=== PATIENT | male | born 1975 | race Caucasian/White ===

== ENCOUNTER 2022-06-25 07:26 | Emergency (ER) | payer MEDICAID, SELFPAY ==
[2022-06-25 07:58] VITALS: BP 149/76; PULSE 90; RESP 16; TEMP 36.9; O2SAT 98; BMI 25.1
--- NOTE | 2022-06-25 08:03 | ED.GENADULT ---
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 he had n/v/d states he feels fine now has been resting, drinking without issue, ate dinner last night. has no dizziness/weakness. feels good to go to work today but employer wants a work note to return. complaint: requesting work note Onset (ago): day(s) (1) Severity: mild Relieving factors: none Exacerbating factors: none Associated symptoms: denies other symptoms Treatments prior to arrival: none Related Data Allergies Allergy/AdvReac Type Severity Reaction Status Date / Time No Known Allergies Allergy Unverified 05/16/20 18:21 Review of Systems Review of Systems: Constitutional : No Fever, No Chills Cardiovascular : No Chest Pain, No SOB Respiratory : No Cough, No Sputum, No Wheezing Gastrointestinal : No Nausea, No Vomiting, No Diarrhea Musculoskeletal : No joint pain, No Myalgias, No Joint Swelling Skin : No Skin Lesions, No rash Neuro : No Weakness, No Numbness, No Dizziness, No Headache Psych : No Anxiety/Panic, No Depression PMFSH Past Medical History Attestation statement: The following information was validated with the patient. Medical History No pertinent past medical history Social History Social History (Updated 06/25/22 @ 08:13 by Kaela Duke DO) Patient Tobacco Use Status: Current everyday Tobacco user Advance Directives: No Physical Exam ED Vital Signs: Vital Signs - 24 hr 06/25/22 07:58 Temperature 98.4 F Pulse Rate 90 Respiratory Rate 16 Blood Pressure 149/76 H Pulse Oximetry 98 Oxygen Delivery Method Room Air BMI result Body Mass Index 25.1 Appearance: Alert. Oriented X3. No acute distress. Eyes: Pupils equal, round and reactive to light. ENT: Pharynx normal. Neck: Normal inspection. Neck supple. CVS: Normal heart rate and rhythm. Pulses normal. Respiratory: No respiratory distress. Breath sounds normal. Abdomen: Soft and non-tender. Skin: Skin warm and dry. Normal skin color. Extremities: No lower extremity edema. Neuro: Oriented X 3. No motor deficit. No sensory deficit. Medical Decision Making MDM Narrative Medical decision making narrative: 47 yo male no sig PMH here with c/o needing work note - VS stable, no symptoms now, eager to return to work. stable for DC at this time Discharge Plan Discharge Clinical Impression: Normal exam Patient Disposition: Home, Self-Care Instructions: Normal Exam (ED) Additional Instructions: return to ED for any worsening symptoms or concerns Stand Alone Forms: Work/School Release
== END 2022-06-25 09:01 | disposition home or self-care (01) ==
PROVIDERS: Emergency Provider Emergency Medicine
DX: Z02.1 Encounter for pre-employment examination (principal)
CPT/HCPCS: 99282

== ENCOUNTER 2022-12-03 08:35 | Emergency (ER) | payer OTHER, SELFPAY ==
[2022-12-03 08:41] VITALS: BP 158/97; PULSE 118; RESP 14; TEMP 36.5; O2SAT 95; BMI 25.1
--- NOTE | 2022-12-03 08:50 | MHC.EDTECH ---
BELONGINGS IN LARGE ZIP LOCK BAGS IN DECON ROOM WITH SECURITY
--- NOTE | 2022-12-03 09:06 | ED_ITS ---
HPI - Overdose General Chief Complaint: ETOH/Substance Use Stated Complaint: FOUND UNRESP,?ETOH/DRIGS @ WORK,NARCAN GIVEN Time Seen by Provider: 12/03/22 09:17 Source: EMS Mode of arrival: EMS Limitations: no limitations History of Present Illness HPI Narrative: 47 years old was found unresponsive at work, EMS administered Narcan he is now awake and alert, denies SI and HI, he admits to use heroin complaint: accidental overdose Onset (ago): hour(s) (1) Intent: other (accidental) Context: Accidental Overdose: wanted to get high Treatments Prior to Arrival: narcan Related Data Allergies Allergy/AdvReac Type Severity Reaction Status Date / Time No Known Allergies Allergy Unverified 05/16/20 18:21 Review of Systems Constitutional: Constitutional: Reports no additional constitutional complaints ENT: Reports system reviewed and no additional complaints, except as documented Cardiovascular: Cardiovascular: Reports no additional cardiovascular complaints Psychiatric: Psychiatric: Reports no additional psychiatric complaints PMFSH [facility] N[facility]: History of opioid abuse Medical History No pertinent past medical history Social History Social History (Updated 06/25/22 @ 08:13 by Kaela Duke DO) Alcohol intake: current Patient Tobacco Use Status: Current everyday Tobacco user Smoked in Last 30 Days: Yes Use of substances other than those prescribed or required for medical reasons: Yes Substance Use Type: Heroin Advance Directives: No Advance Directives Information Provided: No Physical Exam Vital Signs: Vital Signs: Last Vital Signs Temp 98.0 F 12/03/22 14:18 Pulse 95 12/03/22 14:18 Resp 18 12/03/22 14:18 BP 133/92 H 12/03/22 14:18 Pulse Ox 93 12/03/22 14:18 O2 Del Method Room Air 12/03/22 14:18 BMI result Body Mass Index 25.1 Const: General: cooperative Nutritional Appearance: well nourished Orientation/consciousness: patient oriented x3 HEENT: Head: Yes normal to inspection Face and sinus: Yes normal facial exam Neck: Neck: Yes normal visual inspection and Yes full ROM Chest: Chest palpation & inspection: normal inspection of the chest Resp: Effort & Inspection: normal respiratory effort Auscultation: clear to auscultation bilaterally Cardio: Jugular venous distension: no JVD Rate: regular rate Rhythm: regular rhythm GI: Inspection: Yes normal to inspection Palpation (GI): Soft to palpation, not firm, nontender and no guarding Skin: General skin exam: no rashes or lesions noted Neuro: General: patient oriented x3 Cranial nerves: Yes CN's II-XII intact bilaterally Extrem: General: Yes normal to inspection Course Reevaluation(s) Reevaluation #1: Patient was seen in consultation by Care Team he declined detox Time: 14:58 Medications Administered Discontinued Medications Generic Name Dose Route Start Last Admin Trade Name Freq PRN Reason Stop Dose Admin Naloxone HCl 4 mg 12/03/22 12:24 12/03/22 14:21 Naloxone Hcl Nasal Take Home 4 Mg [place] NOSTRILALT 12/03/22 12:25 4 mg ONCE ONE Administration Medical Decision Making Medical Decision Making [facility] Narrative: Present presented with heroin overdose, will consult care team will observe 2:59 PM better 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
[2022-12-03 11:15] VITALS: PULSE 99; RESP 12
--- NOTE | 2022-12-03 11:22 | PC.NURSE ---
requesting dc. flores from recovery contacted
--- NOTE | 2022-12-03 12:16 | MHC.RECOVSUP ---
Met with pt in ED19. Pt reports having been sober for years and this was a one time slip up. Pt informs he had a bad sprained ankle and took 1 bag of heroin nasally to self medicate for the pain. 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 Pt has no further questions or concerns at this time.
[2022-12-03 14:18] VITALS: BP 133/92; PULSE 95; RESP 18; TEMP 36.7; O2SAT 93
[2022-12-03] MEDS: Naloxone HCl Nasal TAKE HOME 4 MG SPRAY NOSTRILALT (14:21)
== END 2022-12-03 15:05 | disposition home or self-care (01) ==
PROVIDERS: Emergency Provider Emergency Medicine
DX: T40.1X1A Poisoning by heroin, accidental (unintentional), initial encounter (principal); Y92.9 Unspecified place or not applicable; Z71.51 Drug abuse counseling and surveillance of drug abuser
CPT/HCPCS: 99284

== ENCOUNTER 2024-10-14 07:28 | Inpatient (IN) | payer MEDICAID, SELFPAY ==
[2024-10-14] VITALS (7 sets, daily range): BP systolic 108–143; BP diastolic 71–87; PULSE 103–133; RESP 18–20; TEMP 2.7–37.3; O2SAT 92–95; BMI 22.7
--- NOTE | ~2024-10-14 | US_ITS ---
CLINICAL HISTORY: abnormal liver enzymes elevated jaundice Exam: Ultrasound of the right upper quadrant of the abdomen. Comparison: None. Findings: Liver measures 22 cm in long axis. Dense increased echotexture throughout the liver without focal lesion or intrahepatic biliary ductal dilatation. Common bile duct is within normal limits. Moderate distention of the gallbladder without gallbladder wall thickening or cholelithiasis. Small volume ascites. Impression: 1. Hepatomegaly with dense increased hepatic echotexture. This can be seen with fatty infiltration or medical liver disease. 2. Ascites. This is likely a sequelae of the patient's hepatic disease and portal hypertension. This document has been electronically signed by: Memo Henriquez MD on 10/14/2024 08:34:40
--- NOTE | ~2024-10-14 | US_ITS ---
Ultrasound paracentesis History: Ascites. Risks and benefits and possible complications were discussed with the patient and consent form was signed. A safe pocket of ascitic fluid was identified using ultrasound guidance, and the overlying skin was marked. The abdomen prepped and draped in sterile fashion. 1% lidocaine was used as a local anesthetic. Using ultrasound guidance, a 5 fr catheter was placed into the ascitic pocket. 3.0 liters of yellow fluid was removed passively. The catheter was then removed. A few guest service representative images from before and after the examination were obtained. The procedure was performed by Bj Copeland PA-C and supervised by Dr. Beavers. US/US paracentesis abd w/image Impression: Ultrasound-guided paracentesis as described above. No immediate complications Electronically signed by: Tavares Beavers MD 11/07/2024 03:09 PM EDT RP
--- NOTE | ~2024-10-14 | XR_ITS ---
CLINICAL HISTORY: weakness 1 view chest x-ray Comparison: None Findings: The lungs are clear. There is elevation of the right hemidiaphragm. Normal size heart. No acute fracture. IMPRESSION: There is elevation of the right hemidiaphragm. This document has been electronically signed by: Cedric Gil MD on 10/14/2024 10:02:46
--- NOTE | 2024-10-14 07:41 | ECG_ITS ---
Test Reason : SEPSIS Blood Pressure : */* mmHG Vent. Rate : 104 BPM Atrial Rate : 104 BPM P-R Int : 116 ms QRS Dur : 102 ms QT Int : 382 ms P-R-T Axes : 44 21 36 degrees QTcB Int : 502 ms Sinus tachycardia Low voltage QRS Borderline ECG No previous ECGs available Referred By: Kaela Duke Electronically Signed By: TANIA LIRA MD
--- NOTE | 2024-10-14 07:53 | ED.ABDPAIN ---
HPI - Abdominal Pain General Chief Complaint: Abdominal Pain Stated Complaint: Loss of appetite; jaundice Time Seen by Provider: 10/14/24 07:33 Source: patient and old records reviewed Mode of arrival: ambulatory Limitations: no limitations History of Present Illness ED Provider: DARLENE ALVAREZ narrative: 49 yo male with PMH of ETOH abuse with withdrawal seizure in 2022 managed at [facility], denies IVDA, no known issues with liver. He does not take any medications at home. He has noticed increased fatigue, yellow eyes, leg swelling, abdominal girth, feels dehydrated though for 1 month. No recent infections/OTC meds. He drinks a tall boy and 4+ nips a day but admits that he never stops drinking and keeps a steady state. He denies black or bloody stools, fevers. He does have frequent n/v. MD elicited complaint: other Pertinent past history: other (ETOH abuse) Onset (ago): week(s) (1) Pain Consistency: intermittent Location: diffuse Severity: mild Quality: aching Radiation: none Migration to: no migration Exacerbating factors: eating and movement Relieving factors: nothing Associated symptoms: nausea and vomiting Related Data Allergies Allergy/AdvReac Type Severity Reaction Status Date / Time No Known Allergies Allergy Verified 10/14/24 07:36 Review of Systems Review of Systems Constitutional : No Fever, No Chills, No Fatigue ENT/Mouth : No sore throat, No Rhinorrhea Eyes: No Eye Pain, No Swelling, No Redness Cardiovascular : No Chest Pain, No SOB, No Dyspnea on Exertion, pos leg edema Respiratory : No Cough, No Sputum Gastrointestinal : pos Nausea, pos Vomiting, No Diarrhea, No abdominal Pain Genitourinary : No Dysuria, No Urinary Frequency, No Hematuria, Musculoskeletal : No joint pain, No Myalgias, No Joint Swelling Skin : No Skin Lesions, No rash Neuro : pos Weakness, No Numbness, No Dizziness, no Headache Psych : No Anxiety/Panic, No Depression All other systems reviewed and are negative [facility] Past Medical History Attestation statement: The following information was validated with the patient. Source: old records reviewed Medical History No pertinent past medical history Social History Social History Alcohol intake: current Patient Tobacco Use Status: Current everyday Tobacco user Substance Use Type: Heroin Advance Directives: No Advance Directives Information Provided: No Do you have a plan to hurt others: No Plan Physical Exam ED Vital Signs: Vital Signs - 24 hr 10/14/24 07:32 10/14/24 09:34 Temperature 98.1 F 98.2 F Pulse Rate 133 H 103 H Respiratory Rate 18 19 Blood Pressure 112/74 117/79 Pulse Oximetry 94 93 Oxygen Delivery Method Room Air Room Air BMI result Body Mass Index 22.7 Appearance: Alert. Oriented X3. No acute distress. Eyes: Pupils equal, round and reactive to light. Scleral icterus ENT: Pharynx very dry MM Neck: Normal inspection. Neck supple. CVS: Normal heart rate and rhythm. Pulses normal. Respiratory: No respiratory distress. Breath sounds normal. Abdomen: Soft and distended abdomen mild ascites Skin: Skin warm and dry. jaundice skin color. Normal skin turgor. Extremities: 1+ pitting ankle edema lower extremity edema. Neuro: Oriented X 3. No motor deficit. No sensory deficit. CN2-12 intact Course Course Course Narrative: possible infection suspected given WBC count and CRP I cannot tap his fluid given position of bowels will start ceftriaxone 926am. Medical Decision Making Medical Decision Making [facility] Narrative: 49 yo male with hx of ETOH abuse and withdrawal seizure 2022 now here still drinking with new onset ascites/leg edema and jaundice for 1 month at this time will obtain basic labs, hep panel, tylenol level, US to evaluate liver/GB. He will need to be started on magnesium, thiamine, phenobarb protocol - will start gentle fluids and IV albumin as well. Anticipate admission for ETOH hepatitis. he has no pain to suggest SBP I did look with bedside US for a pocket of fluid to test but he has no large pocket and his intestines are approximating the wall - both L and R sides of abdomen Differential Diagnosis Differential Diagnoses: The differential diagnosis associated with the presentation includes hepatitis, alcoholic hepatitis, dehydration, flory no pain or fevers to suggest SBP Admission/Observation Consideration of admission/observation: Escalation of care including admission/observation considered admit for further management and workup Consult Healthcare Provider Management of the patient was discussed with: Hospitalist (Dr. Alexander will admit) Lab Data [facility] Lab Attestation statement: I reviewed the patient's lab results. 10/14/24 08:43 10/14/24 08:40 Labs: Lab Results 10/14/24 10/14/24 10/14/24 Range/Units 08:40 08:43 08:44 WBC 15.8 H (4.8-10.8) X10*3/uL RBC 2.82 L (4.60-5.80) X10*6/uL Hgb 10.3 L (14.0-18.0) g/dl Hct 30.4 L (42.0-52.0) % MCV 107.8 H (80.0-98.0) fL MCH 36.5 H (27.0-33.0) pg MCHC 33.9 (31.0-36.0) g/dl RDW 16.1 H (11.0-16.0) % Plt Count 206 (160-400) X10*3/uL MPV 10.3 (9.4-12.4) fL Immature Gran % (Auto) 1.3 H (0.0-0.4) % Neut % (Auto) 79.9 H (45-73) % Lymph % (Auto) 10.0 L (20-40) % [place] % (Auto) 6.6 (2-11) % Eos % (Auto) 1.7 (0-4) % Baso % (Auto) 0.5 (0-2) % Lymph # (Auto) 1.6 (1.2-4.9) X10*3/uL [place] # (Auto) 1.0 (0.1-1.2) X10*3/uL Eos # (Auto) 0.3 (0.0-0.4) X10*3/uL Baso # (Auto) 0.1 (0.0-0.2) X10*3/uL Abs Immat Gran (auto) 0.20 H (0.00-0.03) X10*3/uL Absolute Neuts (auto) 12.6 H (2.0-8.3) x10*3/uL Absolute Nucleated RBC 0.090 H (0.0-0.012) X10*3/uL Nucleated RBC % (auto) 0.6 H (0.0-0.2) /100WBC PT 13.8 H (10.9-12.4) SEC INR 1.2 H (0.9-1.1) VBG pH 7.50 H (7.32-7.43) VBG pCO2 38 mmHg VBG pO2 32 mmHg VBG HCO3 30 H (22-26) mmol/L VBG O2 Saturation 40.0 % VBG Base Excess 7.0 mmol/L Sodium 137 (135-145) mmol/L Potassium 3.6 (3.3-5.1) mmol/L Chloride 97 (96-108) mmol/L Carbon Dioxide 23 (22-29) mmol/L Anion Gap 21 H (12-20) BUN 3 L (9-16) mg/dL Creatinine 0.64 (0.5-1.4) mg/dL Estim Creat Clear Calc 138.9 Estimated GFR > 60 Random Glucose 95 (60-115) mg/dL Lactic Acid (0.5-2.0) mmol/L Calcium 8.2 L (8.4-10.2) mg/dL Magnesium 1.5 L (1.6-2.6) mg/dL Total Bilirubin 5.7 H (0.0-1.0) mg/dL Direct Bilirubin 4.3 H (0.0-0.5) mg/dL AST 146 H (5-37) U/L ALT 35 (0-40) U/L Alkaline Phosphatase 518 H (39-117) U/L Ammonia (13-55) umol/L Lactate Dehydrogenase 390 H (118-273) U/L C-Reactive Protein 6.61 H (< or = 0.50) mg/dL Total Protein 6.1 L (6.5-8.0) g/dL Albumin 2.8 L (3.5-5.0) g/dL Lipase 42 (8-78) U/L Urine Color Urine Appearance Urine pH (5.0-9.0) Ur Specific Bryan (1.005-1.025) Urine Protein (Neg-Trace) mg/dL Urine Glucose (UA) (Negative) mg/dL Urine Ketones (Negative) mg/dL Urine Blood (Negative) Urine Nitrite (Negative) Ur Leukocyte Esterase (Negative) Urine Opiates Screen (Not Detect) Ur Buprenorphine Scrn (Not Detect) ng/mL Ur Oxycodone Screen (Not Detect) ng/mL Urine Methadone Screen (Not Detect) ng/mL Urine Fentanyl Screen (Not Detect) Acetaminophen < 3 (<30) mcg/mL Ur Barbiturates Screen (Not Detect) Ur Phencyclidine Scrn (Not Detect) Ur Amphetamines Screen (Not Detect) U Benzodiazepines Scrn (Not Detect) Urine Cocaine Screen (Not Detect) U Marijuana (THC) Screen (Not Detect) Ethyl Alcohol 171 mg/dL Hepatitis A IgM Ab Nonreactive (Nonreactive) Hep Bs Antigen Negative (Negative) Hep Bs Antibody NONREACTIVE (Nonreactive) Hep B Core Total Ab Nonreactive (Nonreactive) Hepatitis C Ab (EIA) Nonreactive (Nonreactive) Influenza Type A (PCR) NEGATIVE (Negative) Influenza Type B (PCR) NEGATIVE (Negative) RSV RNA Qual (PCR) NEGATIVE (Negative) SARS-CoV-2 RNA (RT-PCR) NEGATIVE (Negative) 10/14/24 10/14/24 10/14/24 Range/Units 08:48 09:23 09:56 WBC (4.8-10.8) X10*3/uL RBC (4.60-5.80) X10*6/uL Hgb (14.0-18.0) g/dl Hct (42.0-52.0) % MCV (80.0-98.0) fL MCH (27.0-33.0) pg MCHC (31.0-36.0) g/dl RDW (11.0-16.0) % Plt Count (160-400) X10*3/uL MPV (9.4-12.4) fL Immature Gran % (Auto) (0.0-0.4) % Neut % (Auto) (45-73) % Lymph % (Auto) (20-40) % [place] % (Auto) (2-11) % Eos % (Auto) (0-4) % Baso % (Auto) (0-2) % Lymph # (Auto) (1.2-4.9) X10*3/uL [place] # (Auto) (0.1-1.2) X10*3/uL Eos # (Auto) (0.0-0.4) X10*3/uL Baso # (Auto) (0.0-0.2) X10*3/uL Abs Immat Gran (auto) (0.00-0.03) X10*3/uL Absolute Neuts (auto) (2.0-8.3) x10*3/uL Absolute Nucleated RBC (0.0-0.012) X10*3/uL Nucleated RBC % (auto) (0.0-0.2) /100WBC PT (10.9-12.4) SEC INR (0.9-1.1) VBG pH (7.32-7.43) VBG pCO2 mmHg VBG pO2 mmHg VBG HCO3 (22-26) mmol/L VBG O2 Saturation % VBG Base Excess mmol/L Sodium (135-145) mmol/L Potassium (3.3-5.1) mmol/L Chloride (96-108) mmol/L Carbon Dioxide (22-29) mmol/L Anion Gap (12-20) BUN (9-16) mg/dL Creatinine (0.5-1.4) mg/dL Estim Creat Clear Calc Estimated GFR Random Glucose (60-115) mg/dL Lactic Acid 3.5 H* (0.5-2.0) mmol/L Calcium (8.4-10.2) mg/dL Magnesium (1.6-2.6) mg/dL Total Bilirubin (0.0-1.0) mg/dL Direct Bilirubin (0.0-0.5) mg/dL AST (5-37) U/L ALT (0-40) U/L Alkaline Phosphatase (39-117) U/L Ammonia 49 (13-55) umol/L Lactate Dehydrogenase (118-273) U/L C-Reactive Protein (< or = 0.50) mg/dL Total Protein (6.5-8.0) g/dL Albumin (3.5-5.0) g/dL Lipase (8-78) U/L Urine Color Yellow Urine Appearance Clear Urine pH 7.5 (5.0-9.0) Ur Specific Bryan <= 1.005 (1.005-1.025) Urine Protein Negative (Neg-Trace) mg/dL Urine Glucose (UA) Negative (Negative) mg/dL Urine Ketones Negative (Negative) mg/dL Urine Blood Negative (Negative) Urine Nitrite Negative (Negative) Ur Leukocyte Esterase Negative (Negative) Urine Opiates Screen Not Detected (Not Detect) Ur Buprenorphine Scrn Not Detected (Not Detect) ng/mL Ur Oxycodone Screen Not Detected (Not Detect) ng/mL Urine Methadone Screen Not Detected (Not Detect) ng/mL Urine Fentanyl Screen Not Detected (Not Detect) Acetaminophen (<30) mcg/mL Ur Barbiturates Screen POSITIVE H (Not Detect) Ur Phencyclidine Scrn Not Detected (Not Detect) Ur Amphetamines Screen Not Detected (Not Detect) U Benzodiazepines Scrn Not Detected (Not Detect) Urine Cocaine Screen Not Detected (Not Detect) U Marijuana (THC) Screen Not Detected (Not Detect) Ethyl Alcohol mg/dL Hepatitis A IgM Ab (Nonreactive) Hep Bs Antigen (Negative) Hep Bs Antibody (Nonreactive) Hep B Core Total Ab (Nonreactive) Hepatitis C Ab (EIA) (Nonreactive) Influenza Type A (PCR) (Negative) Influenza Type B (PCR) (Negative) RSV RNA Qual (PCR) (Negative) SARS-CoV-2 RNA (RT-PCR) (Negative) Independent Interpretation I performed an independent interpretation of an: EKG and Ultrasound (no GB pathology ) Interpretation: Rate: 104 Rhythm: sinus tach [place]: normal Normal P waves. Normal RAE. Normal QRS complex. ST T wave : no VY, flat t waves inf leads qTC: 502 prior studies: prolonged QT The study has been interpreted contemporaneously by me. . Radiology Impression Discussion of test interpretation with radiology: I have reviewed the radiologist's reading. External Record Review External record reviewed: Outpatient record Medications Administered Generic Name Dose Route Start Last Admin Trade Name Freq PRN Reason Stop Dose Admin Sodium Chloride 1,000 mls @ 100 mls/hr 10/14/24 08:00 10/14/24 08:55 Ns IVCONT 100 mls/hr .Q10H KACI Administration Discontinued Medications Generic Name Dose Route Start Last Admin Trade Name Freq PRN Reason Stop Dose Admin Ceftriaxone Sodium 1 gm 10/14/24 09:26 10/14/24 10:02 Ceftriaxone Sodium 1 Gm Vial IVPUSH 10/14/24 09:27 1 gm ONCE ONE Administration Magnesium Sulfate 2 gm in 50 mls @ 25 mls/hr 10/14/24 07:48 10/14/24 08:55 Magnesium Sulfate/H2o IV 10/14/24 09:47 25 mls/hr ONCE ONE Administration Thiamine HCl 200 mg/ Sodium 102 mls @ 204 mls/hr 10/14/24 07:48 10/14/24 10:04 Chloride IV 10/14/24 08:17 Infused ONCE ONE Infusion Pantoprazole Sodium 40 mg 10/14/24 07:59 10/14/24 08:55 Pantoprazole Sodium 40 Mg/10 Ml Vial IVPUSH 10/14/24 08:00 40 mg ONCE ONE Administration Phenobarbital Sodium 226 mg 10/14/24 09:00 10/14/24 08:55 Phenobarbital Sodium 130 Mg/Ml Im Once IM 10/14/24 09:01 226 mg ONCE ONE Administration Protocol Critical Care Time Critical Care Time Critical Care Time: Yes Total Critical Care Time: 45 Attestation: IV magnesium, bedside US, admission, phenobarb protocol I attest to this time spent taking care of the patient Discharge Plan Discharge Clinical Impression: Hypomagnesemia, Elevated WBC count, Acute alcoholic hepatitis Patient Disposition: Admitted As Inpatient Print Language: Faroese
[2024-10-14 08:45] LABS: MANUAL DIFF FLAG NO
[2024-10-14 08:47] LABS: Basophils Absolute Auto 0.1 X10*3/uL (0.0-0.2); Basophils Percent Auto 0.5 % (0-2); Eosinophils Absolute Auto 0.3 X10*3/uL (0.0-0.4); Eosinophils Percent Auto 1.7 % (0-4); Hematocrit 30.4 % (42.0-52.0); Hemoglobin 10.3 g/dl (14.0-18.0); Imm Gran Pct Auto 1.3 % (0.0-0.4); Lymphocytes Absolute Auto 1.6 X10*3/uL (1.2-4.9); Mean Corpuscular HGB Conc 33.9 g/dl (31.0-36.0); Mean Corpuscular Hemoglobin 36.5 pg (27.0-33.0); Mean Corpuscular Volume 107.8 fL (80.0-98.0); Mean Platelet Volume 10.3 fL (9.4-12.4); Monocytes Percent Auto 6.6 % (2-11); NRBC Pct Auto 0.6 /100WBC (0.0-0.2); Neutrophils Absolute Auto 12.6 x10*3/uL (2.0-8.3); Neutrophils Percent Auto 79.9 % (45-73); Platelet Count 206 X10*3/uL (160-400); Red Blood Count 2.82 X10*6/uL (4.60-5.80); Red Cell Distribution Width 16.1 % (11.0-16.0); White Blood Count 15.8 X10*3/uL (4.8-10.8)
[2024-10-14 08:49] LABS: Venous Blood Gas Refer to POC result
[2024-10-14 08:51] LABS: VBG HCO3 30 mmol/L (22-26); VBG pCO2 38 mmHg; VBG pO2 32 mmHg
[2024-10-14 08:54] LABS: INTERNATIONAL NORM RATIO 1.2 (0.9-1.1); Prothrombin Time 13.8 SEC (10.9-12.4)
[2024-10-14] MEDS: PHENobarbitaL sodium 130 MG/ML IM ONCE 226 MG IM (08:55)
[2024-10-14] MEDS: 0.9 % Sodium Chloride 1,000 ML 100 ML IVCONT (08:55)
[2024-10-14] MEDS: Magnesium Sulfate/H2O 2 GM/50 ML PIGGYBACK IV ×2 (08:55→16:22)
[2024-10-14] MEDS: Pantoprazole Sodium 40 MG/10 ML VIAL IVPUSH (08:55)
[2024-10-14] MEDS: Thiamine HCL 200 MG in 0.9 % Sodium Chloride 100 ML 204 MG IV ×2 (08:55→21:44)
[2024-10-14 09:01] LABS: Ammonia 49 umol/L (13-55)
[2024-10-14 09:02] LABS: Anion Gap 21 (12-20)
[2024-10-14 09:06] LABS: Acetaminophen LAB < 3 mcg/mL (<30); Alanine Aminotransferase 35 U/L (0-40); Albumin Level 2.8 g/dL (3.5-5.0); Alkaline Phosphatase 518 U/L (39-117); Aspartate Amino Transferase 146 U/L (5-37); Bilirubin Direct 4.3 mg/dL (0.0-0.5); Bilirubin Total 5.7 mg/dL (0.0-1.0); Blood Urea Nitrogen 3 mg/dL (9-16); C Reactive Protein 6.61 mg/dL (< or = 0.50); Calcium 8.2 mg/dL (8.4-10.2); Carbon Dioxide 23 mmol/L (22-29); Chloride 97 mmol/L (96-108); Creatinine Clr Calc Pharmacy 138.9; Estimated Glomerular Filt Rate > 60; Ethanol 171 mg/dL; Glucose Random 95 mg/dL (60-115); Lipase 42 U/L (8-78); Magnesium 1.5 mg/dL (1.6-2.6); Potassium 3.6 mmol/L (3.3-5.1); Sodium 137 mmol/L (135-145); Total Protein 6.1 g/dL (6.5-8.0)
[2024-10-14 09:12] LABS: Lactate Dehydrogenase 390 U/L (118-273)
[2024-10-14 09:24] LABS: Influenza A PCR NEGATIVE (Negative); Influenza B PCR NEGATIVE (Negative); Resp Syncy Virus RNA Qual PCR NEGATIVE (Negative); SARS COV2 PCR INHOUSE NEGATIVE (Negative)
[2024-10-14 09:26] LABS: HBc Num1 0.15 S/CO (0.00-0.79); HBsAGNum1 0.29 S/CO (0.00-0.99); Hepatitis A Antibody IgM 0.26 Index (0-0.79); Hepatitis B Core Antibody Nonreactive (Nonreactive); Hepatitis B Surface Antigen Negative (Negative); ~HepC Num1 0.23 S/CO (0.00-0.79); ~Hepatitis A Antibody IgM Nonreactive (Nonreactive); ~Hepatitis B Surface Antibody NONREACTIVE (Nonreactive); ~Hepatitis C Antibody Nonreactive (Nonreactive)
[2024-10-14 10:00] LABS: Lactic Acid 3.5 mmol/L (0.5-2.0)
[2024-10-14] MEDS: cefTRIAXone sodium 1 GM VIAL IVPUSH (10:02)
[2024-10-14 10:07] LABS: Appearance Urine Clear; Color Urine Yellow; Glucose Urine UA Negative (Negative); Leukocyte Esterase Urine Negative (Negative); Nitrite Urine Negative (Negative); PH 7.5 (5.0-9.0); Specific Gravity - Urine <= 1.005 (1.005-1.025); Urine Blood Negative (Negative); Urine Ketones Negative (Negative); Urine Protein Negative (Neg-Trace)
[2024-10-14 10:14] LABS: Amphetamine Screen Urine Not Detected (Not Detect); Barbiturates, Urine POSITIVE (Not Detect); Benzodiazepines Screen Urine Not Detected (Not Detect); Buprenorphine Scr Not Detected (Not Detect); Cannabinoid Screen Urine Not Detected (Not Detect); Cocaine Screen Urine Not Detected (Not Detect); Fentanyl, urine Not Detected (Not Detect); Methadone Screen, Urine Not Detected (Not Detect); Opiate Screen Urine Not Detected (Not Detect); Oxycodone Screen Urine Not Detected (Not Detect); Phencyclidine Screen Urine Not Detected (Not Detect)
[2024-10-14] MEDS: Albumin Human 25 % 100 ML IV (11:09)
--- NOTE | 2024-10-14 11:20 | P.HPHOSP_ITS ---
History of Present Illness Date of Service: 10/14/24 Attending physician on admission: [facility] Chief Complaint: Abdominal swelling and jaundice Pt is a 49-year-old male with a PMH significant for polysubstance use disorder, alcohol use disorder, hx?of withdrawal seizure in 2022 managed at [facility], not on meds who presents to the ED with?abdominal pain, swelling, jaundice, and loss of appetite. Pt reports symptoms began approximately 1 2 months ago when he noticed his abdomen swelling. Has experienced an intermittent lower abdominal pain he describes as a dull, bloating pressure. States he has never experienced similar symptoms of jaundice and abdominal swelling before. Has also had occasional nausea vomiting, and reduced p.o. intake secondary to nausea. Also had ?coughing fits? for the past 2 weeks, mostly nonproductive. Denies fever or chills. No chest pain/pressure, palpitations. Denies shortness or breath or difficulty breathing. Reports has been drinking daily for the past 20-30 years. Reports he has cut back drinking and currently only ?maintains? with 1 tall boy and 4-5 shots. Denies increased anxiety, diaphoresis, auditory/visual/tactile hallucinations. No tremors. Pt also prefers not meeting with the Addiction medicine, as he has seen them multiple times over the years and prefers to not waist there time. States he realizes it is up to himself to stopped drinking. In the ED pt was tachycardic to 133, vitals otherwise WNL and stable. Labs were significant for leukocytosis 15.8, microcytic anemia of 10.3/30.4, MCV 107.8, lactic acid 3.5, magnesium 1.5, T bili 5.7, direct bili 4.3, AST 146, alk-phos 518, lactate dehydrogenase 390, CRP 6.61, and albumin 2.8. UA negative for UTI. Tox screen positive for barbiturates and ethyl alcohol 171. Tested negative for flu, RSV, and COVID. CXR showed elevation of right hemidiaphragm, otherwise clear lungs. Abdominal ultrasound showed hepatomegaly with dense hepatic echotexture as well as ascites likely sequela of patient's hepatic disease and portal hypertension. In the ED bedside U/S found no drainable pocket of ascites. EKG demonstrated sinus tachycardia of 104 with QT 502 with no evidence of significant ST elevations or depressions. Pt was treated with IVF, Mag sulfate, thiamine, Protonix, albumin, ceftriaxone, and started on phenobarb protocol. Pt will be admitted to the hospital for treatment and further evaluation of new onset ascites and jaundice secondary to acute alcoholic hepatitis as well as impending alcohol withdrawal. Review of Systems 2 Review of Systems: Negative except for that which is stated in the [facility] Medical History Alcohol use disorder No pertinent past medical history Social History Alcohol intake: current Patient Tobacco Use Status: Current everyday Tobacco user Substance Use Type: Heroin Advance Directives: No Advance Directives Information Provided: No Do you have a plan to hurt others: No Plan Meds Allergies Allergy/AdvReac Type Severity Reaction Status Date / Time No Known Allergies Allergy Verified 10/14/24 07:36 Active Medications: Current Medications Sodium Chloride (Ns) 1,000 mls @ 100 mls/hr IVCONT .Q10H KACI Last Admin: 10/14/24 08:55 Dose: 100 mls/hr Albumin Human (Kedbumin 25 %) 100 mls @ 100 mls/hr IV Q6H KACI Stop: 10/14/24 14:59 Last Admin: 10/14/24 11:09 Dose: 100 mls/hr Pharmacy Consult (Consult Rx Etoh Phenob Im/Po) 1 each MISCELLANE ONCE PRN; Protocol PRN Reason: Consult order Phenobarbital (Phenobarbital 30 Mg Tablet) 60 mg PO BID KACI; Protocol Stop: 10/16/24 09:01 Phenobarbital (Phenobarbital 30 Mg Tablet) 30 mg PO BID KACI; Protocol Stop: 10/18/24 09:01 Phenobarbital (Phenobarbital 30 Mg Tablet) 30 mg PO DAILY KACI; Protocol Stop: 10/20/24 09:01 Phenobarbital Sodium (Phenobarbital Sodium 130 Mg/Ml Vial Im Q3hx2) 170 mg IM Q3H KACI; Protocol Stop: 10/14/24 15:01 Home Medications ?Medication ?Instructions ?Recorded ?Confirmed ?Last Taken ?Type No Known Home Meds 10/14/24 10/14/24 Unknown History Physical Exam 2 Vital Signs and Narrative: Vital Signs: Last Vital Signs Temp 98.2 F 10/14/24 09:34 Pulse 103 H 10/14/24 09:34 Resp 19 10/14/24 09:34 BP 117/79 10/14/24 09:34 Pulse Ox 93 10/14/24 09:34 O2 Del Method Room Air 10/14/24 09:34 BMI result Body Mass Index 22.7 Constitutional: Alert, in no acute distress. Mental Status: Oriented to person, place and time. Eyes: Pupils are equal, round, and reactive to light. Sclera icteric Ear, Nose, and Throat: Oropharynx clear, mucous membranes moist. Ears and nose without deformities. Trachea midline. Respiratory: Clear to auscultation bilaterally. No wheezing, rales, or rhonchi. Cardiovascular: S1, S2 regular rhythm, tachycardic. No murmurs, rubs, or gallops. Gastrointestinal: Abdomen soft, moderately distended and with mild periumbilical tenderness. Normal bowel sounds. Neurologic: Cranial nerves II-XII are grossly intact bilaterally. No focal neurological deficits. Moves all extremities spontaneously. Skin: Mildly jaundiced. Extremities: No edema. Psychiatric: Normal mood and affect. Results Labs 10/14/24 08:43 10/14/24 08:40 Labs: Laboratory Results - last 24 hr 10/14/24 10/14/24 10/14/24 08:40 08:43 08:44 MCV 107.8 H MCH 36.5 H MCHC 33.9 RDW 16.1 H Plt Count 206 MPV 10.3 Immature Gran % (Auto) 1.3 H Neut % (Auto) 79.9 H Lymph % (Auto) 10.0 L [place] % (Auto) 6.6 Eos % (Auto) 1.7 Baso % (Auto) 0.5 Lymph # (Auto) 1.6 [place] # (Auto) 1.0 Eos # (Auto) 0.3 Baso # (Auto) 0.1 Abs Immat Gran (auto) 0.20 H Absolute Neuts (auto) 12.6 H Absolute Nucleated RBC 0.090 H Nucleated RBC % (auto) 0.6 H PT 13.8 H INR 1.2 H VBG pH 7.50 H VBG pCO2 38 VBG pO2 32 VBG HCO3 30 H VBG O2 Saturation 40.0 VBG Base Excess 7.0 Anion Gap 21 H Estim Creat Clear Calc 138.9 Estimated GFR > 60 Random Glucose 95 Lactic Acid Calcium 8.2 L Magnesium 1.5 L Total Bilirubin 5.7 H Direct Bilirubin 4.3 H AST 146 H ALT 35 Alkaline Phosphatase 518 H Ammonia Lactate Dehydrogenase 390 H C-Reactive Protein 6.61 H Total Protein 6.1 L Albumin 2.8 L Lipase 42 Urine Color Urine Appearance Urine pH Ur Specific [place] Urine Protein Urine Glucose (UA) Urine Ketones Urine Blood Urine Nitrite Ur Leukocyte Esterase Urine Opiates Screen Ur Buprenorphine Scrn Ur Oxycodone Screen Urine Methadone Screen Urine Fentanyl Screen Acetaminophen < 3 Ur Barbiturates Screen Ur Phencyclidine Scrn Ur Amphetamines Screen U Benzodiazepines Scrn Urine Cocaine Screen U Marijuana (THC) Screen Ethyl Alcohol 171 Hepatitis A IgM Ab Nonreactive Hep Bs Antigen Negative Hep Bs Antibody NONREACTIVE Hep B Core Total Ab Nonreactive Hepatitis C Ab (EIA) Nonreactive Influenza Type A (PCR) NEGATIVE Influenza Type B (PCR) NEGATIVE RSV RNA Qual (PCR) NEGATIVE SARS-CoV-2 RNA (RT-PCR) NEGATIVE 10/14/24 10/14/24 10/14/24 08:48 09:23 09:56 MCV MCH MCHC RDW Plt Count MPV Immature Gran % (Auto) Neut % (Auto) Lymph % (Auto) [place] % (Auto) Eos % (Auto) Baso % (Auto) Lymph # (Auto) [place] # (Auto) Eos # (Auto) Baso # (Auto) Abs Immat Gran (auto) Absolute Neuts (auto) Absolute Nucleated RBC Nucleated RBC % (auto) PT INR VBG pH VBG pCO2 VBG pO2 VBG HCO3 VBG O2 Saturation VBG Base Excess Anion Gap Estim Creat Clear Calc Estimated GFR Random Glucose Lactic Acid 3.5 H* Calcium Magnesium Total Bilirubin Direct Bilirubin AST ALT Alkaline Phosphatase Ammonia 49 Lactate Dehydrogenase C-Reactive Protein Total Protein Albumin Lipase Urine Color Yellow Urine Appearance Clear Urine pH 7.5 Ur Specific [place] <= 1.005 Urine Protein Negative Urine Glucose (UA) Negative Urine Ketones Negative Urine Blood Negative Urine Nitrite Negative Ur Leukocyte Esterase Negative Urine Opiates Screen Not Detected Ur Buprenorphine Scrn Not Detected Ur Oxycodone Screen Not Detected Urine Methadone Screen Not Detected Urine Fentanyl Screen Not Detected Acetaminophen Ur Barbiturates Screen POSITIVE H Ur Phencyclidine Scrn Not Detected Ur Amphetamines Screen Not Detected U Benzodiazepines Scrn Not Detected Urine Cocaine Screen Not Detected U Marijuana (THC) Screen Not Detected Ethyl Alcohol Hepatitis A IgM Ab Hep Bs Antigen Hep Bs Antibody Hep B Core Total Ab Hepatitis C Ab (EIA) Influenza Type A (PCR) Influenza Type B (PCR) RSV RNA Qual (PCR) SARS-CoV-2 RNA (RT-PCR) Assessment and Plan (1) Acute alcoholic hepatitis: Status: Acute Plan Pt is a 49-year-old male with a PMH significant for polysubstance use disorder, alcohol use disorder, hx?of withdrawal seizure in 2022 managed at [facility], not on meds who presents to the ED with?abdominal pain, swelling, jaundice, and loss of appetite. Pt will be admitted to the hospital for treatment and further evaluation of new onset ascites and jaundice secondary to acute alcoholic hepatitis as well as impending alcohol withdrawal. Acute alcoholic hepatitis Pt with new ascites, jaundice, transaminitis, UA showing hepatomegaly with dense increased hepatic echotexture Pt with chronic alcohol use disorder for past 30 years Bedside US not showing drainable ascites Pt given albumin in the ED Treat with Lasix 20 mg IV daily GI consult Question of SBP Pt meets SIRS criteria with tachycardia and leukocytosis; acute lactic acidosis of 3.5 Will empirically treat with ceftriaxone, started to [id number] Ascitic fluid unable to be cultured as no drainable ascitic fluid Alcohol use disorder With hx of alcohol withdrawal seizure in 2022 Pt with 20+ years of daily drinking Ethyl alcohol level 171 at time of presentation Pt given thiamine, Protonix, and started on phenobarb protocol in the ED Continue phenobarb protocol for impending alcohol withdrawal Thiamine, folic acid, multivitamin CIWA Monitor on telemetry Hypomagnesemia Mag 1.5 at time of presentation Received Mag 2 g IV in the ED Trend labs Macrocytic anemia H&H 10.3/30.4, MCV 107.8 Likely chronic, secondary to alcohol use disorder Baseline unknown Follow H&H Full Code Attending:?Dr. Mcintosh DVT Prophylaxis: Lovenox Pt will require a hospitalization of at least two nights for treatment of?acute alcohol hepatitis and impending alcohol withdrawal. Given patient's hx of alcohol withdrawal including withdrawal seizure, they will require hospital level of care for administration of phenobarb protocol, close monitoring of vitals and labs, as well as specialist consultation with GI and empiric treatment for SBP. Quality Stroke Does the patient have a stroke diagnosis?: No VTE Prior VTE?: No VTE Risk Level:: Medical - moderate - high VTE Device Contraindication: Treatment Not Indicated VTE Drug Contraindication: N/A - Med Ordered
[2024-10-14 11:30] LABS: Reflex Lactate? Lactic Acid Added
--- NOTE | 2024-10-14 12:27 | PHA.MEDREC ---
Addendum entered by China Malin RPh 10/14/24 12:35: med rec reviewed by keith Original Note: Pharmacy Consult ? Medication Reconciliation Pharmacy has completed the medication reconciliation. Spoke with patient to confirm.
--- NOTE | 2024-10-14 12:56 | PM.GICN ---
History of Present Illness Data of Consult Service Date: 10/14/24 Primary Care Provider: Unknown Physician HPI Reason for consult: new cirrhosis 49-year-old male with a PMH significant for polysubstance use disorder, alcohol use disorder, who I am seeing for assessment of abn LFT and imaging Patient noted 1-2 months of increased abdominal swelling, with worsening jaundice and dull lower abdominal discomfort. he also noted nausea and poor appetite. He does have a hx of heavy alcohol use. Drinks nips of vodak daily for many years. Denies fever or chills. No chest pain/pressure, palpitations. Denies shortness or breath or difficulty breathing. He denies using nsaids, and having any prior hx of Hep C or Hep B. Pt was treated with IVF, Mag sulfate, thiamine, Protonix, albumin, ceftriaxone, and started on phenobarb Labs: WCC: 15.8, microcytic anemia of 10.3/30.4, MCV 107.8, lactic acid 3.5, magnesium 1.5, T bili 5.7, direct bili 4.3, AST 146, alk-phos 518, lactate dehydrogenase 390, CRP 6.61, and albumin 2.8 Urine: UA negative for UTI. Tox screen positive for barbiturates and ethyl alcohol 171. Imaging: US: hepatomegaly with dense hepatic echotexture as well as ascites Review of Systems Review of Systems: Constitutional : No Weight loss, No Fever, No Chills ENT/Mouth : No sore throat, No Rhinorrhea Eyes: No Swelling, No Redness Cardiovascular : No Chest Pain, No SOB, No Edema Respiratory : No Cough, No Sputum, No Wheezing Gastrointestinal : see HPI Genitourinary : NO Dysuria, No Urinary Frequency, No Hematuria, No Urgency Musculoskeletal : no joint pain, No Myalgias, No Joint Swelling Skin : No Skin Lesions, No rash Neuro : No Weakness, No Numbness, No Dizziness, No Headache Psych : No Anxiety/Panic, No Depression Heme/Lymph: No Bruising, No Lymphadenopathy Endocrine : No Polyuria, No Polydipsia All other systems reviewed and are negative. [facility] Past Medical History Medical History Alcohol use disorder No pertinent past medical history Social History Social History Alcohol intake: current Patient Tobacco Use Status: Current everyday Tobacco user Substance Use Type: Heroin Advance Directives: No Advance Directives Information Provided: No Do you have a plan to hurt others: No Plan Meds Allergies Allergy/AdvReac Type Severity Reaction Status Date / Time No Known Allergies Allergy Verified 10/14/24 07:36 Active Medications: Current Medications Acetaminophen (Acetaminophen 325 Mg Tablet) 650 mg PO Q6H PRN PRN Reason: Pain, Mild 1-3,fever,headache Calcium Carbonate (Calcium Carbonate 750 Mg Tab.Chew) 750 mg PO Q4H PRN PRN Reason: Heartburn Ceftriaxone Sodium (Ceftriaxone Sodium 1 Gm Vial) 1 gm IVPUSH Q24H [facility] Enoxaparin Sodium (Enoxaparin Sodium 40 Mg/0.4 Ml Syringe) 40 mg SUBCUT Q24H [facility] Folic Acid (Folic Acid 1 Mg Tablet) 1 mg PO DAILY [facility] Stop: 10/17/24 12:04 Furosemide (Furosemide 20 Mg/2 Ml Vial) 20 mg IVPUSH DAILY [facility]; Protocol Sodium Chloride (Ns) 1,000 mls @ 100 mls/hr IVCONT .Q10H [facility] Stop: 10/14/24 17:59 Last Admin: 10/14/24 08:55 Dose: 100 mls/hr Albumin Human (Kedbumin 25 %) 100 mls @ 100 mls/hr IV Q6H [facility] Stop: 10/14/24 14:59 Last Infusion: 10/14/24 12:33 Dose: Infused Thiamine HCl 200 mg/ Sodium (Chloride) 102 mls @ 204 mls/hr IV Q12H [facility] Stop: 10/16/24 20:59 Magnesium Hydroxide (Milk Of Magnesia 30 Ml Oral.Susp) 30 ml PO DAILY PRN PRN Reason: Constipation Melatonin (Melatonin 3 Mg Tablet) 6 mg PO BEDTIME PRN PRN Reason: Insomnia Multivitamins/Vitamin C (Multivitamin Tablet) 1 tab PO DAILY [facility] Stop: 10/17/24 12:04 Ondansetron HCl (Ondansetron Hcl 4 Mg/2 Ml Vial) 4 mg IVPUSH Q8H PRN PRN Reason: Nausea and Vomiting Pantoprazole Sodium (Pantoprazole Sodium 40 Mg/10 Ml Vial) 40 mg IVPUSH DAILY@0630 [facility] Pharmacy Consult (Consult Rx Etoh Phenob Im/Po) 1 each MISCELLANE ONCE PRN; Protocol PRN Reason: Consult order Phenobarbital (Phenobarbital 30 Mg Tablet) 60 mg PO BID [facility]; Protocol Stop: 10/16/24 09:01 Phenobarbital (Phenobarbital 30 Mg Tablet) 30 mg PO BID [facility]; Protocol Stop: 10/18/24 09:01 Phenobarbital (Phenobarbital 30 Mg Tablet) 30 mg PO DAILY [facility]; Protocol Stop: 10/20/24 09:01 Phenobarbital Sodium (Phenobarbital Sodium 130 Mg/Ml Vial Im Q3hx2) 170 mg IM Q3H [facility]; Protocol Stop: 10/14/24 15:01 Sodium Chloride (0.9 % Sodium Chloride Flush 3 Ml Syringe) 3 ml IVFLUSH QSHIFT [facility] Home Medications ?Medication ?Instructions ?Recorded ?Confirmed ?Last Taken ?Type No Known Home Meds 10/14/24 10/14/24 Unknown History Physical Exam Vital Signs: Vital Signs: Last Vital Signs Temp 98.3 F 10/14/24 12:16 Pulse 105 H 10/14/24 12:16 Resp 18 10/14/24 12:16 BP 108/77 10/14/24 12:16 Pulse Ox 94 10/14/24 12:16 O2 Del Method Room Air 10/14/24 12:16 BMI result Body Mass Index 22.7 EXAM: GENERAL: The patient is relaxed VITAL SIGNS:see workflow HEENT: icteric sclerae, PERRLA, EOMI. Oropharynx clear. Moist mucous membranes. Conjunctivae appear well perfused. No thyroid mass. CHEST: Chest wall is nontender. HEART: Regular rate and rhythm without murmurs. LUNGS: Clear to auscultation bilaterally. ABDOMEN: Soft, positive bowel sounds, nontender, no organomegaly.no flank tenderness--pos shifting dullness SKIN: No rash, no excessive bruising, petechiae, or purpura. NEUROLOGIC: Cranial nerves II-XII intact without motor/sensory deficit. Psych: normal affect Results Labs 10/14/24 08:43 10/14/24 08:40 Labs: Short CBC 10/14/24 Range/Units 08:43 WBC 15.8 H (4.8-10.8) X10*3/uL Hgb 10.3 L (14.0-18.0) g/dl Hct 30.4 L (42.0-52.0) % Plt Count 206 (160-400) X10*3/uL BMP 10/14/24 08:40 Sodium 137 Potassium 3.6 Chloride 97 Carbon Dioxide 23 BUN 3 L Creatinine 0.64 Calcium 8.2 L Liver Function 10/14/24 Range/Units 08:40 Total Bilirubin 5.7 H (0.0-1.0) mg/dL Direct Bilirubin 4.3 H (0.0-0.5) mg/dL AST 146 H (5-37) U/L ALT 35 (0-40) U/L Alkaline Phosphatase 518 H (39-117) U/L Albumin 2.8 L (3.5-5.0) g/dL Urine 10/14/24 Range/Units 09:56 Urine Color Yellow Urine Appearance Clear Urine pH 7.5 (5.0-9.0) Ur Specific [place] <= 1.005 (1.005-1.025) Urine Protein Negative (Neg-Trace) mg/dL Urine Glucose (UA) Negative (Negative) mg/dL Assessment and Plan (1) Acute alcoholic hepatitis: Status: Acute Plan 1/ Acute alcoholic hepatitis with likely underlying decompensated cirrhosis, Maddrey 18 indicating a good prognosis-does not need steroids --MELD 17 (<2% 90 d mortality) PLAN: 1/ Reinforced alcohol abstinence 2/ vitamins and alcohol withdrawal protocol 3/ lo sodium diet, and low dose lasix 20 mg with 50 mg aldactone, monitor lytes 4/ Tap ascites and send for analysis inl SAAG and cell counts, 5/ Check hep serologies, A1AT, ferritin, SMA, XIN, AMA 6/ consider baclofen for prevention of cravings 7/ high protein diet to prevent sarcopenia and reduce liver inflammation Procedures Date of Service Date of Service: 10/14/24
[2024-10-14] MEDS: PHENobarbitaL sodium 130 MG/ML VIAL IM Q3Hx2 170 MG IM ×2 (13:11→16:23)
[2024-10-14] MEDS: Multivitamin TABLET 1 TAB PO (13:11)
[2024-10-14] MEDS: Folic Acid 1 MG TABLET PO (13:11)
[2024-10-14] MEDS: Enoxaparin Sodium 40 MG/0.4 ML SYRINGE SUBCUT (13:11)
[2024-10-14] MEDS: Furosemide 20 MG/2 ML VIAL IVPUSH (13:12)
[2024-10-14 13:49] LABS: ~Lactic Acid-LAB USE ONLY 1.9 mmol/L (0.5-2.0)
[2024-10-14] MEDS: Nicotine 21 MG PATCH.TD24 TRANSDERMA (16:22)
[2024-10-14] MEDS: 0.9 % Sodium Chloride Flush 3 ML SYRINGE IVFLUSH (16:26)
[2024-10-14] MEDS: PHENobarbitaL 30 MG TABLET 60 MG PO (21:44)
[2024-10-14] MEDS: guaiFEN/Codeine SF 200/20/10ML 10 ML LIQUID PO (22:32)
--- NOTE | 2024-10-14 23:28 | PC.NURSE ---
pt placed on 2L O2 NC for O2 of 89% when resting, sitting up. pt denies any Hx of this or sleep apnea.
[2024-10-15 06:16] VITALS: BP 125/69; PULSE 107; RESP 21; TEMP 36.9; O2SAT 96
[2024-10-15 08:07] VITALS: BP 124/75; PULSE 124; RESP 20; TEMP 36.5; O2SAT 96
[2024-10-15] MEDS: Folic Acid 1 MG TABLET PO (08:10)
[2024-10-15] MEDS: Nicotine 21 MG PATCH.TD24 TRANSDERMA (08:10)
[2024-10-15] MEDS: PHENobarbitaL 30 MG TABLET 60 MG PO ×2 (08:10→20:28)
[2024-10-15] MEDS: Multivitamin TABLET 1 TAB PO (08:10)
[2024-10-15] MEDS: Pantoprazole Sodium 40 MG/10 ML VIAL IVPUSH (08:11)
[2024-10-15] MEDS: Furosemide 20 MG/2 ML VIAL IVPUSH (08:11)
--- NOTE | 2024-10-15 08:31 | HO.PM.IMPN ---
Subjective Subjective Date of Service: 10/15/24 Interval History: f/u acute alcoholic hepatitis, possible sbp presently reporting no pain, no fever or chills Physical Exam Vital Signs: Vital Signs: Last Vital Signs Temp 97.7 F 10/15/24 08:07 Pulse 124 H 10/15/24 08:07 Resp 20 10/15/24 08:07 BP 124/75 10/15/24 08:07 Pulse Ox 96 10/15/24 08:07 O2 Del Method Nasal Cannula 10/15/24 08:07 O2 Flow Rate 2 10/15/24 08:07 BMI result Body Mass Index 22.7 Const: Other: General: AO X 3, no acute distress Resp: CTA bilateral CVS: S1,S2,RRR GI: +BS, NT, moderate distention but soft, no tenderness Skin: No rash Neuro: motor grossly intact Psych: appropriate affect Objective Data Active Medications Acetaminophen (Acetaminophen 325 Mg Tablet) 650 mg PO Q6H PRN PRN Reason: Pain, Mild 1-3,fever,headache Calcium Carbonate (Calcium Carbonate 750 Mg Tab.Chew) 750 mg PO Q4H PRN PRN Reason: Heartburn Ceftriaxone Sodium (Ceftriaxone Sodium 1 Gm Vial) 1 gm IVPUSH Q24H [facility] Enoxaparin Sodium (Enoxaparin Sodium 40 Mg/0.4 Ml Syringe) 40 mg SUBCUT Q24H [facility] Last Admin: 10/14/24 13:11 Dose: 40 mg Documented By: DONNIE Folic Acid (Folic Acid 1 Mg Tablet) 1 mg PO DAILY [facility] Stop: 10/17/24 12:04 Last Admin: 10/15/24 08:10 Dose: 1 mg Documented By: DANGELO Furosemide (Furosemide 20 Mg/2 Ml Vial) 20 mg IVPUSH DAILY [facility]; Protocol Last Admin: 10/15/24 08:11 Dose: 20 mg Documented By: DANGELO Guaifenesin/Codeine Phosphate (Guaifen/Codeine Sf 200/20/10ml 10 Ml Liquid) 10 ml PO Q4H PRN PRN Reason: Cough Last Admin: 10/14/24 22:32 Dose: 10 ml Documented By: VICTORIANO Thiamine HCl 200 mg/ Sodium (Chloride) 102 mls @ 204 mls/hr IV Q12H [facility] Stop: 10/16/24 20:59 Last Infusion: 10/14/24 22:29 Dose: Infused Documented By: VICTORIANO Magnesium Hydroxide (Milk Of Magnesia 30 Ml Oral.Susp) 30 ml PO DAILY PRN PRN Reason: Constipation Melatonin (Melatonin 3 Mg Tablet) 6 mg PO BEDTIME PRN PRN Reason: Insomnia Multivitamins/Vitamin C (Multivitamin Tablet) 1 tab PO DAILY [facility] Stop: 10/17/24 12:04 Last Admin: 10/15/24 08:10 Dose: 1 tab Documented By: DANGELO Nicotine (Nicotine 21 Mg Patch.Td24) 21 mg TRANSDERMA DAILY [facility] Last Admin: 10/15/24 08:10 Dose: 21 mg Documented By: DANGELO Ondansetron HCl (Ondansetron Hcl 4 Mg/2 Ml Vial) 4 mg IVPUSH Q8H PRN PRN Reason: Nausea and Vomiting Pantoprazole Sodium (Pantoprazole Sodium 40 Mg/10 Ml Vial) 40 mg IVPUSH DAILY@0630 [facility] Last Admin: 10/15/24 08:11 Dose: 40 mg Documented By: DANGELO Pharmacy Consult (Consult Rx Etoh Phenob Im/Po) 1 each MISCELLANE ONCE PRN; Protocol PRN Reason: Consult order Phenobarbital (Phenobarbital 30 Mg Tablet) 60 mg PO BID [facility]; Protocol Stop: 10/16/24 09:01 Last Admin: 10/15/24 08:10 Dose: 60 mg Documented By: DANGELO Phenobarbital (Phenobarbital 30 Mg Tablet) 30 mg PO BID [facility]; Protocol Stop: 10/18/24 09:01 Phenobarbital (Phenobarbital 30 Mg Tablet) 30 mg PO DAILY [facility]; Protocol Stop: 10/20/24 09:01 Sodium Chloride (0.9 % Sodium Chloride Flush 3 Ml Syringe) 3 ml IVFLUSH QSHIFT [facility] Last Admin: 10/15/24 08:14 Dose: Not Given Documented By: DANGELO Non-Admin Reason: IV Running Labs 10/15/24 08:16 10/15/24 08:16 Labs: Laboratory Results - last 24 hr 10/14/24 10/14/24 10/14/24 08:40 08:43 08:44 MCV 107.8 H MCH 36.5 H MCHC 33.9 RDW 16.1 H Plt Count 206 MPV 10.3 Immature Gran % (Auto) 1.3 H Neut % (Auto) 79.9 H Lymph % (Auto) 10.0 L [place] % (Auto) 6.6 Eos % (Auto) 1.7 Baso % (Auto) 0.5 Lymph # (Auto) 1.6 [place] # (Auto) 1.0 Eos # (Auto) 0.3 Baso # (Auto) 0.1 Abs Immat Gran (auto) 0.20 H Absolute Neuts (auto) 12.6 H Absolute Nucleated RBC 0.090 H Nucleated RBC % (auto) 0.6 H PT 13.8 H INR 1.2 H VBG pH 7.50 H VBG pCO2 38 VBG pO2 32 VBG HCO3 30 H VBG O2 Saturation 40.0 VBG Base Excess 7.0 Anion Gap 21 H Estim Creat Clear Calc 138.9 Estimated GFR > 60 Random Glucose 95 Lactic Acid Lactic Acid F/U @ 2Hr Calcium 8.2 L Magnesium 1.5 L Total Bilirubin 5.7 H Direct Bilirubin 4.3 H AST 146 H ALT 35 Alkaline Phosphatase 518 H Ammonia Lactate Dehydrogenase 390 H C-Reactive Protein 6.61 H Total Protein 6.1 L Albumin 2.8 L Lipase 42 Urine Color Urine Appearance Urine pH Ur Specific Gordon Urine Protein Urine Glucose (UA) Urine Ketones Urine Blood Urine Nitrite Ur Leukocyte Esterase Urine Opiates Screen Ur Buprenorphine Scrn Ur Oxycodone Screen Urine Methadone Screen Urine Fentanyl Screen Acetaminophen < 3 Ur Barbiturates Screen Ur Phencyclidine Scrn Ur Amphetamines Screen U Benzodiazepines Scrn Urine Cocaine Screen U Marijuana (THC) Screen Ethyl Alcohol 171 Hepatitis A IgM Ab Nonreactive Hep Bs Antigen Negative Hep Bs Antibody NONREACTIVE Hep B Core Total Ab Nonreactive Hepatitis C Ab (EIA) Nonreactive Influenza Type A (PCR) NEGATIVE Influenza Type B (PCR) NEGATIVE RSV RNA Qual (PCR) NEGATIVE SARS-CoV-2 RNA (RT-PCR) NEGATIVE 10/14/24 10/14/24 10/14/24 08:48 09:23 09:56 MCV MCH MCHC RDW Plt Count MPV Immature Gran % (Auto) Neut % (Auto) Lymph % (Auto) [place] % (Auto) Eos % (Auto) Baso % (Auto) Lymph # (Auto) [place] # (Auto) Eos # (Auto) Baso # (Auto) Abs Immat Gran (auto) Absolute Neuts (auto) Absolute Nucleated RBC Nucleated RBC % (auto) PT INR VBG pH VBG pCO2 VBG pO2 VBG HCO3 VBG O2 Saturation VBG Base Excess Anion Gap Estim Creat Clear Calc Estimated GFR Random Glucose Lactic Acid 3.5 H* Lactic Acid F/U @ 2Hr Calcium Magnesium Total Bilirubin Direct Bilirubin AST ALT Alkaline Phosphatase Ammonia 49 Lactate Dehydrogenase C-Reactive Protein Total Protein Albumin Lipase Urine Color Yellow Urine Appearance Clear Urine pH 7.5 Ur Specific Gordon <= 1.005 Urine Protein Negative Urine Glucose (UA) Negative Urine Ketones Negative Urine Blood Negative Urine Nitrite Negative Ur Leukocyte Esterase Negative Urine Opiates Screen Not Detected Ur Buprenorphine Scrn Not Detected Ur Oxycodone Screen Not Detected Urine Methadone Screen Not Detected Urine Fentanyl Screen Not Detected Acetaminophen Ur Barbiturates Screen POSITIVE H Ur Phencyclidine Scrn Not Detected Ur Amphetamines Screen Not Detected U Benzodiazepines Scrn Not Detected Urine Cocaine Screen Not Detected U Marijuana (THC) Screen Not Detected Ethyl Alcohol Hepatitis A IgM Ab Hep Bs Antigen Hep Bs Antibody Hep B Core Total Ab Hepatitis C Ab (EIA) Influenza Type A (PCR) Influenza Type B (PCR) RSV RNA Qual (PCR) SARS-CoV-2 RNA (RT-PCR) 10/14/24 13:27 MCV MCH MCHC RDW Plt Count MPV Immature Gran % (Auto) Neut % (Auto) Lymph % (Auto) [place] % (Auto) Eos % (Auto) Baso % (Auto) Lymph # (Auto) [place] # (Auto) Eos # (Auto) Baso # (Auto) Abs Immat Gran (auto) Absolute Neuts (auto) Absolute Nucleated RBC Nucleated RBC % (auto) PT INR VBG pH VBG pCO2 VBG pO2 VBG HCO3 VBG O2 Saturation VBG Base Excess Anion Gap Estim Creat Clear Calc Estimated GFR Random Glucose Lactic Acid Lactic Acid F/U @ 2Hr 1.9 Calcium Magnesium Total Bilirubin Direct Bilirubin AST ALT Alkaline Phosphatase Ammonia Lactate Dehydrogenase C-Reactive Protein Total Protein Albumin Lipase Urine Color Urine Appearance Urine pH Ur Specific Gordon Urine Protein Urine Glucose (UA) Urine Ketones Urine Blood Urine Nitrite Ur Leukocyte Esterase Urine Opiates Screen Ur Buprenorphine Scrn Ur Oxycodone Screen Urine Methadone Screen Urine Fentanyl Screen Acetaminophen Ur Barbiturates Screen Ur Phencyclidine Scrn Ur Amphetamines Screen U Benzodiazepines Scrn Urine Cocaine Screen U Marijuana (THC) Screen Ethyl Alcohol Hepatitis A IgM Ab Hep Bs Antigen Hep Bs Antibody Hep B Core Total Ab Hepatitis C Ab (EIA) Influenza Type A (PCR) Influenza Type B (PCR) RSV RNA Qual (PCR) SARS-CoV-2 RNA (RT-PCR) Assessment and Plan (1) Acute alcoholic hepatitis: Status: Acute (2) Hypomagnesemia: Status: Acute (3) Elevated WBC count: Status: Acute Plan Pt is a 49-year-old male with a PMH significant for polysubstance use disorder, alcohol use disorder, hx?of withdrawal seizure in 2022 managed at [place], not on meds who presents to the ED with?abdominal pain, swelling, jaundice, and loss of appetite. Pt will be admitted to the hospital for treatment and further evaluation of new onset ascites and jaundice secondary to acute alcoholic hepatitis as well as impending alcohol withdrawal. Acute alcoholic hepatitis Pt with new ascites, jaundice, transaminitis, UA showing hepatomegaly with dense increased hepatic echotexture Pt with chronic alcohol use disorder for past 30 years Bedside US not showing drainable ascites Pt given albumin in the ED Treat with Lasix 20 mg IV daily Seen by Gi see recommendation Question of SBP Pt meets SIRS criteria with tachycardia and leukocytosis; acute lactic acidosis of 3.5 Will empirically treat with ceftriaxone, started to 14/10/24 Ascitic fluid unable to be cultured as no drainable ascitic fluid Alcohol use disorder With hx of alcohol withdrawal seizure in 2022 Pt with 20+ years of daily drinking Ethyl alcohol level 171 at time of presentation Pt given thiamine, Protonix, and started on phenobarb protocol in the ED Continue phenobarb protocol for impending alcohol withdrawal Thiamine, folic acid, multivitamin CIWA Monitor on telemetry Hypomagnesemia Mag 1.6 at time of presentation Macrocytic anemia H&H 10.3/30.4, MCV 107.8 Likely chronic, secondary to alcohol use disorder Baseline unknown Follow H&H Full Code DVT Prophylaxis: Lovenox Pt will require a hospitalization of at least two nights for treatment of?acute alcohol hepatitis and impending alcohol withdrawal. Given patient's hx of alcohol withdrawal including withdrawal seizure, they will require hospital level of care for administration of phenobarb protocol, close monitoring of vitals and labs, as well as specialist consultation with GI and empiric treatment for SBP. Quality Stroke Does the patient have a stroke diagnosis?: No VTE Prior VTE?: No VTE Risk Level:: Medical - moderate - high VTE Device Contraindication: Treatment Not Indicated VTE Drug Contraindication: N/A - Med Ordered
[2024-10-15 08:48] LABS: Hematocrit 28.6 % (42.0-52.0); Hemoglobin 9.8 g/dl (14.0-18.0); Mean Corpuscular HGB Conc 34.3 g/dl (31.0-36.0); Mean Corpuscular Hemoglobin 36.4 pg (27.0-33.0); Mean Corpuscular Volume 106.3 fL (80.0-98.0); Mean Platelet Volume 10.5 fL (9.4-12.4); NRBC Pct Auto 0.9 /100WBC (0.0-0.2); Platelet Count 191 X10*3/uL (160-400); Red Blood Count 2.69 X10*6/uL (4.60-5.80); Red Cell Distribution Width 16.3 % (11.0-16.0); White Blood Count 15.8 X10*3/uL (4.8-10.8)
[2024-10-15 08:58] LABS: Alanine Aminotransferase 34 U/L (0-40); Albumin Level 2.8 g/dL (3.5-5.0); Alkaline Phosphatase 515 U/L (39-117); Anion Gap 15 (12-20); Aspartate Amino Transferase 157 U/L (5-37); Bilirubin Total 5.3 mg/dL (0.0-1.0); Blood Urea Nitrogen 5 mg/dL (9-16); Calcium 7.8 mg/dL (8.4-10.2); Carbon Dioxide 26 mmol/L (22-29); Chloride 95 mmol/L (96-108); Creatinine Clr Calc Pharmacy 148.2; Estimated Glomerular Filt Rate > 60; Glucose Random 127 mg/dL (60-115); Magnesium 1.6 mg/dL (1.6-2.6); Potassium 3.4 mmol/L (3.3-5.1); Sodium 133 mmol/L (135-145); Total Protein 6.1 g/dL (6.5-8.0)
[2024-10-15] MEDS: Thiamine HCL 200 MG in 0.9 % Sodium Chloride 100 ML 204 MG IV ×2 (09:22→20:29)
[2024-10-15] MEDS: guaiFEN/Codeine SF 200/20/10ML 10 ML LIQUID PO ×2 (09:25→20:09)
[2024-10-15 09:41] VITALS: BP 114/79; PULSE 115; RESP 19; TEMP 37; O2SAT 98
[2024-10-15] MEDS: cefTRIAXone sodium 1 GM VIAL IVPUSH (10:03)
--- NOTE | 2024-10-15 10:24 | PC.NURSE ---
assumed care of patient at 0700, patient is awake,alert and oriented x4. patient ambulates self to bathroom, gait steady. patient skin noted to be jaundice, stomach distended and firm. patient resp even and unlabored, patient asked for prn cough syrup for non productive cough. patient medicated per MAR. patient assisted into hospital bed from ED stretcher for comfort.
[2024-10-15 12:50] VITALS: BP 114/79; PULSE 113; RESP 18; TEMP 36.8; O2SAT 99
--- NOTE | 2024-10-15 16:15 | MHC.CM.PN ---
PT REPORTS HE LIVES WITH HIS GIRLFRIEND AND IS INDEPENDENT WITH CARE HE HAS NO DME AND NO SERVICES PT DECLINES ASSISTANCE WITH COMPLETING A HCP AT THIS TIME PCP AT [facility] [place] DCP: HOME NO SERVICES VIA PRIVATE TRANSPORT
[2024-10-15 19:52] VITALS: BP 112/72; PULSE 122; RESP 20; TEMP 37; O2SAT 93
--- NOTE | 2024-10-15 20:13 | PC.NURSE ---
pt medicated per mar with prn cough medicine at this time, pt noted to have wet cough.
[2024-10-15 22:54] VITALS: BP 111/73; PULSE 115; RESP 16; TEMP 37.2; O2SAT 90
[2024-10-16] VITALS (7 sets, daily range): BP systolic 101–114; BP diastolic 61–75; PULSE 105–116; RESP 16–20; TEMP 36.5–37.1; O2SAT 91–95
[2024-10-16] MEDS: guaiFEN/Codeine SF 200/20/10ML 10 ML LIQUID PO ×4 (00:38→20:08)
[2024-10-16] MEDS: Pantoprazole Sodium 40 MG/10 ML VIAL IVPUSH (05:57)
[2024-10-16 07:31] LABS: Alanine Aminotransferase 29 U/L (0-40); Albumin Level 2.4 g/dL (3.5-5.0); Alkaline Phosphatase 440 U/L (39-117); Anion Gap 10 (12-20); Aspartate Amino Transferase 152 U/L (5-37); Bilirubin Total 4.4 mg/dL (0.0-1.0); Blood Urea Nitrogen 5 mg/dL (9-16); Calcium 7.3 mg/dL (8.4-10.2); Carbon Dioxide 30 mmol/L (22-29); Chloride 96 mmol/L (96-108); Creatinine Clr Calc Pharmacy 161.6; Estimated Glomerular Filt Rate > 60; Glucose Random 103 mg/dL (60-115); Sodium 133 mmol/L (135-145); Total Protein 5.4 g/dL (6.5-8.0)
[2024-10-16 07:41] LABS: Potassium 2.8 mmol/L (3.3-5.1)
[2024-10-16] MEDS: PHENobarbitaL 30 MG TABLET 60 MG PO (07:49)
[2024-10-16] MEDS: 0.9 % Sodium Chloride Flush 3 ML SYRINGE IVFLUSH ×3 (07:49→20:09)
[2024-10-16] MEDS: Multivitamin TABLET 1 TAB PO (07:50)
[2024-10-16] MEDS: cefTRIAXone sodium 1 GM VIAL IVPUSH (07:50)
[2024-10-16] MEDS: Nicotine 21 MG PATCH.TD24 TRANSDERMA (07:50)
[2024-10-16] MEDS: Folic Acid 1 MG TABLET PO (07:50)
[2024-10-16] MEDS: Thiamine HCL 200 MG in 0.9 % Sodium Chloride 100 ML 204 MG IV (07:54)
[2024-10-16] MEDS: Potassium Chloride ER 20 MEQ TAB.ER.PRT 40 MEQ PO ×2 (08:11→16:39)
[2024-10-16] MEDS: Enoxaparin Sodium 40 MG/0.4 ML SYRINGE SUBCUT (12:08)
--- NOTE | 2024-10-16 15:50 | P.PNIM_ITS ---
Subjective Subjective Date of Service: 10/16/24 Interval History: f/u acute alcoholic hepatitis, possible sbp no fever Physical Exam 2 Vital Signs: Vital Signs: Last Vital Signs Temp 98.8 F 10/16/24 15:22 Pulse 115 H 10/16/24 15:22 Resp 20 10/16/24 15:22 BP 107/69 10/16/24 15:22 Pulse Ox 92 10/16/24 15:22 O2 Del Method Room Air 10/16/24 15:22 O2 Flow Rate 4 10/15/24 12:50 BMI result Body Mass Index 22.7 Objective Data Active Medications Acetaminophen (Acetaminophen 325 Mg Tablet) 650 mg PO Q6H PRN PRN Reason: Pain, Mild 1-3,fever,headache Calcium Carbonate (Calcium Carbonate 750 Mg Tab.Chew) 750 mg PO Q4H PRN PRN Reason: Heartburn Ceftriaxone Sodium (Ceftriaxone Sodium 1 Gm Vial) 1 gm IVPUSH Q24H [facility] Last Admin: 10/16/24 07:50 Dose: 1 gm Documented By: CK Enoxaparin Sodium (Enoxaparin Sodium 40 Mg/0.4 Ml Syringe) 40 mg SUBCUT Q24H [facility] Last Admin: 10/16/24 12:08 Dose: 40 mg Documented By: CK Folic Acid (Folic Acid 1 Mg Tablet) 1 mg PO DAILY [facility] Stop: 10/17/24 12:04 Last Admin: 10/16/24 07:50 Dose: 1 mg Documented By: CK Furosemide (Furosemide 20 Mg/2 Ml Vial) 20 mg IVPUSH DAILY [facility]; Protocol Last Admin: 10/16/24 07:54 Dose: Not Given Documented By: CK Non-Admin Reason: Physician Held Med Guaifenesin/Codeine Phosphate (Guaifen/Codeine Sf 200/20/10ml 10 Ml Liquid) 10 ml PO Q4H PRN PRN Reason: Cough Last Admin: 10/16/24 15:13 Dose: 10 ml Documented By: CK Thiamine HCl 200 mg/ Sodium (Chloride) 102 mls @ 204 mls/hr IV Q12H [facility] Stop: 10/16/24 20:59 Last Infusion: 10/16/24 08:33 Dose: Infused Documented By: CK Magnesium Hydroxide (Milk Of Magnesia 30 Ml Oral.Susp) 30 ml PO DAILY PRN PRN Reason: Constipation Melatonin (Melatonin 3 Mg Tablet) 6 mg PO BEDTIME PRN PRN Reason: Insomnia Multivitamins/Vitamin C (Multivitamin Tablet) 1 tab PO DAILY [facility] Stop: 10/17/24 12:04 Last Admin: 10/16/24 07:50 Dose: 1 tab Documented By: CK Nicotine (Nicotine 21 Mg Patch.Td24) 21 mg TRANSDERMA DAILY [facility] Last Admin: 10/16/24 07:50 Dose: 21 mg Documented By: CK Ondansetron HCl (Ondansetron Hcl 4 Mg/2 Ml Vial) 4 mg IVPUSH Q8H PRN PRN Reason: Nausea and Vomiting Pantoprazole Sodium (Pantoprazole Sodium 40 Mg/10 Ml Vial) 40 mg IVPUSH DAILY@0630 [facility] Last Admin: 10/16/24 05:57 Dose: 40 mg Documented By: JAQUELIN Pharmacy Consult (Consult Rx Etoh Phenob Im/Po) 1 each MISCELLANE ONCE PRN; Protocol PRN Reason: Consult order Phenobarbital (Phenobarbital 30 Mg Tablet) 30 mg PO BID [facility]; Protocol Stop: 10/18/24 09:01 Phenobarbital (Phenobarbital 30 Mg Tablet) 30 mg PO DAILY [facility]; Protocol Stop: 10/20/24 09:01 Sodium Chloride (0.9 % Sodium Chloride Flush 3 Ml Syringe) 3 ml IVFLUSH QSHIFT [facility] Last Admin: 10/16/24 15:15 Dose: 3 ml Documented By: CK Labs 10/15/24 08:16 10/17/24 09:18 Labs: Laboratory Results - last 24 hr 10/16/24 06:41 Anion Gap 10 L Estim Creat Clear Calc 161.6 Estimated GFR > 60 Random Glucose 103 Calcium 7.3 L D Total Bilirubin 4.4 H AST 152 H ALT 29 Alkaline Phosphatase 440 H Total Protein 5.4 L Albumin 2.4 L Microbiology Microbiology Results: Microbiology 10/14/24 09:30 Blood Culture - Preliminary Blood - Venous No growth after 48 hours. 10/14/24 09:23 Blood Culture - Preliminary Blood - Venous No growth after 48 hours. Assessment and Plan (1) Acute alcoholic hepatitis: Status: Acute (2) Hypomagnesemia: Status: Acute (3) Elevated WBC count: Status: Acute Plan Pt is a 49-year-old male with a PMH significant for polysubstance use disorder, alcohol use disorder, hx?of withdrawal seizure in 2022 managed at [place], not on meds who presents to the ED with?abdominal pain, swelling, jaundice, and loss of appetite. Pt will be admitted to the hospital for treatment and further evaluation of new onset ascites and jaundice secondary to acute alcoholic hepatitis as well as impending alcohol withdrawal. Acute alcoholic hepatitis Pt with new ascites, jaundice, transaminitis, UA showing hepatomegaly with dense increased hepatic echotexture Pt with chronic alcohol use disorder for past 30 years Bedside US not showing drainable ascites Pt given albumin in the ED Treat with Lasix 20 mg IV daily Seen by Gi see recommendation Question of SBP Pt meets SIRS criteria with tachycardia and leukocytosis; acute lactic acidosis of 3.5 Will empirically treat with ceftriaxone, started to 14/10/24 Ascitic fluid unable to be cultured as no drainable ascitic fluid Alcohol use disorder With hx of alcohol withdrawal seizure in 2022 Pt with 20+ years of daily drinking Ethyl alcohol level 171 at time of presentation Pt given thiamine, Protonix, and started on phenobarb protocol in the ED Continue phenobarb protocol for impending alcohol withdrawal Thiamine, folic acid, multivitamin CIWA Monitor on telemetry Hypomagnesemia Mag 1.6 at time of presentation Hypokalemia, oral replacement. checm mag Macrocytic anemia H&H 10.3/30.4, MCV 107.8 Likely chronic, secondary to alcohol use disorder Baseline unknown Follow H&H Full Code DVT Prophylaxis: Lovenox Pt will require a hospitalization of at least two nights for treatment of?acute alcohol hepatitis and impending alcohol withdrawal. Given patient's hx of alcohol withdrawal including withdrawal seizure, they will require hospital level of care for administration of phenobarb protocol, close monitoring of vitals and labs, as well as specialist consultation with GI and empiric treatment for SBP. Quality Stroke Does the patient have a stroke diagnosis?: No VTE Prior VTE?: No VTE Risk Level:: Medical - moderate - high VTE Device Contraindication: Treatment Not Indicated VTE Drug Contraindication: N/A - Med Ordered
[2024-10-16 16:56] LABS: Magnesium 1.4 mg/dL (1.6-2.6)
[2024-10-16] MEDS: Magnesium Sulfate/H2O 2 GM/50 ML PIGGYBACK IV (17:00)
[2024-10-16] MEDS: PHENobarbitaL 30 MG TABLET PO (20:08)
[2024-10-17] VITALS (9 sets, daily range): BP systolic 104–116; BP diastolic 67–78; PULSE 98–116; RESP 16–22; TEMP 36.6–37.3; O2SAT 92–97
[2024-10-17] MEDS: guaiFEN/Codeine SF 200/20/10ML 10 ML LIQUID PO ×4 (04:29→20:38)
[2024-10-17] MEDS: Pantoprazole Sodium 40 MG/10 ML VIAL IVPUSH (06:40)
[2024-10-17] MEDS: PHENobarbitaL 30 MG TABLET PO ×2 (08:05→20:37)
[2024-10-17] MEDS: Folic Acid 1 MG TABLET PO (08:05)
[2024-10-17] MEDS: Multivitamin TABLET 1 TAB PO (08:05)
[2024-10-17] MEDS: Nicotine 21 MG PATCH.TD24 TRANSDERMA (08:05)
[2024-10-17] MEDS: 0.9 % Sodium Chloride Flush 3 ML SYRINGE IVFLUSH ×3 (08:06→20:37)
[2024-10-17] MEDS: cefTRIAXone sodium 1 GM VIAL IVPUSH (08:12)
[2024-10-17] MEDS: Famotidine 20 MG TABLET PO (09:30)
[2024-10-17 10:08] LABS: Anion Gap 15 (12-20); Blood Urea Nitrogen 6 mg/dL (9-16); Calcium 7.7 mg/dL (8.4-10.2); Carbon Dioxide 28 mmol/L (22-29); Chloride 97 mmol/L (96-108); Creatinine Clr Calc Pharmacy 153.3; Estimated Glomerular Filt Rate > 60; Glucose Random 115 mg/dL (60-115); Magnesium 1.7 mg/dL (1.6-2.6); Potassium 3.8 mmol/L (3.3-5.1); Sodium 136 mmol/L (135-145)
[2024-10-17] MEDS: Lidocaine HCl 1 % MPF 5 ML VIAL SUBCUT (10:43)
--- NOTE | 2024-10-17 10:51 | HO.PM.IMPN ---
Subjective Subjective Date of Service: 10/17/24 Interval History: f/u acute alcoholic hepatitis, possible sbp no fever, no abd pain Physical Exam Vital Signs: Vital Signs: Last Vital Signs Temp 99.1 F 10/17/24 07:47 Pulse 113 H 10/17/24 10:25 Resp 19 10/17/24 10:25 BP 105/69 10/17/24 10:25 Pulse Ox 94 10/17/24 10:25 O2 Del Method Room Air 10/17/24 10:25 O2 Flow Rate 4 10/17/24 10:25 BMI result Body Mass Index 22.7 Const: Other: General: AO X 3, no acute distress Resp: CTA bilateral CVS: S1,S2,RRR GI: +BS, NT, moderate distention but soft, no tenderness Skin: No rash Neuro: motor grossly intact Psych: appropriate affect Objective Data Active Medications Acetaminophen (Acetaminophen 325 Mg Tablet) 650 mg PO Q6H PRN PRN Reason: Pain, Mild 1-3,fever,headache Calcium Carbonate (Calcium Carbonate 750 Mg Tab.Chew) 750 mg PO Q4H PRN PRN Reason: Heartburn Ceftriaxone Sodium (Ceftriaxone Sodium 1 Gm Vial) 1 gm IVPUSH Q24H [facility] Last Admin: 10/17/24 08:12 Dose: 1 gm Documented By: CK Enoxaparin Sodium (Enoxaparin Sodium 40 Mg/0.4 Ml Syringe) 40 mg SUBCUT Q24H [facility] Last Admin: 10/16/24 12:08 Dose: 40 mg Documented By: CK Folic Acid (Folic Acid 1 Mg Tablet) 1 mg PO DAILY [facility] Stop: 10/17/24 12:04 Last Admin: 10/17/24 08:05 Dose: 1 mg Documented By: CK Furosemide (Furosemide 20 Mg/2 Ml Vial) 20 mg IVPUSH DAILY [facility]; Protocol Last Admin: 10/17/24 08:12 Dose: Not Given Documented By: CK Non-Admin Reason: Physician Held Med Guaifenesin/Codeine Phosphate (Guaifen/Codeine Sf 200/20/10ml 10 Ml Liquid) 10 ml PO Q4H PRN PRN Reason: Cough Last Admin: 10/17/24 09:30 Dose: 10 ml Documented By: CK Magnesium Hydroxide (Milk Of Magnesia 30 Ml Oral.Susp) 30 ml PO DAILY PRN PRN Reason: Constipation Melatonin (Melatonin 3 Mg Tablet) 6 mg PO BEDTIME PRN PRN Reason: Insomnia Multivitamins/Vitamin C (Multivitamin Tablet) 1 tab PO DAILY [facility] Stop: 10/17/24 12:04 Last Admin: 10/17/24 08:05 Dose: 1 tab Documented By: CK Nicotine (Nicotine 21 Mg Patch.Td24) 21 mg TRANSDERMA DAILY [facility] Last Admin: 10/17/24 08:05 Dose: 21 mg Documented By: CK Ondansetron HCl (Ondansetron Hcl 4 Mg/2 Ml Vial) 4 mg IVPUSH Q8H PRN PRN Reason: Nausea and Vomiting Pharmacy Consult (Consult Rx Etoh Phenob Im/Po) 1 each MISCELLANE ONCE PRN; Protocol PRN Reason: Consult order Phenobarbital (Phenobarbital 30 Mg Tablet) 30 mg PO BID [facility]; Protocol Stop: 10/18/24 09:01 Last Admin: 10/17/24 08:05 Dose: 30 mg Documented By: CK Phenobarbital (Phenobarbital 30 Mg Tablet) 30 mg PO DAILY [facility]; Protocol Stop: 10/20/24 09:01 Sodium Chloride (0.9 % Sodium Chloride Flush 3 Ml Syringe) 3 ml IVFLUSH QSHIFT [facility] Last Admin: 10/17/24 08:06 Dose: 3 ml Documented By: CK Labs 10/15/24 08:16 10/17/24 09:18 Labs: Laboratory Results - last 24 hr 10/16/24 10/17/24 06:41 09:18 Anion Gap 15 Estim Creat Clear Calc 153.3 Estimated GFR > 60 Random Glucose 115 Calcium 7.7 L Magnesium 1.4 L* 1.7 Microbiology Microbiology Results: Microbiology 10/14/24 09:30 Blood Culture - Preliminary Blood - Venous No growth after 48 hours. 10/14/24 09:23 Blood Culture - Preliminary Blood - Venous No growth after 48 hours. Assessment and Plan (1) Acute alcoholic hepatitis: Status: Acute (2) Hypomagnesemia: Status: Acute (3) Elevated WBC count: Status: Acute Plan Pt is a 49-year-old male with a PMH significant for polysubstance use disorder, alcohol use disorder, hx?of withdrawal seizure in 2022 managed at [place], not on meds who presents to the ED with?abdominal pain, swelling, jaundice, and loss of appetite. Pt will be admitted to the hospital for treatment and further evaluation of new onset ascites and jaundice secondary to acute alcoholic hepatitis as well as impending alcohol withdrawal. Acute alcoholic hepatitis Pt with new ascites, jaundice, transaminitis, UA showing hepatomegaly with dense increased hepatic echotexture Pt with chronic alcohol use disorder for past 30 years Bedside US not showing drainable ascites per ED provider Pt given albumin in the ED Treat with Lasix 20 mg IV daily Seen by Gi see recommendation paracentesis today Question of SBP Pt meets SIRS criteria with tachycardia and leukocytosis; acute lactic acidosis of 3.5 Will empirically treat with ceftriaxone, started to 14/10/24 Ascitic fluid unable to be cultured as no drainable ascitic fluid Alcohol use disorder, no signs of withdrawal With hx of alcohol withdrawal seizure in 2022 Pt with 20+ years of daily drinking Ethyl alcohol level 171 at time of presentation Pt given thiamine, Protonix, and started on phenobarb protocol in the ED Continue phenobarb protocol for impending alcohol withdrawal Thiamine, folic acid, multivitamin CIWA Monitor on telemetry Hypomagnesemia Mag 1.6 at time of presentation Hypokalemia, oral replacement. checm mag Macrocytic anemia H&H 10.3/30.4, MCV 107.8 Likely chronic, secondary to alcohol use disorder Baseline unknown Follow H&H Full Code DVT Prophylaxis: Lovenox Pt will require a hospitalization of at least two nights for treatment of?acute alcohol hepatitis and impending alcohol withdrawal. Given patient's hx of alcohol withdrawal including withdrawal seizure, they will require hospital level of care for administration of phenobarb protocol, close monitoring of vitals and labs, as well as specialist consultation with GI and empiric treatment for SBP. Quality Stroke Does the patient have a stroke diagnosis?: No VTE Prior VTE?: No VTE Risk Level:: Medical - moderate - high VTE Device Contraindication: Treatment Not Indicated VTE Drug Contraindication: N/A - Med Ordered
[2024-10-17] MEDS: Enoxaparin Sodium 40 MG/0.4 ML SYRINGE SUBCUT (10:53)
[2024-10-17 11:12] LABS: MN% 72.8 %; PMN% 27.2 %; WBC Peritoneal Fluid 0.294 X10*3/uL
[2024-10-17 11:13] LABS: RBC Peritoneal Fluid < 0.002 X10*6/uL
--- NOTE | 2024-10-17 11:39 | PM.PROC ---
Brief Operative Note Date of procedure: 10/17/24 Pre-op diagnosis: Ascites Post-op diagnosis: same Procedure: US paracentesis 3.0 L yellow fluid removed. Fluid sent for analysis. Anesthesia: local
[2024-10-17 11:46] LABS: BF Shift QC OK YES; Lymphocyte Peritoneal Fl 11 %; Monocytes Peritoneal Fl 4 %; Neutrophils Peritoneal Fluid 36 %; Other Peritioneal Fl 49 %
--- NOTE | 2024-10-17 14:10 | MHC.CM.PN ---
EMR reviewed and per MD rounds, pt is not medically cleared for discharge due to management of ETOH withdrawal, pt had a paracentesis today.
[2024-10-18 00:07] VITALS: BP 107/67; PULSE 114; RESP 18; TEMP 36.6; O2SAT 96
[2024-10-18] MEDS: guaiFEN/Codeine SF 200/20/10ML 10 ML LIQUID PO ×4 (00:29→14:13)
[2024-10-18 03:19] VITALS: PULSE 85; RESP 18; TEMP 36.7; O2SAT 99
[2024-10-18 04:37] VITALS: BP 107/65; PULSE 109; RESP 18; TEMP 36.8; O2SAT 92
[2024-10-18 07:27] VITALS: BP 114/60; PULSE 103; RESP 20; TEMP 37.1; O2SAT 93
[2024-10-18] MEDS: cefTRIAXone sodium 1 GM VIAL IVPUSH (09:53)
[2024-10-18] MEDS: Nicotine 21 MG PATCH.TD24 TRANSDERMA (09:53)
[2024-10-18] MEDS: 0.9 % Sodium Chloride Flush 3 ML SYRINGE IVFLUSH (09:55)
[2024-10-18] MEDS: PHENobarbitaL 30 MG TABLET PO (09:57)
[2024-10-18] MEDS: Furosemide 20 MG/2 ML VIAL IVPUSH (09:57)
--- NOTE | 2024-10-18 13:16 | P.DS_ITS ---
DS: Providers Provider Date of Service: 10/18/24 Date of admission: 10/14/24 12:04 Date of discharge: 10/18/24 Primary care physician: Teresa Ortiz NP Consults: 10/14/24 12:02 Consult to Gastroenterology Routine Consulting Provider: Nahed Guevara Reason for consultation: Concern for alcoholic cirrhosis, new ascites 10/18/24 07:31 Addiction Medicine Routine Consulting Provider: Addiction Covering Reason for consultation: eval and rec. pending discharge DS: Diagnosis Discharge Diagnosis (1) Acute alcoholic hepatitis: Status: Acute (2) Hypomagnesemia: Status: Acute (3) Elevated WBC count: Status: Acute (4) Acute hypokalemia: Status: Acute (5) Acute lactic acidosis: Status: Acute (6) SIRS (systemic inflammatory response syndrome): Status: Acute DS: Summary Hospital Course Hospital Course: Admission note HPI Pt is a 49-year-old male with a PMH significant for polysubstance use disorder, alcohol use disorder, hx?of withdrawal seizure in [address] [facility] on meds who presents to the ED with?abdominal pain, swelling, jaundice, and loss of appetite. Pt reports symptoms began approximately 1 2 months ago when he noticed his abdomen swelling. Has experienced an intermittent lower abdominal pain he describes as a dull, bloating pressure. States he has never experienced similar symptoms of jaundice and abdominal swelling before. Has also had occasional nausea vomiting, and reduced p.o. intake secondary to nausea. Also had ?coughing fits? for the past 2 weeks, mostly nonproductive. Denies fever or chills. No chest pain/pressure, palpitations. Denies shortness or breath or difficulty breathing. Reports has been drinking daily for the past 20-30 years. Reports he has cut back drinking and currently only ?maintains? with 1 tall boy and 4-5 shots. Denies increased anxiety, diaphoresis, auditory/visual/tactile hallucinations. No tremors. Pt also prefers not meeting with the Addiction medicine, as he has seen them multiple times over the years and prefers to not waist there time. States he realizes it is up to himself to stopped drinking. In the ED pt was tachycardic to 133, vitals otherwise WNL and stable. Labs were significant for leukocytosis 15.8, microcytic anemia of 10.3/30.4, MCV 107.8, lactic acid 3.5, magnesium 1.5, T bili 5.7, direct bili 4.3, AST 146, alk-phos 518, lactate dehydrogenase 390, CRP 6.61, and albumin 2.8. UA negative for UTI. Tox screen positive for barbiturates and ethyl alcohol 171. Tested negative for flu, RSV, and COVID. CXR showed elevation of right hemidiaphragm, otherwise clear lungs. Abdominal ultrasound showed hepatomegaly with dense hepatic echotexture as well as ascites likely sequela of patient's hepatic disease and portal hypertension. In the ED bedside U/S found no drainable pocket of ascites. EKG demonstrated sinus tachycardia of 104 with QT 502 with no evidence of significant ST elevations or depressions. Pt was treated with IVF, Mag sulfate, thiamine, Protonix, albumin, ceftriaxone, and started on phenobarb protocol. Pt will be admitted to the hospital for treatment and further evaluation of new onset ascites and jaundice secondary to acute alcoholic hepatitis as well as impending alcohol withdrawal. Hospital course The patient was admitted for the following: # Acute alcoholic hepatitis presented with new ascites, jaundice, transaminitis as Ultrasound was showing hepatomegaly with dense increased hepatic echotexture. He has chronic alcohol use disorder for past 30 years. Given albumin and started on IV lasix. Evaluated by GI who recommended Paracentesis but not to use steroids. His liver enzymes stabilized. There was a question of SBP as the patient met SIRS criteria with tachycardia and leukocytosis with acute lactic acidosis of 3.5. treated empirically with ceftriaxone for 5 doses. ascitic fluid were negative for PMNs upon evaluation. Paracentesis done removing 3L. Albumin given. Started on Spironolactone upon discharge with a plan to follow with GI as outpatient. # Alcohol use disorder With hx of alcohol withdrawal seizure in 2022. Ethyl alcohol level 171 at time of presentation. given thiamine, Protonix, and started on phenobarb protocol in the ED and continued phenobarb protocol while inpatient along with Thiamine, folic acid, multivitamin as his CIWA score remained low. # Hypomagnesemia, Mg 1.6 at time of presentation. recieved replacement. to be discharged on replacement. # Hypokalemia, oral replacement and resolved. Discharge plan Avoid alcohol Take Thiamin and Folic acid as prescribed Magnesium supplement Spironolactone for fluid control (abdomen ascites). follow with Dr Guevara as outpatient. Time Attestation Discharge Coordination Time (in mins): 42 Quality: Safe Use of Opioids Does Pt have an Active Cancer Diagnosis on the Problem List?: No Quality: Stroke Does the patient have a stroke diagnosis?: No Physical Exam Vital Signs: Vital Signs: Last Vital Signs Temp 98.8 F 10/18/24 07:27 Pulse 103 H 10/18/24 07:27 Resp 20 10/18/24 07:27 BP 114/60 10/18/24 07:27 Pulse Ox 93 10/18/24 07:27 O2 Del Method Room Air 10/18/24 07:27 O2 Flow Rate 4 10/17/24 10:25 BMI result Body Mass Index 22.7 Const: Other: Constitutional : Awake, interactive, not in distress Neck : Normal inspection, Supple Cardiovascular : RRR, no JVP, no lower extremity edema Respiratory : good bilateral air entry, no crackles, wheezes or rhonchi Gastrointestinal: soft, lax, Normal bowel sounds, Non tender Skin : Warm, Dry Neurological : Alert & oriented x3, No focal deficit DS: Data Data Completed and Pending Pending studies at discharge: Pending at discharge 10/17/24 10:27 Cytology [PTH] Routine Labs on day of discharge: Preliminary micro results at discharge 10/17/24 10:25 Anaerobic Culture - Preliminary Ascites Fluid No growth to date. Body Fluid Culture - Preliminary No growth after 1 day 10/14/24 09:30 Blood Culture - Preliminary Blood - Venous No growth after 48 hours. 10/14/24 09:23 Blood Culture - Preliminary Blood - Venous No growth after [address] scan - abdomen: Radiologist's impression: Impression: 1. Hepatomegaly with dense increased hepatic echotexture. This can be seen with fatty infiltration or medical liver disease. 2. Ascites. This is likely a sequelae of the patient's hepatic disease and portal hypertension. This document has been electronically signed by: Memo Henriquez MD on 10/14/2024 08:34:40 Discharge Plan Discharge Anticipated Discharge Date/Time: 10/18/24 13:10 Patient Disposition: Home, Self-Care Discharge Diagnosis: Alcoholic hepatitis Hypomagnesemia Referrals: Teresa Ortiz NP [Primary Care Provider] - 1 Week Rosa M Zamora CNP [Nurse Practitioner] - 1 Week (Please follow up with the [facility] if support is needed regarding alcohol use. Feel free to also contact Recovery Support RN Cecilia at [phone]) Discharge Medications: New nicotine 21 mg/24 hr Patch 24 Hour 21 mg transdermal DAILY Qty: 30 0RF spironolactone 25 mg tablet 25 mg PO DAILY Qty: 90 0RF thiamine HCl (vitamin B1) 100 mg tablet 100 mg PO DAILY Qty: 90 0RF magnesium oxide 400 mg (241.3 mg magnesium) tablet 400 mg PO DAILY Qty: 90 0RF Discharge Orders: Discharge Order (Routine); Ordered 10/18/24 Ordered By: Brandon Blount Diet: Advance to usual diet Activity on Discharge: As tolerated Stand Alone Forms: Patient Portal Discharge page Print Language: Uzbek Care Plan Goals: Avoid alcohol Take Thiamin and Folic acid as prescribed Magnesium supplement Spironolactone for fluid control (abdomen ascites). follow with Dr Guevara as outpatient. Health Concerns: Alcoholic hepatitis Plan of Treatment: Spironolactone Thiamine and Folic acid GI follow up Assessment: as above
--- NOTE | 2024-10-18 13:24 | MHC.CM.PN ---
Patient has been medically cleared for dc to home today, self care.
--- NOTE | 2024-10-18 18:09 | P.PNGI_ITS ---
Subjective Subjective Date of Service: 10/18/24 Interval History: still jaundiced no abdominal pain no nausea, appetite is good wants to go home Critical Care Time (minutes): 0 Physical Exam 2 Vital Signs: Vital Signs: Last Vital Signs Temp 98.8 F 10/18/24 07:27 Pulse 103 H 10/18/24 07:27 Resp 20 10/18/24 07:27 BP 114/60 10/18/24 07:27 Pulse Ox 93 10/18/24 07:27 O2 Del Method Room Air 10/18/24 07:27 O2 Flow Rate 4 10/17/24 10:25 BMI result Body Mass Index 22.7 EXAM: GENERAL: The patient is well developed and nontoxic. VITAL SIGNS:see workflow HEENT: icteric sclerae, PERRLA, EOMI. Oropharynx clear. Moist mucous membranes. Conjunctivae appear well perfused. No thyroid mass. CHEST: Chest wall is nontender. HEART: Regular rate and rhythm without murmurs. LUNGS: Clear to auscultation bilaterally. ABDOMEN: Soft, positive bowel sounds, nontender, no organomegaly.no flank tenderness SKIN: No rash, no excessive bruising, petechiae, or purpura. NEUROLOGIC: Cranial nerves II-XII intact without motor/sensory deficit. Psych: normal affect Objective Data Labs 10/15/24 08:16 10/17/24 09:18 Microbiology Microbiology Results: Microbiology 10/17/24 10:25 Ascites Fluid Gram Stain - Final 10/17/24 10:25 Ascites Fluid Anaerobic Culture - Preliminary No growth to date. 10/17/24 10:25 Ascites Fluid Body Fluid Culture - Preliminary No growth after 1 day 10/14/24 09:30 Blood - Venous Blood Culture - Preliminary No growth after 48 hours. 10/14/24 09:23 Blood - Venous Blood Culture - Preliminary No growth after 48 hours. Procedures Date of Service Date of Service: 10/18/24 Progress Note: A&P Assessment and plan (1) Acute alcoholic hepatitis: Status: Acute Plan 1/ Alcoholic hepatitis, porobable underlying cirrhosis as well with ascites. cell count neg for SbP, albumin pending to calculate sAAG but based on clincial hx will likely be >1.1 2/ Anemia, prob ACD related to alcohol use and liver injury, no overt GI bleeding PLAN; 1/ no need for steroids 2/ hep serologies neg 3/ cont with low dose diuretics, can titrate as o/p depending on reponse, low salt diet, multivitamins 4/ stongly advised on alcohol abstinence 5/ o/p endoscopy to eval for varices and o/p screening colonoscopy Time Spent With Patient Time: Total time managing care of this patient today ____ minutes. Quality Stroke Does the patient have a stroke diagnosis?: No VTE Prior VTE?: No VTE Risk Level:: Medical - moderate - high VTE Device Contraindication: Treatment Not Indicated VTE Drug Contraindication: N/A - Med Ordered
[2024-10-20 14:28] LABS: ANA Pattern 2 Nuclear, Speckled; Anti Nuclear Antibody Pattern Nuclear, Nucleolar; Anti Nuclear Antibody Screen POSITIVE (NEGATIVE)
== END 2024-10-18 14:52 | disposition home or self-care (01) | DRG 280 ==
LOC: HO.ED 10:20 → HO.EDOVER 12:18 → HO.IMC 10-15 21:47
PROVIDERS: Internal Medicine; Physician Assistant Surgical; Admitting Provider Student in an Organized Health Care Education/Training Program; Emergency Provider Emergency Medicine; PCP Nurse Practitioner Primary Care; Visit Provider Student in an Organized Health Care Education/Training Program
DX: K70.11 Alcoholic hepatitis with ascites (principal); K70.31 Alcoholic cirrhosis of liver with ascites; D63.8 Anemia in other chronic diseases classified elsewhere; D53.9 Nutritional anemia, unspecified; E83.42 Hypomagnesemia; F17.210 Nicotine dependence, cigarettes, uncomplicated; E87.6 Hypokalemia; Z71.6 Tobacco abuse counseling; F10.90 Alcohol use, unspecified, uncomplicated; Y90.6 Blood alcohol level of 120-199 mg/100 ml; F19.90 Other psychoactive substance use, unspecified, uncomplicated; Z20.822 Contact with and (suspected) exposure to COVID-19
CPT/HCPCS: 0241U; 36415; 49083; 71045; 76705; 80048; 80053; 80076; 80143; 80307; 81003; 82042; 82140; 82803; 83605; 83615; 83690; 83735; 85025; 85027; 85610; 86038; 86039; 86140; 86704; 86706; 86709; 86803; 87040; 87070; 87073; 87205; 87340; 88112; 88305; 89051; 93005; 99285; J0696; J1650; J1940; J2003; J2470; J2560; J3411; J3475; P9047; S9485

== ENCOUNTER → 2024-10-14 07:41 | Outpatient (BNV) | payer OTHER, SELFPAY | PROVIDERS: Admitting Provider Student in an Organized Health Care Education/Training Program; Emergency Provider Emergency Medicine; Visit Provider Internal Medicine Cardiovascular Disease | DX: R00.0 Tachycardia, unspecified (principal) | CPT/HCPCS: 93010 ==

== ENCOUNTER → 2024-10-14 07:48 | Outpatient (BNV) | payer OTHER, SELFPAY | PROVIDERS: Emergency Provider Emergency Medicine; Visit Provider Radiology Diagnostic Radiology | DX: R74.01 Elevation of levels of liver transaminase levels (principal); R17 Unspecified jaundice; R53.1 Weakness | CPT/HCPCS: 71045; 76705 ==

== ENCOUNTER 2024-10-14 12:04 | Outpatient (BNV) | payer MEDICAID, SELFPAY | END 2024-10-17 10:00 | PROVIDERS: Admitting Provider Student in an Organized Health Care Education/Training Program; Emergency Provider Emergency Medicine; PCP Nurse Practitioner Primary Care; Visit Provider Physician Assistant Surgical | DX: R18.8 Other ascites (principal) | CPT/HCPCS: 49083 ==

== ENCOUNTER → 2024-10-14 12:04 | Outpatient (BNV) | payer MEDICAID, SELFPAY | PROVIDERS: Admitting Provider Student in an Organized Health Care Education/Training Program; Emergency Provider Emergency Medicine; PCP Nurse Practitioner Primary Care; Visit Provider Physician Assistant Surgical | DX: R18.8 Other ascites (principal) | CPT/HCPCS: 32555 ==

== ENCOUNTER → 2024-10-14 12:04 | Outpatient (BNV) | payer OTHER, SELFPAY | PROVIDERS: Admitting Provider Student in an Organized Health Care Education/Training Program; Emergency Provider Emergency Medicine; Visit Provider Student in an Organized Health Care Education/Training Program | DX: K70.10 Alcoholic hepatitis without ascites (principal); E83.42 Hypomagnesemia; D72.829 Elevated white blood cell count, unspecified | CPT/HCPCS: 99232; 99239 ==

== ENCOUNTER → 2024-10-14 12:04 | Outpatient (BNV) | payer OTHER, SELFPAY | PROVIDERS: Admitting Provider Student in an Organized Health Care Education/Training Program; Emergency Provider Emergency Medicine; Visit Provider Internal Medicine Gastroenterology | DX: K70.10 Alcoholic hepatitis without ascites (principal) | CPT/HCPCS: 99223 ==

== ENCOUNTER 2024-10-25 14:28 | Outpatient (AMB) | payer MEDICAID, SELFPAY ==
--- NOTE | 2024-10-25 14:36 | A.OFFVIS_ITS ---
Vital Signs 10/25/24 14:45 Height 5 ft 9 in Weight 151 lb 3.794 oz BMI 22.3 BP 94/60 Blood Pressure Location Rt brachial Position Sitting Pulse 98 Pulse Source Pulse Oximeter Pulse Oximetry (%) 98 Oxygen Delivery Method Room Air Intake Visit Reasons: hepatitis Intake Note: NEW PATIENT for hepatitis initial assessment. PCP notes requested 10/23 by OA Prior hx of colo/egd? N Chief Complaint; C/O previous epigastric pain, lack of appetite within the last few months. Pt also reports unintentional weight loss of ~ 20 lbs within the last year by his estimate. Pt denies any sx presently. Agile Coach Required: No Accompanied by: Self / Same As Patient Allergies No Known Allergies Allergy (Verified 10/25/24 14:36) HPI HPI hepatitis: Details: CONSULTATION NOTE FROM THE HOSPITALIZATION 10/14 2024 Plan 1/ Acute alcoholic hepatitis with likely underlying decompensated cirrhosis, Bolivardrey 18 indicating a good prognosis-does not need steroids --MELD 17 (<2% 90 d mortality) PLAN: 1/ Reinforced alcohol abstinence 2/ vitamins and alcohol withdrawal protocol 3/ lo sodium diet, and low dose lasix 20 mg with 50 mg aldactone, monitor lytes 4/ Tap ascites and send for analysis inl SAAG and cell counts, 5/ Check hep serologies, A1AT, ferritin, SMA, XIN, AMA 6/ consider baclofen for prevention of cravings 7/ high protein diet to prevent sarcopenia and reduce liver inflammation PROGRESS NOTES FROM 10/18/2024 DR. MTZ Plan 1/ Alcoholic hepatitis, porobable underlying cirrhosis as well with ascites. cell count neg for SbP, albumin pending to calculate sAAG but based on clincial hx will likely be >1.1 2/ Anemia, prob ACD related to alcohol use and liver injury, no overt GI b leeding PLAN; 1/ no need for steroids 2/ hep serologies neg 3/ cont with low dose diuretics, can titrate as o/p depending on reponse, low salt diet, multivitamins 4/ stongly advised on alcohol abstinence 5/ o/p endoscopy to eval for varices and o/p screening colonoscopy TODAY'S VISIT Patient is here today after being discharged from the hospital for acute alcoholic hepatitis and cirrhosis with ascites. Paracentesis was performed while in the hospital. During hospital stay patient was on phenobarbital taper to prevent alcoholic withdrawals and patient tolerated very well. Patient has not had any alcohol since discharge. Patient reports that he does not want to even touch alcohol as having liver cirrhosis early scared him. Patient is worry about his health and want to comply and stay away from of currently patient reports that he is feeling better. Has appetite and is trying to eat well. Denies any GI concerning symptoms. Liver enzymes improved since discharge. Patient denies jaundice, abdominal pain, cramping. Currently is taking spironolactone and reports to have increased urination because of that. Patient is here today to further evaluate his liver. [facility] Medical History Alcohol use disorder No pertinent past medical history Social History Household Members: Spouse Housing: Apartment Do you presently have visiting nurse or other home services: No Alcohol intake: current Patient Tobacco Use Status: Current everyday Tobacco user Tobacco use type: Cigarette Cigarettes Per Day: 6 Years Smoked: 20 YEARS e-Cigarette/Vaping Use: Currently Using Second Hand Smoke Exposure: Yes Substance Use Type: Marijuana service: No Review of Systems Const Denies weight gain and Reports weight loss ENT Reports no additional complaints, Denies dysphagia and Denies odynophagia Card Reports no additional complaints Resp Reports no additional complaints GI Denies abdominal pain, Denies belching, Denies melena, Denies bloating, Denies change in bowel habits, Denies dysphagia, Denies excessive flatus, Denies dyspepsia, Denies heartburn, Denies diarrhea, Denies loose stools, Denies nausea, Denies odynophagia and Denies vomiting Reports no additional complaints Musc Reports no additional complaints Neuro Reports no additional complaints Psych Reports no additional complaints Endo Reports no additional complaints Physical Exam Vital Signs: Last Vital Signs Pulse 98 10/25/24 14:45 BP 94/60 10/25/24 14:45 Pulse Ox 98 10/25/24 14:45 Oxygen Delivery Method Room Air 10/25/24 14:45 BMI result Body Mass Index 22.3 Const General: healthy appearing, no acute distress and well developed Nutritional Appearance: well nourished Orientation/consciousness: patient oriented x3 Resp Effort & Inspection: normal respiratory effort, able to speak in complete sentences, no tracheal deviation and symmetric chest movement Auscultation: clear to auscultation bilaterally Cardio Rate: regular rate GI Inspection: Yes normal to inspection and No distended Palpation (GI): Soft to palpation, not firm, nontender, No Ascites present and No Rebound tenderness present Percussion: No Fluid wave present Auscultation: normal bowel sounds General: Yes no CVA tenderness Back/Spine/Pelvis Back: no CVA tenderness Skin General skin exam: elasticity normal, turgor normal and dry skin Neuro General: patient oriented x3 Psych Appearance: grossly normal Mental Status: mental status grossly normal Assessment & Plan Assessment & Plan (1) Alcoholic liver disease: Code(s): K70.9 - Alcoholic liver disease, unspecified (2) Transaminitis: Code(s): R74.01 - Elevation of levels of liver transaminase levels (3) Liver cirrhosis, alcoholic: Code(s): K70.30 - Alcoholic cirrhosis of liver without ascites Qualifiers: Ascites presence: without ascites Qualified Code(s): K70.30 - Alcoholic cirrhosis of liver without ascites Plan Continue abstinence from alcohol. Will send patient for abdominal ultrasound with elastography. Check liver fibrosis panel. Rule out autoimmune disorders. Discussed with patient low-fat, low-salt, low carb and high-protein diet. List of food recommended given to patient. Patient had low magnesium and low potassium while in the hospital. Will recheck it. Will check for malabsorption: vitamin B12, vitamin D and folate. Patient will return in 3 months to re-evaluate. Patient will call our office if he will develop any additional symptoms. Patient will call our office if he will noticed increase swallowing in his abdomen. Next visit we will discuss patient going for upper endoscopy and colonoscopy. He is agreeable to current plan of care and verbalizes understanding of instructions. He was given the opportunity to ask questions and all questions answered. Thank you for allowing me to participate in his care Orders: Orders Lipase 10/25/24 R10.9 - Unspecified abdominal pain Liver Fibrosis Pnl 10/25/24 K76.0 - Fatty (change of) liver, not elsewhere classified Magnesium 10/25/24 N18.9 - Chronic kidney disease, unspecified IRON PROFILE 10/25/24 D64.9 - Anemia, unspecified C Reactive Protein 10/25/24 K58.9 - Irritable bowel syndrome, unspecified Smooth Muscle Antibody 10/25/24 R79.89 - Other specified abnormal findings of blood chemistry Mitochondrial Antibody 10/25/24 R79.89 - Other specified abnormal findings of blood chemistry Potassium 10/25/24 E87.6 - Hypokalemia Alpha Fetoprotein 10/25/24 R79.89 - Other specified abnormal findings of blood chemistry Vitamin B12 and Folate 10/25/24 R19.7 - Diarrhea, unspecified Vitamin D 25-OH (D2 and D3) 10/25/24 E55.9 - Vitamin D deficiency, unspecified Ferritin 10/25/24 R74.8 - Abnormal levels of other serum enzymes US abdomen comp w elastography 10/25/24 R79.89 - Other specified abnormal findings of blood chemistry Coding Level of Care Code New Pt Level 4 (54616) Diagnoses Alcoholic liver disease K70.9 Transaminitis R74.01 Alcoholic cirrhosis of liver without ascites K70.30 Ascites presence: without ascites Time Spent (min) 50 Comment 35 minutes spent with patient and additional 15 minutes spent reviewing his records
[2024-10-25 14:45] VITALS: BP 94/60; PULSE 98; O2SAT 98; BMI 22.3
== END 2024-10-25 15:07 | disposition home or self-care (01) ==
PROVIDERS: PCP Nurse Practitioner Primary Care; Visit Provider Nurse Practitioner Family
DX: K70.9 Alcoholic liver disease, unspecified (principal); R74.01 Elevation of levels of liver transaminase levels; K70.30 Alcoholic cirrhosis of liver without ascites
CPT/HCPCS: 99204

== ENCOUNTER 2024-10-25 14:28 | Outpatient (REF) | payer MEDICAID, SELFPAY ==
[2024-10-25 16:09] LABS: C Reactive Protein 4.87 mg/dL (< or = 0.50); Iron 44 mcg/dL (45-160); Lipase 48 U/L (8-78); Magnesium 1.7 mg/dL (1.6-2.6); Percent Iron Saturation 25 % (15-50); Potassium 4.2 mmol/L (3.3-5.1); Total Iron Binding Capacity 173 mcg/dL (228-428); Unsaturated Iron Binding 129 ug/dL
[2024-10-25 16:22] LABS: Ferritin 80 ng/mL (20-250)
[2024-10-25 16:36] LABS: Folate 9.9 ng/mL (> or = 4.0); Vitamin B12 1537 pg/mL (200-900)
[2024-10-26 13:13] LABS: Alpha Fetoprotein 2.7 ng/mL (<6.1)
[2024-10-30 07:33] LABS: Smooth Muscle Antibody <20 U (<20)
[2024-10-30 11:33] LABS: Mitochondrial Antibodies NEGATIVE (NEGATIVE)
[2024-10-30 15:23] LABS: Vitamin D 25-OH, D2 <4 ng/mL; Vitamin D 25-OH, D3 <4 ng/mL; Vitamin D 25-OH, Total <4 ng/mL (30-100)
== END 2024-10-25 14:29 | disposition home or self-care (01) ==
LOC: HO.LAB 14:28
PROVIDERS: PCP Nurse Practitioner Primary Care; Visit Provider Nurse Practitioner Family
DX: R10.9 Unspecified abdominal pain (principal); N18.9 Chronic kidney disease, unspecified; D64.9 Anemia, unspecified; R79.89 Other specified abnormal findings of blood chemistry; E87.6 Hypokalemia; E55.9 Vitamin D deficiency, unspecified; K76.0 Fatty (change of) liver, not elsewhere classified; K58.9 Irritable bowel syndrome, unspecified; R19.7 Diarrhea, unspecified; R74.8 Abnormal levels of other serum enzymes
CPT/HCPCS: 36415; 81596; 82105; 82306; 82607; 82728; 82746; 83540; 83690; 83735; 84132; 86015; 86140; 86381; 99202

== ENCOUNTER 2024-12-08 13:02 | Emergency (ER) | payer MEDICAID, SELFPAY ==
[2024-12-08] VITALS (8 sets, daily range): BP systolic 110–121; BP diastolic 73–88; PULSE 89–130; RESP 17–20; TEMP 36.5–36.9; O2SAT 98–100; BMI 19.7
--- NOTE | ~2024-12-08 | XR_ITS ---
EXAMINATION: XR CHEST CLINICAL INFORMATION: sob COMPARISON: 10/14/2024. TECHNIQUE: Frontal view of the chest was obtained. FINDINGS: The cardiac, hilar, and mediastinal contours are normal. The lungs are clear bilaterally. No pneumothorax or effusion. No focal osseous or soft tissue abnormality. XR/XR chest 1V IMPRESSION: No active pulmonary disease. Electronically signed by: Nixon Jones MD 12/08/2024 04:31 PM EDT
--- NOTE | ~2024-12-08 | CT_ITS ---
CLINICAL HISTORY: abd pain CT abdomen and pelvis with contrast Comparison: US - US ABDOMEN LIMITED - 10/14/24 08:04 EST Findings: There is motion artifact on the images. The visualized portions of the lungs are normal in appearance. Liver is enlarged with decrease of attenuation. No suspicious focal lesion. No intrahepatic or extrahepatic ductal dilatation is seen. The hepatic and portal veins are patent. No calcified gallstones in the gallbladder. Pancreas, spleen and adrenals are normal in appearance. No suspicious focal lesion of the kidneys. No hydronephrosis or calculi. The abdominal aorta demonstrates no evidence of aneurysmal dilatation or dissection. Colonic diverticulosis with bowel wall thickening of the descending colon and sigmoid colon. No evidence of bowel obstruction. Appendix is normal. There is circumferential wall thickening of the bladder. No intraperitoneal free air or fluid is visualized. No pathologic lymphadenopathy is seen. There are no osseous or soft tissue abnormalities. IMPRESSION: Colonic diverticulosis with bowel wall thickening of the colon concerning for acute diverticulitis. Correlation with colonoscopy findings as indicated. Hepatomegaly and hepatic steatosis. Wall thickening of the bladder. Clinical correlation is recommended to exclude cystitis. This document has been electronically signed by: Radha Lerma MD on 12/08/2024 18:05:12
--- NOTE | 2024-12-08 13:14 | ED_ITS ---
HPI - Abdominal Pain General Chief Complaint: General Medical Stated Complaint: nausea vomiting Time Seen by Provider: 12/08/24 14:12 Related Data Previous Rx's ?Medication ?Instructions ?Recorded magnesium oxide 400 mg (241.3 mg 400 mg PO DAILY #90 tabs 10/18/24 magnesium) tablet spironolactone 25 mg tablet 25 mg PO DAILY #90 tabs 10/18/24 thiamine HCl (vitamin B1) 100 mg 100 mg PO DAILY #90 tabs 10/18/24 tablet cholecalciferol (vitamin D3) 1,250 1,250 mcg PO QWEEK #13 caps 10/30/24 mcg (50,000 unit) capsule Allergies Allergy/AdvReac Type Severity Reaction Status Date / Time No Known Allergies Allergy Verified 12/08/24 13:15 [facility] Past Medical History Medical History Alcohol use disorder No pertinent past medical history Social History Social History Household Members: Spouse Housing: Apartment Do you presently have visiting nurse or other home services: No Alcohol intake: current Alcohol intake frequency: 3 or more drinks per day Alcohol type: beer Patient Tobacco Use Status: Current everyday Tobacco user Tobacco use type: Cigarette Cigarettes Per Day: 6 Years Smoked: 20 YEARS e-Cigarette/Vaping Use: Currently Using Second Hand Smoke Exposure: Yes Substance Use Type: Marijuana service: No Physical Exam ED Vital Signs: Vital Signs - 24 hr 12/08/24 13:10 12/08/24 15:33 12/08/24 16:20 Temperature 97.7 F 98.5 F Pulse Rate 130 H 95 98 Pulse Rate [Left Apical] Respiratory Rate 20 17 Blood Pressure 115/77 114/78 110/77 Pulse Oximetry 99 100 Oxygen Delivery Method Room Air Room Air 12/08/24 16:49 12/08/24 17:11 12/08/24 17:20 Temperature 98.3 F 97.8 F Pulse Rate 98 93 Pulse Rate [Left Apical] 108 H Respiratory Rate 17 20 Blood Pressure 117/79 116/73 Pulse Oximetry 98 99 Oxygen Delivery Method Room Air Room Air 12/08/24 19:59 12/08/24 20:01 Temperature 98.5 F 98.5 F Pulse Rate 89 89 Pulse Rate [Left Apical] Respiratory Rate 17 17 Blood Pressure 121/88 121/88 Pulse Oximetry 98 98 Oxygen Delivery Method Room Air Room Air BMI result Body Mass Index 19.7 Course Course Course Narrative: This is an RME performed by Michael Rodriguez CNP: Additional HPI, ROS, PE not included below will be deferred to primary provider. Patient is a 49-year-old male who presents emergency department for evaluation of feeling generally unwell, chills, vomiting, mid lower abdominal pain. Admits to a recent hospitalization in September due to liver trouble from drinking. States he continues to drink daily, last drink earlier today. Has a history of alcohol withdrawal seizures. Plan: Serum labs, urinalysis Reevaluation(s) Reevaluation #1: See additional note dated 12/08/[address] Marin Medical Decision Making Lab Data 12/08/24 13:33 12/08/24 13:33 Labs: Lab Results 12/08/24 12/08/24 12/08/24 Range/Units 13:33 15:57 16:23 WBC 7.2 (4.8-10.8) X10*3/uL RBC 3.75 L D (4.60-5.80) X10*6/uL Hgb 12.0 L D (14.0-18.0) g/dl Hct 33.8 L (42.0-52.0) % MCV 90.1 (80.0-98.0) fL MCH 32.0 (27.0-33.0) pg MCHC 35.5 (31.0-36.0) g/dl RDW 18.2 H (11.0-16.0) % Plt Count 65 L D (160-400) X10*3/uL MPV 9.9 (9.4-12.4) fL Immature Gran % (Auto) 0.3 (0.0-0.4) % Neut % (Auto) 53.4 (45-73) % Lymph % (Auto) 33.5 (20-40) % [place] % (Auto) 9.6 (2-11) % Eos % (Auto) 2.4 (0-4) % Baso % (Auto) 0.8 (0-2) % Lymph # (Auto) 2.4 (1.2-4.9) X10*3/uL [place] # (Auto) 0.7 (0.1-1.2) X10*3/uL Eos # (Auto) 0.2 (0.0-0.4) X10*3/uL Baso # (Auto) 0.1 (0.0-0.2) X10*3/uL Abs Immat Gran (auto) 0.02 (0.00-0.03) X10*3/uL Absolute Neuts (auto) 3.9 (2.0-8.3) x10*3/uL Absolute Nucleated RBC 0.000 (0.0-0.012) X10*3/uL Nucleated RBC % (auto) 0.0 (0.0-0.2) /100WBC Sodium 141 (135-145) mmol/L Potassium 3.6 (3.3-5.1) mmol/L Chloride 103 (96-108) mmol/L Carbon Dioxide 26 (22-29) mmol/L Anion Gap 16 (12-20) BUN 7 L (9-16) mg/dL Creatinine 0.63 (0.5-1.4) mg/dL Estim Creat Clear Calc 122.5 Estimated GFR > 60 Random Glucose 120 H (60-115) mg/dL Lactic Acid 3.4 H* (0.5-2.0) mmol/L Lactic Acid F/U @ 2Hr 4.0 H* (0.5-2.0) mmol/L Lactic Acid F/U @ 4Hr (0.5-2.0) mmol/L Calcium 8.7 D (8.4-10.2) mg/dL Magnesium 1.5 L (1.6-2.6) mg/dL Total Bilirubin 2.6 H (0.0-1.0) mg/dL Direct Bilirubin 1.4 H (0.0-0.5) mg/dL AST 135 H (5-37) U/L ALT 24 (0-40) U/L Alkaline Phosphatase 168 H (39-117) U/L C-Reactive Protein 0.14 (< or = 0.50) mg/dL Total Protein 7.2 (6.5-8.0) g/dL Albumin 3.5 (3.5-5.0) g/dL Lipase 149 H (8-78) U/L Urine Color Urine Appearance Urine pH (5.0-9.0) Ur Specific [place] (1.005-1.025) Urine Protein (Neg-Trace) mg/dL Urine Glucose (UA) (Negative) mg/dL Urine Ketones (Negative) mg/dL Urine Blood (Negative) Urine Nitrite (Negative) Ur Leukocyte Esterase (Negative) Urine RBC (0-2) /HPF Urine WBC (0-5) /HPF Ur Squamous Epith Cells (0-2) /HPF Urine Bacteria (None Seen) Hyaline Casts (0-2) /LPF Urine Opiates Screen (Not Detect) Ur Buprenorphine Scrn (Not Detect) ng/mL Ur Oxycodone Screen (Not Detect) ng/mL Urine Methadone Screen (Not Detect) ng/mL Urine Fentanyl Screen (Not Detect) Ur Barbiturates Screen (Not Detect) Ur Phencyclidine Scrn (Not Detect) Ur Amphetamines Screen (Not Detect) U Benzodiazepines Scrn (Not Detect) Urine Cocaine Screen (Not Detect) U Marijuana (THC) Screen (Not Detect) Ethyl Alcohol 435 H* mg/dL Influenza Type A (PCR) NEGATIVE (Negative) Influenza Type B (PCR) NEGATIVE (Negative) RSV RNA Qual (PCR) NEGATIVE (Negative) SARS-CoV-2 RNA (RT-PCR) NEGATIVE (Negative) 12/08/24 12/08/24 Range/Units 16:38 18:15 WBC (4.8-10.8) X10*3/uL RBC (4.60-5.80) X10*6/uL Hgb (14.0-18.0) g/dl Hct (42.0-52.0) % MCV (80.0-98.0) fL MCH (27.0-33.0) pg MCHC (31.0-36.0) g/dl RDW (11.0-16.0) % Plt Count (160-400) X10*3/uL MPV (9.4-12.4) fL Immature Gran % (Auto) (0.0-0.4) % Neut % (Auto) (45-73) % Lymph % (Auto) (20-40) % [place] % (Auto) (2-11) % Eos % (Auto) (0-4) % Baso % (Auto) (0-2) % Lymph # (Auto) (1.2-4.9) X10*3/uL [place] # (Auto) (0.1-1.2) X10*3/uL Eos # (Auto) (0.0-0.4) X10*3/uL Baso # (Auto) (0.0-0.2) X10*3/uL Abs Immat Gran (auto) (0.00-0.03) X10*3/uL Absolute Neuts (auto) (2.0-8.3) x10*3/uL Absolute Nucleated RBC (0.0-0.012) X10*3/uL Nucleated RBC % (auto) (0.0-0.2) /100WBC Sodium (135-145) mmol/L Potassium (3.3-5.1) mmol/L Chloride (96-108) mmol/L Carbon Dioxide (22-29) mmol/L Anion Gap (12-20) BUN (9-16) mg/dL Creatinine (0.5-1.4) mg/dL Estim Creat Clear Calc Estimated GFR Random Glucose (60-115) mg/dL Lactic Acid (0.5-2.0) mmol/L Lactic Acid F/U @ 2Hr (0.5-2.0) mmol/L Lactic Acid F/U @ 4Hr 4.1 H* (0.5-2.0) mmol/L Calcium (8.4-10.2) mg/dL Magnesium (1.6-2.6) mg/dL Total Bilirubin (0.0-1.0) mg/dL Direct Bilirubin (0.0-0.5) mg/dL AST (5-37) U/L ALT (0-40) U/L Alkaline Phosphatase (39-117) U/L C-Reactive Protein (< or = 0.50) mg/dL Total Protein (6.5-8.0) g/dL Albumin (3.5-5.0) g/dL Lipase (8-78) U/L Urine Color Dark Yellow Urine Appearance Clear Urine pH 6.5 (5.0-9.0) Ur Specific [place] 1.015 (1.005-1.025) Urine Protein Trace (Neg-Trace) mg/dL Urine Glucose (UA) Negative (Negative) mg/dL Urine Ketones Negative (Negative) mg/dL Urine Blood Negative (Negative) Urine Nitrite Negative (Negative) Ur Leukocyte Esterase Negative (Negative) Urine RBC 0-2 (0-2) /HPF Urine WBC 0-5 (0-5) /HPF Ur Squamous Epith Cells 0-2 (0-2) /HPF Urine Bacteria None Seen (None Seen) Hyaline Casts 0-2 (0-2) /LPF Urine Opiates Screen Not Detected (Not Detect) Ur Buprenorphine Scrn Not Detected (Not Detect) ng/mL Ur Oxycodone Screen Not Detected (Not Detect) ng/mL Urine Methadone Screen Not Detected (Not Detect) ng/mL Urine Fentanyl Screen Not Detected (Not Detect) Ur Barbiturates Screen Not Detected (Not Detect) Ur Phencyclidine Scrn Not Detected (Not Detect) Ur Amphetamines Screen Not Detected (Not Detect) U Benzodiazepines Scrn Not Detected (Not Detect) Urine Cocaine Screen Not Detected (Not Detect) U Marijuana (THC) Screen POSITIVE H (Not Detect) Ethyl Alcohol mg/dL Influenza Type A (PCR) (Negative) Influenza Type B (PCR) (Negative) RSV RNA Qual (PCR) (Negative) SARS-CoV-2 RNA (RT-PCR) (Negative) Medications Administered Discontinued Medications Generic Name Dose Route Start Last Admin Trade Name Freq PRN Reason Stop Dose Admin Ceftriaxone Sodium 1 gm 12/08/24 15:22 12/08/24 15:30 Ceftriaxone Sodium 1 Gm Vial IVPUSH 12/08/24 15:23 1 gm ONCE ONE Administration Sodium Chloride 1,812 mls @ 1,812 mls/hr 12/08/24 14:50 12/08/24 17:00 Ns 30 ml/kg infuse over 1 hr (1812 ml) 12/08/24 15:49 Infused IV Infusion .Q1H STA Iohexol 85 ml 12/08/24 16:52 12/08/24 16:55 Iohexol 350 Mg/Ml 100 Ml Infus..Btl IV 12/08/24 16:53 85 ml ONCE ONE Administration Nicotine 21 mg 12/08/24 18:43 12/08/24 19:10 Nicotine 21 Mg Patch.Td24 TRANSDERMA 12/08/24 18:44 21 mg ONCE ONE Administration Ondansetron HCl 4 mg 12/08/24 14:54 12/08/24 14:58 Ondansetron Hcl 4 Mg/2 Ml Vial IVPUSH 12/08/24 14:55 4 mg ONCE ONE Administration Discharge Plan Discharge Clinical Impression: Alcohol intoxication, Alcoholism Patient Disposition: Home, Self-Care Additional Instructions: Your alcohol level today was quite high. The level was 435. This is a level which is quite high. Please do your best to reduce your alcohol intake. Please contact the [facility]. This is a Clinic here at [facility] which helps people with alcohol issues. I would recommend calling them on Wednesday for an appointment next week. Also please follow up with your regular doctor and the gastroenterology office. Please also consider going to an alcohol deep recovery/detox center. Return to the emergency room if worse. Alcohol use disorder You were seen in the Emergency Department today for treatment of alcohol use disorder.? You may have been given medications to help with your withdrawal symptoms.? Please do not drink alcohol with them. This is very dangerous and can cause respiratory depression or other adverse reactions depending on the medication. If you would like to cut down or stop your alcohol use please consider calling our outpatient Addiction Treatment office:? [facility] (-[id number]) [address] [place] [address] ? You have also been given a list of treatment providers in the area that can assist as well.? If you experience seizures, vomiting blood, black stools, falls, severe headache, chest pain, fevers, trouble breathing, hallucinations or any other concerns you need to call 911 or seek immediate care. Please stay hydrated. Prescriptions: No Action cholecalciferol (vitamin D3) 1,250 mcg (50,000 unit) capsule 1,250 mcg PO QWEEK Qty: 13 0RF spironolactone 25 mg tablet 25 mg PO DAILY Qty: 90 0RF thiamine HCl (vitamin B1) 100 mg tablet 100 mg PO DAILY Qty: 90 0RF magnesium oxide 400 mg (241.3 mg magnesium) tablet 400 mg PO DAILY Qty: 90 0RF [place]: [facility] [place]Provider Group] (alcoholic liver disease) [facility] [Provider Group] (alcoholism) Cecilia Mathews MD [Physician] - (alcoholism) Stand Alone Forms: Work/School Release Interventions: ED Discharge Assessment Last Done: 12/08/24 20:01 Discharge Date/Time: 12/08/24 20:05 Print Language: Japanese
--- NOTE | 2024-12-08 13:19 | ECG_ITS ---
Test Reason : tachycardia Blood Pressure : */* mmHG Vent. Rate : 112 BPM Atrial Rate : 112 BPM P-R Int : 146 ms QRS Dur : 108 ms QT Int : 364 ms P-R-T Axes : 68 48 78 degrees QTcB Int : 496 ms Sinus tachycardia Possible Left atrial enlargement Nonspecific T wave abnormality Abnormal ECG When compared with ECG of 14-Oct-2024 09:48, No significant change was found Referred By: Fauzia Rodriguez Electronically Signed By: Steven Newell
--- NOTE | 2024-12-08 13:34 | PC.NURSE ---
Charge nurse made aware of patients condition and to be on the top of the list to be brought back into main ED
[2024-12-08 13:40] LABS: MANUAL DIFF FLAG NO
[2024-12-08 13:42] LABS: Basophils Absolute Auto 0.1 X10*3/uL (0.0-0.2); Basophils Percent Auto 0.8 % (0-2); Eosinophils Absolute Auto 0.2 X10*3/uL (0.0-0.4); Eosinophils Percent Auto 2.4 % (0-4); Hematocrit 33.8 % (42.0-52.0); Imm Gran Abs Auto 0.02 X10*3/uL (0.00-0.03); Imm Gran Pct Auto 0.3 % (0.0-0.4); Lymphocytes Absolute Auto 2.4 X10*3/uL (1.2-4.9); Lymphocytes Percent Auto 33.5 % (20-40); Mean Corpuscular HGB Conc 35.5 g/dl (31.0-36.0); Mean Corpuscular Volume 90.1 fL (80.0-98.0); Monocytes Absolute Auto 0.7 X10*3/uL (0.1-1.2); Monocytes Percent Auto 9.6 % (2-11); Neutrophils Absolute Auto 3.9 x10*3/uL (2.0-8.3); Neutrophils Percent Auto 53.4 % (45-73); Red Blood Count 3.75 X10*6/uL (4.60-5.80); Red Cell Distribution Width 18.2 % (11.0-16.0); White Blood Count 7.2 X10*3/uL (4.8-10.8)
[2024-12-08 13:58] LABS: Alanine Aminotransferase 24 U/L (0-40); Albumin Level 3.5 g/dL (3.5-5.0); Alkaline Phosphatase 168 U/L (39-117); Anion Gap 16 (12-20); Aspartate Amino Transferase 135 U/L (5-37); Bilirubin Direct 1.4 mg/dL (0.0-0.5); Bilirubin Total 2.6 mg/dL (0.0-1.0); Blood Urea Nitrogen 7 mg/dL (9-16); Calcium 8.7 mg/dL (8.4-10.2); Carbon Dioxide 26 mmol/L (22-29); Chloride 103 mmol/L (96-108); Creatinine Clr Calc Pharmacy 122.5; Estimated Glomerular Filt Rate > 60; Ethanol 435 mg/dL; Glucose Random 120 mg/dL (60-115); Lipase 149 U/L (8-78); Potassium 3.6 mmol/L (3.3-5.1); Sodium 141 mmol/L (135-145); Total Protein 7.2 g/dL (6.5-8.0)
[2024-12-08 13:59] LABS: Lactic Acid 3.4 mmol/L (0.5-2.0)
[2024-12-08 14:08] LABS: Mean Platelet Volume 9.9 fL (9.4-12.4); Platelet Count 65 X10*3/uL (160-400)
--- NOTE | 2024-12-08 14:51 | ED.GENADULT ---
HPI - General Adult General Chief complaint: General Medical Stated complaint: nausea vomiting Time Seen by Provider: 12/08/24 14:12 History of Present Illness HPI narrative: Patient is a 49-year-old male who came in after drinking heavily. Now have some nausea. Patient had some mild abdominal pain. No fever no chills. Finish drinking at 11:30 this morning. No fever no chills. Positive mild nausea. No bloody stool. Related Data Previous Rx's ?Medication ?Instructions ?Recorded magnesium oxide 400 mg (241.3 mg 400 mg PO DAILY #90 tabs 10/18/24 magnesium) tablet spironolactone 25 mg tablet 25 mg PO DAILY #90 tabs 10/18/24 thiamine HCl (vitamin B1) 100 mg 100 mg PO DAILY #90 tabs 10/18/24 tablet cholecalciferol (vitamin D3) 1,250 1,250 mcg PO QWEEK #13 caps 10/30/24 mcg (50,000 unit) capsule Allergies Allergy/AdvReac Type Severity Reaction Status Date / Time No Known Allergies Allergy Verified 12/08/24 13:15 Review of Systems Review of Systems: Positive EtOH Positive nausea Yes all other systems are reviewed and are negative PMFSH Past Medical History Attestation statement: The following information was validated with the patient. Medical History Alcohol use disorder No pertinent past medical history Social History Social History Household Members: Spouse Housing: Apartment Do you presently have visiting nurse or other home services: No Alcohol intake: current Alcohol intake frequency: 3 or more drinks per day Alcohol type: beer Patient Tobacco Use Status: Current everyday Tobacco user Tobacco use type: Cigarette Cigarettes Per Day: 6 Years Smoked: 20 YEARS e-Cigarette/Vaping Use: Currently Using Second Hand Smoke Exposure: Yes Substance Use Type: Marijuana service: No Physical Exam ED Vital Signs: Vital Signs - 24 hr 12/08/24 13:10 12/08/24 15:33 12/08/24 16:20 Temperature 97.7 F 98.5 F Pulse Rate 130 H 95 98 Pulse Rate [Left Apical] Respiratory Rate 20 17 Blood Pressure 115/77 114/78 110/77 Pulse Oximetry 99 100 Oxygen Delivery Method Room Air Room Air 12/08/24 16:49 12/08/24 17:11 12/08/24 17:20 Temperature 98.3 F 97.8 F Pulse Rate 98 93 Pulse Rate [Left Apical] 108 H Respiratory Rate 17 20 Blood Pressure 117/79 116/73 Pulse Oximetry 98 99 Oxygen Delivery Method Room Air Room Air 12/08/24 19:59 12/08/24 20:01 Temperature 98.5 F 98.5 F Pulse Rate 89 89 Pulse Rate [Left Apical] Respiratory Rate 17 17 Blood Pressure 121/88 121/88 Pulse Oximetry 98 98 Oxygen Delivery Method Room Air Room Air BMI result Body Mass Index 19.7 Appearance: Alert. Oriented X3. No acute distress. Eyes: Pupils equal, round and reactive to light. ENT: Pharynx normal. Neck: Normal inspection. Neck supple. No lymph nodes noted. No crepitus CVS: Normal heart rate and rhythm. Pulses normal. Normal S1 and S2 Respiratory: No respiratory distress. Breath sounds normal. No Wheezing. No rales Abdomen: Soft and nontender. No rigidity. No distention. good BS x4 Skin: Skin warm and dry. Normal skin color. Normal skin turgor. Extremities: No lower extremity edema. Neurovascular intact to all extremities. No Lacerations. No Rash Neuro: Oriented X 3. No motor deficit. No sensory deficit. Moving all extermities. No slurred speech Course Reevaluation(s) Reevaluation #1: Dr. Villagran: The patient was signed out to me at change of shift. The patient is a 49-year-old male who was hospitalized 2 months ago for an exacerbation of his alcoholic liver disease. After that hospitalization he was briefly abstinent from alcohol but has gradually resumed use of alcohol and returns today with a very high alcohol level. He has not been feeling well. He has been having some abdominal pains. A CT scan of the abdomen was done which has a lot of motion artifact and there was a questionable finding of possible diverticulitis. Clinically the patient does not seem to have diverticulitis. He has a soft abdomen. He has a normal CBC and a normal CRP. The patient's lactate levels were elevated but I think this is a reflection of his chronic liver disease rather than sepsis. I spoke to the patient at some length regarding his plans for alcohol cessation. The patient is not yet ready to stop alcohol. He says he is willing to try to reduce his alcohol intake but not to stop it. I will therefore discharge the patient with recommendations to follow up with the comprehensive Care Clinic at [facility] for assistance with his alcohol problems. He should also follow up with his regular doctor at [facility]. He should also try to make another appointment with the gastroenterology office. He kept 1 appointment after his hospitalization in September. He was given a work note at discharge. Time: 20:10 Medications Administered Discontinued Medications Generic Name Dose Route Start Last Admin Trade Name Rula PRN Reason Stop Dose Admin Ceftriaxone Sodium 1 gm 12/08/24 15:22 12/08/24 15:30 Ceftriaxone Sodium 1 Gm Vial IVPUSH 12/08/24 15:23 1 gm ONCE ONE Administration Sodium Chloride 1,812 mls @ 1,812 mls/hr 12/08/24 14:50 12/08/24 17:00 Ns 30 ml/kg infuse over 1 hr (1812 ml) 12/08/24 15:49 Infused IV Infusion .Q1H STA Iohexol 85 ml 12/08/24 16:52 12/08/24 16:55 Iohexol 350 Mg/Ml 100 Ml Infus..Btl IV 12/08/24 16:53 85 ml ONCE ONE Administration Nicotine 21 mg 12/08/24 18:43 12/08/24 19:10 Nicotine 21 Mg Patch.Td24 TRANSDERMA 12/08/24 18:44 21 mg ONCE ONE Administration Ondansetron HCl 4 mg 12/08/24 14:54 12/08/24 14:58 Ondansetron Hcl 4 Mg/2 Ml Vial IVPUSH 12/08/24 14:55 4 mg ONCE ONE Administration Medical Decision Making Medical Decision Making MDM Narrative: Patient is 49 years old with a long history of drinking alcohol. He drank heavily prior to coming in. His alcohol level was over 400. A lactate was ordered at triage. I felt this elevated lactate of 3.4 is most likely secondary to dehydration and possibly liver disease. Not related to sepsis. Patient has no signs of infection. His white count is normal. There is no cough no upper respiratory symptoms. Will hydrate aggressively. Repeat lactate after IV fluids. After IV fluids. Patient's lactate was repeated was actually higher at 4.0. I think this is probably secondary to patient's baseline liver disease and drinking. Nevertheless additional CT scan x-ray and COVID test was sent. Patient was given a dose of Rocephin. Patient's case being signed out at the change of shift at 04:22 Differential Diagnosis Differential Diagnoses: The differential diagnosis associated with the presentation includes Infection versus dehydration versus liver disease Admission/Observation Consideration of admission/observation: Escalation of care including admission/observation considered Lab Data MDM Lab Attestation statement: I reviewed the patient's lab results. 12/08/24 13:33 12/08/24 13:33 Labs: Lab Results 12/08/24 12/08/24 12/08/24 Range/Units 13:33 15:57 16:23 WBC 7.2 (4.8-10.8) X10*3/uL RBC 3.75 L D (4.60-5.80) X10*6/uL Hgb 12.0 L D (14.0-18.0) g/dl Hct 33.8 L (42.0-52.0) % MCV 90.1 (80.0-98.0) fL MCH 32.0 (27.0-33.0) pg MCHC 35.5 (31.0-36.0) g/dl RDW 18.2 H (11.0-16.0) % Plt Count 65 L D (160-400) X10*3/uL MPV 9.9 (9.4-12.4) fL Immature Gran % (Auto) 0.3 (0.0-0.4) % Neut % (Auto) 53.4 (45-73) % Lymph % (Auto) 33.5 (20-40) % [place] % (Auto) 9.6 (2-11) % Eos % (Auto) 2.4 (0-4) % Baso % (Auto) 0.8 (0-2) % Lymph # (Auto) 2.4 (1.2-4.9) X10*3/uL [place] # (Auto) 0.7 (0.1-1.2) X10*3/uL Eos # (Auto) 0.2 (0.0-0.4) X10*3/uL Baso # (Auto) 0.1 (0.0-0.2) X10*3/uL Abs Immat Gran (auto) 0.02 (0.00-0.03) X10*3/uL Absolute Neuts (auto) 3.9 (2.0-8.3) x10*3/uL Absolute Nucleated RBC 0.000 (0.0-0.012) X10*3/uL Nucleated RBC % (auto) 0.0 (0.0-0.2) /100WBC Sodium 141 (135-145) mmol/L Potassium 3.6 (3.3-5.1) mmol/L Chloride 103 (96-108) mmol/L Carbon Dioxide 26 (22-29) mmol/L Anion Gap 16 (12-20) BUN 7 L (9-16) mg/dL Creatinine 0.63 (0.5-1.4) mg/dL Estim Creat Clear Calc 122.5 Estimated GFR > 60 Random Glucose 120 H (60-115) mg/dL Lactic Acid 3.4 H* (0.5-2.0) mmol/L Lactic Acid F/U @ 2Hr 4.0 H* (0.5-2.0) mmol/L Lactic Acid F/U @ 4Hr (0.5-2.0) mmol/L Calcium 8.7 D (8.4-10.2) mg/dL Magnesium 1.5 L (1.6-2.6) mg/dL Total Bilirubin 2.6 H (0.0-1.0) mg/dL Direct Bilirubin 1.4 H (0.0-0.5) mg/dL AST 135 H (5-37) U/L ALT 24 (0-40) U/L Alkaline Phosphatase 168 H (39-117) U/L C-Reactive Protein 0.14 (< or = 0.50) mg/dL Total Protein 7.2 (6.5-8.0) g/dL Albumin 3.5 (3.5-5.0) g/dL Lipase 149 H (8-78) U/L Urine Color Urine Appearance Urine pH (5.0-9.0) Ur Specific [place] (1.005-1.025) Urine Protein (Neg-Trace) mg/dL Urine Glucose (UA) (Negative) mg/dL Urine Ketones (Negative) mg/dL Urine Blood (Negative) Urine Nitrite (Negative) Ur Leukocyte Esterase (Negative) Urine RBC (0-2) /HPF Urine WBC (0-5) /HPF Ur Squamous Epith Cells (0-2) /HPF Urine Bacteria (None Seen) Hyaline Casts (0-2) /LPF Urine Opiates Screen (Not Detect) Ur Buprenorphine Scrn (Not Detect) ng/mL Ur Oxycodone Screen (Not Detect) ng/mL Urine Methadone Screen (Not Detect) ng/mL Urine Fentanyl Screen (Not Detect) Ur Barbiturates Screen (Not Detect) Ur Phencyclidine Scrn (Not Detect) Ur Amphetamines Screen (Not Detect) U Benzodiazepines Scrn (Not Detect) Urine Cocaine Screen (Not Detect) U Marijuana (THC) Screen (Not Detect) Ethyl Alcohol 435 H* mg/dL Influenza Type A (PCR) NEGATIVE (Negative) Influenza Type B (PCR) NEGATIVE (Negative) RSV RNA Qual (PCR) NEGATIVE (Negative) SARS-CoV-2 RNA (RT-PCR) NEGATIVE (Negative) 12/08/24 12/08/24 Range/Units 16:38 18:15 WBC (4.8-10.8) X10*3/uL RBC (4.60-5.80) X10*6/uL Hgb (14.0-18.0) g/dl Hct (42.0-52.0) % MCV (80.0-98.0) fL MCH (27.0-33.0) pg MCHC (31.0-36.0) g/dl RDW (11.0-16.0) % Plt Count (160-400) X10*3/uL MPV (9.4-12.4) fL Immature Gran % (Auto) (0.0-0.4) % Neut % (Auto) (45-73) % Lymph % (Auto) (20-40) % [place] % (Auto) (2-11) % Eos % (Auto) (0-4) % Baso % (Auto) (0-2) % Lymph # (Auto) (1.2-4.9) X10*3/uL [place] # (Auto) (0.1-1.2) X10*3/uL Eos # (Auto) (0.0-0.4) X10*3/uL Baso # (Auto) (0.0-0.2) X10*3/uL Abs Immat Gran (auto) (0.00-0.03) X10*3/uL Absolute Neuts (auto) (2.0-8.3) x10*3/uL Absolute Nucleated RBC (0.0-0.012) X10*3/uL Nucleated RBC % (auto) (0.0-0.2) /100WBC Sodium (135-145) mmol/L Potassium (3.3-5.1) mmol/L Chloride (96-108) mmol/L Carbon Dioxide (22-29) mmol/L Anion Gap (12-20) BUN (9-16) mg/dL Creatinine (0.5-1.4) mg/dL Estim Creat Clear Calc Estimated GFR Random Glucose (60-115) mg/dL Lactic Acid (0.5-2.0) mmol/L Lactic Acid F/U @ 2Hr (0.5-2.0) mmol/L Lactic Acid F/U @ 4Hr 4.1 H* (0.5-2.0) mmol/L Calcium (8.4-10.2) mg/dL Magnesium (1.6-2.6) mg/dL Total Bilirubin (0.0-1.0) mg/dL Direct Bilirubin (0.0-0.5) mg/dL AST (5-37) U/L ALT (0-40) U/L Alkaline Phosphatase (39-117) U/L C-Reactive Protein (< or = 0.50) mg/dL Total Protein (6.5-8.0) g/dL Albumin (3.5-5.0) g/dL Lipase (8-78) U/L Urine Color Dark Yellow Urine Appearance Clear Urine pH 6.5 (5.0-9.0) Ur Specific [place] 1.015 (1.005-1.025) Urine Protein Trace (Neg-Trace) mg/dL Urine Glucose (UA) Negative (Negative) mg/dL Urine Ketones Negative (Negative) mg/dL Urine Blood Negative (Negative) Urine Nitrite Negative (Negative) Ur Leukocyte Esterase Negative (Negative) Urine RBC 0-2 (0-2) /HPF Urine WBC 0-5 (0-5) /HPF Ur Squamous Epith Cells 0-2 (0-2) /HPF Urine Bacteria None Seen (None Seen) Hyaline Casts 0-2 (0-2) /LPF Urine Opiates Screen Not Detected (Not Detect) Ur Buprenorphine Scrn Not Detected (Not Detect) ng/mL Ur Oxycodone Screen Not Detected (Not Detect) ng/mL Urine Methadone Screen Not Detected (Not Detect) ng/mL Urine Fentanyl Screen Not Detected (Not Detect) Ur Barbiturates Screen Not Detected (Not Detect) Ur Phencyclidine Scrn Not Detected (Not Detect) Ur Amphetamines Screen Not Detected (Not Detect) U Benzodiazepines Scrn Not Detected (Not Detect) Urine Cocaine Screen Not Detected (Not Detect) U Marijuana (THC) Screen POSITIVE H (Not Detect) Ethyl Alcohol mg/dL Influenza Type A (PCR) (Negative) Influenza Type B (PCR) (Negative) RSV RNA Qual (PCR) (Negative) SARS-CoV-2 RNA (RT-PCR) (Negative) Independent Interpretation I performed an independent interpretation of an: Plain X-Ray (Grossly negative no pneumonia no pneumothorax) Discharge Plan Discharge Clinical Impression: Alcohol intoxication, Alcoholism Patient Disposition: Home, Self-Care Additional Instructions: Your alcohol level today was quite high. The level was 435. This is a level which is quite high. Please do your best to reduce your alcohol intake. Please contact the [facility]. This is a Clinic here at [facility] which helps people with alcohol issues. I would recommend calling them on Wednesday for an appointment next week. Also please follow up with your regular doctor and the gastroenterology office. Please also consider going to an alcohol deep recovery/detox center. Return to the emergency room if worse. Alcohol use disorder You were seen in the Emergency Department today for treatment of alcohol use disorder.? You may have been given medications to help with your withdrawal symptoms.? Please do not drink alcohol with them. This is very dangerous and can cause respiratory depression or other adverse reactions depending on the medication. If you would like to cut down or stop your alcohol use please consider calling our outpatient Addiction Treatment office:? [facility] (M-F [id number]) [address] [facility] [address] ? You have also been given a list of treatment providers in the area that can assist as well.? If you experience seizures, vomiting blood, black stools, falls, severe headache, chest pain, fevers, trouble breathing, hallucinations or any other concerns you need to call 911 or seek immediate care. Please stay hydrated. Prescriptions: No Action cholecalciferol (vitamin D3) 1,250 mcg (50,000 unit) capsule 1,250 mcg PO QWEEK Qty: 13 0RF spironolactone 25 mg tablet 25 mg PO DAILY Qty: 90 0RF thiamine HCl (vitamin B1) 100 mg tablet 100 mg PO DAILY Qty: 90 0RF magnesium oxide 400 mg (241.3 mg magnesium) tablet 400 mg PO DAILY Qty: 90 0RF Referrals: [facility] Gastroenterology Services [Provider Group] (alcoholic liver disease) [facility] Comprehensive Care Center [Provider Group] (alcoholism) Cecilia Mathews MD [Physician] - (alcoholism) Stand Alone Forms: Work/School Release Interventions: ED Discharge Assessment Last Done: 12/08/24 20:01 Discharge Date/Time: 12/08/24 20:05 Print Language: [place]
[2024-12-08] MEDS: SODIUM CHLORIDE 1812 ML IV (14:54)
[2024-12-08] MEDS: ondansetron HCL 4 MG/2 ML VIAL IVPUSH (14:58)
[2024-12-08] MEDS: cefTRIAXone sodium 1 GM VIAL IVPUSH (15:30)
--- NOTE | 2024-12-08 15:32 | PC.NURSE ---
pt labs returned with an elevated lactic, pt was ordered blood cultures and IVF were hung by Latasha CALIX, IV abx given per order, call linares within reach, plan of care ongoing.
[2024-12-08 15:38] LABS: Reflex Lactate? Lactic Acid Added
--- NOTE | 2024-12-08 16:34 | PC.NURSE ---
patient a&ox3, ambulated to bathroom stby assist but was steady. vss, threat monitoring analyst intact pt sinus tach on monitor, IVFcontinue to run- pt reminded to keep arm stright. call linares within reach, plan of care ongoing
[2024-12-08 16:48] LABS: Appearance Urine Clear; Color Urine Dark Yellow; Glucose Urine UA Negative (Negative); Leukocyte Esterase Urine Negative (Negative); Nitrite Urine Negative (Negative); PH 6.5 (5.0-9.0); Specific Gravity - Urine 1.015 (1.005-1.025); Urine Blood Negative (Negative); Urine Ketones Negative (Negative); Urine Protein Trace mg/dL (Neg-Trace)
--- NOTE | 2024-12-08 16:48 | PC.NURSE ---
PT TO CT SCAN
[2024-12-08 16:50] LABS: Bacteria Urine None Seen (None Seen); Hyaline Casts Urine 0-2 /LPF (0-2); RBC Urine 0-2 /HPF (0-2); Squamous Epithelial Cell Urine 0-2 /HPF (0-2); WBC Urine 0-5 /HPF (0-5)
[2024-12-08] MEDS: iohexoL 350 MG/ML 100 ML INFUS..BTL 85 ML IV (16:55)
[2024-12-08 16:58] LABS: Amphetamine Screen Urine Not Detected (Not Detect); Barbiturates, Urine Not Detected (Not Detect); Benzodiazepines Screen Urine Not Detected (Not Detect); Buprenorphine Scr Not Detected (Not Detect); Cannabinoid Screen Urine POSITIVE (Not Detect); Cocaine Screen Urine Not Detected (Not Detect); Fentanyl, urine Not Detected (Not Detect); Methadone Screen, Urine Not Detected (Not Detect); Opiate Screen Urine Not Detected (Not Detect); Oxycodone Screen Urine Not Detected (Not Detect); Phencyclidine Screen Urine Not Detected (Not Detect)
[2024-12-08 17:21] LABS: Influenza A PCR NEGATIVE (Negative); Influenza B PCR NEGATIVE (Negative); Resp Syncy Virus RNA Qual PCR NEGATIVE (Negative); SARS COV2 PCR INHOUSE NEGATIVE (Negative)
[2024-12-08 17:59] LABS: Reflex Lactate? 2 Y
[2024-12-08 18:39] LABS: ~Lactic Acid-LAB USE ONLY 4.1 mmol/L (0.5-2.0)
[2024-12-08 19:00] LABS: C Reactive Protein 0.14 mg/dL (< or = 0.50)
[2024-12-08] MEDS: Nicotine 21 MG PATCH.TD24 TRANSDERMA (19:10)
[2024-12-08 19:16] LABS: Magnesium 1.5 mg/dL (1.6-2.6)
--- NOTE | 2024-12-08 19:28 | PC.NURSE ---
this rn assumed care of pt, pt a&ox4, respirations even and unlabored. nicotine patch placed on left arm. seizure pads in place for safety. at bedside.
== END 2024-12-08 20:05 | disposition home or self-care (01) ==
PROVIDERS: Emergency Medicine Emergency Medical Services; Nurse Practitioner Family; Emergency Provider Emergency Medicine; PCP Nurse Practitioner
DX: F10.129 Alcohol abuse with intoxication, unspecified (principal); Y90.8 Blood alcohol level of 240 mg/100 ml or more; R11.2 Nausea with vomiting, unspecified; R00.0 Tachycardia, unspecified; R10.2 Pelvic and perineal pain; F17.210 Nicotine dependence, cigarettes, uncomplicated; Z03.818 Encounter for observation for suspected exposure to other biological agents ruled out; Z51.81 Encounter for therapeutic drug level monitoring; Z79.899 Other long term (current) drug therapy
CPT/HCPCS: 0241U; 36415; 71045; 74177; 80048; 80076; 80307; 81001; 83605; 83690; 83735; 85025; 86140; 87040; 93005; 96361; 96374; 96375; 99284; 99285; J0696; J2405; Q9967

== ENCOUNTER → 2024-12-08 13:19 | Outpatient (BNV) | payer MEDICAID, SELFPAY | PROVIDERS: Emergency Provider Emergency Medicine; PCP Nurse Practitioner; Visit Provider Internal Medicine Cardiovascular Disease | DX: R94.31 Abnormal electrocardiogram [ECG] [EKG] (principal) | CPT/HCPCS: 93010 ==

== ENCOUNTER → 2024-12-08 16:20 | Outpatient (BNV) | payer MEDICAID, SELFPAY | PROVIDERS: Emergency Provider Emergency Medicine; PCP Nurse Practitioner; Visit Provider Radiology Diagnostic Radiology | DX: K57.30 Diverticulosis of large intestine without perforation or abscess without bleeding (principal); K76.0 Fatty (change of) liver, not elsewhere classified; R16.0 Hepatomegaly, not elsewhere classified; R06.02 Shortness of breath | CPT/HCPCS: 71045; 74177 ==

== ENCOUNTER 2025-01-09 10:21 | Inpatient (IN) | payer MEDICAID, SELFPAY ==
[2025-01-09] VITALS (9 sets, daily range): BP systolic 99–117; BP diastolic 60–73; PULSE 94–115; RESP 14–22; TEMP 36.6–37.1; O2SAT 86–100; BMI 29.1; BMI 21.1
--- NOTE | ~2025-01-09 | XR_ITS ---
EXAMINATION: XR CHEST CLINICAL INFORMATION: bruising, weight loss COMPARISON: None available. TECHNIQUE: 2 views of the chest were obtained. FINDINGS: The cardiac, hilar, and mediastinal contours are normal. The lungs are clear bilaterally. There is no pneumothorax or pleural effusion. There is no focal osseous or soft tissue abnormality. XR/XR chest 2V IMPRESSION: No active pulmonary disease. Electronically signed by: Nixon Jones MD 01/09/2025 11:20 AM EDT
--- NOTE | ~2025-01-09 | US_ITS ---
EXAMINATION: US ABDOMEN LIMITED HISTORY: check ascites + cirrhosis TECHNIQUE: Real-time grayscale ultrasound imaging of the liver was performed and images were reviewed. COMPARISON: Correlation is made with a CT of the abdomen with contrast dated 12/08/2024. FINDINGS: Liver: The liver demonstrates a nodular contour, consistent with cirrhosis. There is a recannulized paraumbilical vein. The liver demonstrates increased echotexture, consistent with steatosis. No focal mass or intrahepatic biliary ductal dilatation is identified. There is normal hepatopedal flow in the portal vein. There is a small amount of ascites around the liver. US/US abdomen limited IMPRESSION: Cirrhosis of the liver with steatosis. Small amount of upper abdominal ascites. Electronically signed by: Bandar Garcia MD 01/10/2025 09:32 AM EDT
--- NOTE | ~2025-01-09 | US_ITS ---
EXAMINATION: US ABDOMEN LIMITED CLINICAL INFORMATION: Ascites check. COMPARISON: 01/10/2025. TECHNIQUE: Quezada scale ultrasound imaging of all 4 quadrants of the abdomen to visualize ascites. FINDINGS: Small pockets of ascites in the right upper and right lower quadrant are present, no ascites is present in the left upper quadrant or left lower quadrant. The volume is deemed too low for a therapeutic drainage at this time. Cirrhotic liver incidentally noted. US/US abdomen limited IMPRESSION: Small volume ascites in the right abdomen. The volume is deemed too low for a therapeutic drainage at this time. Electronically signed by: Nixon Jones MD 01/15/2025 03:34 PM EDT
--- NOTE | 2025-01-09 10:53 | ECG_ITS ---
Test Reason : weakness Blood Pressure : */* mmHG Vent. Rate : 103 BPM Atrial Rate : 103 BPM P-R Int : 94 ms QRS Dur : 112 ms QT Int : 380 ms P-R-T Axes : 54 47 65 degrees QTcB Int : 497 ms Sinus tachycardia with short WA Minimal voltage criteria for LVH, may be normal variant ( Jac product ) Borderline ECG When compared with ECG of 08-Dec-2024 13:24, WA interval has decreased Nonspecific T wave abnormality no longer evident in Lateral leads Referred By: Generic ED Physician Electronically Signed By: TANIA LIRA MD
[2025-01-09 11:21] LABS: INTERNATIONAL NORM RATIO 1.2 (0.9-1.1); Prothrombin Time 13.9 SEC (10.9-12.4)
--- NOTE | 2025-01-09 11:30 | ED_ITS ---
HPI - General Adult General Chief complaint: General Medical Stated complaint: Hiccups few months, weight loss, easily bruising Time Seen by Provider: 01/09/25 11:20 Source: patient Mode of arrival: ambulatory Limitations: no limitations History of Present Illness HPI narrative: this is 49 years old male with a history of alcohol abuse presented to the emergency department with a chief complaint of hiccups, incontinent of urine and stools, multiple ecchymoses. Last drink was yesterday. He feels very weak Onset (ago): day(s) (2) Radiation: non-radiation Severity: moderate Quality: burning Pain Consistency: constant Relieving factors: none Exacerbating factors: none Associated symptoms: denies other symptoms Related Data Previous Rx's ?Medication ?Instructions ?Recorded magnesium oxide 400 mg (241.3 mg 400 mg PO DAILY #90 tabs 10/18/24 magnesium) tablet spironolactone 25 mg tablet 25 mg PO DAILY #90 tabs 10/18/24 thiamine HCl (vitamin B1) 100 mg 100 mg PO DAILY #90 tabs 10/18/24 tablet cholecalciferol (vitamin D3) 1,250 1,250 mcg PO QWEEK #13 caps 10/30/24 mcg (50,000 unit) capsule Allergies Allergy/AdvReac Type Severity Reaction Status Date / Time No Known Allergies Allergy Verified 01/09/25 10:51 Review of Systems 2 Constitutional: Constitutional: Reports no additional constitutional complaints ENT: Reports system reviewed and no additional complaints, except as documented Integumentary/Breasts: Skin/Breast: Reports other ( diffuse ecchymosis back forearms) [facility] Past Medical History Attestation statement: The following information was validated with the patient. Medical History Alcohol use disorder No pertinent past medical history Social History Social History Household Members: Spouse Housing: Apartment Do you presently have visiting nurse or other home services: No Alcohol intake: current Alcohol intake frequency: 0-2 drinks per day Alcohol type: beer Patient Tobacco Use Status: Current everyday Tobacco user Tobacco use type: Cigarette Cigarettes Per Day: 6 Years Smoked: 20 YEARS e-Cigarette/Vaping Use: Currently Using Second Hand Smoke Exposure: Yes Use of substances other than those prescribed or required for medical reasons: No Substance Use Type: Marijuana Advance Directives: No Advance Directives Information Provided: Yes service: No Physical Exam ED Vital Signs: Vital Signs - 24 hr 01/09/25 10:47 01/09/25 11:56 01/09/25 12:10 Temperature 98.1 F Pulse Rate 108 H 102 H Pulse Rate [Left Apical] 100 Respiratory Rate 18 14 Blood Pressure 106/65 111/72 Pulse Oximetry 100 97 Oxygen Delivery Method Room Air Room Air Oxygen Flow Rate 01/09/25 13:05 01/09/25 13:11 Temperature Pulse Rate 94 Pulse Rate [Left Apical] Respiratory Rate 17 Blood Pressure 106/72 Pulse Oximetry 86 L 97 Oxygen Delivery Method Room Air Nasal Cannula Oxygen Flow Rate 2 BMI result Body Mass Index 29.1 Const General: cooperative and alert Nutritional Appearance: malnourished Orientation/consciousness: patient oriented x3 HENMT Head: Yes normal to inspection Ears: hearing grossly normal bilaterally General nose exam: Normal external nose present Neck Neck: Yes normal visual inspection and Yes full ROM Chest Chest palpation & inspection: normal inspection of the chest Resp Effort & Inspection: normal respiratory effort and able to speak in complete sentences Auscultation: clear to auscultation bilaterally Cardio Jugular venous distension: no JVD Rate: regular rate Rhythm: regular rhythm GI Inspection: Yes normal to inspection Palpation (GI): Soft to palpation, not firm and nontender Percussion: Yes normal to percussion Auscultation: normal bowel sounds Skin General skin exam: no rashes or lesions noted, elasticity normal and turgor normal Lesions: no lesions Rashes: no rashes Neuro General: patient oriented x3 Cranial nerves: Yes CN's II-XII intact bilaterally Medications Administered Generic Name Dose Route Start Last Admin Trade Name Freq PRN Reason Stop Dose Admin Lactated Ringer's 1,000 mls @ 999 mls/hr 01/09/25 12:15 01/09/25 12:29 Lr IV 01/09/25 13:15 999 mls/hr .Q1H1M KACI Administration Magnesium Sulfate 2 gm in 50 mls @ 25 mls/hr 01/09/25 12:09 01/09/25 12:29 Magnesium Sulfate/H2o IV 01/09/25 14:08 25 mls/hr ONCE ONE Administration Discontinued Medications Generic Name Dose Route Start Last Admin Trade Name Freq PRN Reason Stop Dose Admin Diazepam 5 mg 01/09/25 12:10 01/09/25 12:29 Diazepam 10 Mg/2 Ml Cartridge IVPUSH 01/09/25 12:11 5 mg STAT STA Administration Medical Decision Making Medical Decision Making [facility] Narrative: patient is here with weakness hiccups bruising he has a an alcoholic we will administer IV fluid check labs including CBC chemistry Differential Diagnosis Differential Diagnoses: The differential diagnosis associated with the presentation includes thrombocytopenia/ hypokalemia /hyponatremia/ hypomagnesemia Admission/Observation Consideration of admission/observation: Escalation of care including admission/observation considered Lab Data [facility] Lab Attestation statement: I reviewed the patient's lab results. 01/09/25 11:08 Labs: Lab Results 01/09/25 01/09/25 01/09/25 Range/Units 11:08 11:08 11:08 PT 13.9 H (10.9-12.4) SEC INR 1.2 H (0.9-1.1) Sodium 129 L (135-145) mmol/L Potassium 3.4 (3.3-5.1) mmol/L Chloride 91 L (96-108) mmol/L Carbon Dioxide 23 (22-29) mmol/L Anion Gap 18 (12-20) BUN 8 L (9-16) mg/dL Creatinine 0.53 (0.5-1.4) mg/dL Estim Creat Clear Calc 188.5 Estimated GFR > 60 Random Glucose 94 (60-115) mg/dL Lactic Acid (0.5-2.0) mmol/L Calcium 7.8 L D (8.4-10.2) mg/dL Magnesium 1.5 L (1.6-2.6) mg/dL Total Bilirubin 5.4 H 5.4 H (0.0-1.0) mg/dL Direct Bilirubin 3.6 H (0.0-0.5) mg/dL AST 280 H 279 H (5-37) U/L ALT 27 (0-40) U/L Alkaline Phosphatase (39-117) U/L Troponin I High Sens (<3.5-35.0) ng/L Total Protein (6.5-8.0) g/dL Albumin (3.5-5.0) g/dL Lipase (8-78) U/L 05/01/09/25 01/09/25 Range/Units 11:08 11:08 11:08 PT (10.9-12.4) SEC INR (0.9-1.1) Sodium (135-145) mmol/L Potassium (3.3-5.1) mmol/L Chloride (96-108) mmol/L Carbon Dioxide (22-29) mmol/L Anion Gap (12-20) BUN (9-16) mg/dL Creatinine (0.5-1.4) mg/dL Estim Creat Clear Calc Estimated GFR Random Glucose (60-115) mg/dL Lactic Acid (0.5-2.0) mmol/L Calcium (8.4-10.2) mg/dL Magnesium (1.6-2.6) mg/dL Total Bilirubin (0.0-1.0) mg/dL Direct Bilirubin (0.0-0.5) mg/dL AST (5-37) U/L ALT 27 (0-40) U/L Alkaline Phosphatase 376 H 355 H (39-117) U/L Troponin I High Sens (<3.5-35.0) ng/L Total Protein 6.1 L 6.1 L (6.5-8.0) g/dL Albumin 3.0 L (3.5-5.0) g/dL Lipase (8-78) U/L 01/09/25 01/09/25 01/09/25 Range/Units 11:08 11:46 12:36 PT (10.9-12.4) SEC INR (0.9-1.1) Sodium (135-145) mmol/L Potassium (3.3-5.1) mmol/L Chloride (96-108) mmol/L Carbon Dioxide (22-29) mmol/L Anion Gap (12-20) BUN (9-16) mg/dL Creatinine (0.5-1.4) mg/dL Estim Creat Clear Calc Estimated GFR Random Glucose (60-115) mg/dL Lactic Acid 3.1 H* (0.5-2.0) mmol/L Calcium (8.4-10.2) mg/dL Magnesium 1.5 L 1.5 L (1.6-2.6) mg/dL Total Bilirubin (0.0-1.0) mg/dL Direct Bilirubin (0.0-0.5) mg/dL AST (5-37) U/L ALT (0-40) U/L Alkaline Phosphatase (39-117) U/L Troponin I High Sens 9.9 (<3.5-35.0) ng/L Total Protein (6.5-8.0) g/dL Albumin 3.0 L (3.5-5.0) g/dL Lipase 108 H (8-78) U/L Independent Interpretation I performed an independent interpretation of an: EKG ( sinus rhythm rate [address]-T changes no ischemia) and Plain X-Ray Radiology Impression Discussion of test interpretation with radiology: I have reviewed the radiologist's reading. Critical Care Time Critical Care Time Critical Care Time: Yes Total Critical Care Time: 60 Attestation: IV fluid IV magnesium IV diazepam the patient as also lactic acidosis Discharge Plan Discharge Clinical Impression: Acute lactic acidosis, Hypomagnesemia Alcohol withdrawal Qualifiers: Complication of substance-induced condition: uncomplicated Qualified Code(s): F 10.930 - Alcohol use, unspecified with withdrawal, uncomplicated Patient Disposition: Admitted As Inpatient Print Language: [place]
[2025-01-09 11:40] LABS: Alanine Aminotransferase 27 U/L (0-40); Aspartate Amino Transferase 279 U/L (5-37); Bilirubin Direct 3.6 mg/dL (0.0-0.5); Bilirubin Total 5.4 mg/dL (0.0-1.0); Total Protein 6.1 g/dL (6.5-8.0)
[2025-01-09 11:57] LABS: Alanine Aminotransferase 27 U/L (0-40); Anion Gap 18 (12-20); Aspartate Amino Transferase 280 U/L (5-37); Bilirubin Total 5.4 mg/dL (0.0-1.0); Blood Urea Nitrogen 8 mg/dL (9-16); Calcium 7.8 mg/dL (8.4-10.2); Carbon Dioxide 23 mmol/L (22-29); Chloride 91 mmol/L (96-108); Creatinine Clr Calc Pharmacy 188.5; Estimated Glomerular Filt Rate > 60; Glucose Random 94 mg/dL (60-115); Lipase 108 U/L (8-78); Magnesium 1.5 mg/dL (1.6-2.6); Potassium 3.4 mmol/L (3.3-5.1); Sodium 129 mmol/L (135-145); Total Protein 6.1 g/dL (6.5-8.0)
[2025-01-09 12:11] LABS: Magnesium 1.5 mg/dL (1.6-2.6)
--- NOTE | 2025-01-09 12:12 | PC.NURSE ---
patient a&ox3, pt difficult stick- iv inserted, labs drawn, ekg performed, playground monitor applied. pt has notable large purple ecchymotic area to back, bilateral legs and arms- Dr. Pena notified and pictures were sent to provider on tiger text. Pt has 3/10 back pain. pt admits to drinking etoh yesterday and admits he has been trying to cut down but goes into DTs after >24hours without alcohol- provider is aware. Currently pt has visible shakiness provider aware, call linares within reach, plan of care ongoing.
[2025-01-09 12:15] LABS: Troponin-I High Sensitivity 9.9 ng/L (<3.5-35.0)
[2025-01-09] MEDS: diazePAM 10 MG/2 ML CARTRIDGE 5 MG IVPUSH (12:29)
[2025-01-09] MEDS: Lactated Ringers 1,000 ML 999 ML IV (12:29)
[2025-01-09] MEDS: Magnesium Sulfate/H2O 2 GM/50 ML PIGGYBACK IV (12:29)
[2025-01-09 12:32] LABS: Lactic Acid 3.1 mmol/L (0.5-2.0)
[2025-01-09 12:35] LABS: Alkaline Phosphatase 355 U/L (39-117)
--- NOTE | 2025-01-09 12:35 | PC.NURSE ---
ivf started per order, pt also has had chronic hiccups.
[2025-01-09 12:53] LABS: Alkaline Phosphatase 376 U/L (39-117)
[2025-01-09 12:58] LABS: Magnesium 1.5 mg/dL (1.6-2.6)
--- NOTE | 2025-01-09 13:12 | PC.NURSE ---
pt was sleeping, O2 sat decreased to 86%, this nurse woke patient requested he deep breathe, provider was at bedside, pt took some deep breaths with O2 sat only increasing to 90%, pt placed on 2L nc.
--- NOTE | 2025-01-09 13:31 | P.HPHOSP_ITS ---
History of Present Illness Date of Service: 01/09/25 Chief Complaint: weakness 49yo M with AUD presenting with weakness, incontinence of urine and stools and uncontrolled hiccups. Last EtOH yesterday; used to drink 12+ beers/day but recently tried cutting down to 2/day but he is not a very detailed or reliable historian. For example, he denies history of alcohol withdrawal seizure but from prior H+P in September, when he was admitted for alcoholic hepatitis with ascites, he did have one in 2022. Denies abdominal pain or vomiting. Found to have hypomagnesemia, lactic acidosis, and hyponatremia along with alcoholic hepatitis. Given 5 mg of IV diazepam then started on phenobarbital IM/PO taper. Review of Systems 2 Review of Systems: Yes all other systems are reviewed and are negative [facility] Medical History Alcohol use disorder No pertinent past medical history Social History Household Members: Spouse Housing: Apartment Do you presently have visiting nurse or other home services: No Alcohol intake: current Alcohol intake frequency: 0-2 drinks per day Alcohol type: beer Patient Tobacco Use Status: Current everyday Tobacco user Tobacco use type: Cigarette Cigarettes Per Day: 6 Years Smoked: 20 YEARS e-Cigarette/Vaping Use: Currently Using Second Hand Smoke Exposure: Yes Use of substances other than those prescribed or required for medical reasons: No Substance Use Type: Marijuana Advance Directives: No Advance Directives Information Provided: Yes service: No Meds Allergies Allergy/AdvReac Type Severity Reaction Status Date / Time No Known Allergies Allergy Verified 01/09/25 10:51 Active Medications: Current Medications Acetaminophen (Acetaminophen 325 Mg Tablet) 650 mg PO Q6H PRN PRN Reason: Pain, Mild 1-3,fever,headache Calcium Carbonate (Calcium Carbonate 750 Mg Tab.Chew) 750 mg PO Q4H PRN PRN Reason: Heartburn Magnesium Sulfate (Magnesium Sulfate/H2o) 2 gm in 50 mls @ 25 mls/hr IV ONCE ONE Stop: 01/09/25 14:08 Last Admin: 01/09/25 12:29 Dose: 25 mls/hr Magnesium Hydroxide (Milk Of Magnesia 30 Ml Oral.Susp) 30 ml PO DAILY PRN PRN Reason: Constipation Magnesium Oxide ([facility] 400 Mg Tablet) [facility] Melatonin (Melatonin 3 Mg Tablet) 6 mg PO BEDTIME PRN PRN Reason: Insomnia Ondansetron HCl (Ondansetron Hcl 4 Mg/2 Ml Vial) 4 mg IVPUSH Q4H PRN PRN Reason: Nausea and Vomiting Pharmacy Consult (Consult Rx Etoh Phenob Im/Po) 1 each MISCELLANE ONCE PRN; Protocol PRN Reason: Consult order Phenobarbital (Phenobarbital 30 Mg Tablet) 60 mg PO BID [facility] Stop: 01/11/25 21:01 Phenobarbital (Phenobarbital 30 Mg Tablet) 30 mg PO BID [facility] Stop: 01/13/25 21:01 Phenobarbital (Phenobarbital 15 Mg Tablet) 15 mg PO DAILY [facility] Stop: 01/15/25 09:01 Phenobarbital Sodium (Phenobarbital Sodium 130 Mg/Ml Vial Im Q3hx2) 212 mg IM Q3H [facility] Stop: 01/09/25 20:01 Sodium Chloride (0.9 % Sodium Chloride Flush 3 Ml Syringe) 3 ml IVFLUSH QSHIFT [facility] Thiamine HCl (Thiamine Hcl 100 Mg Tablet) 100 mg PO DAILY [facility] Physical Exam 2 Vital Signs and Narrative: Vital Signs: Last Vital Signs Temp 98.1 F 01/09/25 10:47 Pulse 94 01/09/25 13:11 Resp 17 01/09/25 13:11 BP 106/72 01/09/25 13:11 Pulse Ox 97 01/09/25 13:11 O2 Del Method Nasal Cannula 01/09/25 13:11 O2 Flow Rate 2 01/09/25 13:11 BMI result Body Mass Index 29.1 Gen: in no acute distress, disheveled HEENT: sclera anicteric, moist mucus membranes Neck: supple Lungs: clear to auscultation bilaterally Heart: regular rate and rhythm, no murmurs Abd: soft, non-tender, non-distended Ext: no edema Skin: warm/well-perfused, multiple ecchymoses Neuro: alert and oriented x3, no focal findings Psych: appropriate affect Results Labs 01/09/25 11:08 Labs: Laboratory Results - last 24 hr 01/09/25 01/09/25 01/09/25 11:08 11:08 11:08 PT 13.9 H INR 1.2 H Anion Gap 18 Estim Creat Clear Calc 188.5 Estimated GFR > 60 Random Glucose 94 Lactic Acid Calcium 7.8 L D Magnesium 1.5 L Total Bilirubin 5.4 H 5.4 H Direct Bilirubin 3.6 H AST 280 H 279 H ALT 27 Alkaline Phosphatase Total Protein Albumin Lipase 01/09/25 01/09/25 01/09/25 11:08 11:08 11:08 PT INR Anion Gap Estim Creat Clear Calc Estimated GFR Random Glucose Lactic Acid Calcium Magnesium Total Bilirubin Direct Bilirubin AST ALT 27 Alkaline Phosphatase 376 H 355 H Total Protein 6.1 L 6.1 L Albumin 3.0 L Lipase 01/09/25 01/09/25 01/09/25 11:08 11:46 12:36 PT INR Anion Gap Estim Creat Clear Calc Estimated GFR Random Glucose Lactic Acid 3.1 H* Calcium Magnesium 1.5 L 1.5 L Total Bilirubin Direct Bilirubin AST ALT Alkaline Phosphatase Total Protein Albumin 3.0 L Lipase 108 H Imaging Radiologist's Impressions: Impressions Chest X-Ray 01/09/25 10:53 IMPRESSION: No active pulmonary disease. Electronically signed by: Nixon Jones MD 01/09/2025 11:20 AM EDT RP Assessment and Plan (1) Alcohol withdrawal: Qualifiers: Complication of substance-induced condition: uncomplicated Qualified Code(s): F10.930 - Alcohol use, unspecified with withdrawal, uncomplicated Status: Acute Plan 49yo M with AUD presenting with impending withdrawal AUD with impending withdrawal - admit to telemetry, give phenobarbital taper, give thiamine, consult Addiction Medicine EtOH hepatitis - MDF 16, no steroids or pentoxyfilline indicated hypoNa - likely hypovolemic; given LR in ED and will continue NS, recheck Na in AM hypoMg - replete, place back on PO maintenance, recheck level in AM lactic acidosis - due to dehydration, continue IV fluids as above thrombocytopenia - likely due to EtOH, monitor daily until improves VTE ppx - SCDs dispo - eventually home code status - full I anticipate that the patient will stay at least 2 midnights as an inpatient in the hospital due to the above reasons. It is neither reasonable nor safe to care for them in a less acute setting. Quality Stroke Does the patient have a stroke diagnosis?: No VTE Prior VTE?: No VTE Risk Level:: Medical - moderate - high VTE Device Contraindication: N/A - Device Ordered VTE Drug Contraindication: N/A - Med Ordered
[2025-01-09 13:52] LABS: Reflex Lactate? Lactic Acid Added
[2025-01-09] MEDS: Thiamine HCL 100 MG TABLET PO (14:07)
[2025-01-09] MEDS: PHENobarbitaL sodium 130 MG/ML IM ONCE 283 MG IM (14:07)
[2025-01-09] MEDS: 0.9 % Sodium Chloride 1,000 ML 100 ML IVCONT ×2 (14:09→23:18)
--- NOTE | 2025-01-09 14:24 | PHA.MEDREC ---
Addendum entered by Anthony Yan 01/09/25 14:43: reviewed Original Note: Pharmacy Consult ? Medication Reconciliation Pharmacy has completed the medication reconciliation. Spoke with patient and he confirmed his medications. He confirmed he takes his Vitamin D3 125mcg tab once a week on Tuesdays and took it last Tuesday 01/02.
[2025-01-09 14:43] LABS: ~Lactic Acid-LAB USE ONLY 2.8 mmol/L (0.5-2.0)
--- NOTE | 2025-01-09 15:40 | PC.NURSE ---
pt currently sleeping, cafeteria monitor intact- nsr on monitor, vss, pt previously got oob to commode with assist of tech for a BM, plan of care ongoing
[2025-01-09 16:17] LABS: Reflex Lactate? 2 Y
[2025-01-09 16:37] LABS: Appearance Urine Clear; Color Urine Dark Yellow; Glucose Urine UA Negative (Negative); Leukocyte Esterase Urine Negative (Negative); Nitrite Urine Negative (Negative); PH 6.5 (5.0-9.0); Urine Blood Negative (Negative); Urine Ketones 15 mg/dL (Negative); Urine Protein Negative (Neg-Trace)
[2025-01-09 16:56] LABS: Amphetamine Screen Urine Not Detected (Not Detect); Barbiturates, Urine Not Detected (Not Detect); Benzodiazepines Screen Urine Not Detected (Not Detect); Buprenorphine Scr Not Detected (Not Detect); Cannabinoid Screen Urine POSITIVE (Not Detect); Cocaine Screen Urine Not Detected (Not Detect); Fentanyl, urine Not Detected (Not Detect); Methadone Screen, Urine Not Detected (Not Detect); Opiate Screen Urine Not Detected (Not Detect); Oxycodone Screen Urine Not Detected (Not Detect); Phencyclidine Screen Urine Not Detected (Not Detect)
[2025-01-09 17:06] LABS: ~Lactic Acid-LAB USE ONLY 3.4 mmol/L (0.5-2.0)
[2025-01-09] MEDS: Magnesium Oxide 400 MG TABLET PO (17:20)
[2025-01-09] MEDS: PHENobarbitaL sodium 130 MG/ML VIAL IM Q3Hx2 212 MG IM ×2 (17:20→19:29)
--- NOTE | 2025-01-09 18:10 | PC.NURSE ---
pt sleeping, woke to verbal stimulus, pt medicated with phenobarb per order-ciwa was 6, campus monitor intact-nsr, ivf continue to run per order, plan of care ongoing
--- NOTE | 2025-01-09 19:31 | PC.NURSE ---
assumed care for pt at this time. pt pleasant alert and oriented to self place and time and speaking in full clear sentences. updated pt on plan of care. CIWA assessment score of 6. pt medicated per mar. IVF running, line is patent and asymptomatic. pts needs met at this time. call linares is within reach plan of care ongoing
[2025-01-09 20:44] LABS: Cancel Lactic Acid Canceled
[2025-01-09] MEDS: Calcium Carbonate 750 MG TAB.CHEW PO (23:20)
[2025-01-10] VITALS (13 sets, daily range): BP systolic 100–133; BP diastolic 58–76; PULSE 94–121; RESP 12–20; TEMP 36.7–38.1; O2SAT 90–95
--- NOTE | 2025-01-10 | ECG_ITS ---
Test Reason : tachycardia Blood Pressure : */* mmHG Vent. Rate : 144 BPM Atrial Rate : 144 BPM P-R Int : 104 ms QRS Dur : 106 ms QT Int : 326 ms P-R-T Axes : -88 68 105 degrees QTcB Int : 504 ms Unusual P axis and short IL, probable junctional tachycardia Low voltage QRS Nonspecific T wave abnormality Abnormal ECG When compared with ECG of 09-Jan-2025 10:59, Junctional tachycardia has replaced Sinus rhythm Nonspecific T wave abnormality now evident in Lateral leads Referred By: Israel Holland Electronically Signed By: TANIA LIRA MD
--- NOTE | 2025-01-10 05:26 | PC.NURSE ---
0428:HR sustaining in 150's asymptomatic - CIWA 2. MD aware. EKG ordered and obtained. IVF remains infusing at 100cc/hr. No new orders at this time. 0532: HR in 120's/130's
[2025-01-10 06:24] LABS: Hemoglobin 7.3 g/dl (14.0-18.0); Mean Corpuscular HGB Conc 35.8 g/dl (31.0-36.0); Mean Corpuscular Hemoglobin 32.3 pg (27.0-33.0); Mean Corpuscular Volume 90.3 fL (80.0-98.0); Mean Platelet Volume 10.6 fL (9.4-12.4); Red Blood Count 2.26 X10*6/uL (4.60-5.80); Red Cell Distribution Width 21.3 % (11.0-16.0)
[2025-01-10 06:31] LABS: Hematocrit 20.4 % (42.0-52.0); Platelet Count 18 X10*3/uL (160-400)
[2025-01-10 06:44] LABS: Alanine Aminotransferase 23 U/L (0-40); Albumin Level 2.6 g/dL (3.5-5.0); Alkaline Phosphatase 341 U/L (39-117); Anion Gap 17 (12-20); Aspartate Amino Transferase 265 U/L (5-37); Bilirubin Total 5.9 mg/dL (0.0-1.0); Blood Urea Nitrogen 8 mg/dL (9-16); Calcium 7.6 mg/dL (8.4-10.2); Carbon Dioxide 22 mmol/L (22-29); Chloride 95 mmol/L (96-108); Creatinine Clr Calc Pharmacy 158.9; Estimated Glomerular Filt Rate > 60; Glucose Random 77 mg/dL (60-115); Magnesium 1.4 mg/dL (1.6-2.6); Potassium 3.4 mmol/L (3.3-5.1); Sodium 131 mmol/L (135-145); Total Protein 5.3 g/dL (6.5-8.0)
[2025-01-10] MEDS: Magnesium Sulfate/H2O 2 GM/50 ML PIGGYBACK IV (08:02)
--- NOTE | 2025-01-10 08:29 | MHC.CM.PN ---
CM met with Patient at bedside. Patient lives with his Girlfriend/Alondra, who will transport to home at time of dc. Home self care vs Recovery Team intervention r/t ETOH is the tentative plan and CM has initiated and will follow for dc planning. PCP/CRYSTAL ATTACHER is Teresa Ortiz from [facility] in [facility] and Patient declined the completion of a HCP.
[2025-01-10] MEDS: Magnesium Oxide 400 MG TABLET PO ×2 (08:31→18:33)
[2025-01-10] MEDS: cefTRIAXone sodium 1 GM VIAL IVPUSH (08:32)
[2025-01-10] MEDS: Octreotide Acetate 100 MCG/ML AMPUL 50 MCG IVPUSH (08:32)
[2025-01-10] MEDS: PHENobarbitaL 30 MG TABLET 60 MG PO ×2 (08:32→20:53)
[2025-01-10] MEDS: Pantoprazole Sodium 40 MG/10 ML VIAL IVPUSH ×2 (08:33→18:30)
[2025-01-10 08:57] LABS: Fibrinogen 276 MG/DL (259-690); INTERNATIONAL NORM RATIO 1.3 (0.9-1.1); Prothrombin Time 15.3 SEC (10.9-12.4)
[2025-01-10] MEDS: Octreotide Acetate 500 MCG in 0.9 % Sodium Chloride 500 ML 50.1 MCG IVCONT ×2 (11:03→20:57)
--- NOTE | 2025-01-10 13:01 | P.PNIM_ITS ---
Subjective Subjective Date of Service: 01/10/25 Interval History: Platelets dropped from 65 to 18; Hb dropped from 12 to 7.3. No hematemesis, hematochezia, or melena. Denies lightheadedness. Denies tremor. Febrile to 100.6 this AM. Review of Systems Review of Systems: Yes all other systems are reviewed and are negative Physical Exam 2 Vital Signs: Vital Signs: Last Vital Signs Temp 99.4 F 01/10/25 12:01 Pulse 112 H 01/10/25 12:01 Resp 12 01/10/25 12:01 BP 103/63 01/10/25 12:01 Pulse Ox 95 01/10/25 11:46 O2 Del Method Room Air 01/10/25 11:46 O2 Flow Rate 2 01/09/25 19:28 BMI result Body Mass Index 21.1 Gen: in no acute distress HEENT: sclera icteric, moist mucus membranes Neck: supple Lungs: clear to auscultation bilaterally Heart: regular rate and rhythm, no murmurs Abd: soft, non-tender, non-distended Ext: no edema Skin: warm/well-perfused, jaundiced Neuro: alert and oriented x3, no focal findings, no asterixis Psych: appropriate affect Objective Data Active Medications Acetaminophen (Acetaminophen 325 Mg Tablet) 650 mg PO Q6H PRN PRN Reason: Pain, Mild 1-3,fever,headache Calcium Carbonate (Calcium Carbonate 750 Mg Tab.Chew) 750 mg PO Q4H PRN PRN Reason: Heartburn Last Admin: 01/09/25 23:20 Dose: 750 mg Documented By: ANTOINC Ceftriaxone Sodium (Ceftriaxone Sodium 1 Gm Vial) 1 gm IVPUSH Q24H [facility]END[facility] TO [facility] Last Admin: 01/10/25 08:32 Dose: 1 gm Documented By: LISET Sodium Chloride (Ns) 1,000 mls @ 100 mls/hr IVCONT .Q10H [facility] TO [facility] Last Admin: 01/10/25 11:04 Dose: Not Given Documented By: LISET Non-Admin Reason: IV Running Octreotide Acetate 500 mcg/ (Sodium Chloride) 501 mls @ 50.1 mls/hr IVCONT .Q10H [facility] Last Admin: 01/10/25 11:03 Dose: 50 mcg/hr, 50.1 mls/hr Documented By: HO.DOUBLEN Thiamine HCl 100 mg/ Sodium (Chloride) 101 mls @ 202 mls/hr IV DAILY [facility] Magnesium Hydroxide (Milk Of Magnesia 30 Ml Oral.Susp) 30 ml PO DAILY PRN PRN Reason: Constipation Magnesium Oxide (Magnesium Oxide 400 Mg Tablet) 400 mg PO BIDPC [facility] Last Admin: 01/10/25 08:31 Dose: 400 mg Documented By: LISET Melatonin (Melatonin 3 Mg Tablet) 6 mg PO BEDTIME PRN PRN Reason: Insomnia Ondansetron HCl (Ondansetron Hcl 4 Mg/2 Ml Vial) 4 mg IVPUSH Q4H PRN PRN Reason: Nausea and Vomiting Pantoprazole Sodium (Pantoprazole Sodium 40 Mg/10 Ml Vial) 40 mg IVPUSH BID@0630,1630 [facility] Last Admin: 01/10/25 08:33 Dose: 40 mg Documented By: LISET Pharmacy Consult (Consult Rx Etoh Phenob Im/Po) 1 each MISCELLANE ONCE PRN; Protocol PRN Reason: Consult order Phenobarbital (Phenobarbital 30 Mg Tablet) 60 mg PO BID [facility] Stop: 01/11/25 21:01 Last Admin: 01/10/25 08:32 Dose: 60 mg Documented By: LISET Phenobarbital (Phenobarbital 30 Mg Tablet) 30 mg PO BID [facility] Stop: 01/13/25 21:01 Phenobarbital (Phenobarbital 15 Mg Tablet) 15 mg PO DAILY [facility] Stop: 01/15/25 09:01 Sodium Chloride (0.9 % Sodium Chloride Flush 3 Ml Syringe) 3 ml IVFLUSH QSHIFT [facility] Last Admin: 01/10/25 08:33 Dose: Not Given Documented By: LISET Non-Admin Reason: IV Running Labs 01/10/25 05:44 01/10/25 05:44 Labs: Laboratory Results - last 24 hr 01/09/25 01/09/25 01/10/25 14:12 16:28 05:44 MCV 90.3 MCH 32.3 MCHC 35.8 RDW 21.3 H Plt Count 18 L* D MPV 10.6 Absolute Nucleated RBC 0.000 Nucleated RBC % (auto) 0.0 PT INR Fibrinogen Anion Gap 17 Estim Creat Clear Calc 158.9 Estimated GFR > 60 Random Glucose 77 Lactic Acid F/U @ 2Hr 2.8 H* Lactic Acid F/U @ 4Hr 3.4 H* Calcium 7.6 L Magnesium 1.4 L* Total Bilirubin 5.9 H AST 265 H ALT 23 Alkaline Phosphatase 341 H Total Protein 5.3 L Albumin 2.6 L Urine Color Dark Yellow Urine Appearance Clear Urine pH 6.5 Ur Specific [place] 1.010 Urine Protein Negative Urine Glucose (UA) Negative Urine Ketones 15 Urine Blood Negative Urine Nitrite Negative Ur Leukocyte Esterase Negative Urine Opiates Screen Not Detected Ur Buprenorphine Scrn Not Detected Ur Oxycodone Screen Not Detected Urine Methadone Screen Not Detected Urine Fentanyl Screen Not Detected Ur Barbiturates Screen Not Detected Ur Phencyclidine Scrn Not Detected Ur Amphetamines Screen Not Detected U Benzodiazepines Scrn Not Detected Urine Cocaine Screen Not Detected U Marijuana (THC) Screen POSITIVE H Blood Type Antibody Screen Crossmatch 01/10/25 08:14 MCV MCH MCHC RDW Plt Count MPV Absolute Nucleated RBC Nucleated RBC % (auto) PT 15.3 H INR 1.3 H Fibrinogen 276 Anion Gap Estim Creat Clear Calc Estimated GFR Random Glucose Lactic Acid F/U @ 2Hr Lactic Acid F/U @ 4Hr Calcium Magnesium Total Bilirubin AST ALT Alkaline Phosphatase Total Protein Albumin Urine Color Urine Appearance Urine pH Ur Specific [place] Urine Protein Urine Glucose (UA) Urine Ketones Urine Blood Urine Nitrite Ur Leukocyte Esterase Urine Opiates Screen Ur Buprenorphine Scrn Ur Oxycodone Screen Urine Methadone Screen Urine Fentanyl Screen Ur Barbiturates Screen Ur Phencyclidine Scrn Ur Amphetamines Screen U Benzodiazepines Scrn Urine Cocaine Screen U Marijuana (THC) Screen Blood Type A Positive Antibody Screen NEGATIVE Crossmatch See Detail Impressions Abdomen Ultrasound 01/10/25 08:53 IMPRESSION: Cirrhosis of the liver with steatosis. Small amount of upper abdominal ascites. Electronically signed by: Bandar Garcia MD 01/10/2025 09:32 AM EDT Assessment and Plan (1) Alcohol withdrawal: Status: Acute Plan d2 for 49yo M with AUD and EtOH cirrhosis presented with weakness + hiccups; admitted for impending withdrawal and EtOH hepatitis, now severely anemic + thrombocytopenic acute blood loss anemia, presumably GI blood oss thrombocytopenia - transfuse 2u pRBCs, 1 pack platelets. Send FOBT, give IV pantoprazole, IV octreotide bolus then drip, ceftriaxone for SBP prophylaxis. NPO, GI consultation. AUD with impending withdrawal - consult phenobarbital taper, give thiamine, consult Addiction Medicine EtOH hepatitis - MDF 16, no steroids or pentoxyfilline indicated; continue to monitor LFTs EtOH cirrhosis with ascites - too small to tap; resume spironolactone when taking POs hypoNa - likely hypovolemic; improved with IV fluid resuscitation hypoMg - replete IV, recheck level in AM lactic acidosis - due to dehydration + cirrhosis VTE ppx - SCDs dispo - eventually home In my clinical judgment, the patient requires continued inpatient hospitalization for the following reasons: severe anemia, thrombocytopenia, and EtOH withdrawal Total time managing care of this patient today: 50 minutes. Quality Stroke Does the patient have a stroke diagnosis?: No VTE Prior VTE?: No VTE Risk Level:: Medical - moderate - high VTE Device Contraindication: N/A - Device Ordered VTE Drug Contraindication: N/A - Med Ordered
[2025-01-10] MEDS: Thiamine HCL 100 MG in 0.9 % Sodium Chloride 100 ML 202 MG IV (13:27)
--- NOTE | 2025-01-10 13:52 | HO.ADDICT_ITS ---
History of Present Illness Date of Service: 01/10/2025 Chief Complaint: etoh withdrawal Reason for Consult: AUD Sources of Information: patient interviewed and chart reviewed HPI Narrative: Patient is a 49 year old male with alcohol related cirrhosis, who presented to [facility] with weakness, Medically admitted with acute withdrawal, hyponatremia and hypomag., and initiated on pheno taper. Today patient is seen in room room 453, he is awake, alert, ill appearing. CIWA scores 4 He reports feeling very weak--of note, H&H dropped and he was to receive transfusion shortly. Regarding alcohol use: He states he has been working to decrease how much he is drinking, previously drinking a tall beer and shots, then decreased to 4 tall beers, now states he is drinking 2 tall beers daily. Denies any other substance use Denies any history of ATS admissions --medically supervised withdrawal has only occurred while hospitalized. Denies any history of HUBERT Patient somewhat withdrawal, flat affect. Stating he stopped attending AA meetings Denies n/v, denies tremor (however slight tremor is visible) Denies anxiety Withdrawal managed with pheno taper UDS +cannabis alcohol level not drawn Medical Evaluation Reviewed: Yes Review of Systems Constitutional: Reports as per HPI Diagnostics Vital Signs (24Hr): Vital Signs - 24 hr 01/09/25 15:35 01/09/25 17:56 01/09/25 19:28 Temperature 98.1 F 97.8 F Pulse Rate 112 H 97 115 H Respiratory Rate 18 16 22 H Blood Pressure 112/73 99/60 117/72 Pulse Oximetry 98 98 99 Oxygen Delivery Method Nasal Cannula Nasal Cannula Nasal Cannula Oxygen Flow Rate 2 2 2 01/09/25 20:00 01/10/25 00:00 01/10/25 03:39 Temperature 98.7 F 99.3 F 98.7 F Pulse Rate 106 H 120 H 121 H Respiratory Rate 20 18 18 Blood Pressure 112/67 123/72 119/59 L Pulse Oximetry 96 95 94 Oxygen Delivery Method Room Air Room Air Room Air Oxygen Flow Rate 01/10/25 07:28 01/10/25 11:45 01/10/25 11:46 Temperature 100.6 F H 98.0 F 98.5 F Pulse Rate 116 H 99 104 H Respiratory Rate 16 16 18 Blood Pressure 119/59 L 100/58 L 122/66 Pulse Oximetry 92 95 Oxygen Delivery Method Room Air Room Air Oxygen Flow Rate 01/10/25 12:01 Temperature 99.4 F Pulse Rate 112 H Respiratory Rate 12 Blood Pressure 103/63 Pulse Oximetry Oxygen Delivery Method Oxygen Flow Rate BMI result Body Mass Index 21.1 Labs 01/10/25 05:44 01/10/25 05:44 Labs: Laboratory Results - last 48 hr 01/09/25 01/09/25 01/09/25 11:08 11:08 11:08 WBC RBC Hgb Hct MCV MCH MCHC RDW Plt Count MPV Absolute Nucleated RBC Nucleated RBC % (auto) PT 13.9 H INR 1.2 H Fibrinogen Sodium 129 L Potassium 3.4 Chloride 91 L Carbon Dioxide 23 Anion Gap 18 BUN 8 L Creatinine 0.53 Estim Creat Clear Calc 188.5 Estimated GFR > 60 Random Glucose 94 Lactic Acid Lactic Acid F/U @ 2Hr Lactic Acid F/U @ 4Hr Calcium 7.8 L D Magnesium 1.5 L Total Bilirubin 5.4 H 5.4 H Direct Bilirubin 3.6 H AST 280 H 279 H ALT 27 Alkaline Phosphatase Troponin I High Sens Total Protein Albumin Lipase Urine Color Urine Appearance Urine pH Ur Specific [place] Urine Protein Urine Glucose (UA) Urine Ketones Urine Blood Urine Nitrite Ur Leukocyte Esterase Urine Opiates Screen Ur Buprenorphine Scrn Ur Oxycodone Screen Urine Methadone Screen Urine Fentanyl Screen Ur Barbiturates Screen Ur Phencyclidine Scrn Ur Amphetamines Screen U Benzodiazepines Scrn Urine Cocaine Screen U Marijuana (THC) Screen Blood Type Antibody Screen Crossmatch 01/09/25 01/09/25 01/09/25 11:08 11:08 11:08 WBC RBC Hgb Hct MCV MCH MCHC RDW Plt Count MPV Absolute Nucleated RBC Nucleated RBC % (auto) PT INR Fibrinogen Sodium Potassium Chloride Carbon Dioxide Anion Gap BUN Creatinine Estim Creat Clear Calc Estimated GFR Random Glucose Lactic Acid Lactic Acid F/U @ 2Hr Lactic Acid F/U @ 4Hr Calcium Magnesium Total Bilirubin Direct Bilirubin AST ALT 27 Alkaline Phosphatase 376 H 355 H Troponin I High Sens Total Protein 6.1 L 6.1 L Albumin 3.0 L Lipase Urine Color Urine Appearance Urine pH Ur Specific [place] Urine Protein Urine Glucose (UA) Urine Ketones Urine Blood Urine Nitrite Ur Leukocyte Esterase Urine Opiates Screen Ur Buprenorphine Scrn Ur Oxycodone Screen Urine Methadone Screen Urine Fentanyl Screen Ur Barbiturates Screen Ur Phencyclidine Scrn Ur Amphetamines Screen U Benzodiazepines Scrn Urine Cocaine Screen U Marijuana (THC) Screen Blood Type Antibody Screen Crossmatch 01/09/25 01/09/25 01/09/25 11:08 11:46 12:36 WBC RBC Hgb Hct MCV MCH MCHC RDW Plt Count MPV Absolute Nucleated RBC Nucleated RBC % (auto) PT INR Fibrinogen Sodium Potassium Chloride Carbon Dioxide Anion Gap BUN Creatinine Estim Creat Clear Calc Estimated GFR Random Glucose Lactic Acid 3.1 H* Lactic Acid F/U @ 2Hr Lactic Acid F/U @ 4Hr Calcium Magnesium 1.5 L 1.5 L Total Bilirubin Direct Bilirubin AST ALT Alkaline Phosphatase Troponin I High Sens 9.9 Total Protein Albumin 3.0 L Lipase 108 H Urine Color Urine Appearance Urine pH Ur Specific [place] Urine Protein Urine Glucose (UA) Urine Ketones Urine Blood Urine Nitrite Ur Leukocyte Esterase Urine Opiates Screen Ur Buprenorphine Scrn Ur Oxycodone Screen Urine Methadone Screen Urine Fentanyl Screen Ur Barbiturates Screen Ur Phencyclidine Scrn Ur Amphetamines Screen U Benzodiazepines Scrn Urine Cocaine Screen U Marijuana (THC) Screen Blood Type Antibody Screen Crossmatch 01/09/25 01/09/25 01/10/25 14:12 16:28 05:44 WBC 8.0 RBC 2.26 L D Hgb 7.3 L D Hct 20.4 L* D MCV 90.3 MCH 32.3 MCHC 35.8 RDW 21.3 H Plt Count 18 L* D MPV 10.6 Absolute Nucleated RBC 0.000 Nucleated RBC % (auto) 0.0 PT INR Fibrinogen Sodium 131 L Potassium 3.4 Chloride 95 L Carbon Dioxide 22 Anion Gap 17 BUN 8 L Creatinine 0.52 Estim Creat Clear Calc 158.9 Estimated GFR > 60 Random Glucose 77 Lactic Acid Lactic Acid F/U @ 2Hr 2.8 H* Lactic Acid F/U @ 4Hr 3.4 H* Calcium 7.6 L Magnesium 1.4 L* Total Bilirubin 5.9 H Direct Bilirubin AST 265 H ALT 23 Alkaline Phosphatase 341 H Troponin I High Sens Total Protein 5.3 L Albumin 2.6 L Lipase Urine Color Dark Yellow Urine Appearance Clear Urine pH 6.5 Ur Specific [place] 1.010 Urine Protein Negative Urine Glucose (UA) Negative Urine Ketones 15 Urine Blood Negative Urine Nitrite Negative Ur Leukocyte Esterase Negative Urine Opiates Screen Not Detected Ur Buprenorphine Scrn Not Detected Ur Oxycodone Screen Not Detected Urine Methadone Screen Not Detected Urine Fentanyl Screen Not Detected Ur Barbiturates Screen Not Detected Ur Phencyclidine Scrn Not Detected Ur Amphetamines Screen Not Detected U Benzodiazepines Scrn Not Detected Urine Cocaine Screen Not Detected U Marijuana (THC) Screen POSITIVE H Blood Type Antibody Screen Crossmatch 01/10/25 08:14 WBC RBC Hgb Hct MCV MCH MCHC RDW Plt Count MPV Absolute Nucleated RBC Nucleated RBC % (auto) PT 15.3 H INR 1.3 H Fibrinogen 276 Sodium Potassium Chloride Carbon Dioxide Anion Gap BUN Creatinine Estim Creat Clear Calc Estimated GFR Random Glucose Lactic Acid Lactic Acid F/U @ 2Hr Lactic Acid F/U @ 4Hr Calcium Magnesium Total Bilirubin Direct Bilirubin AST ALT Alkaline Phosphatase Troponin I High Sens Total Protein Albumin Lipase Urine Color Urine Appearance Urine pH Ur Specific [place] Urine Protein Urine Glucose (UA) Urine Ketones Urine Blood Urine Nitrite Ur Leukocyte Esterase Urine Opiates Screen Ur Buprenorphine Scrn Ur Oxycodone Screen Urine Methadone Screen Urine Fentanyl Screen Ur Barbiturates Screen Ur Phencyclidine Scrn Ur Amphetamines Screen U Benzodiazepines Scrn Urine Cocaine Screen U Marijuana (THC) Screen Blood Type A Positive Antibody Screen NEGATIVE Crossmatch See Detail Imaging Radiology Impressions: ITS Impressions Chest X-Ray 01/09/25 10:53 IMPRESSION: No active pulmonary disease. Electronically signed by: Nixon Jones MD 01/09/2025 11:20 AM EDT Abdomen Ultrasound 01/10/25 08:53 IMPRESSION: Cirrhosis of the liver with steatosis. Small amount of upper abdominal ascites. Electronically signed by: Bandar Garcia MD 01/10/2025 09:32 AM EDT RP Mental Status Exam Mental Status Exam Patient Appearance: Appropriate (very thin) Level of Consciousness: Awake and Appropriate Patient Behavior: Guarded Affect Description: Blunted Speech Pattern: Clear Hallucinations: None Thought Content: positive for [place] Judgement: Fair Medications Medications Current Medications Acetaminophen (Acetaminophen 325 Mg Tablet) 650 mg PO Q6H PRN PRN Reason: Pain, Mild 1-3,fever,headache Calcium Carbonate (Calcium Carbonate 750 Mg Tab.Chew) 750 mg PO Q4H PRN PRN Reason: Heartburn Last Admin: 01/09/25 23:20 Dose: 750 mg Ceftriaxone Sodium (Ceftriaxone Sodium 1 Gm Vial) 1 gm IVPUSH Q24H [facility] Last Admin: 01/10/25 08:32 Dose: 1 gm Sodium Chloride (Ns) 1,000 mls @ 100 mls/hr IVCONT .Q10H [facility] Last Admin: 01/10/25 11:04 Dose: Not Given Octreotide Acetate 500 mcg/ (Sodium Chloride) 501 mls @ 50.1 mls/hr IVCONT .Q10H [facility] Last Admin: 01/10/25 11:03 Dose: 50 mcg/hr, 50.1 mls/hr Thiamine HCl 100 mg/ Sodium (Chloride) 101 mls @ 202 mls/hr IV DAILY [facility] Last Admin: 01/10/25 13:27 Dose: 202 mls/hr Magnesium Hydroxide (Milk Of Magnesia 30 Ml Oral.Susp) 30 ml PO DAILY PRN PRN Reason: Constipation Magnesium Oxide (Magnesium Oxide 400 Mg Tablet) 400 mg PO BIDPC [facility] Last Admin: 01/10/25 08:31 Dose: 400 mg Melatonin (Melatonin 3 Mg Tablet) 6 mg PO BEDTIME PRN PRN Reason: Insomnia Ondansetron HCl (Ondansetron Hcl 4 Mg/2 Ml Vial) 4 mg IVPUSH Q4H PRN PRN Reason: Nausea and Vomiting Pantoprazole Sodium (Pantoprazole Sodium 40 Mg/10 Ml Vial) 40 mg IVPUSH BID@0630,1630 [facility] Last Admin: 01/10/25 08:33 Dose: 40 mg Pharmacy Consult (Consult Rx Etoh Phenob Im/Po) 1 each MISCELLANE ONCE PRN; Protocol PRN Reason: Consult order Phenobarbital (Phenobarbital 30 Mg Tablet) 60 mg PO BID [facility] Stop: 01/11/25 21:01 Last Admin: 01/10/25 08:32 Dose: 60 mg Phenobarbital (Phenobarbital 30 Mg Tablet) 30 mg PO BID [facility] Stop: 01/13/25 21:01 Phenobarbital (Phenobarbital 15 Mg Tablet) 15 mg PO DAILY [facility] Stop: 01/15/25 09:01 Sodium Chloride (0.9 % Sodium Chloride Flush 3 Ml Syringe) 3 ml IVFLUSH QSHIFT [facility] Last Admin: 01/10/25 08:33 Dose: Not Given Allergies Allergies Allergy/AdvReac Type Severity Reaction Status Date / Time No Known Allergies Allergy Verified 01/09/25 10:51 Assessment & Plan Assessment & Plan (1) Alcohol use disorder: Status: Acute Code(s): F10.90 - Alcohol use, unspecified, uncomplicated Assessment and Plan: * withdrawal managed with phenobarbital taper * folic acid and thiamine * requesting information on HUBERT to review and open to discussing when he is feeling better --will follow up tomorrow Total time managing care of this patient today _35___ minutes. PMFSH Past Medical History Medical History (Updated 01/10/25 @ 14:18 by Rosa M Zamora CNP) Alcohol use disorder No pertinent past medical history Social History Social History Household Members: Spouse Housing: Apartment Do you presently have visiting nurse or other home services: No Alcohol intake: current Alcohol intake frequency: 0-2 drinks per day Alcohol type: beer Patient Tobacco Use Status: Tobacco use Unknown Tobacco use type: Cigarette Cigarettes Per Day: 6 Years Smoked: 20 YEARS e-Cigarette/Vaping Use: Currently Using Second Hand Smoke Exposure: Yes Substance Use Type: Marijuana service: No
--- NOTE | 2025-01-10 14:24 | P.CNGI_ITS ---
History of Present Illness Data of Consult Service Date: 01/10/25 Primary Care Provider: [facility] HPI Reason for consult: anemia and hepatitis 49yo M with alcoholic hepatitis with cirrhosis and alcohol abuse who I am seeing for assessment for anemia. he has had issues with ongoing alcohol use with daily beer intake. admitted with wekaness, urine and fecal incontinence. He denies abdominal pain, nausea or vomiting, but admits to x2 episodes of black colored stools. He denies using nsaids. Labs with hypomagnesemia, lactic acidosis, and hyponatremia. During admission HGB went from 12 to around 7 g/dl and plts also fell to around 18 Review of Systems 2 Review of Systems: Constitutional : No Weight loss, No Fever, No Chills ENT/Mouth : No sore throat, No Rhinorrhea Eyes: No Swelling, No Redness Cardiovascular : No Chest Pain, No SOB, No Edema Respiratory : No Cough, No Sputum, No Wheezing Gastrointestinal : see HPI Genitourinary : NO Dysuria, No Urinary Frequency, No Hematuria, No Urgency Musculoskeletal : no joint pain, No Myalgias, No Joint Swelling Skin : No Skin Lesions, No rash Neuro : + Weakness, No Numbness, No Dizziness, No Headache Psych : No Anxiety/Panic, No Depression Heme/Lymph: No Bruising, No Lymphadenopathy Endocrine : No Polyuria, No Polydipsia All other systems reviewed and are negative. [facility] Past Medical History Medical History (Updated 01/10/25 @ 19:15 by Nahed Guevara MD) Alcohol use disorder No pertinent past medical history Family History Pertinent family history: no fhx of liver disease Social History Social History Household Members: Spouse Housing: Apartment Do you presently have visiting nurse or other home services: No Alcohol intake: current Alcohol intake frequency: 0-2 drinks per day Alcohol type: beer Patient Tobacco Use Status: Tobacco use Unknown Tobacco use type: Cigarette Cigarettes Per Day: 6 Years Smoked: 20 YEARS e-Cigarette/Vaping Use: Currently Using Second Hand Smoke Exposure: Yes Substance Use Type: Marijuana service: No Meds Allergies Allergy/AdvReac Type Severity Reaction Status Date / Time No Known Allergies Allergy Verified 01/09/25 10:51 Active Medications: Current Medications Acetaminophen (Acetaminophen 325 Mg Tablet) 650 mg PO Q6H PRN PRN Reason: Pain, Mild 1-3,fever,headache Calcium Carbonate (Calcium Carbonate 750 Mg Tab.Chew) 750 mg PO Q4H PRN PRN Reason: Heartburn Last Admin: 01/09/25 23:20 Dose: 750 mg Ceftriaxone Sodium (Ceftriaxone Sodium 1 Gm Vial) 1 gm IVPUSH Q24H [facility] Last Admin: 01/10/25 08:32 Dose: 1 gm Sodium Chloride (Ns) 1,000 mls @ 100 mls/hr IVCONT .Q10H [facility] Last Admin: 01/10/25 11:04 Dose: Not Given Octreotide Acetate 500 mcg/ (Sodium Chloride) 501 mls @ 50.1 mls/hr IVCONT .Q10H [facility] Last Admin: 01/10/25 11:03 Dose: 50 mcg/hr, 50.1 mls/hr Thiamine HCl 100 mg/ Sodium (Chloride) 101 mls @ 202 mls/hr IV DAILY [facility] Last Infusion: 01/10/25 14:15 Dose: Infused Magnesium Hydroxide (Milk Of Magnesia 30 Ml Oral.Susp) 30 ml PO DAILY PRN PRN Reason: Constipation Magnesium Oxide (Magnesium Oxide 400 Mg Tablet) 400 mg PO BIDPC [facility] Last Admin: 01/10/25 08:31 Dose: 400 mg Melatonin (Melatonin 3 Mg Tablet) 6 mg PO BEDTIME PRN PRN Reason: Insomnia Ondansetron HCl (Ondansetron Hcl 4 Mg/2 Ml Vial) 4 mg IVPUSH Q4H PRN PRN Reason: Nausea and Vomiting Pantoprazole Sodium (Pantoprazole Sodium 40 Mg/10 Ml Vial) 40 mg IVPUSH BID@0630,1630 [facility] Last Admin: 01/10/25 08:33 Dose: 40 mg Pharmacy Consult (Consult Rx Etoh Phenob Im/Po) 1 each MISCELLANE ONCE PRN; Protocol PRN Reason: Consult order Phenobarbital (Phenobarbital 30 Mg Tablet) 60 mg PO BID [facility] Stop: 01/11/25 21:01 Last Admin: 01/10/25 08:32 Dose: 60 mg Phenobarbital (Phenobarbital 30 Mg Tablet) 30 mg PO BID [facility] Stop: 01/13/25 21:01 Phenobarbital (Phenobarbital 15 Mg Tablet) 15 mg PO DAILY [facility] Stop: 01/15/25 09:01 Sodium Chloride (0.9 % Sodium Chloride Flush 3 Ml Syringe) 3 ml IVFLUSH QSHIFT [facility] Last Admin: 01/10/25 08:33 Dose: Not Given Home Medications ?Medication ?Instructions ?Recorded ?Confirmed ?Last Taken ?Type cholecalciferol (vitamin D3) 1,250 1,250 mcg PO TU 01/09/25 01/09/25 01/02/25 History mcg (50,000 unit) capsule Physical Exam 2 Vital Signs: Vital Signs: Last Vital Signs Temp 99.4 F 01/10/25 12:01 Pulse 112 H 01/10/25 12:01 Resp 12 01/10/25 12:01 BP 103/63 01/10/25 12:01 Pulse Ox 95 01/10/25 11:46 O2 Del Method Room Air 01/10/25 11:46 O2 Flow Rate 2 01/09/25 19:28 BMI result Body Mass Index 21.1 EXAM: GENERAL: The patient is relaxed, foetor hepaticus noted VITAL SIGNS:see workflow HEENT: icteric sclerae, PERRLA, EOMI. Oropharynx clear. Moist mucous membranes. Conjunctivae appear well perfused. No thyroid mass. CHEST: Chest wall is nontender. HEART: Regular rate and rhythm without murmurs. LUNGS: Clear to auscultation bilaterally. ABDOMEN: Soft, positive bowel sounds, nontender, no organomegaly.no flank tenderness SKIN: No rash, no excessive bruising, petechiae, or purpura. NEUROLOGIC: Cranial nerves II-XII intact without motor/sensory deficit. Psych: normal affect Results Labs 01/10/25 18:28 01/10/25 05:44 Labs: Short CBC 01/10/25 Range/Units 05:44 WBC 8.0 (4.8-10.8) X10*3/uL Hgb 7.3 L D (14.0-18.0) g/dl Hct 20.4 L* D (42.0-52.0) % Plt Count 18 L* D (160-400) X10*3/uL BMP 01/10/25 05:44 Sodium 131 L Potassium 3.4 Chloride 95 L Carbon Dioxide 22 BUN 8 L Creatinine 0.52 Calcium 7.6 L Liver Function 01/10/25 Range/Units 05:44 Total Bilirubin 5.9 H (0.0-1.0) mg/dL AST 265 H (5-37) U/L ALT 23 (0-40) U/L Alkaline Phosphatase 341 H (39-117) U/L Albumin 2.6 L (3.5-5.0) g/dL Urine 01/09/25 Range/Units 16:28 Urine Color Dark Yellow Urine Appearance Clear Urine pH 6.5 (5.0-9.0) Ur Specific [place] 1.010 (1.005-1.025) Urine Protein Negative (Neg-Trace) mg/dL Urine Glucose (UA) Negative (Negative) mg/dL Assessment and Plan (1) Melena: Status: Acute Plan 1/ melena and anemia on background of low plts and ongoing alcohol use, ddx: bone marrow dysfn from alcohol, TTP, ITP, zieves syndrome, less likely varices , alcoholic gastritis, nutritonal PLAN' 1/ EGD tomorrow if plts around 50 or greater 2/ get periheral smear, LDH, haptoglobin, 3/ tranfuse target hgb 8 g/dl or so 4/ avoid nsaids and hold on steroids Procedures Date of Service Date of Service: 01/10/25
[2025-01-10] MEDS: 0.9 % Sodium Chloride 1,000 ML 100 ML IVCONT (15:05)
[2025-01-10 18:48] LABS: Hemoglobin 9.1 g/dl (14.0-18.0); PLT CLUMP 1
[2025-01-10 18:49] LABS: Hematocrit 25.2 % (42.0-52.0); Mean Corpuscular HGB Conc 36.1 g/dl (31.0-36.0); Mean Corpuscular Hemoglobin 33.2 pg (27.0-33.0); Mean Platelet Volume 10.1 fL (9.4-12.4); Red Blood Count 2.74 X10*6/uL (4.60-5.80); Red Cell Distribution Width 20.3 % (11.0-16.0)
[2025-01-10 18:57] LABS: Platelet Count 23 X10*3/uL (160-400); White Blood Count 8.1 X10*3/uL (4.8-10.8)
[2025-01-11] VITALS (14 sets, daily range): BP systolic 100–137; BP diastolic 54–86; PULSE 71–89; RESP 15–20; TEMP 36.4–37.6; O2SAT 92–96
[2025-01-11 01:26] LABS: OBS Int Ctl Valid YES; OBS1 POSITIVE (NEGATIVE)
[2025-01-11] MEDS: 0.9 % Sodium Chloride 1,000 ML 100 ML IVCONT (01:41)
[2025-01-11] MEDS: Octreotide Acetate 500 MCG in 0.9 % Sodium Chloride 500 ML 50.1 MCG IVCONT (05:54)
[2025-01-11] MEDS: Pantoprazole Sodium 40 MG/10 ML VIAL IVPUSH ×2 (05:55→17:30)
[2025-01-11 06:25] LABS: Hematocrit 24.1 % (42.0-52.0); Hemoglobin 8.7 g/dl (14.0-18.0); Mean Corpuscular HGB Conc 36.1 g/dl (31.0-36.0); Mean Corpuscular Volume 91.3 fL (80.0-98.0); Mean Platelet Volume 9.4 fL (9.4-12.4); Platelet Count 27 X10*3/uL (160-400); Red Blood Count 2.64 X10*6/uL (4.60-5.80); Red Cell Distribution Width 20.6 % (11.0-16.0); White Blood Count 6.9 X10*3/uL (4.8-10.8)
[2025-01-11 06:39] LABS: Alanine Aminotransferase 17 U/L (0-40); Albumin Level 2.4 g/dL (3.5-5.0); Alkaline Phosphatase 276 U/L (39-117); Anion Gap 14 (12-20); Aspartate Amino Transferase 182 U/L (5-37); Bilirubin Total 7.3 mg/dL (0.0-1.0); Blood Urea Nitrogen 7 mg/dL (9-16); Calcium 7.4 mg/dL (8.4-10.2); Carbon Dioxide 21 mmol/L (22-29); Chloride 100 mmol/L (96-108); Creatinine Clr Calc Pharmacy 162.1; Estimated Glomerular Filt Rate > 60; Glucose Random 102 mg/dL (60-115); Magnesium 1.5 mg/dL (1.6-2.6); Potassium 3.3 mmol/L (3.3-5.1); Sodium 132 mmol/L (135-145); Total Protein 4.8 g/dL (6.5-8.0)
[2025-01-11] MEDS: Thiamine HCL 100 MG in 0.9 % Sodium Chloride 100 ML 202 MG IV (08:28)
[2025-01-11] MEDS: PHENobarbitaL 30 MG TABLET 60 MG PO ×2 (08:28→20:14)
[2025-01-11] MEDS: cefTRIAXone sodium 1 GM VIAL IVPUSH (08:28)
[2025-01-11] MEDS: 0.9 % Sodium Chloride Flush 3 ML SYRINGE IVFLUSH ×3 (08:33→20:14)
[2025-01-11 08:34] LABS: Immature Retic Fraction 36.2 % (2.3-13.4); Retic HGB Equivalent 35.9 pg (30.0-35.0); Reticulocyte Percent 2.9 % (0.5-1.8); Reticulocytes Absolute 0.076 X10*6/uL (0.026-0.095)
[2025-01-11 08:35] LABS: PLT ABN DIST 1
[2025-01-11 08:41] LABS: Lactate Dehydrogenase 240 U/L (118-273)
[2025-01-11] MEDS: Magnesium Oxide 400 MG TABLET 800 MG PO ×2 (08:43→17:29)
[2025-01-11] MEDS: Acetaminophen 325 MG TABLET 650 MG PO (08:49)
[2025-01-11] MEDS: Magnesium Sulfate/H2O 2 GM/50 ML PIGGYBACK IV (08:49)
[2025-01-11 09:37] LABS: Haptoglobin 83 mg/dL (14-258)
--- NOTE | 2025-01-11 11:25 | P.CONAN_ITS ---
HPI - Anesthesia Eval Consult details Narrative: For EGD -- Melena PMFSH Active Problems Active Problems: All Active Problems Melena (Acute) Alcohol use disorder (Acute) Hypomagnesemia (Acute) Alcohol withdrawal (Acute) SIRS (systemic inflammatory response syndrome) (Acute) Acute lactic acidosis (Acute) Acute hypokalemia (Acute) Past Medical History Medical History (Updated 01/10/25 @ 19:15 by Nahed Guevara MD) Alcohol use disorder No pertinent past medical history Family History Family history of problems with anesthesia: No Surgical History Surgical History (Updated 01/11/25 @ 12:05 by Betsy Springer RN) History of ankle surgery History of Problems with Anesthesia: No Social History Social History Household Members: Spouse Housing: Apartment Are you a primary manager home healthcare to a significant other at home: No Do you presently have visiting nurse or other home services: No Alcohol intake: current Alcohol intake frequency: 0-2 drinks per day Alcohol type: beer Patient Tobacco Use Status: Current everyday Tobacco user Tobacco use type: Cigarette Cigarette Packs Per Day: 0.5 Cigarettes Per Day: 10.0 Years Smoked: 20 e-Cigarette/Vaping Use: Currently Using Second Hand Smoke Exposure: Yes Substance Use Type: Marijuana service: No Meds Allergies Allergy/AdvReac Type Severity Reaction Status Date / Time No Known Allergies Allergy Verified 01/11/25 12:05 Active Medications: Current Medications Acetaminophen (Acetaminophen 325 Mg Tablet) 650 mg PO Q6H PRN PRN Reason: Pain, Mild 1-3,fever,headache Last Admin: 01/11/25 08:49 Dose: 650 mg Calcium Carbonate (Calcium Carbonate 750 Mg Tab.Chew) 750 mg PO Q4H PRN PRN Reason: Heartburn Last Admin: 01/09/25 23:20 Dose: 750 mg Ceftriaxone Sodium (Ceftriaxone Sodium 1 Gm Vial) 1 gm IVPUSH Q24H [facility] Last Admin: 01/11/25 08:28 Dose: 1 gm Sodium Chloride (Ns) 1,000 mls @ 100 mls/hr IVCONT .Q10H [facility] Last Admin: 01/11/25 01:41 Dose: 100 mls/hr Octreotide Acetate 500 mcg/ (Sodium Chloride) 501 mls @ 50.1 mls/hr IVCONT .Q10H [facility] Last Admin: 01/11/25 05:54 Dose: 50 mcg/hr, 50.1 mls/hr Thiamine HCl 100 mg/ Sodium (Chloride) 101 mls @ 202 mls/hr IV DAILY [facility] Last Infusion: 01/11/25 09:03 Dose: Infused Magnesium Hydroxide (Milk Of Magnesia 30 Ml Oral.Susp) 30 ml PO DAILY PRN PRN Reason: Constipation Magnesium Oxide (Magnesium Oxide 400 Mg Tablet) 800 mg PO BIDPC [facility] Last Admin: 01/11/25 08:43 Dose: 800 mg Melatonin (Melatonin 3 Mg Tablet) 6 mg PO BEDTIME PRN PRN Reason: Insomnia Ondansetron HCl (Ondansetron Hcl 4 Mg/2 Ml Vial) 4 mg IVPUSH Q4H PRN PRN Reason: Nausea and Vomiting Pantoprazole Sodium (Pantoprazole Sodium 40 Mg/10 Ml Vial) 40 mg IVPUSH BID@0630,1630 [facility] Last Admin: 01/11/25 05:55 Dose: 40 mg Pharmacy Consult (Consult Rx Etoh Phenob Im/Po) 1 each MISCELLANE ONCE PRN; Protocol PRN Reason: Consult order Phenobarbital (Phenobarbital 30 Mg Tablet) 60 mg PO BID [facility] Stop: 01/11/25 21:01 Last Admin: 01/11/25 08:28 Dose: 60 mg Phenobarbital (Phenobarbital 30 Mg Tablet) 30 mg PO BID [facility] Stop: 01/13/25 21:01 Phenobarbital (Phenobarbital 15 Mg Tablet) 15 mg PO DAILY [facility] Stop: 01/15/25 09:01 Sodium Chloride (0.9 % Sodium Chloride Flush 3 Ml Syringe) [facility] Last Admin: 01/11/25 08:33 Dose: 3 ml Home Medications ?Medication ?Instructions ?Recorded ?Confirmed ?Last Taken ?Type cholecalciferol (vitamin D3) 1,250 1,250 mcg PO TU 01/09/25 01/09/25 01/02/25 History mcg (50,000 unit) capsule Exam Height,Weight and Vital Signs: Height 5 ft 9 in Weight 64.7 kg Last Vital Signs Temp 97.5 F 01/11/25 11:16 Pulse 77 01/11/25 11:16 Resp 15 01/11/25 11:16 BP 127/67 01/11/25 11:16 Pulse Ox 93 01/11/25 11:16 O2 Del Method Room Air 01/11/25 11:16 O2 Flow Rate 2 01/09/25 19:28 Pertinent Lab Results Pertinent Lab Results: Laboratory Tests 01/09/25 01/09/25 01/09/25 11:08 11:08 11:08 WBC RBC Hgb Hct MCV MCH MCHC RDW Plt Count MPV Absolute Nucleated RBC Nucleated RBC % (auto) Absolute Retic Percent Retic Immature Retic Fraction Retic Hgb Equivalent PT 13.9 H INR 1.2 H Fibrinogen Sodium 129 L Potassium 3.4 Chloride 91 L Carbon Dioxide 23 Anion Gap 18 BUN 8 L Creatinine 0.53 Estim Creat Clear Calc 188.5 Estimated GFR > 60 Random Glucose 94 Haptoglobin Lactic Acid Lactic Acid F/U @ 2Hr Lactic Acid F/U @ 4Hr Calcium 7.8 L D Magnesium 1.5 L Total Bilirubin 5.4 H 5.4 H Direct Bilirubin 3.6 H AST 280 H 279 H ALT 27 Alkaline Phosphatase Lactate Dehydrogenase Troponin I High Sens Total Protein Albumin Lipase Urine Color Urine Appearance Urine pH Ur Specific [place] Urine Protein Urine Glucose (UA) Urine Ketones Urine Blood Urine Nitrite Ur Leukocyte Esterase Stool Occult Blood Urine Opiates Screen Ur Buprenorphine Scrn Ur Oxycodone Screen Urine Methadone Screen Urine Fentanyl Screen Ur Barbiturates Screen Ur Phencyclidine Scrn Ur Amphetamines Screen U Benzodiazepines Scrn Urine Cocaine Screen U Marijuana (THC) Screen Blood Type Antibody Screen Crossmatch 01/09/25 01/09/25 01/09/25 11:08 11:08 11:08 WBC RBC Hgb Hct MCV MCH MCHC RDW Plt Count MPV Absolute Nucleated RBC Nucleated RBC % (auto) Absolute Retic Percent Retic Immature Retic Fraction Retic Hgb Equivalent PT INR Fibrinogen Sodium Potassium Chloride Carbon Dioxide Anion Gap BUN Creatinine Estim Creat Clear Calc Estimated GFR Random Glucose Haptoglobin Lactic Acid Lactic Acid F/U @ 2Hr Lactic Acid F/U @ 4Hr Calcium Magnesium Total Bilirubin Direct Bilirubin AST ALT 27 Alkaline Phosphatase 376 H 355 H Lactate Dehydrogenase Troponin I High Sens Total Protein 6.1 L 6.1 L Albumin 3.0 L Lipase Urine Color Urine Appearance Urine pH Ur Specific [place] Urine Protein Urine Glucose (UA) Urine Ketones Urine Blood Urine Nitrite Ur Leukocyte Esterase Stool Occult Blood Urine Opiates Screen Ur Buprenorphine Scrn Ur Oxycodone Screen Urine Methadone Screen Urine Fentanyl Screen Ur Barbiturates Screen Ur Phencyclidine Scrn Ur Amphetamines Screen U Benzodiazepines Scrn Urine Cocaine Screen U Marijuana (THC) Screen Blood Type Antibody Screen Crossmatch 01/09/25 01/09/25 01/09/25 11:08 11:46 12:36 WBC RBC Hgb Hct MCV MCH MCHC RDW Plt Count MPV Absolute Nucleated RBC Nucleated RBC % (auto) Absolute Retic Percent Retic Immature Retic Fraction Retic Hgb Equivalent PT INR Fibrinogen Sodium Potassium Chloride Carbon Dioxide Anion Gap BUN Creatinine Estim Creat Clear Calc Estimated GFR Random Glucose Haptoglobin Lactic Acid 3.1 H* Lactic Acid F/U @ 2Hr Lactic Acid F/U @ 4Hr Calcium Magnesium 1.5 L 1.5 L Total Bilirubin Direct Bilirubin AST ALT Alkaline Phosphatase Lactate Dehydrogenase Troponin I High Sens 9.9 Total Protein Albumin 3.0 L Lipase 108 H Urine Color Urine Appearance Urine pH Ur Specific [place] Urine Protein Urine Glucose (UA) Urine Ketones Urine Blood Urine Nitrite Ur Leukocyte Esterase Stool Occult Blood Urine Opiates Screen Ur Buprenorphine Scrn Ur Oxycodone Screen Urine Methadone Screen Urine Fentanyl Screen Ur Barbiturates Screen Ur Phencyclidine Scrn Ur Amphetamines Screen U Benzodiazepines Scrn Urine Cocaine Screen U Marijuana (THC) Screen Blood Type Antibody Screen Crossmatch 01/09/25 01/09/25 01/10/25 14:12 16:28 05:44 WBC 8.0 RBC 2.26 L D Hgb 7.3 L D Hct 20.4 L* D MCV 90.3 MCH 32.3 MCHC 35.8 RDW 21.3 H Plt Count 18 L* D MPV 10.6 Absolute Nucleated RBC 0.000 Nucleated RBC % (auto) 0.0 Absolute Retic Percent Retic Immature Retic Fraction Retic Hgb Equivalent PT INR Fibrinogen Sodium 131 L Potassium 3.4 Chloride 95 L Carbon Dioxide 22 Anion Gap 17 BUN 8 L Creatinine 0.52 Estim Creat Clear Calc 158.9 Estimated GFR > 60 Random Glucose 77 Haptoglobin Lactic Acid Lactic Acid F/U @ 2Hr 2.8 H* Lactic Acid F/U @ 4Hr 3.4 H* Calcium 7.6 L Magnesium 1.4 L* Total Bilirubin 5.9 H Direct Bilirubin AST 265 H ALT 23 Alkaline Phosphatase 341 H Lactate Dehydrogenase Troponin I High Sens Total Protein 5.3 L Albumin 2.6 L Lipase Urine Color Dark Yellow Urine Appearance Clear Urine pH 6.5 Ur Specific [place] 1.010 Urine Protein Negative Urine Glucose (UA) Negative Urine Ketones 15 Urine Blood Negative Urine Nitrite Negative Ur Leukocyte Esterase Negative Stool Occult Blood Urine Opiates Screen Not Detected Ur Buprenorphine Scrn Not Detected Ur Oxycodone Screen Not Detected Urine Methadone Screen Not Detected Urine Fentanyl Screen Not Detected Ur Barbiturates Screen Not Detected Ur Phencyclidine Scrn Not Detected Ur Amphetamines Screen Not Detected U Benzodiazepines Scrn Not Detected Urine Cocaine Screen Not Detected U Marijuana (THC) Screen POSITIVE H Blood Type Antibody Screen Crossmatch 01/10/25 01/10/25 01/11/25 08:14 18:28 01:07 WBC 8.1 RBC 2.74 L D Hgb 9.1 L D Hct 25.2 L D MCV 92.0 MCH 33.2 H MCHC 36.1 H RDW 20.3 H Plt Count 23 L D MPV 10.1 Absolute Nucleated RBC 0.000 Nucleated RBC % (auto) 0.0 Absolute Retic Percent Retic Immature Retic Fraction Retic Hgb Equivalent PT 15.3 H INR 1.3 H Fibrinogen 276 Sodium Potassium Chloride Carbon Dioxide Anion Gap BUN Creatinine Estim Creat Clear Calc Estimated GFR Random Glucose Haptoglobin Lactic Acid Lactic Acid F/U @ 2Hr Lactic Acid F/U @ 4Hr Calcium Magnesium Total Bilirubin Direct Bilirubin AST ALT Alkaline Phosphatase Lactate Dehydrogenase Troponin I High Sens Total Protein Albumin Lipase Urine Color Urine Appearance Urine pH Ur Specific [place] Urine Protein Urine Glucose (UA) Urine Ketones Urine Blood Urine Nitrite Ur Leukocyte Esterase Stool Occult Blood POSITIVE Urine Opiates Screen Ur Buprenorphine Scrn Ur Oxycodone Screen Urine Methadone Screen Urine Fentanyl Screen Ur Barbiturates Screen Ur Phencyclidine Scrn Ur Amphetamines Screen U Benzodiazepines Scrn Urine Cocaine Screen U Marijuana (THC) Screen Blood Type A Positive Antibody Screen NEGATIVE Crossmatch See Detail 01/11/25 01/11/25 05:53 08:36 WBC 6.9 RBC 2.64 L Hgb 8.7 L Hct 24.1 L MCV 91.3 MCH 33.0 MCHC 36.1 H RDW 20.6 H Plt Count 27 L MPV 9.4 Absolute Nucleated RBC 0.000 Nucleated RBC % (auto) 0.0 Absolute Retic 0.076 Percent Retic 2.9 H Immature Retic Fraction 36.2 H Retic Hgb Equivalent 35.9 H PT INR Fibrinogen Sodium 132 L Potassium 3.3 Chloride 100 Carbon Dioxide 21 L Anion Gap 14 BUN 7 L Creatinine 0.51 Estim Creat Clear Calc 162.1 Estimated GFR > 60 Random Glucose 102 Haptoglobin 83 Lactic Acid Lactic Acid F/U @ 2Hr Lactic Acid F/U @ 4Hr Calcium 7.4 L Magnesium 1.5 L Total Bilirubin 7.3 H Direct Bilirubin AST 182 H ALT 17 Alkaline Phosphatase 276 H Lactate Dehydrogenase 240 Troponin I High Sens Total Protein 4.8 L Albumin 2.4 L Lipase Urine Color Urine Appearance Urine pH Ur Specific [place] Urine Protein Urine Glucose (UA) Urine Ketones Urine Blood Urine Nitrite Ur Leukocyte Esterase Stool Occult Blood Urine Opiates Screen Ur Buprenorphine Scrn Ur Oxycodone Screen Urine Methadone Screen Urine Fentanyl Screen Ur Barbiturates Screen Ur Phencyclidine Scrn Ur Amphetamines Screen U Benzodiazepines Scrn Urine Cocaine Screen U Marijuana (THC) Screen Blood Type Antibody Screen Crossmatch Airway Mallampati Class: II TM Dist: <=3cm Neck ROM: Full Loose/Missing/Broken Teeth: Yes, Upper (loose upper left) and Lower (missing) Heart: ok Lungs: ok Other: plat count noted w Assessment and Plan Assessment Anesthesia Assessment: Anesthesia Plan Discussed and Chart Reviewed Final Anesthetic Review Family History of Problems with Anesthesia: No History of Problems with Anesthesia: No NPO: Yes ASA Class: IV Final Preanesthetic Review: No Changes in Pt Med Stat, Meds/Allgs Chart Reviewed, Consent Obtained/Reviewed and Anes Risks/Benef Reviewed Patient Risk: High Procedure Risk: Intermediate Anesthetic Plan Anesthetic Plan: Agree w/ Assess. and Plan and TIVA Disposition: Standard PACU
--- NOTE | 2025-01-11 11:40 | P.PNIM_ITS ---
Subjective Subjective Date of Service: 01/11/25 Interval History: very hungry small amount of liquid dark stool no hematemesis no tremor Review of Systems Review of Systems: Yes all other systems are reviewed and are negative Physical Exam 2 Vital Signs: Vital Signs: Last Vital Signs Temp 97.5 F 01/11/25 11:16 Pulse 77 01/11/25 11:16 Resp 15 01/11/25 11:16 BP 127/67 01/11/25 11:16 Pulse Ox 93 01/11/25 11:16 O2 Del Method Room Air 01/11/25 11:16 O2 Flow Rate 2 01/09/25 19:28 BMI result Body Mass Index 21.1 Gen: in no acute distress HEENT: sclera icteric, moist mucus membranes Neck: supple Lungs: clear to auscultation bilaterally Heart: regular rate and rhythm, no murmurs Abd: soft, non-tender, non-distended Ext: no edema Skin: warm/well-perfused, jaundiced Neuro: alert and oriented x3, no focal findings, no asterixis Psych: appropriate affect Objective Data Active Medications Acetaminophen (Acetaminophen 325 Mg Tablet) 650 mg PO Q6H PRN PRN Reason: Pain, Mild 1-3,fever,headache Last Admin: 01/11/25 08:49 Dose: 650 mg Documented By: JOLIE Calcium Carbonate (Calcium Carbonate 750 Mg Tab.Chew) 750 mg PO Q4H PRN PRN Reason: Heartburn Last Admin: 01/09/25 23:20 Dose: 750 mg Documented By: GREG Ceftriaxone Sodium (Ceftriaxone Sodium 1 Gm Vial) 1 gm IVPUSH Q24H [facility] Last Admin: 01/11/25 08:28 Dose: 1 gm Documented By: JOLIE Sodium Chloride (Ns) 1,000 mls @ 100 mls/hr IVCONT .Q10H [facility] Last Infusion: 01/11/25 11:39 Dose: Infused Documented By: JOLIE Octreotide Acetate 500 mcg/ (Sodium Chloride) 501 mls @ 50.1 mls/hr IVCONT .Q10H [facility] Last Admin: 01/11/25 05:54 Dose: 50 mcg/hr, 50.1 mls/hr Documented By: GREG Thiamine HCl 100 mg/ Sodium (Chloride) 101 mls @ 202 mls/hr IV DAILY [facility] Last Infusion: 01/11/25 09:03 Dose: Infused Documented By: JOLIE Magnesium Hydroxide (Milk Of Magnesia 30 Ml Oral.Susp) 30 ml PO DAILY PRN PRN Reason: Constipation Magnesium Oxide (Magnesium Oxide 400 Mg Tablet) 800 mg PO BIDPC [facility] Last Admin: 01/11/25 08:43 Dose: 800 mg Documented By: JOLIE Melatonin (Melatonin 3 Mg Tablet) 6 mg PO BEDTIME PRN PRN Reason: Insomnia Ondansetron HCl (Ondansetron Hcl 4 Mg/2 Ml Vial) 4 mg IVPUSH Q4H PRN PRN Reason: Nausea and Vomiting Pantoprazole Sodium (Pantoprazole Sodium 40 Mg/10 Ml Vial) 40 mg IVPUSH BID@0630,1630 [facility] Last Admin: 01/11/25 05:55 Dose: 40 mg Documented By: ANTOINC Pharmacy Consult (Consult Rx Etoh Phenob Im/Po) 1 each MISCELLANE ONCE PRN; Protocol PRN Reason: Consult order Phenobarbital (Phenobarbital 30 Mg Tablet) 60 mg PO BID [facility] Stop: 01/11/25 21:01 Last Admin: 01/11/25 08:28 Dose: 60 mg Documented By: JOLIE Phenobarbital (Phenobarbital 30 Mg Tablet) 30 mg PO BID [facility] Stop: 01/13/25 21:01 Phenobarbital (Phenobarbital 15 Mg Tablet) 15 mg PO DAILY [facility] Stop: 01/15/25 09:01 Sodium Chloride (0.9 % Sodium Chloride Flush 3 Ml Syringe) 3 ml IVFLUSH QSHIFT [facility] Last Admin: 01/11/25 08:33 Dose: 3 ml Documented By: JOLIE Labs 01/11/25 05:53 01/11/25 05:53 Labs: Laboratory Results - last 24 hr 01/10/25 01/10/25 01/11/25 08:14 18:28 01:07 MCV 92.0 MCH 33.2 H MCHC 36.1 H RDW 20.3 H Plt Count 23 L D MPV 10.1 Absolute Nucleated RBC 0.000 Nucleated RBC % (auto) 0.0 Absolute Retic Percent Retic Immature Retic Fraction Retic Hgb Equivalent Anion Gap Estim Creat Clear Calc Estimated GFR Random Glucose Haptoglobin Calcium Magnesium Total Bilirubin AST ALT Alkaline Phosphatase Lactate Dehydrogenase Total Protein Albumin Stool Occult Blood POSITIVE Blood Type A Positive Antibody Screen NEGATIVE Crossmatch See Detail 01/11/25 01/11/25 05:53 08:36 MCV 91.3 MCH 33.0 MCHC 36.1 H RDW 20.6 H Plt Count 27 L MPV 9.4 Absolute Nucleated RBC 0.000 Nucleated RBC % (auto) 0.0 Absolute Retic 0.076 Percent Retic 2.9 H Immature Retic Fraction 36.2 H Retic Hgb Equivalent 35.9 H Anion Gap 14 Estim Creat Clear Calc 162.1 Estimated GFR > 60 Random Glucose 102 Haptoglobin 83 Calcium 7.4 L Magnesium 1.5 L Total Bilirubin 7.3 H AST 182 H ALT 17 Alkaline Phosphatase 276 H Lactate Dehydrogenase 240 Total Protein 4.8 L Albumin 2.4 L Stool Occult Blood Blood Type Antibody Screen Crossmatch Assessment and Plan (1) Alcohol withdrawal: Status: Acute Plan d3 for 49yo M with AUD and EtOH cirrhosis presented with weakness + hiccups; admitted for impending withdrawal and EtOH hepatitis, also found to be severely anemic + thrombocytopenic acute blood loss anemia, presumably GI blood loss thrombocytopenia - transfused 2u pRBCs, 2 pack platelets; give another pack of platelets now - FOBT positive - continue IV pantoprazole and IV octreotide drip and ceftriaxone for SBP prophylaxis - GI consulted, plan EGD today AUD with impending withdrawal - consult phenobarbital taper, give thiamine, consult Addiction Medicine EtOH hepatitis - MDF 16, no steroids or pentoxyfilline indicated; continue to monitor LFTs EtOH cirrhosis with ascites - too small to tap; resume spironolactone when taking POs hypoNa - likely hypovolemic; improved with IV fluid resuscitation hypoMg - replete IV, recheck level in AM, increase PO maintenance dosing lactic acidosis - due to dehydration + cirrhosis not sepsis VTE ppx - SCDs dispo - eventually home In my clinical judgment, the patient requires continued inpatient hospitalization for the following reasons: EGD, severe anemia, thrombocytopenia, and EtOH withdrawal Total time managing care of this patient today: 45 minutes. Quality Stroke Does the patient have a stroke diagnosis?: No VTE Prior VTE?: No VTE Risk Level:: Medical - moderate - high VTE Device Contraindication: N/A - Device Ordered VTE Drug Contraindication: N/A - Med Ordered
--- NOTE | 2025-01-11 11:51 | MHC.RECOVRN ---
T/W attempted to meet with pt. in [phone] to provide Eval and resources. Pt sleeping and did not awake to voice or touch. Resources left at bedside and ACS will F/U as appropriate Communicated to pt's nurse Mi that pt was not waking to voice or touch so she can monitor. ACS available as needed
--- NOTE | 2025-01-11 12:14 | P.PNGI_ITS ---
Subjective Subjective Date of Service: 01/11/25 Interval History: HGB been stable no abdominal pain plts better > 20 still has generalzied weakness dark stools this morning no nausea or vomiting Critical Care Time (minutes): 0 Physical Exam 2 Vital Signs: Vital Signs: Last Vital Signs Temp 97.5 F 01/11/25 11:16 Pulse 77 01/11/25 11:16 Resp 15 01/11/25 11:16 BP 127/67 01/11/25 11:16 Pulse Ox 93 01/11/25 11:16 O2 Del Method Room Air 01/11/25 11:16 O2 Flow Rate 2 01/09/25 19:28 BMI result Body Mass Index 21.1 EXAM: GENERAL: The patient is dishevelled, jaundiced VITAL SIGNS:see workflow HEENT: icteric sclerae, PERRLA, EOMI. Oropharynx clear. Moist mucous membranes. Conjunctivae appear well perfused. No thyroid mass. CHEST: Chest wall is nontender. HEART: Regular rate and rhythm without murmurs. LUNGS: Clear to auscultation bilaterally. ABDOMEN: Soft, positive bowel sounds, nontender, no organomegaly.no flank tenderness SKIN: No rash, no excessive bruising, petechiae, or purpura. NEUROLOGIC: Cranial nerves II-XII intact without motor/sensory deficit. Psych: normal affect Objective Data Labs 01/11/25 05:53 01/11/25 05:53 Labs: Laboratory Results - last 24 hr 01/10/25 01/10/25 01/11/25 08:14 18:28 01:07 WBC 8.1 RBC 2.74 L D Hgb 9.1 L D Hct 25.2 L D MCV 92.0 MCH 33.2 H MCHC 36.1 H RDW 20.3 H Plt Count 23 L D MPV 10.1 Absolute Nucleated RBC 0.000 Nucleated RBC % (auto) 0.0 Absolute Retic Percent Retic Immature Retic Fraction Retic Hgb Equivalent Sodium Potassium Chloride Carbon Dioxide Anion Gap BUN Creatinine Estim Creat Clear Calc Estimated GFR Random Glucose Haptoglobin Calcium Magnesium Total Bilirubin AST ALT Alkaline Phosphatase Lactate Dehydrogenase Total Protein Albumin Stool Occult Blood POSITIVE Blood Type A Positive Antibody Screen NEGATIVE Crossmatch See Detail 01/11/25 01/11/25 05:53 08:36 WBC 6.9 RBC 2.64 L Hgb 8.7 L Hct 24.1 L MCV 91.3 MCH 33.0 MCHC 36.1 H RDW 20.6 H Plt Count 27 L MPV 9.4 Absolute Nucleated RBC 0.000 Nucleated RBC % (auto) 0.0 Absolute Retic 0.076 Percent Retic 2.9 H Immature Retic Fraction 36.2 H Retic Hgb Equivalent 35.9 H Sodium 132 L Potassium 3.3 Chloride 100 Carbon Dioxide 21 L Anion Gap 14 BUN 7 L Creatinine 0.51 Estim Creat Clear Calc 162.1 Estimated GFR > 60 Random Glucose 102 Haptoglobin 83 Calcium 7.4 L Magnesium 1.5 L Total Bilirubin 7.3 H AST 182 H ALT 17 Alkaline Phosphatase 276 H Lactate Dehydrogenase 240 Total Protein 4.8 L Albumin 2.4 L Stool Occult Blood Blood Type Antibody Screen Crossmatch Procedures Date of Service Date of Service: 01/11/25 Progress Note: A&P Assessment and plan (1) Melena: Status: Acute Plan 1/ Melena, in setting of cirrhosis and alcoholic hepatitis. HGB stable, plst still low but better PLAN: 1/ EGD today to assess for varices or other GI lesions. Time Spent With Patient Time: Total time managing care of this patient today ____ minutes. Quality Stroke Does the patient have a stroke diagnosis?: No VTE Prior VTE?: No VTE Risk Level:: Medical - moderate - high VTE Device Contraindication: N/A - Device Ordered VTE Drug Contraindication: N/A - Med Ordered
--- NOTE | 2025-01-11 12:14 | MHC.SHP ---
Pre-Procedural Eval Section A - 24 Hr Update-Section A only Date of Service: 01/11/25 The patient is an INPATIENT: Yes The patient has been examined within 24 hours of the surgical procedure. The History & Physical has been completed within 30 days and I have reviewed it.: Yes Section B - Complete if H&P > 30 days Chief Complaint: etoh withdrawal Allergies: Allergies Allergy/AdvReac Type Severity Reaction Status Date / Time No Known Allergies Allergy Verified 01/11/25 12:05 Plan I have reviewed the history and physical and performed a pertinent physical examination on my patient. No changes have occurred unless specified. Time Spent With Patient Time: Total time managing care of this patient today ____ minutes.
--- NOTE | 2025-01-11 12:31 | PC.NURSE ---
Dr. Phan at bedside. Made aware of loose tooth x1 upper left. All preop labs reviewed by Dr. Phan and Dr. Guevara. May proceed with procedure at this time.
--- NOTE | 2025-01-11 12:51 | W.PM.OPN ---
Operative Note Operative Note Date of Service: 01/11/25 Narrative: Procedure Description: EGD Indication: anemia Anesthesia: MAC FLEXIBLE TRANSORAL UPPER GASTROINTESTINAL ENDOSCOPY UPPER ENDOSCOPY Consent: Indications for the procedure and potential complications of bleeding, perforation, reaction to medications and missed diagnosis were discussed with the patient and informed consent was obtained. Instrument: Olympus GIF H 190 J mid size upper endoscope Monitoring: Vital signs and clinical assessment, continuous EKG monitoring, Pulse oximetry, Carbon Dioxide monitoring and blood pressure monitoring were done throughout the procedure. Procedure: The patient was placed in the left lateral decubitis position and pre-procedure medications were administered and a bite block was placed. The endoscope was inserted into the mouth and advanced under direct vision to the third part of duodenum. A careful inspection was made as the upper endoscope was withdrawn including a retroflexed examination of the proximal stomach; Findings and interventions are described below. Findings: Larynx:normal Esophagus: GE junction at 43 cm, diaphragm hiatus at 43 cm, small flat varices seen, no high risk stigmata seen Stomach: mosaic pattern consistent with portla hypertensive gastropathy . Grade 2 flap valve on retroflexed examination of the cardia. no gastric varices, no blood seen Duodenum: Normal bulb and descending duodenum, Intervention: none Impression/Findings: portal hypertensive gastropathy esophageal varices, small suspect anemia may be from alcohol and bone marrow effects, splenic sequestration PLAN: repeat EGD in 2-3 months or earlier if clinically indicated, can d/c home with low dose carvedilol if BP allows aim for HR around 65 can d/c octreotide
[2025-01-11] MEDS: Sucralfate 1 GM TABLET PO (17:29)
[2025-01-12 03:53] VITALS: BP 119/72; PULSE 92; RESP 18; TEMP 36.7; O2SAT 91
[2025-01-12] MEDS: Pantoprazole Sodium 40 MG/10 ML VIAL IVPUSH (05:29)
[2025-01-12 07:20] LABS: INTERNATIONAL NORM RATIO 1.5 (0.9-1.1); Prothrombin Time 17.7 SEC (10.9-12.4)
[2025-01-12] MEDS: Sucralfate 1 GM TABLET PO ×2 (07:41→16:29)
[2025-01-12] MEDS: PHENobarbitaL 30 MG TABLET PO ×2 (07:42→20:45)
[2025-01-12] MEDS: carvediloL 3.125 MG TABLET PO (07:42)
[2025-01-12] MEDS: Acetaminophen 325 MG TABLET 650 MG PO (07:42)
[2025-01-12] MEDS: Magnesium Oxide 400 MG TABLET 800 MG PO ×2 (07:42→16:29)
[2025-01-12] MEDS: Thiamine HCL 100 MG in 0.9 % Sodium Chloride 100 ML 202 MG IV (07:42)
[2025-01-12 07:43] VITALS: BP 119/68; PULSE 72; RESP 18; TEMP 37; O2SAT 92
[2025-01-12] MEDS: 0.9 % Sodium Chloride Flush 3 ML SYRINGE IVFLUSH ×2 (07:43→20:48)
[2025-01-12] MEDS: cefTRIAXone sodium 1 GM VIAL IVPUSH (07:43)
[2025-01-12 07:48] LABS: Anion Gap 11 (12-20); Carbon Dioxide 24 mmol/L (22-29); Chloride 99 mmol/L (96-108); Potassium 3.4 mmol/L (3.3-5.1); Sodium 131 mmol/L (135-145)
[2025-01-12 07:49] LABS: Alanine Aminotransferase 20 U/L (0-40); Albumin Level 2.5 g/dL (3.5-5.0); Alkaline Phosphatase 277 U/L (39-117); Aspartate Amino Transferase 171 U/L (5-37); Bilirubin Total 9.5 mg/dL (0.0-1.0); Blood Urea Nitrogen 5 mg/dL (9-16); Calcium 7.8 mg/dL (8.4-10.2); Creatinine Clr Calc Pharmacy 162.1; Estimated Glomerular Filt Rate > 60; Glucose Random 113 mg/dL (60-115); Total Protein 5.1 g/dL (6.5-8.0)
[2025-01-12 07:54] LABS: Hematocrit 26.4 % (42.0-52.0); Hemoglobin 9.3 g/dl (14.0-18.0); Magnesium 1.4 mg/dL (1.6-2.6); Mean Corpuscular HGB Conc 35.2 g/dl (31.0-36.0); Mean Corpuscular Hemoglobin 32.6 pg (27.0-33.0); Mean Corpuscular Volume 92.6 fL (80.0-98.0); Mean Platelet Volume 11.6 fL (9.4-12.4); Platelet Count 44 X10*3/uL (160-400); Red Blood Count 2.85 X10*6/uL (4.60-5.80); Red Cell Distribution Width 20.4 % (11.0-16.0)
[2025-01-12 08:54] VITALS: BP 119/68; PULSE 72; O2SAT 92
[2025-01-12] MEDS: Magnesium Sulfate/H2O 2 GM/50 ML PIGGYBACK IV (09:41)
[2025-01-12] MEDS: Phytonadione (Vit K1) Oral 10 MG/ML AMPUL PO (09:41)
--- NOTE | 2025-01-12 10:48 | MHC.CM.PN ---
Addendum entered by Elizabet Hu 01/12/25 15:04: [facility] has accepted Patient; CM will follow. Original Note: PT is recommending home with services; CM will continue to follow.
[2025-01-12 11:57] VITALS: BP 99/63; PULSE 80; RESP 18; TEMP 36.8; O2SAT 96
--- NOTE | 2025-01-12 13:02 | HO.PM.IMPN ---
Subjective Subjective Date of Service: 01/12/25 Interval History: no further melena, no hematochezia no tremor jaundiced Review of Systems Review of Systems: Yes all other systems are reviewed and are negative Physical Exam Vital Signs: Vital Signs: Last Vital Signs Temp 98.2 F 01/12/25 11:57 Pulse 80 01/12/25 11:57 Resp 18 01/12/25 11:57 BP 99/63 01/12/25 11:57 Pulse Ox 96 01/12/25 11:57 O2 Del Method Room Air 01/12/25 11:57 O2 Flow Rate 2 01/09/25 19:28 BMI result Body Mass Index 21.1 Gen: in no acute distress HEENT: sclera icteric, moist mucus membranes Neck: supple Lungs: clear to auscultation bilaterally Heart: regular rate and rhythm, no murmurs Abd: soft, non-tender, non-distended Ext: no edema Skin: warm/well-perfused, jaundiced Neuro: alert and oriented x3, no focal findings, no asterixis Psych: appropriate affect Objective Data Active Medications Acetaminophen (Acetaminophen 325 Mg Tablet) 650 mg PO Q6H PRN PRN Reason: Pain, Mild 1-3,fever,headache Last Admin: 01/12/25 07:42 Dose: 650 mg Documented By: JOLIE Calcium Carbonate (Calcium Carbonate 750 Mg Tab.Chew) 750 mg PO Q4H PRN PRN Reason: Heartburn Last Admin: 01/09/25 23:20 Dose: 750 mg Documented By: ANTOINRomel Carvedilol (Carvedilol 3.125 Mg Tablet) 3.125 mg PO BID [facility]; Protocol Last Admin: 01/12/25 07:42 Dose: 3.125 mg Documented By: JOLIE Ceftriaxone Sodium (Ceftriaxone Sodium 1 Gm Vial) 1 gm IVPUSH Q24H [facility] Last Admin: 01/12/25 07:43 Dose: 1 gm Documented By: JOLIE Thiamine HCl 100 mg/ Sodium (Chloride) 101 mls @ 202 mls/hr IV DAILY [facility] Last Infusion: 01/12/25 08:24 Dose: Infused Documented By: JOLIE Magnesium Hydroxide (Milk Of Magnesia 30 Ml Oral.Susp) 30 ml PO DAILY PRN PRN Reason: Constipation Magnesium Oxide (Magnesium Oxide 400 Mg Tablet) 800 mg PO BIDPC [facility] Last Admin: 01/12/25 07:42 Dose: 800 mg Documented By: JOLIE Melatonin (Melatonin 3 Mg Tablet) 6 mg PO BEDTIME PRN PRN Reason: Insomnia Naloxone HCl (Naloxone Hcl 0.4 Mg/Ml Vial) 0.04 mg IVPUSH Q5M PRN PRN Reason: Excessive sedation or RR < 8 Ondansetron HCl (Ondansetron Hcl 4 Mg/2 Ml Vial) 4 mg IVPUSH Q4H PRN PRN Reason: Nausea and Vomiting Pantoprazole Sodium (Pantoprazole Sodium 40 Mg/10 Ml Vial) 40 mg IVPUSH BID@0630,1630 [facility] Last Admin: 01/12/25 05:29 Dose: 40 mg Documented By: ANTOINC Pharmacy Consult (Consult Rx Etoh Phenob Im/Po) 1 each MISCELLANE ONCE PRN; Protocol PRN Reason: Consult order Phenobarbital (Phenobarbital 30 Mg Tablet) 30 mg PO BID [facility] Stop: 01/13/25 21:01 Last Admin: 01/12/25 07:42 Dose: 30 mg Documented By: JOLIE Phenobarbital (Phenobarbital 15 Mg Tablet) 15 mg PO DAILY [facility] Stop: 01/15/25 09:01 Sodium Chloride (0.9 % Sodium Chloride Flush 3 Ml Syringe) 3 ml IVFLUSH QSHIFT [facility] Last Admin: 01/12/25 07:43 Dose: 3 ml Documented By: JOLIE Sucralfate (Sucralfate 1 Gm Tablet) 1 gm PO BIDAC [facility] Last Admin: 01/12/25 07:41 Dose: 1 gm Documented By: JOLIE Labs 01/12/25 07:05 01/12/25 07:05 Labs: Laboratory Results - last 24 hr 01/10/25 01/11/25 01/12/25 08:14 05:53 07:05 MCV 92.6 MCH 32.6 MCHC 35.2 RDW 20.4 H Plt Count 44 L D MPV 11.6 Absolute Nucleated RBC 0.000 Nucleated RBC % (auto) 0.0 Smear Path Review SEE NOTE PT 17.7 H INR 1.5 H Anion Gap 11 L Estim Creat Clear Calc 162.1 Estimated GFR > 60 Random Glucose 113 Calcium 7.8 L Magnesium 1.4 L* Total Bilirubin 9.5 H AST 171 H ALT 20 Alkaline Phosphatase 277 H Total Protein 5.1 L Albumin 2.5 L Blood Type A Positive Antibody Screen NEGATIVE Crossmatch See Detail Assessment and Plan (1) Alcohol withdrawal: Status: Acute Plan d4 for 49yo M with AUD and EtOH cirrhosis presented with weakness + hiccups; admitted for impending withdrawal and EtOH hepatitis, also found to be severely anemic + thrombocytopenic acute blood loss anemia, presumably GI blood loss thrombocytopenia - transfused 2u pRBCs, 3 packs platelets; counts improved - EGD done 01/[address] Guevara, showing: Larynx:normal Esophagus: GE junction at 43 cm, diaphragm hiatus at 43 cm, small flat varices seen, no high risk stigmata seen Stomach: mosaic pattern consistent with portla hypertensive gastropathy . Grade 2 flap valve on retroflexed examination of the cardia. no gastric varices, no blood seen Duodenum: Normal bulb and descending duodenum - change to PO PPI, d/c IV octreotide drip, d/c ceftriaxone - start carvedilol for prevention of variceal hemorrhage, repeat EGD in 2-3 mo AUD with impending withdrawal - consult phenobarbital taper, give thiamine, consulted Addiction Medicine EtOH hepatitis - MDF 16, no steroids or pentoxyfilline indicated; continue to monitor LFTs; Tbili is worsening EtOH cirrhosis with ascites - too small to tap; resume spironolactone when taking POs hypoNa - likely hypovolemic; improved with IV fluid resuscitation hypoMg - replete IV, recheck level in AM, increased PO maintenance dosing lactic acidosis - due to dehydration + cirrhosis not sepsis VTE ppx - SCDs dispo - eventually home with [facility]NA In my clinical judgment, the patient requires continued inpatient hospitalization for the following reasons: worsening hepatitis, severe anemia, thrombocytopenia, and EtOH withdrawal Total time managing care of this patient today: 45 minutes. Quality Stroke Does the patient have a stroke diagnosis?: No VTE Prior VTE?: No VTE Risk Level:: Medical - moderate - high VTE Device Contraindication: N/A - Device Ordered VTE Drug Contraindication: N/A - Med Ordered
--- NOTE | 2025-01-12 13:42 | HO.POSTANES ---
Post Anesthesia Evaluation Post Anesthesia Evaluation Date of Service: 01/12/25 Vital Signs: Vital Signs Temp Pulse Resp BP Pulse Ox O2 Del Method 01/12/25 11:57 98.2 F 80 18 99/63 96 Room Air 01/12/25 08:54 72 119/68 92 01/12/25 07:43 98.6 F 72 18 119/68 92 Room Air 01/12/25 03:53 98.1 F 92 18 119/72 91 L Room Air Anesthesia: Monitored Mental Status: Awake Pain Control: Satisfactory Nausea/Vomiting: None Hydration: Adequate Anesthesia-Related Issues: No Anes. Related Issues
[2025-01-12 16:00] VITALS: BP 94/67; PULSE 82; RESP 16; TEMP 36.8; O2SAT 93
[2025-01-12] MEDS: Omeprazole 20 MG CAPSULE.DR PO (16:29)
[2025-01-12 19:22] VITALS: BP 96/67; PULSE 90; RESP 16; TEMP 36.8; O2SAT 95
[2025-01-13] VITALS (8 sets, daily range): BP systolic 101–123; BP diastolic 65–78; PULSE 85–103; RESP 16–18; TEMP 36.4–37.3; O2SAT 93–96
[2025-01-13] MEDS: Omeprazole 20 MG CAPSULE.DR PO ×2 (06:30→15:53)
[2025-01-13 06:41] LABS: INTERNATIONAL NORM RATIO 1.6 (0.9-1.1)
[2025-01-13 06:50] LABS: Alanine Aminotransferase 21 U/L (0-40); Albumin Level 2.5 g/dL (3.5-5.0); Alkaline Phosphatase 304 U/L (39-117); Anion Gap 11 (12-20); Aspartate Amino Transferase 196 U/L (5-37); Blood Urea Nitrogen 4 mg/dL (9-16); Calcium 7.8 mg/dL (8.4-10.2); Carbon Dioxide 24 mmol/L (22-29); Chloride 100 mmol/L (96-108); Creatinine Clr Calc Pharmacy 175.8; Estimated Glomerular Filt Rate > 60; Glucose Random 96 mg/dL (60-115); Magnesium 1.5 mg/dL (1.6-2.6); Potassium 3.2 mmol/L (3.3-5.1); Sodium 132 mmol/L (135-145); Total Protein 5.1 g/dL (6.5-8.0)
[2025-01-13 07:01] LABS: Bilirubin Total 12.1 mg/dL (0.0-1.0)
[2025-01-13 08:02] LABS: MANUAL DIFF FLAG NO
[2025-01-13 08:23] LABS: Basophils Percent Auto 0.6 % (0-2); Eosinophils Absolute Auto 0.1 X10*3/uL (0.0-0.4); Eosinophils Percent Auto 1.9 % (0-4); Hematocrit 25.5 % (42.0-52.0); Hemoglobin 9.1 g/dl (14.0-18.0); Imm Gran Abs Auto 0.04 X10*3/uL (0.00-0.03); Imm Gran Pct Auto 0.6 % (0.0-0.4); Lymphocytes Absolute Auto 1.1 X10*3/uL (1.2-4.9); Lymphocytes Percent Auto 16.1 % (20-40); Mean Corpuscular HGB Conc 35.7 g/dl (31.0-36.0); Mean Corpuscular Hemoglobin 33.5 pg (27.0-33.0); Mean Corpuscular Volume 93.8 fL (80.0-98.0); Neutrophils Absolute Auto 4.6 x10*3/uL (2.0-8.3); Neutrophils Percent Auto 66.8 % (45-73); Platelet Count 57 X10*3/uL (160-400); Red Blood Count 2.72 X10*6/uL (4.60-5.80); Red Cell Distribution Width 21.2 % (11.0-16.0); White Blood Count 6.9 X10*3/uL (4.8-10.8)
[2025-01-13] MEDS: Thiamine HCL 100 MG in 0.9 % Sodium Chloride 100 ML 202 MG IV (08:38)
[2025-01-13] MEDS: Magnesium Sulfate/H2O 2 GM/50 ML PIGGYBACK IV (08:38)
[2025-01-13] MEDS: cefTRIAXone sodium 1 GM VIAL IVPUSH (08:39)
[2025-01-13] MEDS: Potassium Chloride ER 20 MEQ TAB.ER.PRT 40 MEQ PO (08:39)
[2025-01-13] MEDS: PHENobarbitaL 30 MG TABLET PO ×2 (08:39→20:18)
[2025-01-13] MEDS: prednisoLONE sodium phosphate 15 MG/5 ML SOLUTION 40 MG PO (08:39)
[2025-01-13] MEDS: Sucralfate 1 GM TABLET PO ×2 (08:39→15:53)
[2025-01-13] MEDS: Magnesium Oxide 400 MG TABLET 800 MG PO ×2 (08:39→15:53)
[2025-01-13] MEDS: carvediloL 3.125 MG TABLET PO ×2 (08:39→20:18)
[2025-01-13] MEDS: 0.9 % Sodium Chloride Flush 3 ML SYRINGE IVFLUSH ×3 (08:40→20:19)
--- NOTE | 2025-01-13 12:02 | P.PNIM_ITS ---
Subjective Subjective Date of Service: 01/13/25 Interval History: No hematemesis, hematochezia, or melena. No tremors Jaundice worsening Review of Systems Review of Systems: Yes all other systems are reviewed and are negative Physical Exam 2 Vital Signs: Vital Signs: Last Vital Signs Temp 97.9 F 01/13/25 11:17 Pulse 86 01/13/25 11:17 Resp 18 01/13/25 11:17 BP 117/77 01/13/25 11:17 Pulse Ox 96 01/13/25 11:17 O2 Del Method Room Air 01/13/25 11:17 O2 Flow Rate 2 01/09/25 19:28 BMI result Body Mass Index 21.1 Gen: in no acute distress HEENT: sclera icteric, moist mucus membranes Neck: supple Lungs: clear to auscultation bilaterally Heart: regular rate and rhythm, no murmurs Abd: soft, non-tender, non-distended Ext: no edema Skin: warm/well-perfused, jaundiced Neuro: alert and oriented x3, no focal findings, no asterixis Psych: appropriate affect Objective Data Active Medications Acetaminophen (Acetaminophen 325 Mg Tablet) 650 mg PO Q6H PRN PRN Reason: Pain, Mild 1-3,fever,headache Last Admin: 01/12/25 07:42 Dose: 650 mg Documented By: JOLIE Calcium Carbonate (Calcium Carbonate 750 Mg Tab.Chew) 750 mg PO Q4H PRN PRN Reason: Heartburn Last Admin: 01/09/25 23:20 Dose: 750 mg Documented By: ANTOINC Carvedilol (Carvedilol 3.125 Mg Tablet) 3.125 mg PO BID [facility]; Protocol Last Admin: 01/13/25 08:39 Dose: 3.125 mg Documented By: CK Ceftriaxone Sodium (Ceftriaxone Sodium 1 Gm Vial) 1 gm IVPUSH Q24H [facility] Last Admin: 01/13/25 08:39 Dose: 1 gm Documented By: CK Thiamine HCl 100 mg/ Sodium (Chloride) 101 mls @ 202 mls/hr IV DAILY [facility] Last Infusion: 01/13/25 09:46 Dose: Infused Documented By: CK Magnesium Hydroxide (Milk Of Magnesia 30 Ml Oral.Susp) 30 ml PO DAILY PRN PRN Reason: Constipation Magnesium Oxide (Magnesium Oxide 400 Mg Tablet) 800 mg PO BIDPC [facility] Last Admin: 01/13/25 08:39 Dose: 800 mg Documented By: CK Melatonin (Melatonin 3 Mg Tablet) 6 mg PO BEDTIME PRN PRN Reason: Insomnia Naloxone HCl (Naloxone Hcl 0.4 Mg/Ml Vial) 0.04 mg IVPUSH Q5M PRN PRN Reason: Excessive sedation or RR < 8 Omeprazole (Omeprazole 20 Mg Capsule.Dr) 20 mg PO BID@0630,1630 [facility] Last Admin: 01/13/25 06:30 Dose: 20 mg Documented By: NAREN Ondansetron HCl (Ondansetron Hcl 4 Mg/2 Ml Vial) 4 mg IVPUSH Q4H PRN PRN Reason: Nausea and Vomiting Pharmacy Consult (Consult Rx Etoh Phenob Im/Po) 1 each MISCELLANE ONCE PRN; Protocol PRN Reason: Consult order Phenobarbital (Phenobarbital 30 Mg Tablet) 30 mg PO BID [facility] Stop: 01/13/25 21:01 Last Admin: 01/13/25 08:39 Dose: 30 mg Documented By: CK Phenobarbital (Phenobarbital 15 Mg Tablet) 15 mg PO DAILY [facility] Stop: 01/15/25 09:01 Prednisolone Sodium Phosphate (Prednisolone Sodium Phosphate 15 Mg/5 Ml Solution) 40 mg PO DAILY [facility] Last Admin: 01/13/25 08:39 Dose: 40 mg Documented By: CK Sodium Chloride (0.9 % Sodium Chloride Flush 3 Ml Syringe) 3 ml IVFLUSH QSHIFT [facility] Last Admin: 01/13/25 08:40 Dose: 3 ml Documented By: CK Sucralfate (Sucralfate 1 Gm Tablet) 1 gm PO BIDAC [facility] Last Admin: 01/13/25 08:39 Dose: 1 gm Documented By: CK Labs 01/13/25 05:53 01/13/25 05:53 Labs: Laboratory Results - last 24 hr 01/13/25 05:53 MCV 93.8 MCH 33.5 H MCHC 35.7 RDW 21.2 H Plt Count 57 L D MPV 10.0 Immature Gran % (Auto) 0.6 H Neut % (Auto) 66.8 Lymph % (Auto) 16.1 L [place] % (Auto) 14.0 H Eos % (Auto) 1.9 Baso % (Auto) 0.6 Lymph # (Auto) 1.1 L [place] # (Auto) 1.0 Eos # (Auto) 0.1 Baso # (Auto) 0.0 Abs Immat Gran (auto) 0.04 H Absolute Neuts (auto) 4.6 Absolute Nucleated RBC 0.000 Nucleated RBC % (auto) 0.0 Hold Purple Top SEE NOTE PT 18.0 H INR 1.6 H Anion Gap 11 L Estim Creat Clear Calc 175.8 Estimated GFR > 60 Random Glucose 96 Calcium 7.8 L Magnesium 1.5 L Total Bilirubin 12.1 H AST 196 H ALT 21 Alkaline Phosphatase 304 H Total Protein 5.1 L Albumin 2.5 L Assessment and Plan (1) Alcohol withdrawal: Status: Acute Plan d5 for 49yo M with AUD and EtOH cirrhosis presented with weakness + hiccups; admitted for impending withdrawal and EtOH hepatitis, also found to be severely anemic + thrombocytopenic acute blood loss anemia, presumably GI blood loss thrombocytopenia - transfused 2u pRBCs, 3 packs platelets; counts improved - EGD done 01/[address] Guevara, showing: Larynx:normal Esophagus: GE junction at 43 cm, diaphragm hiatus at 43 cm, small flat varices seen, no high risk stigmata seen Stomach: mosaic pattern consistent with portla hypertensive gastropathy . Grade 2 flap valve on retroflexed examination of the cardia. no gastric varices, no blood seen Duodenum: Normal bulb and descending duodenum - changed to PO PPI, d/c'ed IV octreotide drip, d/c'ed ceftriaxone - started carvedilol for prevention of variceal hemorrhage, repeat EGD in 2-3 mo AUD with impending withdrawal - continue phenobarbital taper, give thiamine, consulted Addiction Medicine EtOH hepatitis - MDF now 38; discussed with GI; will start prednisolone 40 mg/d 01/13; needs close outpt f/u; continue to monitor LFTs; high-protein diet EtOH cirrhosis with ascites - too small to tap; resume spironolactone; needs transplant referral as outpt hypoNa - likely hypovolemic; improved with IV fluid resuscitation hypoMg - replete IV, recheck level in AM, increased PO maintenance dosing hypoK - replete PO, recheck level in AM lactic acidosis - due to dehydration + cirrhosis not sepsis VTE ppx - SCDs dispo - eventually home with VNA In my clinical judgment, the patient requires continued inpatient hospitalization for the following reasons: worsening hepatitis, severe anemia, thrombocytopenia, EtOH hepatitis Total time managing care of this patient today: 50 minutes. Quality Stroke Does the patient have a stroke diagnosis?: No VTE Prior VTE?: No VTE Risk Level:: Medical - moderate - high VTE Device Contraindication: N/A - Device Ordered VTE Drug Contraindication: N/A - Med Ordered
[2025-01-13] MEDS: Spironolactone 25 MG TABLET PO (12:23)
[2025-01-14] VITALS (7 sets, daily range): BP systolic 95–119; BP diastolic 55–74; PULSE 86–96; RESP 14–18; TEMP 36.6–37.3; O2SAT 92–96
[2025-01-14] MEDS: Omeprazole 20 MG CAPSULE.DR PO ×2 (06:49→16:21)
[2025-01-14 07:13] LABS: PLT CLUMP 1; Red Blood Count 2.77 X10*6/uL (4.60-5.80)
[2025-01-14 07:15] LABS: Hematocrit 26.4 % (42.0-52.0); Mean Corpuscular HGB Conc 34.1 g/dl (31.0-36.0); Mean Corpuscular Hemoglobin 32.5 pg (27.0-33.0); Mean Corpuscular Volume 95.3 fL (80.0-98.0); Mean Platelet Volume 10.7 fL (9.4-12.4); Red Cell Distribution Width 21.6 % (11.0-16.0)
[2025-01-14 07:17] LABS: Platelet Count 82 X10*3/uL (160-400); White Blood Count 8.1 X10*3/uL (4.8-10.8)
[2025-01-14 07:28] LABS: Alanine Aminotransferase 23 U/L (0-40); Albumin Level 2.5 g/dL (3.5-5.0); Alkaline Phosphatase 298 U/L (39-117); Anion Gap 11 (12-20); Aspartate Amino Transferase 157 U/L (5-37); Bilirubin Total 12.8 mg/dL (0.0-1.0); Blood Urea Nitrogen 5 mg/dL (9-16); Calcium 7.9 mg/dL (8.4-10.2); Carbon Dioxide 23 mmol/L (22-29); Chloride 102 mmol/L (96-108); Creatinine Clr Calc Pharmacy 168.7; Estimated Glomerular Filt Rate > 60; Glucose Random 82 mg/dL (60-115); Magnesium 1.6 mg/dL (1.6-2.6); Sodium 133 mmol/L (135-145); Total Protein 5.2 g/dL (6.5-8.0)
[2025-01-14] MEDS: Potassium Chloride ER 20 MEQ TAB.ER.PRT 40 MEQ PO (08:24)
[2025-01-14] MEDS: Magnesium Oxide 400 MG TABLET 800 MG PO ×2 (08:24→16:20)
[2025-01-14] MEDS: Spironolactone 25 MG TABLET PO (08:24)
[2025-01-14] MEDS: Sucralfate 1 GM TABLET PO ×2 (08:24→16:22)
[2025-01-14] MEDS: carvediloL 3.125 MG TABLET PO (08:24)
[2025-01-14] MEDS: PHENobarbitaL 15 MG TABLET PO (08:25)
[2025-01-14] MEDS: prednisoLONE sodium phosphate 15 MG/5 ML SOLUTION 40 MG PO (08:25)
[2025-01-14] MEDS: Thiamine HCL 100 MG in 0.9 % Sodium Chloride 100 ML IV (08:25)
[2025-01-14] MEDS: cefTRIAXone sodium 1 GM VIAL IVPUSH (08:25)
[2025-01-14] MEDS: 0.9 % Sodium Chloride Flush 3 ML SYRINGE IVFLUSH ×2 (08:25→16:22)
--- NOTE | 2025-01-14 11:38 | HO.PM.IMPN ---
Subjective Subjective Date of Service: 01/14/25 Interval History: good appetite no tremors No hematemesis, hematochezia, or melena. Review of Systems Review of Systems: Yes all other systems are reviewed and are negative Physical Exam Vital Signs: Vital Signs: Last Vital Signs Temp 98.8 F 01/14/25 07:10 Pulse 87 01/14/25 07:10 Resp 16 01/14/25 07:10 BP 113/74 01/14/25 07:10 Pulse Ox 96 01/14/25 07:10 O2 Del Method Room Air 01/14/25 07:10 O2 Flow Rate 2 01/09/25 19:28 BMI result Body Mass Index 21.1 Gen: in no acute distress HEENT: sclera icteric, moist mucus membranes Neck: supple Lungs: clear to auscultation bilaterally Heart: regular rate and rhythm, no murmurs Abd: soft, non-tender, slightly distended Ext: no edema Skin: warm/well-perfused, jaundiced Neuro: alert and oriented x3, no focal findings, no asterixis Psych: appropriate affect Objective Data Active Medications Acetaminophen (Acetaminophen 325 Mg Tablet) 650 mg PO Q6H PRN PRN Reason: Pain, Mild 1-3,fever,headache Last Admin: 01/12/25 07:42 Dose: 650 mg Documented By: JOLIE Calcium Carbonate (Calcium Carbonate 750 Mg Tab.Chew) 750 mg PO Q4H PRN PRN Reason: Heartburn Last Admin: 01/09/25 23:20 Dose: 750 mg Documented By: ANTOINC Carvedilol (Carvedilol 3.125 Mg Tablet) 3.125 mg PO BID [facility]; Protocol Last Admin: 01/14/25 08:24 Dose: 3.125 mg Documented By: CK Ceftriaxone Sodium (Ceftriaxone Sodium 1 Gm Vial) 1 gm IVPUSH Q24H [facility] Last Admin: 01/14/25 08:25 Dose: 1 gm Documented By: CK Thiamine HCl 100 mg/ Sodium (Chloride) 101 mls @ 202 mls/hr IV DAILY [facility] Last Infusion: 01/14/25 09:40 Dose: Infused Documented By: CK Magnesium Hydroxide (Milk Of Magnesia 30 Ml Oral.Susp) 30 ml PO DAILY PRN PRN Reason: Constipation [facility]esium [facility] ([facility] 400 Mg Tablet) [facility] Last Admin: 01/14/25 08:24 Dose: 800 mg Documented By: CK Melatonin (Melatonin 3 Mg Tablet) 6 mg PO BEDTIME PRN PRN Reason: Insomnia Naloxone HCl (Naloxone Hcl 0.4 Mg/Ml Vial) 0.04 mg IVPUSH Q5M PRN PRN Reason: Excessive sedation or RR < 8 Omeprazole (Omeprazole 20 Mg Capsule.Dr) 20 mg PO BID@0630,1630 [facility] Last Admin: 01/14/25 06:49 Dose: 20 mg Documented By: NAREN Ondansetron HCl (Ondansetron Hcl 4 Mg/2 Ml Vial) 4 mg IVPUSH Q4H PRN PRN Reason: Nausea and Vomiting Pharmacy Consult (Consult Rx Etoh Phenob Im/Po) 1 each MISCELLANE ONCE PRN; Protocol PRN Reason: Consult order Phenobarbital (Phenobarbital 15 Mg Tablet) 15 mg PO DAILY [facility] Stop: 01/15/25 09:01 Last Admin: 01/14/25 08:25 Dose: 15 mg Documented By: CK Prednisolone Sodium Phosphate (Prednisolone Sodium Phosphate 15 Mg/5 Ml Solution) 40 mg PO DAILY [facility] Last Admin: 01/14/25 08:25 Dose: 40 mg Documented By: CK Sodium Chloride (0.9 % Sodium Chloride Flush 3 Ml Syringe) 3 ml IVFLUSH QSHIFT [facility] Last Admin: 01/14/25 08:25 Dose: 3 ml Documented By: CK Spironolactone (Spironolactone 25 Mg Tablet) 25 mg PO DAILY [facility]; Protocol Last Admin: 01/14/25 08:24 Dose: 25 mg Documented By: CK Sucralfate (Sucralfate 1 Gm Tablet) 1 gm PO BIDAC [facility] Last Admin: 01/14/25 08:24 Dose: 1 gm Documented By: CK Labs 01/14/25 06:22 01/14/25 06:22 Labs: Laboratory Results - last 24 hr 01/14/25 06:22 MCV 95.3 MCH 32.5 MCHC 34.1 RDW 21.6 H Plt Count 82 L D MPV 10.7 Absolute Nucleated RBC 0.000 Nucleated RBC % (auto) 0.0 Anion Gap 11 L Estim Creat Clear Calc 168.7 Estimated GFR > 60 Random Glucose 82 Calcium 7.9 L Magnesium 1.6 Total Bilirubin 12.8 H AST 157 H ALT 23 Alkaline Phosphatase 298 H Total Protein 5.2 L Albumin 2.5 L Assessment and Plan (1) Alcohol withdrawal: Status: Acute Plan d6 for 49yo M with AUD and EtOH cirrhosis presented with weakness + hiccups; admitted for impending withdrawal and EtOH hepatitis, also found to be severely anemic + thrombocytopenic acute blood loss anemia, presumably GI blood loss thrombocytopenia - transfused 2u pRBCs, 3 packs platelets; counts considerably improved - EGD done 01/[address] Guevara, showing: Larynx:normal Esophagus: GE junction at 43 cm, diaphragm hiatus at 43 cm, small flat varices seen, no high risk stigmata seen Stomach: mosaic pattern consistent with portla hypertensive gastropathy . Grade 2 flap valve on retroflexed examination of the cardia. no gastric varices, no blood seen Duodenum: Normal bulb and descending duodenum - changed to PO PPI, d/c'ed IV octreotide drip, d/c'ed ceftriaxone - started carvedilol for prevention of variceal hemorrhage, repeat EGD in 2-3 mo AUD with impending withdrawal - continue phenobarbital taper, give thiamine, consulted Addiction Medicine EtOH hepatitis - started prednisolone 40 mg/d 01/13 due to Maddrey discriminant function rising to 38; awaiting improvement in Tbili; needs close outpt f/u to taper off steroids; continue to monitor LFTs; high-protein diet EtOH cirrhosis with ascites - too small to tap; resumed spironolactone; needs transplant referral as outpt hypoNa - likely hypovolemic; improved with IV fluid resuscitation hypoMg - repleted;continue PO maintenance dosing hypoK - replete PO, recheck level in AM lactic acidosis - due to dehydration + cirrhosis not sepsis VTE ppx - SCDs dispo - eventually home with VNA In my clinical judgment, the patient requires continued inpatient hospitalization for the following reasons: worsening EtOH hepatitis Total time managing care of this patient today: 35 minutes. Quality Stroke Does the patient have a stroke diagnosis?: No VTE Prior VTE?: No VTE Risk Level:: Medical - moderate - high VTE Device Contraindication: N/A - Device Ordered VTE Drug Contraindication: N/A - Med Ordered
--- NOTE | 2025-01-14 20:19 | PC.NURSE ---
PM BP 107/64 - pt asymptomatic. MD Holland aware. PM scheduled carvedilol held per .
[2025-01-15] VITALS (8 sets, daily range): BP systolic 103–132; BP diastolic 68–84; PULSE 82–104; RESP 14–18; TEMP 36–37.1; O2SAT 94–96
[2025-01-15] MEDS: Omeprazole 20 MG CAPSULE.DR PO ×2 (06:01→18:42)
[2025-01-15 07:08] LABS: Hematocrit 27.3 % (42.0-52.0); Hemoglobin 9.5 g/dl (14.0-18.0); Mean Corpuscular HGB Conc 34.8 g/dl (31.0-36.0); Mean Corpuscular Hemoglobin 33.2 pg (27.0-33.0); Mean Corpuscular Volume 95.5 fL (80.0-98.0); Mean Platelet Volume 10.3 fL (9.4-12.4); Platelet Count 113 X10*3/uL (160-400); Red Blood Count 2.86 X10*6/uL (4.60-5.80); Red Cell Distribution Width 22.2 % (11.0-16.0); White Blood Count 9.2 X10*3/uL (4.8-10.8)
[2025-01-15 07:24] LABS: Alanine Aminotransferase 26 U/L (0-40); Albumin Level 2.6 g/dL (3.5-5.0); Alkaline Phosphatase 305 U/L (39-117); Anion Gap 12 (12-20); Aspartate Amino Transferase 148 U/L (5-37); Bilirubin Total 13.7 mg/dL (0.0-1.0); Blood Urea Nitrogen 8 mg/dL (9-16); Calcium 8.3 mg/dL (8.4-10.2); Carbon Dioxide 23 mmol/L (22-29); Chloride 105 mmol/L (96-108); Creatinine Clr Calc Pharmacy 140.1; Estimated Glomerular Filt Rate > 60; Glucose Random 109 mg/dL (60-115); Magnesium 1.6 mg/dL (1.6-2.6); Potassium 3.6 mmol/L (3.3-5.1); Sodium 136 mmol/L (135-145); Total Protein 5.5 g/dL (6.5-8.0)
[2025-01-15] MEDS: Sucralfate 1 GM TABLET PO ×2 (07:59→18:42)
[2025-01-15] MEDS: 0.9 % Sodium Chloride Flush 3 ML SYRINGE IVFLUSH ×2 (08:00→18:46)
[2025-01-15] MEDS: cefTRIAXone sodium 1 GM VIAL IVPUSH (08:01)
[2025-01-15] MEDS: carvediloL 3.125 MG TABLET PO ×2 (09:32→22:02)
[2025-01-15] MEDS: Magnesium Oxide 400 MG TABLET 800 MG PO ×2 (09:33→18:42)
[2025-01-15] MEDS: Spironolactone 25 MG TABLET PO (09:33)
[2025-01-15] MEDS: PHENobarbitaL 15 MG TABLET PO (09:34)
[2025-01-15] MEDS: Thiamine HCL 100 MG in 0.9 % Sodium Chloride 100 ML 202 MG IV (09:36)
[2025-01-15] MEDS: prednisoLONE sodium phosphate 15 MG/5 ML SOLUTION 40 MG PO (11:54)
--- NOTE | 2025-01-15 12:46 | MHC.CM.PN ---
Per MD, Patient is not yet medically cleared for dc (fever); PT is recommending home with services and CM will continue to follow.
--- NOTE | 2025-01-15 16:55 | HO.PM.IMPN ---
Subjective Subjective Date of Service: 01/15/25 Interval History: Low-grade fever this a.m. 100.4. Voices no complaints Review of Systems Denies chest pain Denies shortness of breath Denies nausea vomiting diarrhea Denies fever chills Physical Exam Vital Signs: Vital Signs: Last Vital Signs Temp 98.4 F 01/15/25 15:09 Pulse 82 01/15/25 15:09 Resp 14 01/15/25 15:09 BP 119/76 01/15/25 15:09 Pulse Ox 94 01/15/25 15:09 O2 Del Method Room Air 01/15/25 15:09 O2 Flow Rate 2 01/09/25 19:28 BMI result Body Mass Index 21.1 Const: Other: Awake alert no acute distress Resp: Other: Clear to auscultation bilaterally no rales rhonchi or wheezes Cardio: Other: No S4; positive S1-S2; no S3 murmurs rubs or gallops GI: Other: Soft nontender nondistended normoactive bowel sounds Extrem: Other: No edema bilaterally Objective Data Active Medications Acetaminophen (Acetaminophen 325 Mg Tablet) 650 mg PO Q6H PRN PRN Reason: Pain, Mild 1-3,fever,headache Last Admin: 01/12/25 07:42 Dose: 650 mg Documented By: JOLIE Calcium Carbonate (Calcium Carbonate 750 Mg Tab.Chew) 750 mg PO Q4H PRN PRN Reason: Heartburn Last Admin: 01/09/25 23:20 Dose: 750 mg Documented By: ANTOINRomel Carvedilol (Carvedilol 3.125 Mg Tablet) 3.125 mg PO BID [facility]; Protocol Last Admin: 01/15/25 09:32 Dose: 3.125 mg Documented By: MELO Ceftriaxone Sodium (Ceftriaxone Sodium 1 Gm Vial) 1 gm IVPUSH Q24H [facility] Last Admin: 01/15/25 08:01 Dose: 1 gm Documented By: MELO Thiamine HCl 100 mg/ Sodium (Chloride) 101 mls @ 202 mls/hr IV DAILY [facility] Last Infusion: 01/15/25 10:10 Dose: Infused Documented By: MELO Magnesium Hydroxide (Milk Of Magnesia 30 Ml Oral.Susp) 30 ml PO DAILY PRN PRN Reason: Constipation Magnesium Oxide (Magnesium Oxide 400 Mg Tablet) 800 mg PO BIDPC [facility] Last Admin: 01/15/25 09:33 Dose: 800 mg Documented By: MELO Melatonin (Melatonin 3 Mg Tablet) 6 mg PO BEDTIME PRN PRN Reason: Insomnia Naloxone HCl (Naloxone Hcl 0.4 Mg/Ml Vial) 0.04 mg IVPUSH Q5M PRN PRN Reason: Excessive sedation or RR < 8 Omeprazole (Omeprazole 20 Mg Capsule.Dr) 20 mg PO BID@0630,1630 [facility] Last Admin: 01/15/25 06:01 Dose: 20 mg Documented By: ANTOINRomel Ondansetron HCl (Ondansetron Hcl 4 Mg/2 Ml Vial) 4 mg IVPUSH Q4H PRN PRN Reason: Nausea and Vomiting Pharmacy Consult (Consult Rx Etoh Phenob Im/Po) 1 each MISCELLANE ONCE PRN; Protocol PRN Reason: Consult order Prednisolone Sodium Phosphate (Prednisolone Sodium Phosphate 15 Mg/5 Ml Solution) 40 mg PO DAILY [facility] Last Admin: 01/15/25 11:54 Dose: 40 mg Documented By: MELO Sodium Chloride (0.9 % Sodium Chloride Flush 3 Ml Syringe) 3 ml IVFLUSH QSHIFT [facility] Last Admin: 01/15/25 08:00 Dose: 3 ml Documented By: MELO Spironolactone (Spironolactone 25 Mg Tablet) 25 mg PO DAILY [facility]; Protocol Last Admin: 01/15/25 09:33 Dose: 25 mg Documented By: MELO Sucralfate (Sucralfate 1 Gm Tablet) 1 gm PO BIDAC [facility] Last Admin: 01/15/25 07:59 Dose: 1 gm Documented By: MELO Labs 01/15/25 06:14 01/15/25 06:14 Labs: Laboratory Results - last 24 hr 01/15/25 06:14 MCV 95.5 MCH 33.2 H MCHC 34.8 RDW 22.2 H Plt Count 113 L D MPV 10.3 Absolute Nucleated RBC 0.000 Nucleated RBC % (auto) 0.0 Anion Gap 12 Estim Creat Clear Calc 140.1 Estimated GFR > 60 Random Glucose 109 Calcium 8.3 L Magnesium 1.6 Total Bilirubin 13.7 H AST 148 H ALT 26 Alkaline Phosphatase 305 H Total Protein 5.5 L Albumin 2.6 L Assessment and Plan (1) Anemia: Status: Acute (2) Alcohol withdrawal: Status: Acute (3) Acute alcoholic hepatitis: Status: Resolved Plan 49yo M with AUD and EtOH cirrhosis presented with weakness + hiccups; admitted for impending withdrawal and EtOH hepatitis, also found to be severely anemic + thrombocytopenic 1.Acute blood loss anemia, presumably GI blood loss thrombocytopenia - transfused 2u pRBCs, 3 packs platelets; counts considerably improved - EGD done 01/[address] Guevara, showing: Larynx:normal Esophagus: GE junction at 43 cm, diaphragm hiatus at 43 cm, small flat varices seen, no high risk stigmata seen Stomach: mosaic pattern consistent with portla hypertensive gastropathy . Grade 2 flap valve on retroflexed examination of the cardia. no gastric varices, no blood seen Duodenum: Normal bulb and descending duodenum - changed to PO PPI, d/c'ed IV octreotide drip, d/c'ed ceftriaxone - started carvedilol for prevention of variceal hemorrhage, repeat EGD in 2-3 mo -follow CBC 2.AUD with impending withdrawal - continue phenobarbital taper, give thiamine, consulted Addiction Medicine 3.EtOH hepatitis with low-grade fever -abdominal ultrasound failed to demonstrate any significant ascites to tap -switch to prednisone 40 mg daily. Follow up with GI as outpatient to taper Pneumatics Full code - eventually home with VNA In my clinical judgment, the patient requires continued inpatient hospitalization for the following reasons: worsening EtOH hepatitis Quality Stroke Does the patient have a stroke diagnosis?: No VTE Prior VTE?: No VTE Risk Level:: Medical - moderate - high VTE Device Contraindication: N/A - Device Ordered VTE Drug Contraindication: N/A - Med Ordered
[2025-01-16 03:12] VITALS: BP 92/63; PULSE 94; RESP 18; TEMP 37.1; O2SAT 95
[2025-01-16] MEDS: Omeprazole 20 MG CAPSULE.DR PO (06:05)
[2025-01-16 06:41] LABS: Basophils Percent Auto 0.1 % (0-2); Eosinophils Absolute Auto 0.1 X10*3/uL (0.0-0.4); Eosinophils Percent Auto 0.6 % (0-4); Hematocrit 24.8 % (42.0-52.0); Hemoglobin 8.8 g/dl (14.0-18.0); Imm Gran Pct Auto 1.1 % (0.0-0.4); Lymphocytes Absolute Auto 1.1 X10*3/uL (1.2-4.9); Lymphocytes Percent Auto 11.8 % (20-40); MANUAL DIFF FLAG SCAN; Mean Corpuscular HGB Conc 35.5 g/dl (31.0-36.0); Mean Corpuscular Hemoglobin 33.6 pg (27.0-33.0); Mean Corpuscular Volume 94.7 fL (80.0-98.0); Mean Platelet Volume 10.2 fL (9.4-12.4); Monocytes Percent Auto 21.5 % (2-11); Neutrophils Absolute Auto 6.1 x10*3/uL (2.0-8.3); Neutrophils Percent Auto 64.9 % (45-73); Platelet Count 132 X10*3/uL (160-400); Red Blood Count 2.62 X10*6/uL (4.60-5.80); Red Cell Distribution Width 22.2 % (11.0-16.0); SCAN SMEAR FLAG 1; White Blood Count 9.3 X10*3/uL (4.8-10.8)
[2025-01-16 06:53] LABS: Alanine Aminotransferase 25 U/L (0-40); Albumin Level 2.4 g/dL (3.5-5.0); Alkaline Phosphatase 275 U/L (39-117); Anion Gap 11 (12-20); Aspartate Amino Transferase 126 U/L (5-37); Blood Urea Nitrogen 12 mg/dL (9-16); Calcium 8.3 mg/dL (8.4-10.2); Carbon Dioxide 23 mmol/L (22-29); Chloride 105 mmol/L (96-108); Creatinine Clr Calc Pharmacy 150.3; Estimated Glomerular Filt Rate > 60; Glucose Fasting 98 mg/dL (60-99); Potassium 3.5 mmol/L (3.3-5.1); Sodium 135 mmol/L (135-145); Total Protein 5.1 g/dL (6.5-8.0)
[2025-01-16 07:18] VITALS: BP 117/73; PULSE 93; RESP 16; TEMP 36.4; O2SAT 97
[2025-01-16] MEDS: Sucralfate 1 GM TABLET PO (07:19)
[2025-01-16 08:08] LABS: SLIDE REVIEW VERIFIED
[2025-01-16] MEDS: 0.9 % Sodium Chloride Flush 3 ML SYRINGE IVFLUSH (08:22)
[2025-01-16] MEDS: Magnesium Oxide 400 MG TABLET 800 MG PO (08:23)
[2025-01-16] MEDS: Spironolactone 25 MG TABLET PO (08:23)
[2025-01-16] MEDS: carvediloL 3.125 MG TABLET PO (08:23)
[2025-01-16] MEDS: prednisoLONE sodium phosphate 15 MG/5 ML SOLUTION 40 MG PO (08:24)
[2025-01-16] MEDS: cefTRIAXone sodium 1 GM VIAL IVPUSH (08:24)
[2025-01-16] MEDS: Thiamine HCL 100 MG in 0.9 % Sodium Chloride 100 ML 202 MG IV (08:28)
[2025-01-16 11:34] VITALS: BP 117/73; PULSE 93; O2SAT 97
--- NOTE | 2025-01-16 12:04 | P.DS_ITS ---
DS: Providers Provider Date of Service: 01/16/25 Date of admission: 01/09/25 13:15 Date of discharge: 01/16/25 Primary care physician: Teresa Ortiz NP Consults: 01/09/25 13:15 Addiction Medicine Provider Routine Consulting Provider: Addiction Covering Reason for consultation: etoh 01/10/25 07:56 Consult to Gastroenterology Stat Consulting Provider: [facility] Gastroenterology Services Reason for consultation: Hb 12->7.3 in pt with EtOh cirrhosis; plts also low DS: Diagnosis Discharge Diagnosis (1) Anemia: Status: Acute (2) Alcohol withdrawal: Status: Acute (3) Acute alcoholic hepatitis: Status: Resolved DS: Summary Hospital Course Hospital Course: 49yo M with AUD presenting with weakness, incontinence of urine and stools and uncontrolled hiccups. Last EtOH yesterday; used to drink 12+ beers/day but recently tried cutting down to 2/day but he is not a very detailed or reliable historian. For example, he denies history of alcohol withdrawal seizure but from prior H+P in September, when he was admitted for alcoholic hepatitis with ascites, he did have one in 2022. Denies abdominal pain or vomiting. Found to have hypomagnesemia, lactic acidosis, and hyponatremia along with alcoholic hepatitis. Given 5 mg of IV diazepam then started on phenobarbital IM/PO taper. Hospital course Admitted to telemetry on CIWA protocol/phenobarb protocol. No withdrawal noted the course of this admission. Was found to be anemic and thrombocytopenic during the beginning of his hospitalization for which he was transfused 2 units of packed cells and 1 pack platelets. He was started on IV pantoprazole bursal and an octreotide drip. He was also started on ceftriaxone for SBP prophylaxis. A GI consult was placed; on 01/11/2025 patient underwent EGD... Impression/Findings: -portal hypertensive gastropathy -esophageal varices, small -suspect anemia may be from alcohol and bone marrow effects, splenic sequestration . Recommended repeat EGD in 2-3 months and low-dose carvedilol. LFTs continued to rise and patient was placed on p.o. steroids. He did have low-grade fevers for which he was on ceftriaxone however initially his paracentesis failed to demonstrate S PB. A repeat ultrasound was done secondary to low-grade fevers and was found to have and significant ascites to tap. At this point in time he has been afebrile he will be discharged home on aforementioned meds and will follow up with GI in the office. He is strongly advised not to drink alcohol Time Attestation Discharge Coordination Time (in mins): 35 Quality: Safe Use of Opioids Does Pt have an Active Cancer Diagnosis on the Problem List?: No Quality: Stroke Does the patient have a stroke diagnosis?: No Physical Exam Vital Signs: Vital Signs: Last Vital Signs Temp 97.6 F 01/16/25 07:18 Pulse 93 01/16/25 11:34 Resp 16 01/16/25 07:18 BP 117/73 01/16/25 11:34 Pulse Ox 97 01/16/25 11:34 O2 Del Method Room Air 01/16/25 07:18 O2 Flow Rate 2 01/09/25 19:28 BMI result Body Mass Index 21.1 Const: Other: Awake alert no acute distress Resp: Other: Clear to auscultation bilaterally no rales rhonchi or wheezes Cardio: Other: No S4; positive S1-S2; no S3 murmurs rubs or gallops GI: Other: Soft nontender nondistended normoactive bowel sounds Extrem: Other: No edema bilaterally DS: Data Data Completed and Pending Completed studies during hospitalization [Text1]: Procedures Drainage of Peritoneal Cavity, Percutaneous Approach (10/14/24) Labs on day of discharge: Laboratory Results - last 24 hr 01/16/25 06:06 WBC 9.3 RBC 2.62 L Hgb 8.8 L Hct 24.8 L MCV 94.7 MCH 33.6 H MCHC 35.5 RDW 22.2 H Plt Count 132 L MPV 10.2 Immature Gran % (Auto) 1.1 H Neut % (Auto) 64.9 Lymph % (Auto) 11.8 L [place] % (Auto) 21.5 H Eos % (Auto) 0.6 Baso % (Auto) 0.1 Lymph # (Auto) 1.1 L [place] # (Auto) 2.0 H Eos # (Auto) 0.1 Baso # (Auto) 0.0 Abs Immat Gran (auto) 0.10 H Absolute Neuts (auto) 6.1 Absolute Nucleated RBC 0.000 Nucleated RBC % (auto) 0.0 Smear Tech's Comments VERIFIED Sodium 135 Potassium 3.5 Chloride 105 Carbon Dioxide 23 Anion Gap 11 L BUN 12 Creatinine 0.55 Estim Creat Clear Calc 150.3 Estimated GFR > 60 Fasting Glucose 98 Calcium 8.3 L Total Bilirubin 13.0 H AST 126 H ALT 25 Alkaline Phosphatase 275 H Total Protein 5.1 L Albumin 2.4 L Discharge Plan Discharge Anticipated Discharge Date/Time: 01/16/25 11:56 Patient Disposition: Home Health Service Discharge Diagnosis: Alcohol withdrawal Referrals: [facility] [Outside] - 1 Week Teresa Ortiz NP [Primary Care Provider] - 1 Week Discharge Medications: New sucralfate 1 gram Tablet 1 g PO BIDAC Qty: 60 2RF carvedilol 3.125 mg Tablet 3.125 mg PO BID Qty: 60 1RF Protocol: Hold for SBP/HR < HOLD for SBP < : 90 HOLD for HR < : 60 omeprazole 20 mg Capsule,Delayed Release(Dr/Ec) 20 mg PO BID@0630,1630 Qty: 40 2RF prednisone 20 mg tablet 40 mg PO DAILY Qty: 60 2RF Continued cholecalciferol (vitamin D3) 1,250 mcg (50,000 unit) capsule 1,250 mcg PO TU spironolactone 25 mg tablet 25 mg PO DAILY Qty: 90 0RF thiamine HCl (vitamin B1) 100 mg tablet 100 mg PO DAILY Qty: 90 0RF magnesium oxide 400 mg (241.3 mg magnesium) tablet 400 mg PO DAILY Qty: 90 0RF Discharge Orders: Discharge Order (Routine); Ordered 01/16/25 Ordered By: Bari Steiner Diet: Advance to usual diet Activity on Discharge: As tolerated Stand Alone Forms: Patient Portal Discharge page Print Language: Prydeinig Care Plan Goals: Resume all medicines as taken prior to hospitalization. Avoid alcohol at all cost Health Concerns: Prednisone 20 mg; 2 tabs daily until seen by GI. They will orchestrate a taper Plan of Treatment: Coreg/omeprazole/ Carafate has been added to your regimen. Follow up with GI and they will adjust her meds as indicated Assessment: See discharge summary
--- NOTE | 2025-01-16 12:07 | MHC.CM.PN ---
Patient has been medically cleared for dc to home today, with services. [facility] accepted Patient and they have been made aware of today's dc.
--- NOTE | 2025-01-16 12:39 | P.F2F_ITS ---
Service Date Service Date: 01/16/25 Encounter Date of encounter: 01/16/25 Encounter: Acute hospitalization Reasons for Services Signs and symptoms assessed: Med management/disease management. Physical therapy for deconditioning Reason for longterm: medication management, medication treatment and teach disease management Reason for physical therapy: home safety and mobility and therapeutic exercises Homebound: Leaving the home is medically contraindicated at this time without the asist of a device and/or another person due th the listed conditions above and below. Reason homebound: unsteady gait / fall risk and leg weakness Certification: Based on the above findings, I certify that this patient is confined to the home and needs intermittent longterm care, physical therapy and/or speech therapy, or continues to need occupational therapy. The patient is under my care, and I have initiated the establishment of the plan of care. The patient will be followed by a physician who will periodically review the plan of care. Time Spent With Patient Time: Total time managing care of this patient today ____ minutes.
== END 2025-01-16 12:52 | disposition home health service (06) | DRG 280 ==
LOC: HO.ED 13:12 → HO.EDOVER 13:20 → HO.IMC 19:25
PROVIDERS: Internal Medicine; Internal Medicine Gastroenterology; Admitting Provider Family Medicine; Emergency Provider Emergency Medicine; PCP Nurse Practitioner Primary Care; Visit Provider Hospitalist
PROC: 0DJ08ZZ Inspection of Upper Intestinal Tract, Via Natural or Artificial Opening Endoscopic (ICD-10-PCS; CPT 43235; principal; 2025-01-11 13:40)
DX: K70.11 Alcoholic hepatitis with ascites (principal); K70.31 Alcoholic cirrhosis of liver with ascites; E87.21 Acute metabolic acidosis; K76.6 Portal hypertension; D62 Acute posthemorrhagic anemia; E87.1 Hypo-osmolality and hyponatremia; I85.10 Secondary esophageal varices without bleeding; F10.10 Alcohol abuse, uncomplicated; K31.89 Other diseases of stomach and duodenum; D69.59 Other secondary thrombocytopenia; E86.0 Dehydration; E86.1 Hypovolemia; F17.210 Nicotine dependence, cigarettes, uncomplicated; E83.42 Hypomagnesemia; Z79.899 Other long term (current) drug therapy
CPT/HCPCS: 36415; 71046; 76705; 80053; 80076; 80307; 81003; 82272; 83010; 83605; 83615; 83690; 83735; 84484; 85025; 85027; 85045; 85384; 85610; 86850; 86900; 86901; 86923; 93005; 97116; 97161; 97530; 99285; J0696; J2003; J2354; J2470; J2560; J2704; J3010; J3360; J3411; J3475; J7120; P9016; P9073; S9485

== ENCOUNTER → 2025-01-09 10:53 | Outpatient (BNV) | payer MEDICAID, SELFPAY | PROVIDERS: Emergency Provider Emergency Medicine; Visit Provider Internal Medicine Cardiovascular Disease | DX: R00.0 Tachycardia, unspecified (principal) | CPT/HCPCS: 93010 ==

== ENCOUNTER → 2025-01-09 10:53 | Outpatient (BNV) | payer MEDICAID, SELFPAY | PROVIDERS: Emergency Provider Emergency Medicine; Visit Provider Radiology Diagnostic Radiology | DX: R63.4 Abnormal weight loss (principal); S20.20XA Contusion of thorax, unspecified, initial encounter | CPT/HCPCS: 71046 ==

== ENCOUNTER 2025-01-09 13:15 | Outpatient (BNV) | payer MEDICAID, SELFPAY | END 2025-01-15 15:15 | PROVIDERS: Admitting Provider Family Medicine; Emergency Provider Emergency Medicine; PCP Nurse Practitioner Primary Care; Visit Provider Radiology Diagnostic Radiology | DX: R18.8 Other ascites (principal) | CPT/HCPCS: 76705 ==

== ENCOUNTER 2025-01-09 13:15 | Outpatient (BNV) | payer MEDICAID, SELFPAY | END 2025-01-10 07:56 | PROVIDERS: Admitting Provider Family Medicine; Emergency Provider Emergency Medicine; Visit Provider Radiology Diagnostic Radiology | DX: K74.60 Unspecified cirrhosis of liver (principal); K76.0 Fatty (change of) liver, not elsewhere classified; R18.8 Other ascites | CPT/HCPCS: 76705 ==

== ENCOUNTER 2025-01-09 13:15 | Outpatient (BNV) | payer MEDICAID, SELFPAY | END 2025-01-10 04:29 | PROVIDERS: Admitting Provider Family Medicine; Emergency Provider Emergency Medicine; Visit Provider Internal Medicine Cardiovascular Disease | DX: R94.31 Abnormal electrocardiogram [ECG] [EKG] (principal); R00.0 Tachycardia, unspecified | CPT/HCPCS: 93010 ==

== ENCOUNTER → 2025-01-09 13:15 | Outpatient (BNV) | payer MEDICAID, SELFPAY | PROVIDERS: Admitting Provider Family Medicine; Emergency Provider Emergency Medicine; Visit Provider Internal Medicine Gastroenterology | DX: K92.1 Melena (principal) | CPT/HCPCS: 99223 ==

== ENCOUNTER → 2025-01-09 13:15 | Outpatient (BNV) | payer OTHER, SELFPAY | PROVIDERS: Admitting Provider Family Medicine; Emergency Provider Emergency Medicine; Visit Provider Nurse Practitioner Psychiatric/Mental Health | DX: F10.90 Alcohol use, unspecified, uncomplicated (principal) | CPT/HCPCS: 99222 ==

== ENCOUNTER → 2025-01-09 13:15 | Outpatient (BNV) | payer MEDICAID, SELFPAY | PROVIDERS: Admitting Provider Family Medicine; Emergency Provider Emergency Medicine; Visit Provider Family Medicine | DX: E83.42 Hypomagnesemia (principal); E87.21 Acute metabolic acidosis; E87.1 Hypo-osmolality and hyponatremia; F10.930 Alcohol use, unspecified with withdrawal, uncomplicated | CPT/HCPCS: 99223; 99233 ==

== ENCOUNTER 2025-03-12 10:06 | Outpatient (REF) | payer MEDICAID, SELFPAY ==
--- NOTE | ~2025-03-12 | US_ITS ---
EXAMINATION: US ABDOMEN COMPLETE WITH LIVER ELASTOGRAPHY HISTORY: R79.89 - Other specified abnormal findings of blood chemistry TECHNIQUE: Real-time grayscale ultrasound imaging of the abdomen was performed and images were reviewed. COMPARISON: Comparison is made with the prior examination dated 01/10/2025. FINDINGS: Liver: The right lobe of the liver measures 18.3 cm in size. The left lobe of the liver measures 12.3 cm in size. The liver demonstrates a nodular contour, consistent with cirrhosis. Hepatic echotexture is increased, consistent with steatosis There is a recannulized paraumbilical vein. No focal mass or intrahepatic biliary ductal dilatation is identified. There is normal hepatopedal flow in the portal vein. Ultrasound elastography of the liver was performed with 10 separate measurements of the liver parenchyma with the patient in the supine position. Measurements were obtained approximately 2 cm below Blanquita's capsule and perpendicular to the capsule. The median shear wave velocity is 2.71 m/s. The interquartile range/median (IQR/median) is 0.08. Gallbladder and biliary tree: There is thickening of the gallbladder wall which may be on the basis of cirrhosis. No stones are identified. There is no sonographic [place] sign. The common bile duct is normal in caliber measuring 6 mm. Kidneys: The right kidney measures 11.7 cm in length. The left kidney measures 11.8 cm in length. There is a 9 mm nonobstructing calculus at the lower pole of the right kidney. No left renal calculi are identified. There is no hydronephrosis. Pancreas: The pancreatic head, neck, and body are unremarkable. The pancreatic tail is obscured by bowel gas. Spleen: Spleen is enlarged, measuring 13.5 cm in length. Abdominal aorta and inferior vena cava: The visualized portions of the abdominal aorta and inferior vena cava are normal in caliber. There is a small amount of ascites in the upper abdomen. US/US abdomen comp w elastography IMPRESSION: 1. Hepatomegaly and hepatic steatosis. Cirrhosis of the liver with a recannulized paraumbilical vein and associated splenomegaly. Small amount of ascites in the upper abdomen. 2. 9 mm nonobstructing right lower pole renal calculus. The median shear wave velocity in the liver is 2.71 m/s, corresponding to a median liver stiffness of 22.05 kPa. The IQR/median value is 0.08. This is indicative of a quality data set. Findings are indicative of a high elastography value indicating advanced chronic liver disease and portal hypertension. REFERENCE: Society of Radiologists in Ultrasound Liver Stiffness Thresholds (2020): LIVER STIFFNESS THRESHOLDS: *Shear wave velocity less than 1.3 m/s (Liver Stiffness equal or less than 5 kPa): High probability of being normal. *Shear wave velocity less than 1.7 m/s (Liver Stiffness less than 9 kPa): In the absence of other known clinical signs, rules out compensated advanced chronic liver disease. *Shear wave velocity between 1.7-2.1 m/s (Liver Stiffness 9-13 kPa): Suggestive of compensated advanced chronic liver disease but need further test for confirmation. *Shear wave velocity between 2.1-2.4 m/s (Liver Stiffness 13-17 kPa): Rules in compensated advanced chronic liver disease. *Shear wave velocity greater than 2.4 m/s (Liver Stiffness over 17 kPa): Suggestive of clinically significant portal hypertension. QUALITY OF DATA SET: *IQR/Median value equal or less than 0.15 implies a quality data set. *IQR/Median value over 0.15 implies a poor quality data set. SIGNIFICANT CHANGE FROM PRIOR EXAM: Significant change if liver stiffness measurement is 10% or greater from prior exam. OTHER CONSIDERATIONS: The stage of liver fibrosis may be overestimated in the setting of acute hepatitis, liver inflammation, elevated liver function tests, hepatic vascular congestion, obstructive cholestasis, non-fasting state, and infiltrative diseases such as amyloidosis and lymphoma. In some patients with NAFLD, the liver stiffness thresholds for compensated advanced chronic liver disease may be lower. In causes other than viral hepatitis and NAFLD, liver stiffness thresholds are not well established. Electronically signed by: Bandar Garcia MD 03/12/2025 11:35 AM EDT
== END 2025-03-12 10:07 | disposition home or self-care (01) ==
LOC: HO.US 10:06
PROVIDERS: Visit Provider Nurse Practitioner Family
DX: R79.89 Other specified abnormal findings of blood chemistry (principal)
CPT/HCPCS: 76700; 76981

== ENCOUNTER → 2025-03-12 10:08 | Outpatient (BNV) | payer MEDICAID, SELFPAY | PROVIDERS: Visit Provider Radiology Diagnostic Radiology | DX: R16.0 Hepatomegaly, not elsewhere classified (principal); K76.0 Fatty (change of) liver, not elsewhere classified; K74.60 Unspecified cirrhosis of liver; R18.8 Other ascites; N20.0 Calculus of kidney | CPT/HCPCS: 76700 ==

== ENCOUNTER 2025-03-20 08:03 | Outpatient (REF) | payer MEDICAID, SELFPAY ==
[2025-03-20 09:34] LABS: Hematocrit 33.5 % (42.0-52.0); Hemoglobin 11.1 g/dl (14.0-18.0); Mean Corpuscular HGB Conc 33.1 g/dl (31.0-36.0); Mean Corpuscular Hemoglobin 34.4 pg (27.0-33.0); Mean Corpuscular Volume 103.7 fL (80.0-98.0); NRBC Abs Auto 0.000 X10*3/uL (0.0-0.012); NRBC Pct Auto 0.0 /100WBC (0.0-0.2); Platelet Count 127 X10*3/uL (160-400); Red Blood Count 3.23 X10*6/uL (4.60-5.80); White Blood Count 11.1 X10*3/uL (4.8-10.8)
[2025-03-20 09:59] LABS: Alanine Aminotransferase 21 U/L (0-40); Albumin Level 2.9 g/dL (3.5-5.0); Alkaline Phosphatase 175 U/L (39-117); Anion Gap 11 (12-20); Aspartate Amino Transferase 58 U/L (5-37); Blood Urea Nitrogen 12 mg/dL (9-16); Calcium 8.3 mg/dL (8.4-10.2); Carbon Dioxide 27 mmol/L (22-29); Chloride 107 mmol/L (96-108); Estimated Glomerular Filt Rate > 60; Potassium 3.7 mmol/L (3.3-5.1); Sodium 141 mmol/L (135-145); Total Protein 6.1 g/dL (6.5-8.0)
[2025-03-20 10:30] LABS: Folate 8.2 ng/mL (> or = 4.0); Vitamin B12 1182 pg/mL (200-900)
[2025-03-24 15:38] LABS: Vitamin D 25-OH, D2 <4 ng/mL; Vitamin D 25-OH, D3 29 ng/mL; Vitamin D 25-OH, Total 29 ng/mL (30-100)
[2025-03-30 13:54] LABS: FIB-ALT 23 U/L (9-46); FIB-Alpha-2-Macroglobulin 308 mg/dL (106-279); FIB-Apolipoprotein A1 143 mg/dL (94-176); FIB-GGT 234 U/L (3-95); FIB-Haptoglobin 77 mg/dL (43-212); FIB-Total Bilirubin 5.9 mg/dL (0.2-1.2); Liver Fibrosis Score 0.94; Liver Fibrosis Stage F4; Nec Inflam Act Grade A0-A1; Nec Inflam Act Score 0.22
== END 2025-03-20 08:04 | disposition home or self-care (01) ==
LOC: HO.LAB 08:03
PROVIDERS: PCP Nurse Practitioner Primary Care; Visit Provider Nurse Practitioner Family
DX: R19.7 Diarrhea, unspecified (principal); K76.0 Fatty (change of) liver, not elsewhere classified; K21.9 Gastro-esophageal reflux disease without esophagitis; E55.9 Vitamin D deficiency, unspecified; R79.89 Other specified abnormal findings of blood chemistry; K70.30 Alcoholic cirrhosis of liver without ascites
CPT/HCPCS: 36415; 80053; 81596; 82306; 82607; 82746; 85027; 99212

== ENCOUNTER 2025-03-20 08:03 | Outpatient (AMB) | payer MEDICAID, SELFPAY ==
--- OUTSIDE RECORDS SUMMARY | 2025-03-20 08:07 | XMS_ITS | Encounter Summary ---
Author Organization [facility] Address [facility] [address] [place] [id number] Phone Care Team Providers Care Group Fitness Instructor Name Role Phone Pcp, Unknown Primary Care Provider Jonathan Nair MD Primary Care Provider [phone] Teresa Ortzi NP Primary Care Provider Encounter Details Date Type Department Care Team (Late st Contact Info) Description 07/01/2023 Procedure Pass [facility], [address] [address] Social History Tobacco Use Types Packs/Day Years Used Date Smoking Tobacco: Every Day Smokeless Tobacco: Never Alcohol Use Standard Drinks/Week Comments Yes 12 (1 standard drink = 0.6 oz pu re alcohol) A couple per day Education Answer Date Recorded Are you interested in more education? Not on luzmaria e 12/25/2022 Are you concerned about learning? Not on file 12/25/2022 No 12/25/2022 No 12/25/2022 Digital Access Answer Date Recorded No 01/22/2023 No 01/22/2023 No 01/22/2023 Reliable internet access [...] PM EST documented as of this encounter Plan of Treatment Not on file documented as of this encounter Visit Diagnoses Not on filedocumented in this encounter Care Teams Group Fitness Instructor Relationship Specialty Start Date End Date Pcp, Unknown PCP - General 10/15/22 07/20/23 Jonathan Turk MD [address] [place] [address] [email or web address] PCP - General Family Medicine 07/21/23 01/15/25 Teresa Ortiz NP [address] [place] [address] PCP - General Nurse Practitioner 01/16/25 documented as of this encounter Additional Source Comments The information contained in this document represents components of the legal health record. It is not the complete legal health record.[facility]
--- NOTE | 2025-03-20 08:10 | MHC.OFFVIS ---
Vital Signs 03/20/25 08:12 Height 5 ft 9 in Weight 150 lb BMI 22.1 BP 116/72 Blood Pressure Location Rt brachial Position Sitting Pulse 96 Pulse Source Pulse Oximeter Pulse Oximetry (%) 98 Oxygen Delivery Method Room Air Intake Visit Reasons: ED FOLLOW UP Intake Note: Est pt for mgmt of chronic abd pain + liver abn. CC; C.O. unintentional W/L, fluctuating appetite, abd distention / swelling + pain intermittently. Pt seen at [facility] ED December 2024. Pt also reports needing refill of mag oxide, pt has been taking OTC multi with mag in the interim. Buff Wheel Fabricator Required: No Accompanied by: Self / Same As Patient Allergies No Known Allergies Allergy (Verified 03/20/25 08:12) [facility] ED FOLLOW UP: Details: LAST VISIT: 10/25/2024 Alcoholic liver disease Transaminitis Liver cirrhosis, alcoholic Plan Continue abstinence from alcohol. Will send patient for abdominal ultrasound with elastography. Check liver fibrosis panel. Rule out autoimmune disorders. Discussed with patient low-fat, low-salt, low carb and high-protein diet. List of food recommended given to patient. Patient had low magnesium and low potassium while in the hospital. Will recheck it. Will check for malabsorption: vitamin B12, vitamin D and folate. Patient will return in 3 months to re-evaluate. Patient will call our office if he will develop any additional symptoms. Patient will call our office if he will noticed increase swallowing in his abdomen. Next visit we will discuss patient going for upper endoscopy and colonoscopy. He is agreeable to current plan of care and verbalizes understanding of instructions. He was given the opportunity to ask questions and all questions answered. ? Thank you for allowing me to participate in his care Orders Lipase 10/25/24 R10.9 Liver Fibrosis Pnl 10/25/24 K76.0 Magnesium 10/25/24 N18.9 IRON PROFILE 10/25/24 D64.9 C Reactive Protein 10/25/24 K58.9 Smooth Muscle Antibody 10/25/24 R79.89 Mitochondrial Antibody 10/25/24 R79.89 Potassium 10/25/24 E87.6 Alpha Fetoprotein 10/25/24 R79.89 Vitamin B12 and Folate 10/25/24 R19.7 Vitamin D 25-OH (D2 and D3) 10/25/24 E55.9 Ferritin 10/25/24 R74.8 US abdomen comp w elastography 10/25/[address] MTZ 01/10/2025 Plan 1/ melena and anemia on background of low plts and ongoing alcohol use, ddx: bone marrow dysfn from alcohol, TTP, ITP, zieves syndrome, less likely varices , alcoholic gastritis, nutritonal PLAN' 1/ EGD tomorrow if plts around 50 or greater 2/ get periheral smear, LDH, haptoglobin, 3/ tranfuse target hgb 8 g/dl or so 4/ avoid nsaids and hold on steroids UPPER ENDOSCOPY Findings: Larynx:normal Esophagus: GE junction at 43 cm, diaphragm hiatus at 43 cm, small flat varices seen, no high risk stigmata seen Stomach: mosaic pattern consistent with portla hypertensive gastropathy . Grade 2 flap valve on retroflexed examination of the cardia. no gastric varices, no blood seen Duodenum: Normal bulb and descending duodenum, Intervention: none Impression/Findings: portal hypertensive gastropathy esophageal varices, small suspect anemia may be from alcohol and bone marrow effects, splenic sequestration PLAN: repeat EGD in 2-3 months or earlier if clinically indicated, can d/c home with low dose carvedilol if BP allows aim for HR around 65 can d/c octreotide TODAY'S VISIT: Patient is here today for follow-up visit after his hospitalization back in December. Patient reports that since discharge he has been sober. His appetite is coming back. Denies melena, hematochezia. Patient is eating her more protein. Patient reports that he has a good family support throughout this. States that his girlfriend also is not drinking any alcohol which helps. Patient reports to be feeling well for the most part. Reports that he is getting to have more strength. Denies dyspepsia, dysphagia or odynophagia. Denies any nausea or vomiting. Patient is still taking prednisone. Currently on 20 mg till the end of this week. Reports that his appetite is back. Patient is moving his bowels daily [facility] Medical History (Updated 03/20/25 @ 08:40 by Justine Celaya [facility]) Liver cirrhosis Anemia Alcohol use disorder No pertinent past medical history Surgical History History of ankle surgery Social History Household Members: Spouse Housing: Apartment Are you a primary care director rn to a significant other at home: No Do you presently have visiting nurse or other home services: No Alcohol intake: current Alcohol intake frequency: 0-2 drinks per day Alcohol type: beer Patient Tobacco Use Status: Current everyday Tobacco user Tobacco use type: Cigarette Cigarette Packs Per Day: 0.5 Cigarettes Per Day: 10.0 Years Smoked: 20 e-Cigarette/Vaping Use: Currently Using Second Hand Smoke Exposure: Yes Substance Use Type: Marijuana service: No Review of Systems Const Denies weight gain and Reports weight loss ENT Reports no additional complaints, Denies dysphagia and Denies odynophagia Card Reports no additional complaints Resp Reports no additional complaints GI Denies abdominal pain, Denies belching, Denies melena, Denies bloating, Denies change in bowel habits, Denies dysphagia, Denies excessive flatus, Denies dyspepsia, Denies heartburn, Denies diarrhea, Denies loose stools, Denies nausea, Denies odynophagia and Denies vomiting Reports no additional complaints Musc Reports no additional complaints Neuro Reports no additional complaints Psych Reports no additional complaints Endo Reports no additional complaints Physical Exam Vital Signs: Last Vital Signs Pulse 96 03/20/25 08:12 BP 116/72 03/20/25 08:12 Pulse Ox 98 03/20/25 08:12 Oxygen Delivery Method Room Air 03/20/25 08:12 BMI result Body Mass Index 22.1 Const General: no acute distress Orientation/consciousness: patient oriented x3 Resp Effort & Inspection: normal respiratory effort, able to speak in complete sentences, no tracheal deviation and symmetric chest movement Auscultation: clear to auscultation bilaterally Cardio Rate: regular rate GI Inspection: Yes normal to inspection and No distended Palpation (GI): Soft to palpation, not firm, nontender, No Ascites present and No Rebound tenderness present Percussion: No Fluid wave present Auscultation: normal bowel sounds General: Yes no CVA tenderness Back/Spine/Pelvis Back: no CVA tenderness Skin General skin exam: elasticity normal, turgor normal and dry skin Neuro General: patient oriented x3 Psych Appearance: grossly normal Mental Status: mental status grossly normal Results Reviewed Results Reviewed: ABDOMINAL ULTRASOUND WITH LIVER ELASTOGRAPHY 03/12/2025 FINDINGS: Liver: The right lobe of the liver measures 18.3 cm in size. The left lobe of the liver measures 12.3 cm in size. The liver demonstrates a nodular contour, consistent with cirrhosis. Hepatic echotexture is increased, consistent with steatosis There is a recannulized paraumbilical vein. No focal mass or intrahepatic biliary ductal dilatation is identified. There is normal hepatopedal flow in the portal vein. Ultrasound elastography of the liver was performed with 10 separate measurements of the liver parenchyma with the patient in the supine position. Measurements were obtained approximately 2 cm below Blanquita's capsule and perpendicular to the capsule. The median shear wave velocity is 2.71 m/s. The interquartile range/median (IQR/median) is 0.08. Gallbladder and biliary tree: There is thickening of the gallbladder wall which may be on the basis of cirrhosis. No stones are identified. There is no sonographic [place] sign. The common bile duct is normal in caliber measuring 6 mm. Kidneys: The right kidney measures 11.7 cm in length. The left kidney measures 11.8 cm in length. There is a 9 mm nonobstructing calculus at the lower pole of the right kidney. No left renal calculi are identified. There is no hydronephrosis. Pancreas: The pancreatic head, neck, and body are unremarkable. The pancreatic tail is obscured by bowel gas. Spleen: Spleen is enlarged, measuring 13.5 cm in length. Abdominal aorta and inferior vena cava: The visualized portions of the abdominal aorta and inferior vena cava are normal in caliber. There is a small amount of ascites in the upper abdomen. US/US abdomen comp w elastography IMPRESSION: 1. Hepatomegaly and hepatic steatosis. Cirrhosis of the liver with a recannulized paraumbilical vein and associated splenomegaly. Small amount of ascites in the upper abdomen. 2. 9 mm nonobstructing right lower pole renal calculus. The median shear wave velocity in the liver is 2.71 m/s, corresponding to a median liver stiffness of 22.05 kPa. The IQR/median value is 0.08. This is indicative of a quality data set. Findings are indicative of a high elastography value indicating advanced chronic liver disease and portal hypertension. Laboratory Tests 10/25/24 01/16/25 15:24 06:06 Plt Count 132 L AST 126 H ALT 25 Alkaline Phosphatase 275 H Total Protein 5.1 L Albumin 2.4 L Anti-Mitochondrial Ab NEGATIVE Anti-Smooth Muscle Ab <20 Assessment & Plan Assessment & Plan (1) Liver cirrhosis: Code(s): K74.60 - Unspecified cirrhosis of liver Category: Medical Qualifiers: Ascites presence: without ascites Hepatic cirrhosis type: alcoholic cirrhosis Qualified Code(s): K70.30 - Alcoholic cirrhosis of liver without ascites (2) Alcoholic liver damage: Code(s): K70.9 - Alcoholic liver disease, unspecified (3) Elevated transaminase measurement: Code(s): R74.01 - Elevation of levels of liver transaminase levels (4) Alcoholic cirrhosis: Code(s): K70.30 - Alcoholic cirrhosis of liver without ascites Qualifiers: Ascites presence: without ascites Qualified Code(s): K70.30 - Alcoholic cirrhosis of liver without ascites Plan Will recheck CMP, CBC, B12, folate, vitamin-D level. Patient will continue take omeprazole. Avoid dietary triggers and late night snacking. Patient will continue to abstain from alcohol. Taper prednisone by decreasing dose itch wake by 5 mg. He will go to repeat endoscopy as recommended during his last admission. Message sent to surgical schedulers to book procedure for patient. I will see him after the procedure, sooner on as needed basis. Patient is agreeable to this plan and verbalizes understanding of instructions. He was given the opportunity to ask questions and all questions answered. Thank you for allowing me to participate in his care Orders: Orders Comprehensive Met. Panel Today K21.9 - Gastro-esophageal reflux disease without esophagitis Complete Blood Count no Diff Today K21.9 - Gastro-esophageal reflux disease without esophagitis Vitamin B12 and Folate Today R19.7 - Diarrhea, unspecified Vitamin D 25-OH (D2 and D3) Today E55.9 - Vitamin D deficiency, unspecified Medications: New prednisone take it with 10 mg to make 15 mg daily then week when you down to 5 mg daily 5 mg PO DAILY 14 tabs 0RF cholecalciferol (vitamin D3) 50 mcg PO DAILY 90 caps 3RF R79.89 - Other specified abnormal findings of blood chemistry Refilled thiamine HCl (vitamin B1) 100 mg PO DAILY 90 tabs 2RF magnesium oxide 400 mg PO DAILY 90 tabs 2RF omeprazole 20 mg PO BID@0630,1630 60 caps 2RF Coding Level of Care Code Est Pt Level 4 (62331) Complex EM visit Add On G2211 Diagnoses Alcoholic cirrhosis of liver without ascites K70.30 Ascites presence: without ascites Hepatic cirrhosis type: alcoholic cirrhosis Alcoholic liver damage K70.9 Elevated transaminase measurement R74.01 Alcoholic cirrhosis of liver without ascites K70.30 Ascites presence: without ascites Time Spent (min) 40 Comment 25 minutes spent with patient and additional 15 minutes spent reviewing his records
[2025-03-20 08:12] VITALS: BP 116/72; PULSE 96; O2SAT 98; BMI 22.1
== END 2025-03-20 09:26 | disposition home or self-care (01) ==
PROVIDERS: Visit Provider Nurse Practitioner Family
DX: K70.30 Alcoholic cirrhosis of liver without ascites (principal); K70.9 Alcoholic liver disease, unspecified; R74.01 Elevation of levels of liver transaminase levels
CPT/HCPCS: 99214; G2211

== ENCOUNTER 2025-07-23 12:09 | Inpatient (IN) | payer MEDICAID, SELFPAY ==
--- OUTSIDE RECORDS SUMMARY | 2021-05-05 13:41 | XMS_ITS | Encounter Summary ---
Author Organization [facility] Address [address] [place] [phone] Phone Care Team Providers Care Calender Operator Name Role Phone Unknown, Unknown Primary Care Provider Vonda vargas Encounter Details Date Type Department Care Team (Late st Contact Info) Description 05/05/2021 2:41 PM EDT Hospital Encounter [facility] [address] [place] [phone] Love Mayen CNP [address] [place] [phone] [email or web address] Social History Tobacco Use Types Packs/Day Years Used Date Smoking Tobacco: Every Day Smokeless Tobacco: Never Alcohol Use Standard Drinks/Week Comments Yes 12 (1 standard drink = 0.6 oz pu re alcohol) A couple per day Home Health Assessment: Transportation Answer Date Recorded Lack of Transportation (Medical) No 03/14/2025 Lack of Transportation (Non-Medical) No 03/14/2025 Patient Unable or Declines to Respond No 03/14/2025 Education Answer Date Recorded Are you interested in more education? Not on luzmaria e 12/25/2022 Are you concerned about learning? Not on file 12/25/2022 No 12/25/2022 No 12/25/2022 Digital Access Answer Date Recorded No 01/22/2023 No 01/22/2023 Reliable internet access at home? Not on file 01/22/2023 Device with a working camera? Not on file Sex and Gender Information Value Date Recorded Sex Assigned at Male 09/12/2021 12:25 PM EST Legal Sex Male 9:27 PM EDT Gender Identity Male 09/12/2021 12:25 PM EST Sexual Orientation Choose not to disclose 2021 12:25 PM EST documented as of this encounter Functional Status * Calculated C-SSRS Risk Score (Lifetime/Recent) Answer Date of Assessment Author No Risk Indicated 10/15/2022 1:25 AM Esau Mir RN * [place] Suicide Severity Rating Scale (Screener/Recent Self-Report) Question Answer Date of Assessment Author 1. Wish to be (Past 1 Month) No 023 1:25 AM Esau Mir RN 2. Non-Specific Active Suici maisha Thoughts (Past 1 Month) No 10/15/2022 1:25 AM Arnav Mir RN 6. Suicidal Behavior (Lifetime) No 3 1:25 AM Esau Mir RN documented as of this encounter Plan of Treatment Not on file documented as of this encounter Procedures Procedure Name Priority Date/Time Associated Diagnosis Comments XR CHEST PA AND LATERAL 2 VIEWS Urgent/patient waiting 05/05/2021 2:51 PM EDT Cough documented in this encounter Results * XR CHEST PA AND LATERAL 2 VIEWS (05/05/2021 2:51 PM EDT) Anatomical Region Laterality Modality Chest Computed Radiogr aphy 05/05/2021 2:57 PM EDT Impressions 05/05/2021 2:58 PM EDT No acute abnormality. Narrative 05/05/2021 2:58 PM EDT Reason for exam (per EHR order): Cough; diaphoretic TECHNIQUE: Frontal and lateral radiographs of the chest. COMPARISON: None. FINDINGS: Support Devices / Implants / Lines and Tubes: None. Lungs and Pleura: No focal consolidation, pulmonary edema, pleural effusion or pneumothorax. Cardiomediastinal Silhouette: Normal. Miscellaneous Findings: Left lateral old rib fracture with callus formation. Procedure Note Bk Chaves MD - 05/05/2021 Reason for exam (per EHR order): Cough; diaphoretic TECHNIQUE: Frontal and lateral radiographs of the chest. COMPARISON: None. FINDINGS: Support Devices / Implants / Lines and Tubes: None. Lungs and Pleura: No focal consolidation, pulmonary edema, pleuraleffusion or pneumothorax. Cardiomediastinal Silhouette: Normal. Miscellaneous Findings: Left lateral old rib fracture with callusformation. IMPRESSION: No acute abnormality. Love Mayen [employer] IMG XR CHEST Final Resul t documented in this encounter Visit Diagnoses Not on filedocumented in this encounter Additional Health Concerns Infection Onset Date Last Indicated Resolved Time CoV-Risk 05/05/2021 05/05/2021 05/15/2021 1:26 AM EDT CoV-Risk 09/12/2021 09/12/2021 09/22/2021 1:25 AM EST documented as of this encounter Care Teams Calender Operator Relationship Specialty Start Date End Date Unknown, Unknown, PCP - General 03/21/19 10/14/22 documented as of this encounter Additional Source Comments The information contained in this document represents components of the legal health record. It is not the complete legal health record.[facility]
[2025-07-23] VITALS (9 sets, daily range): BP systolic 91–146; BP diastolic 52–89; PULSE 107–130; RESP 14–20; TEMP 34.4–36.4; O2SAT 94–100
--- NOTE | ~2025-07-23 | MR_ITS ---
CLINICAL HISTORY: liver and pancreas , R/O liver or pancreatic lesion, MR abdomen with and without gadolinium, MRCP. Comparison: CT/SR - CT CHEST WO IV CON - 07/26/25 10:11 EST MR/TN/SR - MR CHOLANGIOPANCREATOGRAPHY (MRCP) - 07/27/2025 02:33 PM EST Findings: Small left pleural effusion. Left liver lobe lateral segment low T1 increased T2 signal nonenhancing lesion 1.3 x 1 cm. Cholelithiasis. Pericholecystic edema attributed to hyponatremia. The spleen is homogeneous in signal. The left and right kidney demonstrate symmetric corticomedullary enhancement. The adrenals are symmetric. Common bile duct 0.4 cm. No choledocholithiasis identified. Mucosal thickening of the bowel, coronal image number 25 of 38. Icnl-uq-kuooxvff amount of ascites. IMPRESSION: 1. Moderate ascites. 2. Small left pleural effusion. 3. Left liver lobe lateral segment 1.3 x 1 cm cystic nonenhancing lesion; hepatic cysts. 4. Cholelithiasis with pericholecystic edema; ascites and hyponatremia sequela. No choledocholithiasis. 5. Diffuse bowel wall thickening; hyponatremia. 6. Inhne-ty-aifnopdi amount of ascites. This document has been electronically signed by: Adolph Damico MD on 07/27/2025 17:52:05
--- NOTE | ~2025-07-23 | XR_ITS ---
EXAMINATION: XR CHEST 1 VIEW HISTORY: cough COMPARISON: Comparison is made with the prior examination dated 01/11/2025. FINDINGS: A single AP portable view of the chest performed at 12:47 PM is submitted. The lungs are expanded and clear. There is no pleural effusion, pneumothorax, or pulmonary vascular congestion. The heart is normal in size. The bones are intact. XR/XR chest 1V IMPRESSION: No acute cardiopulmonary abnormality. Electronically signed by: Bandar Garcia MD 07/23/2025 12:55 PM EST
--- NOTE | ~2025-07-23 | CT_ITS ---
CLINICAL HISTORY: Infective endocarditis ?malignancy CT chest without contrast Comparison: None provided Findings: No cardiomegaly. Multilevel two-vessel coronary artery calcifications. 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 Enlarged pulmonary trunk measuring up to 5 mm in width. Query pulmonary arterial hypertension. The visualized thyroid and mediastinum are unremarkable. Mildly progressive small left and stable trace right pleural effusions in comparison to 07/24/[address] Left basilar dependent atelectasis. Right lower lobe atelectasis +/-subsegmental infiltrate. 1-2 small right upper lobe lung nodule/s measuring up to 2 mm (series 11, image 58). In the upper abdominal findings please refer to the same-day abdomen CT report. Old healed fracture of the posterior aspect of 1 of the left lower ribs. No acute fracture. IMPRESSION: 1. Mildly progressive small left and stable trace right pleural effusions in comparison to 07/24/[address] Left basilar dependent atelectasis. Right lower lobe atelectasis +/-subsegmental infiltrate. 2. Enlarged pulmonary trunk measuring up to 5 mm in width. Query pulmonary arterial hypertension. 3. Multilevel two-vessel coronary artery calcifications. 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 This document has been electronically signed by: Irena Karimi MD on 07/26/2025 12:42:24
--- NOTE | ~2025-07-23 | CT_ITS ---
CLINICAL HISTORY: lactic acidosis, small bowel thickening ?ischemia CT angiography abdomen and pelvis with contrast. 3-D post processing. Comparison: CT/REG/SR - CT ABDOMEN PELVIS W IV CON - 07/23/25 20:29 EST Findings: Calcified coronary atherosclerotic disease. 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 The SMA, single left and right renal arteries and SANA are patent. Small left pleural effusion. Right basilar dependent subsegmental atelectasis. The spleen is homogeneous in attenuation. The left and right kidney demonstrate symmetric corticomedullary enhancement. The adrenals are within normal limits. The pancreas demonstrates homogeneous enhancement. No cholelithiasis identified. Multiple loops of dilated bowel with concentric and symmetric mural thickening with maximum diameter of 3.1 cm, axial image number 64 of 107 series 4. Vbtmz-cz-iguxvikh amount of ascites. Diverticulosis. The prostate is within normal limits. No acute fracture. Cirrhosis. Cachexia. Anasarca. IMPRESSION: 1. Multiple loops of dilated bowel with mural thickening, maximum diameter 3.1 cm; hyponatremia small-bowel sequela with adynamic ileus versus small-bowel obstruction. 2. Lmrxt-iz-nocpkwnr amount of ascites. 3. Cirrhosis. 4. Small left pleural effusion. 5. Cachexia. 6. Anasarca. This document has been electronically signed by: Adolph Damico MD on 07/24/2025 20:56:52
--- NOTE | ~2025-07-23 | CT_ITS ---
CLINICAL HISTORY: pyrexia unknown origin, lactic acid 8.7 CT abdomen and pelvis with contrast Comparison: CT/SR - CT ABDOMEN PELVIS W IV CON - 12/08/24 16:47 EDT Findings: Trace left pleural effusion. Bibasilar dependent subsegmental atelectasis. The gallbladder is distended. The left and right kidney demonstrate symmetric corticomedullary enhancement. The adrenals are within normal limits. The pancreas is homogeneous in enhancement. Segmental mural thickening of the small bowel. Diverticulosis. The prostate is within normal limits. The appendix is not identified. Moderate amount of ascites. No acute fracture. Cirrhosis. Cachexia. IMPRESSION: 1. Moderate ascites 2. Segmental small bowel mural thickening; sequela of hyponatremia suspected. 3. Cirrhosis. 4. Trace left pleural effusion. 5. Cachexia. This document has been electronically signed by: Adolph Damico MD on 07/23/2025 22:00:48
--- NOTE | ~2025-07-23 | CT_ITS ---
CLINICAL HISTORY: dental abscess CT maxillofacial with contrast Comparison: None provided Findings: Prior left mandibular angle open reduction internal fixation. Temporomandibular joints are intact. Paranasal sinuses and mastoid air cells clear. Orbits normal. Visualized intracranial contents are within normal limits. No foreign bodies. No fracture or dislocation. Multiple mandibular molar caries present. IMPRESSION: 1. Prior left mandibular angle open reduction internal fixation. 2. Multiple mandibular molar caries present. 3. No acute maxillofacial fracture identified. This document has been electronically signed by: Adolph Damico MD on 07/23/2025 21:56:06
--- NOTE | ~2025-07-23 | CT_ITS ---
CLINICAL HISTORY: hepatic protocol; ?malignancy CT abdomen without and width with contrast Comparison: 07/24/2025 Findings: No consolidation or effusion. For the lower thoracic findings please refer to the same-day chest CT report. Small focal left superior renal polar parenchymal calcification. 5 mm nonobstructive right renal stone. 10 mm left hepatic lobe cyst. Otherwise no hepatic lesion seen. Redemonstration of distended gallbladder. Subcentimeter too small to characterize enhancing splenic lesion only discernible on the arterial phase images. Minimal air/glass in the pancreatic duct mildly more conspicuous than prior study. Finding may be due to prior intervention. Mild splenomegaly also seen on prior subtle hepatic surface nodularity suggestive of cirrhosis. Recanalized umbilical vein and mild perigastric vascular collaterals. Mild distention of left-sided jejunal loops measuring up to 34 mm in width versus 33 mm previously due to ileus versus low-grade obstruction. Enhancing valvular conniventes at level of left jejunal loops more conspicuous than the prior exam. Finding may be secondary to underlying cirrhosis/portal venous hypertension or less likely due to enteritis. Correlate clinically. Central small bowel mesenteric fat haziness likely due to the more extensive third-spacing of fluid/fluid overload. Colonic diverticulosis without diverticulitis. Normal appendix. Evolving [id number] simple ascites. The bones are intact. IMPRESSION: 10 mm left hepatic lobe cyst. Otherwise no hepatic lesion seen. Redemonstration of hepatic cirrhosis with stigmata of portal hypertension, including evolving [id number] ascites. Mild distention of left-sided jejunal loops measuring up to 34 mm in width versus 33 mm previously due to ileus versus low-grade obstruction. Enhancing valvular conniventes at level of left jejunal loops more conspicuous than the prior exam. Finding may be secondary to underlying cirrhosis/portal venous hypertension or less likely due to enteritis. Correlate clinically. This document has been electronically signed by: Irena Karimi MD on 07/26/2025 13:19:07
--- NOTE | ~2025-07-23 | US_ITS ---
EXAMINATION: US GUIDED PARACENTESIS CLINICAL INFORMATION: Ascites. Fevers. Abnormal liver function tests. COMPARISON: Previous CT scan most recent from yesterday MR MRCP from earlier the same day and abdominal ultrasound February 2025. TECHNIQUE: Procedure risks and benefits including bleeding, infection and low blood pressure were discussed with the patient and informed consent was obtained. The right lower quadrant was prepped and draped in the usual sterile fashion. The skin and soft tissues were anesthetized with 1% lidocaine plain. Using ultrasound guidance and a 5 [place] Yueh catheter, access to the ascitic fluid was obtained. 4 L of clear yellow fluid was removed. No diagnostic specimen was sent. FINDINGS: Ultrasound-guided paracentesis. US/US paracentesis abd w/image IMPRESSION: Unremarkable examination. Electronically signed by: Thuy Thrasher MD 07/27/2025 04:44 PM [facility]
--- NOTE | ~2025-07-23 | MR_ITS ---
EXAMINATION: MRCP HISTORY: pancreatic gas, t.bili 7-8 (direct 4), transaminit COMPARISON: Previous CT scans of the abdomen and pelvis most recent from yesterday TECHNIQUE: Axial gradient echo in and out of phase T1, axial T2 and fat suppressed T2, and coronal haste T2 with fat saturation images were obtained through the abdomen. 3D MRCP Reconstructed images and thick slab imaging of the biliary tree were obtained. FINDINGS: Exam is limited due to respiratory motion artifact and ascites. There is a small left pleural effusion. Liver is normal in size and contour. No evidence of fatty infiltration. There is a 1 x 1.3 cm bright T2 lesion in the lateral segment of the left lobe of the liver segment 2/3 for example axial image 19 series 5. This is difficult to further characterize. No other focal liver lesion is appreciated. Upper normal size gallbladder. No gallstones. The gallbladder wall appears normal. No intra or extrahepatic biliary duct dilatation. The common bile duct measures approximately 5 mm. MRCP sequences are nondiagnostic. No focal signal abnormality seen in the pancreas. The main pancreatic duct does not appear dilated. Air appreciated by CT is not appreciated by MRI. Normal size spleen. No focal lesion. Normal appearing adrenal glands. Normal appearing kidneys. Moderate amount of ascites. Mild edema in the small bowel mesentery. Under distended stomach. There is diffuse fold thickening of the small bowel. There is mild wall thickening of the colon. This is similar to recent CT scans. There is mild diverticulosis of the colon. Upper abdominal varices. Normal caliber abdominal aorta. Normal bone marrow signal. MR/MR MRCP IMPRESSION: Limited exam due to respiratory motion artifact and ascites. 1 x 1.3 cm bright T2 liver lesion in the left lobe not accurately characterized. No evidence of cirrhosis. Upper normal size gallbladder. No gallstones. No intra or extrahepatic biliary duct dilatation. MRCP sequences significantly limited. Diffuse fold/wall thickening of the small and large bowel similar to prior CT. This may be related to patient's liver disease. Electronically signed by: Thuy Thrasher MD 07/27/2025 03:26 PM [facility]
--- NOTE | 2025-07-23 12:40 | ED.GENADULT ---
HPI - General Adult General Chief complaint: General Medical Stated complaint: fever, chills Time Seen by Provider: 07/23/25 12:30 Source: patient Mode of arrival: EMS Limitations: no limitations History of Present Illness HPI narrative: This is 50 years old male with a history of alcoholic liver disease presented to the emergency department complaining of weakness fever chills since last night. Denies any cough he has no vomiting and no diarrhea. Onset (ago): day(s) (1) Radiation: non-radiation Severity: moderate Quality: burning Pain Consistency: constant Relieving factors: none Exacerbating factors: none Associated symptoms: denies other symptoms Related Data Home Medications ?Medication ?Instructions ?Recorded ?Confirmed cholecalciferol (vitamin D3) 1,250 1,250 mcg PO TU 01/09/25 01/09/25 mcg (50,000 unit) capsule multivitamin 1 tab PO DAILY 03/20/25 Previous Rx's ?Medication ?Instructions ?Recorded spironolactone 25 mg tablet 25 mg PO DAILY #90 tabs 10/18/24 carvedilol 3.125 mg tablet 3.125 mg PO BID #60 tabs 01/16/25 prednisone 20 mg tablet 40 mg (2 x 20 mg) PO DAILY #60 tabs 01/16/25 sucralfate 1 gram tablet 1 g PO BIDAC #60 tabs 01/16/25 cholecalciferol (vitamin D3) 50 50 mcg PO DAILY #90 caps 03/20/25 mcg (2,000 unit) capsule magnesium oxide 400 mg (241.3 mg 400 mg PO DAILY #90 tabs 03/20/25 magnesium) tablet omeprazole 20 mg capsule,delayed 20 mg PO BID@0630,1630 #60 caps 03/20/25 release prednisone 5 mg tablet 5 mg PO DAILY #14 tabs 03/20/25 thiamine HCl (vitamin B1) 100 mg 100 mg PO DAILY #90 tabs 03/20/25 tablet Allergies Allergy/AdvReac Type Severity Reaction Status Date / Time No Known Allergies Allergy Verified 07/23/25 12:19 Review of Systems Constitutional: Constitutional: Reports no additional constitutional complaints Cardiovascular: Cardiovascular: Reports no additional cardiovascular complaints [facility] Past Medical History Attestation statement: The following information was validated with the patient. [facility] Narrative: Alcoholic liver disease Medical History Liver cirrhosis Anemia Alcohol use disorder No pertinent past medical history Surgical History History of ankle surgery Social History Social History Household Members: Spouse Housing: Apartment Are you a primary veterinarian laboratory animal care to a significant other at home: No Do you presently have visiting nurse or other home services: No Alcohol intake: current Alcohol intake frequency: 0-2 drinks per day Alcohol type: beer Patient Tobacco Use Status: Current everyday Tobacco user Tobacco use type: Cigarette Cigarette Packs Per Day: 0.5 Cigarettes Per Day: 10.0 Years Smoked: 20 Smoked in Last 30 Days: Yes e-Cigarette/Vaping Use: Currently Using Second Hand Smoke Exposure: Yes Use of substances other than those prescribed or required for medical reasons: Yes Substance Use Type: Marijuana Substance Use Frequency: Daily Advance Directives: No Advance Directives Information Provided: No Do you have a plan to hurt others: No Plan service: No Physical Exam ED Exam Exam: No acute distress Vital Signs: Vital Signs - 24 hr 07/23/25 12:17 07/23/25 13:27 07/23/25 15:10 Temperature 97.5 F 96.0 F L 97.1 F Pulse Rate 119 H 107 H Respiratory Rate 18 14 Blood Pressure 146/89 H 138/79 Pulse Oximetry 100 94 Oxygen Delivery Method Room Air Room Air BMI result Body Mass Index 20.0 Vitals reviewed by me is normotensive however is tachycardic heart rate about 119 Const General: cooperative Nutritional Appearance: well nourished Orientation/consciousness: patient oriented x3 HENMT Head: Yes normal to inspection Ears: hearing grossly normal bilaterally General nose exam: Normal external nose present Face and sinus: Yes normal facial exam Mouth: Normal oral and palatal mucosa present Throat: Yes posterior oropharynx normal Neck Neck: Yes normal visual inspection and Yes full ROM Chest Chest palpation & inspection: normal inspection of the chest Resp Effort & Inspection: normal respiratory effort Auscultation: clear to auscultation bilaterally Cardio Jugular venous distension: no JVD GI Inspection: Yes normal to inspection Palpation (GI): Soft to palpation Skin General skin exam: no rashes or lesions noted, elasticity normal and turgor normal Neuro General: patient oriented x3 Cognition (Neuro): normal cognition Course Reevaluation(s) Reevaluation #1: d/w Hospitalist Glenn Hall wants repeat lactic acid, patient remain hemodynamically stable is normotensive and afebrile heart rate is coming down from 119 to 107 Time: 15:14 Reevaluation #2: Sepsis reeval Patient was re-examined at this time he remained stable ;lungs are clear ;heart regular rate and rhythm, the skin is warm and dry,good capillary refill Time: 15:18 Reevaluation #3: Pt will be signed off to the incoming provider Dr Worthington I am off shift now,repeat lactic is pending. Time: 15:55 Additional Reevaluation(s): lactic down 3.5 Medications Administered Discontinued Medications Generic Name Dose Route Start Last Admin Trade Name Freq PRN Reason Stop Dose Admin Sodium Chloride 1,000 mls @ 999 mls/hr 07/23/25 13:30 07/23/25 15:38 Ns IVCONT 07/23/25 14:30 Infused .Q1H1M KACI Infusion Cefepime HCl 2 gm/ Sodium 50 mls @ 100 mls/hr 07/23/25 13:45 07/23/25 15:37 Chloride IV 07/23/25 14:14 Infused ONCE ONE Infusion Vancomycin HCl 1,250 mg/ 250 mls @ 166.667 mls/hr 07/23/25 13:46 07/23/25 14:15 Sodium Chloride IV 07/23/25 15:15 166.67 mls/hr ONCE ONE Administration Sodium Chloride 1,845 mls @ 1,845 mls/hr 07/23/25 13:47 07/23/25 15:38 Ns 30 ml/kg infuse over 1 hr (1845 ml) 07/23/25 14:46 Infused IV Infusion .Q1H STA Lidocaine HCl 5 ml 07/23/25 12:40 07/23/25 12:56 Lidocaine Hcl 1 % Mpf 5 Ml Vial INFILTRATI 07/23/25 12:41 5 ml ONCE ONE Administration Procedures Paracentesis Time Out Performed: Yes Indication: Ascites Procedure: diagnostic paracentesis Location: RLQ Local Anesthetic: lidocaine 1% Amount of anesthesia used (mL): 4 Bedside Ultrasound Used: yes, real-time guidance Preparation: sterile prep and drape Amount of fluid obtained (mL): 60 Fluid: clear Size of Needle Used: 18 Post Procedure Exam: awake, alert Patient Tolerated Procedure: well Complications: none Medical Decision Making Medical Decision Making [facility] Narrative: Patient is here chills weakness history chronic liver disease we will check labs Differential Diagnosis Differential Diagnoses: The differential diagnosis associated with the presentation includes Differential diagnosis pneumonia/UTI/spontaneous bacterial peritonitis Admission/Observation Consideration of admission/observation: Escalation of care including admission/observation considered Consult Healthcare Provider Management of the patient was discussed with: Hospitalist Lab Data [facility] Lab Attestation statement: I reviewed the patient's lab results. 07/23/25 13:09 07/23/25 13:09 Labs: Lab Results 07/23/25 07/23/25 07/23/25 Range/Units 13:09 13:46 15:39 WBC 9.1 (4.8-10.8) X10*3/uL RBC 3.22 L (4.60-5.80) X10*6/uL Hgb 10.5 L (14.0-18.0) g/dl Hct 31.9 L (42.0-52.0) % MCV 99.1 H (80.0-98.0) fL MCH 32.6 (27.0-33.0) pg MCHC 32.9 (31.0-36.0) g/dl RDW 18.7 H (11.0-16.0) % Plt Count 72 L D (160-400) X10*3/uL MPV 10.1 (9.4-12.4) fL Immature Gran % (Auto) 0.4 (0.0-0.4) % Neut % (Auto) 84.1 H (45-73) % Lymph % (Auto) 5.5 L (20-40) % Price % (Auto) 9.1 (2-11) % Eos % (Auto) 0.7 (0-4) % Baso % (Auto) 0.2 (0-2) % Lymph # (Auto) 0.5 L (1.2-4.9) X10*3/uL Price # (Auto) 0.8 (0.1-1.2) X10*3/uL Eos # (Auto) 0.1 (0.0-0.4) X10*3/uL Baso # (Auto) 0.0 (0.0-0.2) X10*3/uL Abs Immat Gran (auto) 0.04 H (0.00-0.03) X10*3/uL Absolute Neuts (auto) 7.7 (2.0-8.3) x10*3/uL Absolute Nucleated RBC 0.000 (0.0-0.012) X10*3/uL Nucleated RBC % (auto) 0.0 (0.0-0.2) /100WBC Smear Tech's Comments VERIFIED Sodium 137 (135-145) mmol/L Potassium 3.8 (3.3-5.1) mmol/L Chloride 100 (96-108) mmol/L Carbon Dioxide 22 (22-29) mmol/L Anion Gap 19 (12-20) BUN 10 (9-16) mg/dL Creatinine 0.69 (0.5-1.4) mg/dL Estim Creat Clear Calc 112.6 Estimated GFR > 60 Random Glucose 113 (60-115) mg/dL Lactic Acid 8.7 H* (0.5-2.0) mmol/L Lactic Acid F/U @ 2Hr 3.5 H* (0.5-2.0) mmol/L Calcium 8.6 (8.4-10.2) mg/dL Total Bilirubin 8.2 H (0.0-1.0) mg/dL AST 98 H (5-37) U/L ALT 41 H (0-40) U/L Alkaline Phosphatase 181 H (39-117) U/L Total Protein 6.0 L (6.5-8.0) g/dL Albumin 2.8 L (3.5-5.0) g/dL Peritoneal WBC 0.048 X10*3/uL Peritoneal RBC < 0.002 X10*6/uL Periton Neutrophils 18 % Periton Lymphocytes 25 % Peritoneal Monocytes 49 % Peritoneal Other Cells 8 % Influenza Type A (PCR) NEGATIVE (Negative) Influenza Type B (PCR) NEGATIVE (Negative) RSV RNA Qual (PCR) NEGATIVE (Negative) SARS-CoV-2 RNA (RT-PCR) NEGATIVE (Negative) Critical Care Time Critical Care Time Critical Care Time: Yes Total Critical Care Time: 60 Attestation: Lactic acidosis/sepsis Discharge Plan Discharge Clinical Impression: Acidosis, lactic Sepsis Qualifiers: Sepsis type: sepsis due to unspecified organism Sepsis acute organ dysfunction status: with acute organ dysfunction Severe sepsis acute organ dysfunction type: unspecified Severe sepsis shock status: without septic shock Qualified Code(s): A41.9 - Sepsis, unspecified organism Patient Disposition: Admitted As Inpatient Print Language: Qatari
[2025-07-23] MEDS: Lidocaine HCl 1 % MPF 5 ML VIAL INFILTRATI (12:56)
[2025-07-23 13:29] LABS: Hematocrit 31.9 % (42.0-52.0); Hemoglobin 10.5 g/dl (14.0-18.0); Imm Gran Abs Auto 0.04 X10*3/uL (0.00-0.03); Imm Gran Pct Auto 0.4 % (0.0-0.4); Lymphocytes Absolute Auto 0.5 X10*3/uL (1.2-4.9); MANUAL DIFF FLAG SCAN; Mean Corpuscular HGB Conc 32.9 g/dl (31.0-36.0); Mean Corpuscular Hemoglobin 32.6 pg (27.0-33.0); Mean Corpuscular Volume 99.1 fL (80.0-98.0); NRBC Abs Auto 0.000 X10*3/uL (0.0-0.012); NRBC Pct Auto 0.0 /100WBC (0.0-0.2); PLT CLUMP 1; Red Blood Count 3.22 X10*6/uL (4.60-5.80); SCAN SMEAR FLAG 1
[2025-07-23 13:36] LABS: Alanine Aminotransferase 41 U/L (0-40); Albumin Level 2.8 g/dL (3.5-5.0); Alkaline Phosphatase 181 U/L (39-117); Anion Gap 19 (12-20); Aspartate Amino Transferase 98 U/L (5-37); Blood Urea Nitrogen 10 mg/dL (9-16); Calcium 8.6 mg/dL (8.4-10.2); Carbon Dioxide 22 mmol/L (22-29); Chloride 100 mmol/L (96-108); Creatinine Clr Calc Pharmacy 112.6; Estimated Glomerular Filt Rate > 60; Potassium 3.8 mmol/L (3.3-5.1); Sodium 137 mmol/L (135-145); Total Protein 6.0 g/dL (6.5-8.0)
[2025-07-23 13:45] LABS: Platelet Count 72 X10*3/uL (160-400); White Blood Count 9.1 X10*3/uL (4.8-10.8)
[2025-07-23 13:55] LABS: Resp Syncy Virus RNA Qual PCR NEGATIVE (Negative); SARS COV2 PCR INHOUSE NEGATIVE (Negative)
[2025-07-23] MEDS: 0.9 % Sodium Chloride 1,845 ML 1845 ML IV (13:59)
[2025-07-23 14:01] LABS: MN% 84.1 %; PMN% 15.9 %; WBC Peritoneal Fluid 0.048 X10*3/uL
[2025-07-23 14:30] LABS: BF Shift QC OK YES; Lymphocyte Peritoneal Fl 25 %; Monocytes Peritoneal Fl 49 %; Neutrophils Peritoneal Fluid 18 %; Other Peritioneal Fl 8 %
[2025-07-23 15:14] LABS: Reflex Lactate? Lactic Acid Added
[2025-07-23 16:01] LABS: ~Lactic Acid-LAB USE ONLY 3.5 mmol/L (0.5-2.0)
--- NOTE | 2025-07-23 16:05 | PM.IMHP ---
History of Present Illness Date of Service: 07/23/25 Chief Complaint: Night sweats and dyspnea Chief Complaint: Mr. Arreola is a 50 year old male, with a background history of Hepatic cirrhosis, ETOH abuse now abstinent, presents with night sweats for 2 weeks with difficulty breathing, shaking, palpitations, lethargy, leg and back soreness, weakness, loss of appetite, and upper abdominal pain. History of Present Illness: Mr. Arreola reports experiencing night sweats nightly for approximately 2 weeks, describing episodes where he would drench his clothing and bedding completely, requiring him to dry off, take a quick shower, and change clothes before returning to bed. This morning, the sweating episode did not resolve as it typically had in the past. Along with the sweats, he experienced shaking and difficulty breathing, describing it as both being unable to catch his breath and breathing too quickly, like panting. During these episodes, he also notes an elevated pulse and heart racing sensation. Associated Symptoms: Over the past 2 weeks, the patient has been experiencing lethargy, general soreness in his legs and back, particularly in his quadriceps, and weakness. He reports occasional bruising and a recent loss of appetite, stating he can only eat 4-5 bites before feeling full or losing interest in food. He also notes upper abdominal soreness today and reports a productive cough with phlegm, which he attributes to his smoking habit. Medication and Supplement History: Mr. Arreola's current medications include Tylenol, omeprazole daily, and vitamin C daily. He mentions having bleeding ulcers in the past when he was heavily drinking. The patient denies any new medications. Additional Information: The patient denies high-risk behaviors, new sexual encounters outside his relationship, IV drug use, recent drug use, or alcohol consumption in the past month. He reports no condom use with his girlfriend and has not been tested for hepatitis recently. He lives with his girlfriend and step-daughter, noting that his step-daughter has daily allergies and they have a heavy mouse infestation in their home, though he denies any recent bites. He also mentions dental issues, describing his teeth as jacked with soreness but not pain. Review of Systems: The patient reports night sweats, lethargy, weakness, and decreased appetite. He notes occasional bruising but denies rash. Dental soreness is present. He experiences elevated pulse and heart racing. Difficulty breathing, panting, and cough with phlegm are noted. Upper abdominal soreness is reported. General soreness in legs and back, mostly quadriceps, is described.+ Diagnostic Test Results: - Complete Blood Count (CBC): WBC 9.1, Hemoglobin 10.5 g/dL, Platelets 72 with 84% neutrophilic shifts. - Comprehensive Metabolic Panel: Creatinine 0.69, eGFR >60, Total bilirubin 8.2, AST 98, ALT 41, Alkaline phosphatase 181. - Inflammatory markers: Lactic acid 8.7 mmol/L initially, reduced to 3.5 mmol/L after one liter normal saline. - Alpha-2 macroglobulin: 308 - elevated. - XIN: 1:160 speckled pattern - elevated. - Chest X-ray: No acute cardiopulmonary abnormality. - Microbiology: Diagnostic paracentesis specimens sent. Review of Systems Review of Systems: Yes all other systems are reviewed and are negative [facility] Medical History Liver cirrhosis Anemia Alcohol use disorder No pertinent past medical history Surgical History History of ankle surgery Social History Household Members: Spouse Housing: Apartment Are you a primary director of critical care to a significant other at home: No Do you presently have visiting nurse or other home services: No Alcohol intake: current Alcohol intake frequency: 0-2 drinks per day Alcohol type: beer Patient Tobacco Use Status: Current everyday Tobacco user Tobacco use type: Cigarette Cigarette Packs Per Day: 0.5 Cigarettes Per Day: 10.0 Years Smoked: 20 Smoked in Last 30 Days: Yes e-Cigarette/Vaping Use: Currently Using Second Hand Smoke Exposure: Yes Use of substances other than those prescribed or required for medical reasons: Yes Substance Use Type: Marijuana Substance Use Frequency: Daily Advance Directives: No Advance Directives Information Provided: No Do you have a plan to hurt others: No Plan service: No Meds Allergies Allergy/AdvReac Type Severity Reaction Status Date / Time No Known Allergies Allergy Verified 07/23/25 12:19 Home Medications ?Medication ?Instructions ?Recorded ?Confirmed ?Last Taken ?Type cholecalciferol (vitamin D3) 1,250 1,250 mcg PO TU 01/09/25 01/09/25 01/02/25 History mcg (50,000 unit) capsule multivitamin 1 tab PO DAILY 03/20/25 Unknown History Physical Exam Vital Signs and Narrative: Vital Signs: Last Vital Signs Temp 97.1 F 07/23/25 15:10 Pulse 107 H 07/23/25 15:10 Resp 14 07/23/25 15:10 BP 138/79 07/23/25 15:10 Pulse Ox 94 07/23/25 15:10 O2 Del Method Room Air 07/23/25 15:10 BMI result Body Mass Index 20.0 General: A&O x3, oriented to time place person and situation, comfortable, no pain HEENT: Scleral icterus Cardiac: S1, S2 auscultated with no S3/4, no MRG. Well perfused. Respiratory: Normal breath sounds auscultated throughout all lung zones, without wheezing, rales. Normal rate. GI/ : No abdominal pain on palpation, no masses or distentions. MSK: Normal ambulation without pain at bony prominences or musculature Neurological: Normal neurological examination on overview, without obvious CN II-XII abnormalities. Results Labs 07/23/25 13:09 07/23/25 13:09 Labs: Laboratory Results - last 24 hr 07/23/25 07/23/25 07/23/25 13:09 13:46 15:39 MCV 99.1 H MCH 32.6 MCHC 32.9 RDW 18.7 H Plt Count 72 L D MPV 10.1 Immature Gran % (Auto) 0.4 Neut % (Auto) 84.1 H Lymph % (Auto) 5.5 L [place] % (Auto) 9.1 Eos % (Auto) 0.7 Baso % (Auto) 0.2 Lymph # (Auto) 0.5 L [place] # (Auto) 0.8 Eos # (Auto) 0.1 Baso # (Auto) 0.0 Abs Immat Gran (auto) 0.04 H Absolute Neuts (auto) 7.7 Absolute Nucleated RBC 0.000 Nucleated RBC % (auto) 0.0 Smear Tech's Comments VERIFIED Anion Gap 19 Estim Creat Clear Calc 112.6 Estimated GFR > 60 Random Glucose 113 Lactic Acid 8.7 H* Lactic Acid F/U @ 2Hr 3.5 H* Calcium 8.6 Total Bilirubin 8.2 H AST 98 H ALT 41 H Alkaline Phosphatase 181 H Total Protein 6.0 L Albumin 2.8 L Peritoneal WBC 0.048 Peritoneal RBC < 0.002 Periton Neutrophils 18 Periton Lymphocytes 25 Peritoneal Monocytes 49 Peritoneal Other Cells 8 Influenza Type A (PCR) NEGATIVE Influenza Type B (PCR) NEGATIVE RSV RNA Qual (PCR) NEGATIVE SARS-CoV-2 RNA (RT-PCR) NEGATIVE Imaging Radiologist's Impressions: Impressions Chest X-Ray 07/23/25 12:47 IMPRESSION: No acute cardiopulmonary abnormality. Electronically signed by: Bandar Garcia MD 07/23/2025 12:55 PM [facility] Assessment and Plan (1) Liver cirrhosis: Qualifiers: Hepatic cirrhosis type: alcoholic cirrhosis Ascites presence: without ascites Qualified Code(s): K70.30 - Alcoholic cirrhosis of liver without ascites Status: Acute (2) Acute hypokalemia: Status: Acute (3) Sepsis: Qualifiers: Sepsis acute organ dysfunction status: with acute organ dysfunction Sepsis type: sepsis due to unspecified organism Severe sepsis acute organ dysfunction type: unspecified Severe sepsis shock status: without septic shock Qualified Code(s): A41.9 - Sepsis, unspecified organism; R65.20 - Severe sepsis without septic shock Status: Acute (4) Acidosis, lactic: Status: Acute (5) Pyrexia of unknown origin: Status: Acute (6) Anemia in chronic illness: Status: Acute (7) Early satiety: Status: Acute (8) Elevated bilirubin: Status: Acute Plan 50 year old male, with a background history of Hepatic cirrhosis, ETOH abuse now abstinent, presents with night sweats for 2 weeks with difficulty breathing, shaking, palpitations, lethargy, leg and back soreness, weakness, loss of appetite, and upper abdominal pain, admitted with fever of unknown origin & sepsis. Pyrexia Unknown Origin Sepsis Night Sweats Poor Dentition Patient presents with clinical signs and symptoms consistent with sepsis including night sweats for 2 weeks, difficulty breathing described as panting with inability to catch breath, elevated pulse, lethargy, weakness, and soreness in legs and back. Laboratory findings support sepsis with elevated lactic acid initially at 8.7 mmol/L (improved to 3.5 after fluid resuscitation), white blood cell count of 9.1 with 84% neutrophilic shifts, and thrombocytopenia with platelets at 72 (decreased from baseline of 100). Patient has received initial treatment with cefepime and vancomycin in the emergency department along with fluid resuscitation. Source of infection remains unclear requiring further investigation. PLAN: - Continue antibiotics (zosyn, vancomycin) - Order CT scan of thorax, abdomen, pelvis - Check hepatitis A, B, C, and HIV - Consult infectious diseases - Order CT scan of maxilla Elevated Lactic Acid Assessment: Initial lactic acid was significantly elevated at 8.7 mmol/L, which improved to 3.5 after one liter of normal saline administration, suggesting response to fluid resuscitation in the setting of sepsis. PLAN: - Monitor levels - Continue IV fluids Early Satiety Weight loss Post Prandial abdominal pain Assessment: Patient reports recent loss of appetite with early satiety, eating only 4-5 bites before feeling full or losing hunger, which may be related to underlying septic process. PLAN: - Monitor intake - Evaluate for underlying causes - Gastroenterology consultation - CT-AP Hepatic cirrhosis Elevated bilirubin Transaminitis Thrombocytopenia Nonspecific complaints, which includes night sweats Further evaluation for infective etiology, intra-abdominal infection. CT abdomen and pelvis to be ordered Gastroenterology to be consulted Monitoring LFTs, bilirubin and INR Dental Issues Assessment: Patient reports dental problems with teeth described as very poor and experiencing soreness but not pain. Dental infections can be a potential source of sepsis requiring evaluation. PLAN: - Order CT scan of maxilla Chronic anemia Patient suffers with chronic anemia, seen Gastroenterology in December 2024 for similar issue. We will continue to monitor closely. Seems microcytic hypochromic, potentially consistent with iron-deficiency anemia versus other etiology such as ETOH abuse. Further characterization of anemia with B12, folic acid, iron levels. Smoking History Assessment: Patient is an active smoker with associated productive cough with phlegm. 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
--- NOTE | 2025-07-23 17:24 | PHA.MEDREC ---
Addendum entered by Negrita Russ [facility] 07/23/25 17:29: Glenn Hall notified med rec complete Original Note: Pharmacy Consult ? Medication Reconciliation Pharmacy has completed the medication reconciliation. Spoke with patient in the ED who knew all medications. patient last took medications yesterday
[2025-07-23 17:40] LABS: Reflex Lactate? 2 Y
--- NOTE | 2025-07-23 17:44 | HO.NURTONUR ---
admit with cirrhosis of liver, hx etoh abuse now abstinent, c/o chills and general weakness for a few days, orig lactic 8.5 down to 3.5 after fluids, alert and oriented x 3, ambulates at home without assistance, hasn't been up here, iv 20 l fa, st on monitor and afebrile here
--- OUTSIDE RECORDS SUMMARY | 2025-07-23 18:25 | XMS_ITS | Clinical Summary ---
Author Organization [facility] [place] [address] Care Team Providers Care String Winding Machine Operator Name Role Phone Unavailable Primary Care Provider Unavailabl e Social History Tobacco Use Types Packs/Day Years Used Date Smoking Tobacco: Never Assessed Sex and Gender Information Value Date Recorded Sex Assigned at Not on file Legal Sex Male 3:03 PM EDT Gender Identity Not on file Sexual Orientation Not on file Plan of Treatment Health Maintenance Due Date Last Done Comments CT Colonography 1976 Colonoscopy 1976 Colorectal Cancer Screening 1976 FIT DNA 1976 FIT 1976 Sigmoidoscopy (10 year) with FIT yearly 1976 Sigmoidoscopy 1976 HIV screen 1994 Hepatitis C Screening 1994 Lipid Screening 1994 Hepatitis B vaccine (0-59 yrs) and Risk (1) 1995 Tetanus/Diphtheria/Pertussis Vaccines (1 - Tdap) 03/28 Covid-19 Vaccine (1 - 2024- season) 2025 Influenza (Flu) vaccine (1 o f 1 - Influenza standard series) 04/30/2025 Insurance [place]
--- OUTSIDE RECORDS SUMMARY | 2025-07-23 18:25 | XMS_ITS | Encounter Summary ---
Author Organization [facility] Address [address] [facility] [address] [place] [phone] Phone Care Team Providers Care Route Sales Manager Name Role Phone Pcp, Unknown Primary Care Provider Unavailabl e Jonathan Turk MD Primary Care Provider Teresa Ortiz NP Primary Care Provider Jonathan Turk MD Primary Care Provider [phone] Jonathan Turk MD Unavailable [phone] Encounter Details Date Type Department Care Team (Late st Contact Info) Description 07/01/2023 Procedure Pass [facility], [address] [address] Social History Tobacco Use Types Packs/Day Years [...] on filedocumented in this encounter Care Teams Route Sales Manager Relationship Specialty Start Date End Date Pcp, Unknown PCP - General 10/15/22 07/20/23 Jonathan Turk MD [address] [place] [phone] [email or web address] [email or web address] - General Family Medicine 07/21/23 01/15/25 Teresa Ortiz NP [address] [place] [phone] PCP - General Nurse Practitioner 01/16/25 05/23/25 Jonathan Turk MD [address] [place] [phone] [email or web address] PCP - General Family Medicine 05/24/25 Jonathan Turk MD [address] [place] [phone] [email or web address] [email or web address] Provider 07/14/25 documented as of this encounter Additional Source Comments The information contained in this document represents components of the legal health record. It is not the complete legal health record.[facility]
--- OUTSIDE RECORDS SUMMARY | 2025-07-23 18:25 | XMS_ITS | Encounter Summary ---
Author Organization [facility] Address [address] [facility] [address] [place] [phone] Phone Care Team Providers Care Still Tender Name Role Phone Pcp, Unknown Primary Care Provider Jonathan Nair MD Primary Care Provider [phone] Teresa Ortiz NP Primary Care Provider Jonathan Turk MD Primary Care Provider Jonathan Turk MD Unavailable [phone] Reason for Referral * MRI/CAT Scan - Closed Specialty Diagnoses / Procedures Referred By Arvind pendleton Referred To Contact Radiology Diagnoses Visual changes Seizure Procedures MRI Brain Clayton Duarte MD [address] [place] [address], [address] [place] [address] Phone: tel: fax: [email or web address] Referral ID Status Reason Start Date Expiration Date Visits Re quested Visits Authorized [id number] Closed 07/01/2023 1 1 Encounter Details Date Type Department Care Team (Latest Contact Info) Description 07/01/2023 Transcribe Orders Virtual Department [address] [place] [phone] Clayton Duarte MD [address] [place] [address], [address] [place], [place] [phone] [email or web address] Visual changes (Primary Dx); Seizure Social History Tobacco Use Types Packs/Day Years [...] on file documented as of this encounter Results * MRI BRAIN WITH AND WITHOUT CONTRAST (08/04/2023 5:13 PM EST) Anatomical Region Laterality Modality Head Magnetic Resonan ce 08/06/2023 6:45 AM EST Impressions 08/06/2023 7:56 AM EST No clear intracranial epileptogenic focus identified. Asymmetric prominence of the extra-axial space overlying the left cerebral hemisphere. Leading consideration is an atypically-shaped arachnoid cyst. Narrative 08/06/2023 7:56 AM EST MRI BRAIN WITH AND WITHOUT CONTRAST Referring clinician's provided indication for this examination in Epic: Outside Radiology Order; VISUAL CHANGES TECHNIQUE: MRI BRAIN WITH AND WITHOUT CONTRAST Multi-sequence, multi-planar MRI of the brain was performed before and after intravenous contrast. COMPARISON: None FINDINGS: Brain Parenchyma: Normal. No evidence of acute infarct, mass lesion, or hemorrhage. No evidence of mesial temporal sclerosis. Ventricular System and Extra-Axial Spaces: Asymmetric prominence of the extra- axial space overlying the left cerebral hemisphere measuring up to 7.4 x 2.0 cm, with likely mild mass effect on the subjacent cerebellum.. No evidence of midline shift or hydrocephalus. Extracranial Structures: Arterial flow voids in the skull base are present. Procedure Note Narendra Warren MD - 08/06/2023 MRI BRAIN WITH AND WITHOUT CONTRAST Referring clinician's provided indication for this examination in Epic:Outside Radiology Order; VISUAL CHANGES TECHNIQUE: MRI BRAIN WITH AND WITHOUT CONTRAST Multi-sequence, multi-planar MRI of the brain was performed before andafter intravenous contrast. COMPARISON: None FINDINGS: Brain Parenchyma: Normal. No evidence of acute infarct, mass lesion, orhemorrhage. No evidence of mesial temporal sclerosis. Ventricular System and Extra-Axial Spaces: Asymmetric prominence of theextra- axial space overlying the left cerebral hemisphere measuring up to7.4 x 2.0 cm, with likely mild mass effect on the subjacent cerebellum..No evidence of midline shift or hydrocephalus. Extracranial Structures: Arterial flow voids in the skull base arepresent. IMPRESSION: No clear intracranial epileptogenic focus identified. Asymmetric prominence of the extra-axial space overlying the left cerebralhemisphere. 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 Clayton Duarte MD IMG MR HEAD/NECK Final Resul t documented in this encounter Visit Diagnoses Diagnosis Visual changes- Primary Seizure Other convulsions Visual changes Seizure Other convulsions documented in this encounter Care Teams Still Tender Relationship Specialty Start Date End Date Pcp, Unknown PCP - General 10/15/22 07/20/23 Jonathan Turk MD [address] [place] [address] [email or web address] PCP - General Family Medicine 07/21/23 01/15/25 Teresa Ortiz NP [address] [place] [address] PCP - General Nurse Practitioner 01/16/25 05/23/25 Jonathan Turk MD [address] [place] [phone] [email or web address] PCP - General Family Medicine 05/24/25 Jonathan Turk MD [address] [place] [address] [email or web address] Insurance Assigned Provider 07/14/25 documented as of this encounter Additional Source Comments The information contained in this document represents components of the legal health record. It is not the complete legal health record.[facility]
--- OUTSIDE RECORDS SUMMARY | 2025-07-23 18:25 | XMS_ITS | Encounter Summary ---
Author Organization [facility] Address [address] [facility] [address] [place] [address] Phone Care Team Providers Care Mushroom Cutter Name Role Phone Unknown, Unknown Primary Care Provider Vonda vargas Pcp, Unknown Primary Care Provider Cecilia Stapleton MD Unavailable Jonathan Turk MD Primary Care Provider Teresa Ortiz NP Primary Care Provider Jonathan Turk MD Primary Care Provider Jonathan Turk MD Unavailable [phone] Encounter Details Date Type Department Care Team (Late st Contact Info) Description 03/21/2019 Transcribe Orders [facility] Phleb [address] [place] [address] Deepak Davis, DO [address] [facility] [place] [address] Health examination of prisoner (Primary Dx) Social History Tobacco Use Types Packs/Day Years [...] documented as of this encounter Results * CBC (03/22/2019 9:26 AM EDT) WBC 7.58 3.40 - 11.20 K/uL [facility] RBC 4.52 4.50 - 5.50 M/uL [facility] HGB 14.9 13.0 - 17.0 g/dL [facility] HCT 43.9 40.0 - 51.0 % [facility] PLT 294 130 - 400 K/uL [facility] MCV 97.1 79.0 - 98.0 fL [facility] MCH 33.0 27.0 - 34.8 pg [facility] MCHC 33.9 31.5 - 36.0 g/dL [facility] RDW 14.1 10.8 - 14.6 % [facility] MPV 10.1 9.4 - 12.4 [facility] NRBC 0.00 0.00 /100 WBCs [facility] ABSOLUTE NRBC 0.00 0.00 K/uL [facility] Blood 03/22/2019 9:26 AM EDT 03/22/2019 10:13 AM EDT us Deepak A Bigda DO LAB BLOOD BKR ORDERABLES Final R esult Performing Organization Address City/State/[facility] Co de Phone Number [address] [address] documented in this encounter Visit Diagnoses Diagnosis Health examination of prisoner- Primary Health examination of defined subpopulation documented in this encounter Additional Health Concerns Infection Onset Date Last Indicated Resolved Time CoV-Risk 05/05/2021 05/05/2021 05/15/2021 1:26 AM EDT CoV-Risk 09/12/2021 09/12/2021 09/22/2021 1:25 AM EST documented as of this encounter Care Teams Mushroom Cutter Relationship Specialty Start Date End Date Unknown, Unknown, PCP - General 03/21/19 10/14/22 Pcp, Unknown PCP - General 10/15/22 07/20/23 Jonathan Turk MD [address] [place] [phone] [email or web address] PCP - General Family Medicine 07/21/23 01/15/25 Teresa Ortiz NP [address] [place] [address] PCP - General Nurse Practitioner 01/16/25 05/23/25 Jonathan Turk MD [address] [place] [phone] [email or web address] PCP - General Family Medicine 05/24/25 Cecilia Mathews MD [address] [place] [phone] [email or web address] Insurance Assigned Provider 02/06/23 05/08/23 Jonathan Turk MD [address] [place] [phone] [email or web address] Insurance Assigned Provider 07/14/25 documented as of this encounter Additional Source Comments The information contained in this document represents components of the legal health record. It is not the complete legal health record.[facility]
--- OUTSIDE RECORDS SUMMARY | 2025-07-23 18:25 | XMS_ITS | Clinical Summary ---
Author Organization [facility] Address [address] [facility] [address] [place] [address] Phone Care Team Providers Care Tire Sorter Name Role Phone Jonathan Turk MD Primary Care Provider Jonathan Turk MD Unavailable [phone] Allergies No known active allergies Medications sucralfate (CARAFATE) 1 gram tablet Take 1 g by mouth 2 (two) times a day before meals. 01/18/2025 Active carvedilol (COREG) 3.125 MG tablet Take 3.125 mg by mouth 2 (two) times a day with meals. 01/18/2025 Active omeprazole (PRILOSEC) 20 MG capsule Take 20 mg by mouth 2 (two) times a day. 01/18/2025 Active predniSONE (DELTASONE) 20 MG tablet Take 40 mg by mouth daily. 01/18/2025 Active cholecalciferol (VITAMIN D3) 50,000 unit capsule Take 50,000 Units by mouth once a week. 01/18/2025 Active spironolactone (ALDACTONE) 25 MG tablet Take 25 mg by mouth daily. 01/18/2025 Active thiamine (VITAMIN B-1) 100 MG tablet Take 100 mg by mouth daily. 01/18/2025 Active magnesium oxide (MAG-OX) 400 mg (241.3 mg elemental) tablet Take 400 mg by mouth daily. 01/18/2025 Active Active Problems No known active problems Encounters Date Type Department Care Team Description 07/02/2025 [facility] RISK SCORES SYSTEM GENERATED External System Generated Encounter [address] [place] [address] Unknown, Unknown, 05/28/2025 [facility] RISK SCORES SYSTEM GENERATED External System Generated Encounter [address] [place] [address] Unknown, Unknown, 05/24/2025 6:10 PM EDT Office Visit [facility] at [address] [address] Scarlet Tirado, INSIDE SALES ADVERTISING EXECUTIVE Soft tissue avulsion (Primary Dx) from Last 3 Months Immunizations Immunization Administration Dates Next Due COVID-19 (Pre-06/21) Moderna Vaccine, mRNA, PF 0 01/06/2021,12/09/2020 INFLUENZA, SPLIT VIRUS, TRIVALENT PF 09/14/2012 INFLUENZA, SPLIT VIRUS, TRIVALENT W/ PRESERVATIV E IM 06/26/2015 Td (adult),2 Lf Tetanus Toxoid, PF, Adsorbed Tdap 05/24/2025 Social History Tobacco Use Types Packs/Day Years Used Date Smoking Tobacco: Every Day Smokeless Tobacco: Never Tobacco Cessation:Ready to Q uit: Not Asked; Counseling Given: Not Answered Alcohol Use Standard Drinks/Week Comments Yes 12 [...] not to disclose 2021 12:25 PM EST Last Filed Vital Signs Vital Sign Reading Time Taken Comments Blood Pressure 96/61 05/24/2025 6:11 PM EDT Pulse 101 05/24/2025 6:11 PM EDT Temperature 36.9 C (98.5 F) 05/24/2025 6:11 PM EDT Respiratory Rate 18 05/24/2025 6:11 PM EDT Oxygen Saturation 100% 05/24/2025 6:11 PM EDT Inhaled Oxygen Concentration - - Weight 77.1 kg (170 lb) 07/29/2023 2:35 PM EST Height 175.3 cm (5' 9 ) 07/29/2023 2:35 PM EST Body Mass Index 25.1 07/29/2023 2:35 PM EST Plan of Treatment Health Maintenance Due Date Last Done Comments POTASSIUM LEVEL 1976 DEPRESSION SCREENING 1988 SMOKING Hx and SMOKELESS TOBACCO SCREENING 1989 HEPATITIS C SCREENING 1994 HIV ONE-TIME SCREENING (18-6 5 YEARS) 1994 PNEUMOCOCCAL VACCINES (0-49 years) (1 of 2 - PCV) 1995 SCREENING FOR DIABETES 2011 COLOGUARD 2021 COLONOSCOPY 2021 COLORECTAL CANCER SCREENING 2021 FIT TEST 2021 FOBT 2021 SIGMOIDOSCOPY 2021 VIRTUAL COLONOSCOPY 2021 INFLUENZA VACCINE (#1) 2025 5, 09/14/2012 COVID-19 VACCINE (3 - 2024-2 6 season) 2025 01/06/2021, 12/09/2020 LIPID PANEL 07/01/2028 07/01/2023, 07/01/2023, 07/01/2023 Adult Td,Tdap Booster 05/24/2035 05/24/2025 , 05/22/2018 HEPATITIS A VACCINES Aged Out No long er eligible based on patient's age to complete this topic HIB VACCINES Aged Out No longer eligi ble based on patient's age to complete this topic MENINGOCOCCAL VACCINES (ACWY) Aged Out No longer eligible based on patient's age to complete this topic MENINGOCOCCAL VACCINES (B) Aged Out N o longer eligible based on patient's age to complete this topic Medical Devices Not on file Procedures Procedure Name Priority Date/Time Associated Diagnosis Comments LACERATION REPAIR Routine 05/24/2025 6:4 7 PM EDT Soft tissue avulsion from Last 3 Months Results * LACERATION REPAIR (05/24/2025 6:47 PM EDT) Other Narrative Scarlet Tirado FNP - 05/24/2025 6:47 PM EDT Scarlet Tirado FNP 05/24/2025 6:49 PM Laceration/Wound Repair Date/Time: 05/24/2025 6:47 PM Performed by: Scarlet Tirado FNP Authorized by: Scarlet Tirado FNP Injury: Body area: Upper extremity Location details: Right thumb 1 Laceration length (cm): 1 Foreign bodies: No foreign bodies Tendon involvement: None Nerve involvement: None Vascular damage?: No Patient tolerance: Patient tolerated the procedure well with no immediate complications Cleansed. Surgifoam, 4x4 folded. Coban. Scarlet OZUNA PROCEDURE/MINOR SURGICAL OR DERABLES Final Result from Last 3 Months Insurance [facility] [place] [address] [place] [address] ACO [employer] [place] [place] [address] ACO Care Teams Tire Sorter Relationship Specialty Start Date End Date Jonathan Turk MD [address] [place] [phone] [email or web address] PCP - General Family Medicine 05/24/25 Jonathan Turk MD [address] [place], [place] [id number] [email or web address] Insurance Assigned Provider 07/14/25 Additional Source Comments The information contained in this document represents components of the legal health record. It is not the complete legal health record.[facility]
--- NOTE | 2025-07-23 18:39 | ECG_ITS ---
Test Reason : chest tightness Blood Pressure : */* mmHG Vent. Rate : 123 BPM Atrial Rate : 123 BPM P-R Int : 112 ms QRS Dur : 90 ms QT Int : 354 ms P-R-T Axes : 45 26 57 degrees QTcB Int : 506 ms Sinus tachycardia with Premature atrial complexes Low voltage QRS T wave abnormality, consider lateral ischemia Abnormal ECG When compared with ECG of 10-Jan-2025 04:29, Sinus rhythm has replaced Junctional rhythm T wave inversion now evident in Lateral leads Referred By: Omari Pena Electronically Signed By: Steven Newell
[2025-07-23 18:50] LABS: ~Lactic Acid-LAB USE ONLY 1.6 mmol/L (0.5-2.0)
[2025-07-23 18:56] LABS: Glucose, Whole Blood 98 mg/dL (60-115)
--- NOTE | 2025-07-23 19:05 | PC.NURSE ---
pt had approx 10 min episode of diaphoresis and chest tightness, states similar episode to what he's had at home, ekg done and sent to night hospitalist by Gurmeet CALIX, I spoke with Dr Hall after the episode subsided and no change in current plan and he requested ekg which was already done and request to send to night hospitalist, pt reports feeling better at this time
[2025-07-23] MEDS: iohexoL 350 MG/ML 100 ML INFUS..BTL IV (20:54)
--- NOTE | 2025-07-23 23:13 | PM.EVENT ---
Event Note Date of Service: 07/24/25 Event Note: Notified by nursing that patient completed CT ABD and forwarded results. In addition patient's having more difficulty maintaining blood pressure and body temp since returning from CT ABD. Patient is started on albumin IV and Josep huggers being obtained from the ICU. Reviewed case with Dr. Brink, attending for hospitalist group on nights and also requested ICU consultation. Patient received 1 dose of cefepime and vancomycin in the ED. Per hospitalist admission note, patient would continue vanco and Zosyn and orders were placed at this time for those antibiotics. Patient admitted for sepsis and fever of unknown origin with noted acute elevation of lactic acid level 8.7 to 3.5 after fluids. Patient may have a dental abscess or infection as possible source. Maxillary CT pending. In addition the CT ABD notes moderate ascites, segmental small bowel mural thickening, cirrhosis, trace left pleural effusion and cachexia. Patient was seen by ICU ANGEL, requested that patient be placed on telemetry but can remain on the 3rd floor for now. Patient will continue albumin 100 mL q.6 x4. Josep Hugger is in place. Dr. Walsh has since been updated regarding this patient's care. In addition it has been requested that the overnight nursing surgical services director support the nursing staff on the floor taking care of this patient to help organize care as patient will remain on telemetry on the 3rd floor with close monitoring. 0020 Pt alert and orientated, BP improved to 116/55 on albumin. Temp now 95.9 rectally with josep hugger in place. Reviewed overall POC with patient and nursing and asked that nursing notify this provider regarding any issues. Time Spent With Patient Time: Total time managing care of this patient today ____ minutes.
[2025-07-23] MEDS: Albumin Human 25 % 50 ML 100 ML IV ×2 (23:19→23:44)
[2025-07-24] VITALS (10 sets, daily range): BP systolic 92–136; BP diastolic 54–93; PULSE 82–109; RESP 16–19; TEMP 34.7–36.7; O2SAT 94–100
[2025-07-24] MEDS: Albumin Human 25 % 100 ML IV ×4 (00:12→18:00)
[2025-07-24 00:36] LABS: Free T4 (Free Thyroxine) 1.04 ng/dL (0.71-1.85); Thyroid Stimulating Hormone 0.54 uIU/mL (0.32-4.0)
--- NOTE | 2025-07-24 01:26 | PM.CCN ---
Critical Care Event Note Summary Date of Service: 07/23/25 Code activated: No Narrative: This case had a high probability of a clinically significant, sudden, or life threatening deterioration of this patient's condition which required my full and direct attention, intervention and personal management. Critical Care Time (minutes): 0 Comment: The patient is a 50-year-old male with a past medical history of hepatic cirrhosis, alcohol abuse and ?history of withdrawal seizures who presented to emergency department on 07/23/2025 due to night sweats and dyspnea.? Patient reported night sweats for 2 weeks with difficulty breathing, shaking, palpitations, lethargy, leg and back soreness, weakness, loss of appetite, and upper abdominal pain. ?Patient's temperature noted to be 96, lactic elevated to 8.7, patient was admitted to Hospital Medicine for sepsis with unknown origin. ?Treated with cefepime and vancomycin. ?Areas of concern were identified as abdomen and possible teeth the involvement. Tonight patient patient's body temperature decreased to 93.9 rectally. ?ICU consulted due to soft blood pressures and low body temperature. ? Abdominal CT from today showed moderate ascites, cirrhosis. ?Face CT, does not show indication of dental abscess, collection, or indication active infection. ?Chest x-ray with no acute infectious findings On my assessment at 2315, patient is alert and oriented x3. ?Patient is shivering, blood pressure 125/53.? Slightly tachycardic to 110. ?On room air and no tachypnea Reassess patient at 0115, patient alert and oriented x3, core temperature improved to 95, No shivering. Blood pressure stable at 110/59. Patient with no clear source of infection. HIV, Hepatitis panel pending. Paracentesis performed in ED, pending abd fluid results. Plan/ Rec: Recommend sending a urine studies Place patient on telemetry Albumin 100ml q6h x4 Empirix abx covarege with syl/savanah thompson, Stop warming blanket when temp at 96.8 Recommendations communicated with Hospitalist ANGEL. Patient does not require ICU level care at this time. Please reach out to ICU if patient condition deteriorates Attending Dr Cano aware of plan
[2025-07-24 06:11] LABS: MANUAL DIFF FLAG NO
[2025-07-24 06:22] LABS: Hematocrit 26.8 % (42.0-52.0); Hemoglobin 9.0 g/dl (14.0-18.0); Imm Gran Abs Auto 0.04 X10*3/uL (0.00-0.03); Imm Gran Pct Auto 0.5 % (0.0-0.4); Lymphocytes Absolute Auto 0.9 X10*3/uL (1.2-4.9); Mean Corpuscular HGB Conc 33.6 g/dl (31.0-36.0); Mean Corpuscular Hemoglobin 32.5 pg (27.0-33.0); Mean Corpuscular Volume 96.8 fL (80.0-98.0); NRBC Abs Auto 0.000 X10*3/uL (0.0-0.012); NRBC Pct Auto 0.0 /100WBC (0.0-0.2); Red Blood Count 2.77 X10*6/uL (4.60-5.80); White Blood Count 7.5 X10*3/uL (4.8-10.8)
[2025-07-24 06:23] LABS: Platelet Count 61 X10*3/uL (160-400)
[2025-07-24 06:29] LABS: INTERNATIONAL NORM RATIO 1.4 (0.9-1.1); Prothrombin Time 16.5 SEC (11.2-13.5)
--- NOTE | 2025-07-24 06:31 | PHA.PROG ---
Admission Date/Time: July 23, 2025 17:08 Indication: Bacteremia Weight in k.5 kg Adjusted body weight in Kg: [place] body weight in Kg: Obesity Dosing Indication % IBW: Serum Creatinine - Last 168 Hours 07/23/25 13:09 Creatinine 0.69 Estimated CrCl and GFR - Last 168 Hours 07/23/25 13:09 Estim Creat Clear Calc 112.6 Estimated GFR > 60 Vancomycin Loading Dose: 1250mg Current Vancomycin Dosing Regimen: 750mg q8h Vancomycin Monitoring using AUC goal of 400 - 600 range with trough as surrogate marker: 523 mg/L*hr Date and Time for next Vancomycin Level to be drawn: 07/25/25 @ 0600 Pharmacist Comments on Vancomycin Plan: Overnight gave a 750mg x1 around midnight, will schedule based on that since 750mh q8h will be good. Vancomycin dosing will take advantage of [employer] as a clinical decision support tool that uses Bayesian modeling to calculate individual patient's pharmacokinetic parameters and forecast the patient's drug concentration time course with the target goal AUC 24 range of 400 - 600 mg/L/hr.
[2025-07-24 06:49] LABS: Alanine Aminotransferase 28 U/L (0-40); Albumin Level 3.1 g/dL (3.5-5.0); Alkaline Phosphatase 132 U/L (39-117); Anion Gap 14 (12-20); Aspartate Amino Transferase 63 U/L (5-37); Blood Urea Nitrogen 7 mg/dL (9-16); Calcium 8.3 mg/dL (8.4-10.2); Carbon Dioxide 25 mmol/L (22-29); Chloride 103 mmol/L (96-108); Creatinine Clr Calc Pharmacy 141.3; Estimated Glomerular Filt Rate > 60; Iron 54 mcg/dL (45-160); Percent Iron Saturation 39 % (15-50); Potassium 2.9 mmol/L (3.3-5.1); Sodium 139 mmol/L (135-145); Total Iron Binding Capacity 138 mcg/dL (228-428); Total Protein 5.3 g/dL (6.5-8.0); Unsaturated Iron Binding 84 ug/dL
[2025-07-24 06:56] LABS: HBS Num1 0.00 mIU/mL (0-7.99); HBc Num1 0.06 S/CO (0.00-0.79); HBsAGNum1 0.37 S/CO (0.00-0.99); HIV Num 1 0.10 S/CO (0.00-0.99); Hepatitis A Antibody IgM 0.33 Index (0-0.79); Hepatitis B Surface Antigen Negative (Negative); ~HepC Num1 0.20 S/CO (0.00-0.79); ~Hepatitis A Antibody IgM Nonreactive (Nonreactive); ~Hepatitis B Surface Antibody NONREACTIVE (Nonreactive); ~Hepatitis C Antibody Nonreactive (Nonreactive)
[2025-07-24] MEDS: Potassium Chloride Packet 20 MEQ PACKET 40 MEQ PO ×2 (07:05→17:28)
[2025-07-24 07:11] LABS: Folate 11.4 ng/mL (> or = 4.0); Vitamin B12 1536 pg/mL (200-900)
[2025-07-24] MEDS: 0.9 % Sodium Chloride Flush 3 ML SYRINGE IVFLUSH ×2 (08:10→15:27)
--- NOTE | 2025-07-24 09:34 | MHC.CM.PN ---
Patient lives in an apartment w/ his girlfriend, Alondra. Independent w/ all care. Denies use of DME or services. PCP @ [facility] No HCP. CM provided education and offered assistance. Patient declined. DP: Goal is home self care. Girlfriend to transport. CM will continue to follow.
--- NOTE | 2025-07-24 12:45 | PM.GICN ---
History of Present Illness Data of Consult Service Date: 07/24/25 Requesting physician: Glenn Hall Primary Care Provider: [facility] Reason for consult: Elevated LFTs This is a 50-year-old gentleman with past medical history of alcohol use disorder that has led to cirrhosis, history of alcoholic hepatitis December 2024, who presented to the hospital for feeling unwell with chills, night sweats and diarrhea. History was obtained from the patient, who states that for the past 2 weeks he has been feeling unwell with fatigue, muscle aches, chills and cold sweats. He has not documented any fevers, but he was noted to be hypothermic in the emergency room. With this, he does not describe any obvious abdominal pain, nausea or vomiting. Onset of diarrhea was more recent, 2 days ago with watery but non bloody stools. Works at [employer], but has never gotten sick from eating there before. No one else is sick at work or home. No recent travel or new medications. He does report mice infestation at home right now, including droppings near pantry. Also reports getting a dog recently, but describes doing tick check regularly after outdoor walks. He reports strict abstinence from alcohol use since January. No alcohol level was checked on admission. Labs significant for severe lactic acidosis with initial lactate of 8.7 and total bilirubin of 8.2. AST ALT elevated in 2-1 ratio with alkaline phosphatase 181. LDH 430. Hypoalbuminemia. An ascitic tap was done in the emergency room that is negative for SBP. A tox screen or blood alcohol level was not obtained at the time of admission. Hepatitis serology negative. CT abdomen and pelvis imaging personally reviewed that shows simple ascites with cirrhosis with portal hypertensive findings. Also shows small bowel wall thickening. Review of Systems Review of Systems: Yes all other systems are reviewed and are negative PMFSH Past Medical History Medical History Liver cirrhosis Anemia Alcohol use disorder No pertinent past medical history Surgical History Surgical History History of ankle surgery Social History Social History Household Members: Significant Other Housing: Apartment Are you a primary career education teacher to a significant other at home: No Do you presently have visiting nurse or other home services: No Alcohol intake: current Alcohol intake frequency: 0-2 drinks per day Alcohol type: beer Patient Tobacco Use Status: Current everyday Tobacco user Tobacco use type: Cigarette Cigarette Packs Per Day: 6 Cigarettes Per Day: 120.0 Years Smoked: 20 Smoked in Last 30 Days: Yes e-Cigarette/Vaping Use: Currently Using Patient Interested in Nicotine Replacement: Yes Patient Given Instructions on How to Stop Smoking: Yes Date Education Initiated: 07/23/25 Second Hand Smoke Exposure: No Use of substances other than those prescribed or required for medical reasons: Yes Substance Use Type: Marijuana Substance Use Frequency: Daily Currently Displaying Signs/Symptoms of Drug Intoxication Withdrawal: No Have you been hit, kicked, punched, or otherwise hurt by someone within the past year? If so, by whom?: No Do you feel safe in your current relationship?: Yes Is there a partner from a previous relationship who is making you feel unsafe now?: No Are you made to feel afraid or neglected: No Advance Directives: No Advance Directives Information Provided: No Do you have a plan to hurt others: No Plan Recently lost weight without trying: No Nutrition Risks: No Nutritional Risk Poor oral hygiene: No service: No Meds Allergies Allergy/AdvReac Type Severity Reaction Status Date / Time No Known Allergies Allergy Verified 07/23/25 12:19 Active Medications: Current Medications Acetaminophen (Acetaminophen 325 Mg Tablet) 650 mg PO Q6H PRN PRN Reason: Pain, Mild 1-3,fever,headache Ascorbic Acid (Ascorbic Acid 500 Mg Tablet) 500 mg PO DAILY [facility] Last Admin: 07/24/25 09:20 Dose: 500 mg Calcium Carbonate (Calcium Carbonate 750 Mg Tab.Chew) 750 mg PO Q4H PRN PRN Reason: Heartburn Piperacillin Sod/Tazobactam (Sod 4.5 gm/ Sodium Chloride) 100 mls @ 200 mls/hr IV Q6H [facility] Last Infusion: 07/24/25 11:50 Dose: Infused Albumin Human (Kedbumin 25 %) 100 mls @ 100 mls/hr IV Q6H [facility] Stop: 07/24/25 18:44 Last Admin: 07/24/25 11:56 Dose: 100 mls/hr Vancomycin HCl 750 mg/ Sodium (Chloride) 265 mls @ 265 mls/hr IV Q8H [facility] Last Infusion: 07/24/25 09:38 Dose: Infused Magnesium Hydroxide (Milk Of Magnesia 30 Ml Oral.Susp) 30 ml PO DAILY PRN PRN Reason: Constipation Magnesium Oxide (Magnesium Oxide 400 Mg Tablet) 400 mg PO DAILY [facility] Last Admin: 07/24/25 09:21 Dose: 400 mg Melatonin (Melatonin 3 Mg Tablet) 6 mg PO BEDTIME PRN PRN Reason: Insomnia Multivitamins/Vitamin C (Multivitamin Tablet) 1 tab PO DAILY [facility] Last Admin: 07/24/25 09:20 Dose: 1 tab Pharmacy Consult (Consult Rx Vancomycin Dosing) 1 each MISCELLANE DAILY PRN PRN Reason: Consult order Sodium Chloride (0.9 % Sodium Chloride Flush 3 Ml Syringe) 3 ml IVFLUSH QSHIFT [facility] Last Admin: 07/24/25 08:10 Dose: 3 ml Thiamine HCl (Thiamine Hcl 100 Mg Tablet) 100 mg PO DAILY [facility] Last Admin: 07/24/25 09:21 Dose: 100 mg Vitamin D (Cholecalciferol (Vitamin D3) 25 Mcg Tablet) 50 mcg PO DAILY [facility] Last Admin: 07/24/25 09:21 Dose: 50 mcg Home Medications ?Medication ?Instructions ?Recorded ?Confirmed ?Last Taken ?Type multivitamin 1 tab PO DAILY 03/20/25 07/23/25 07/22/25 History ascorbic acid (vitamin C) 500 mg 500 mg PO DAILY 07/23/25 07/23/25 07/22/25 History tablet (Vitamin C) omeprazole 20 mg capsule,delayed 20 mg PO DAILY@0630 07/23/25 07/23/25 07/22/25 History release Physical Exam Exam: Exam: Middle-aged male Ill-appearing Icteric No respiratory distress Abdomen soft, nontender, mildly distended Mild lower extremity edema Vital Signs: Vital Signs: Last Vital Signs Temp 98.1 F 07/24/25 11:15 Pulse 108 H 07/24/25 07:48 Resp 18 07/24/25 07:48 BP 116/68 07/24/25 07:48 Pulse Ox 95 07/24/25 07:48 O2 Del Method Room Air 07/24/25 07:48 BMI result Body Mass Index 20.0 Results Labs 07/24/25 05:58 07/24/25 13:06 Labs: Short CBC 07/23/25 07/24/25 Range/Units 13:09 05:58 WBC 9.1 7.5 (4.8-10.8) X10*3/uL Hgb 10.5 L 9.0 L (14.0-18.0) g/dl Hct 31.9 L 26.8 L (42.0-52.0) % Plt Count 72 L D 61 L (160-400) X10*3/uL BMP 07/23/25 07/24/25 13:09 05:58 Sodium 137 139 Potassium 3.8 2.9 L* D Chloride 100 103 Carbon Dioxide 22 25 BUN 10 7 L Creatinine 0.69 0.55 Calcium 8.6 8.3 L Liver Function 07/23/25 07/24/25 Range/Units 13:09 05:58 Total Bilirubin 8.2 H 8.1 H (0.0-1.0) mg/dL Direct Bilirubin 4.6 H (0.0-0.5) mg/dL AST 98 H 63 H (5-37) U/L ALT 41 H 28 (0-40) U/L Alkaline Phosphatase 181 H 132 H (39-117) U/L Albumin 2.8 L 3.1 L (3.5-5.0) g/dL Microbiology Microbiology Results: Microbiology 07/23/25 13:40 Ascites Fluid Gram Stain - Final 07/23/25 13:40 Ascites Fluid Anaerobic Culture - Preliminary No growth to date. 07/23/25 13:40 Ascites Fluid Body Fluid Culture - Preliminary No growth to date. Assessment and Plan (1) Liver cirrhosis: Qualifiers: Hepatic cirrhosis type: alcoholic cirrhosis Ascites presence: without ascites Qualified Code(s): K70.30 - Alcoholic cirrhosis of liver without ascites Status: Acute (2) SIRS (systemic inflammatory response syndrome): Status: Acute (3) Pyrexia of unknown origin: Status: Acute (4) Loss of appetite: Status: Acute (5) Fatigue: Status: Acute (6) Acidosis, lactic: Status: Acute (7) Thickened small bowel: Status: Acute (8) Acute diarrhea: Status: Acute Plan Patient with known liver cirrhosis presenting with subacute constitutional symptoms of fatigue, body aches, loss of appetite, night sweats, and hypothermia. LFT pattern typical for recent alcohol use, but patient reports abstinence since January. Overall clinical picture highly suspicious for underlying infectious illness. Recommend Infectious diseases input specially given risk factors for leptospirosis which can also cause jaundice, and body aches. Plan: - check PETH - Stool GI panel - CTA to r/o mesenteric ischemia given exceptionally high lactate and bowel wall thickening noted though clinically low likelihood - Consider ID consultation Thank you for allowing me to participate in his care. Please do not hesitate to reach out for any questions or concerns. Procedures Date of Service Date of Service: 07/24/25
[2025-07-24 13:31] LABS: Appearance Urine Clear; Glucose Urine UA Negative (Negative); PH 7.0 (5.0-9.0); Specific Gravity - Urine >= 1.030 (1.005-1.025); UMIC TRIGGER UACC YES
[2025-07-24 13:50] LABS: Anion Gap 10 (12-20); Blood Urea Nitrogen 7 mg/dL (9-16); Calcium 8.8 mg/dL (8.4-10.2); Carbon Dioxide 27 mmol/L (22-29); Chloride 104 mmol/L (96-108); Creatinine Clr Calc Pharmacy 119.5; Estimated Glomerular Filt Rate > 60; Potassium 3.0 mmol/L (3.3-5.1); Sodium 138 mmol/L (135-145)
--- NOTE | 2025-07-24 15:12 | HO.PM.IMPN ---
Subjective Subjective Date of Service: 07/24/25 Interval History: Overnight events reviewed Hypothermic overnight Denies abdominal pain, but endorses persistent fatigability and malaise Review of Systems Review of Systems: Yes all other systems are reviewed and are negative Physical Exam Exam: Exam: General: A&O x3, oriented to time place person and situation, comfortable, no pain HEENT: Scleral icterus Cardiac: S1, S2 auscultated with no S3/4, no MRG. Well perfused. Respiratory: Normal breath sounds auscultated throughout all lung zones, without wheezing, rales. Normal rate. GI/ : No abdominal pain on palpation, no masses or distentions. MSK: Normal ambulation without pain at bony prominences or musculature Neurological: Normal neurological examination on overview, without obvious CN II-XII abnormalities. Vital Signs: Vital Signs: Last Vital Signs Temp 98.1 F 07/24/25 11:15 Pulse 108 H 07/24/25 07:48 Resp 18 07/24/25 07:48 BP 116/68 07/24/25 07:48 Pulse Ox 95 07/24/25 07:48 O2 Del Method Room Air 07/24/25 07:48 BMI result Body Mass Index 20.0 Objective Data Active Medications Acetaminophen (Acetaminophen 325 Mg Tablet) 650 mg PO Q6H PRN PRN Reason: Pain, Mild 1-3,fever,headache Ascorbic Acid (Ascorbic Acid 500 Mg Tablet) 500 mg PO DAILY COUNTS INCLUDE 234 BEDS AT THE [facility] Last Admin: 07/24/25 09:20 Dose: 500 mg Documented By: ASHUTOSH Calcium Carbonate (Calcium Carbonate 750 Mg Tab.Chew) 750 mg PO Q4H PRN PRN Reason: Heartburn Piperacillin Sod/Tazobactam (Sod 4.5 gm/ Sodium Chloride) 100 mls @ 200 mls/hr IV Q6H COUNTS INCLUDE 234 BEDS AT THE [facility] Last Infusion: 07/24/25 11:50 Dose: Infused Documented By: ASHUTOSH Albumin Human (Kedbumin 25 %) 100 mls @ 100 mls/hr IV Q6H COUNTS INCLUDE 234 BEDS AT THE [facility] Stop: 07/24/25 18:44 Last Infusion: 07/24/25 12:56 Dose: Infused Documented By: ASHUTOSH Vancomycin HCl 750 mg/ Sodium (Chloride) 265 mls @ 265 mls/hr IV Q8H COUNTS INCLUDE 234 BEDS AT THE [facility] Last Infusion: 07/24/25 09:38 Dose: Infused Documented By: ASHUTOSH Magnesium Hydroxide (Milk Of Magnesia 30 Ml Oral.Susp) 30 ml PO DAILY PRN PRN Reason: Constipation Magnesium Oxide (Magnesium Oxide 400 Mg Tablet) 400 mg PO DAILY COUNTS INCLUDE 234 BEDS AT THE [facility] Last Admin: 07/24/25 09:21 Dose: 400 mg Documented By: ASHUTOSH Melatonin (Melatonin 3 Mg Tablet) 6 mg PO BEDTIME PRN PRN Reason: Insomnia Multivitamins/Vitamin C (Multivitamin Tablet) 1 tab PO DAILY COUNTS INCLUDE 234 BEDS AT THE [facility] Last Admin: 07/24/25 09:20 Dose: 1 tab Documented By: ASHUTOSH Pharmacy Consult (Consult Rx Vancomycin Dosing) 1 each MISCELLANE DAILY PRN PRN Reason: Consult order Sodium Chloride (0.9 % Sodium Chloride Flush 3 Ml Syringe) 3 ml IVFLUSH QSHIFT COUNTS INCLUDE 234 BEDS AT THE [facility] Last Admin: 07/24/25 08:10 Dose: 3 ml Documented By: ASHUTOSH Thiamine HCl (Thiamine Hcl 100 Mg Tablet) 100 mg PO DAILY COUNTS INCLUDE 234 BEDS AT THE [facility] Last Admin: 07/24/25 09:21 Dose: 100 mg Documented By: ASHUTOSH Vitamin D (Cholecalciferol (Vitamin D3) 25 Mcg Tablet) 50 mcg PO DAILY COUNTS INCLUDE 234 BEDS AT THE [facility] Last Admin: 07/24/25 09:21 Dose: 50 mcg Documented By: ASHUTOSH Labs 07/24/25 05:58 07/24/25 13:06 Labs: Laboratory Results - last 24 hr 07/23/25 07/23/25 07/23/25 13:09 15:39 18:28 MCV MCH MCHC RDW Plt Count MPV Immature Gran % (Auto) Neut % (Auto) Lymph % (Auto) [place] % (Auto) Eos % (Auto) Baso % (Auto) Lymph # (Auto) [place] # (Auto) Eos # (Auto) Baso # (Auto) Abs Immat Gran (auto) Absolute Neuts (auto) Absolute Nucleated RBC Nucleated RBC % (auto) Hold Purple Top PT INR Anion Gap Estim Creat Clear Calc Estimated GFR POC Glucose Random Glucose Lactic Acid F/U @ 2Hr 3.5 H* Lactic Acid F/U @ 4Hr 1.6 Calcium Iron TIBC % Saturation Unsat Iron Binding Total Bilirubin Direct Bilirubin AST ALT Alkaline Phosphatase Lactate Dehydrogenase 430 H Total Protein Albumin Vitamin B12 Folate TSH 0.54 Free T4 1.04 Urine Color Urine Appearance Urine pH Ur Specific [place] Urine Protein Urine Glucose (UA) Urine Ketones Urine Blood Urine Nitrite Ur Leukocyte Esterase Urine RBC Urine WBC Ur Squamous Epith Cells Urine Bacteria Hyaline Casts Hepatitis A IgM Ab Hep Bs Antigen Hep Bs Antibody Hep B Core Total Ab Hepatitis C Ab (EIA) HIV 1&2 Ab/P24 Ag 4thGn 07/23/25 07/24/25 07/24/25 18:52 05:58 13:06 MCV 96.8 MCH 32.5 MCHC 33.6 RDW 18.9 H Plt Count 61 L MPV 9.5 Immature Gran % (Auto) 0.5 H Neut % (Auto) 76.5 H Lymph % (Auto) 12.5 L [place] % (Auto) 9.1 Eos % (Auto) 1.1 Baso % (Auto) 0.3 Lymph # (Auto) 0.9 L [place] # (Auto) 0.7 Eos # (Auto) 0.1 Baso # (Auto) 0.0 Abs Immat Gran (auto) 0.04 H Absolute Neuts (auto) 5.7 Absolute Nucleated RBC 0.000 Nucleated RBC % (auto) 0.0 Hold Purple Top SEE NOTE PT 16.5 H INR 1.4 H Anion Gap 14 10 L Estim Creat Clear Calc 141.3 119.5 Estimated GFR > 60 > 60 POC Glucose 98 Random Glucose 98 128 H Lactic Acid F/U @ 2Hr Lactic Acid F/U @ 4Hr Calcium 8.3 L 8.8 D Iron 54 TIBC 138 L % Saturation 39 Unsat Iron Binding 84 Total Bilirubin 8.1 H Direct Bilirubin 4.6 H AST 63 H ALT 28 Alkaline Phosphatase 132 H Lactate Dehydrogenase Total Protein 5.3 L Albumin 3.1 L Vitamin B12 1536 H Folate 11.4 TSH Free T4 Urine Color Urine Appearance Urine pH Ur Specific [place] Urine Protein Urine Glucose (UA) Urine Ketones Urine Blood Urine Nitrite Ur Leukocyte Esterase Urine RBC Urine WBC Ur Squamous Epith Cells Urine Bacteria Hyaline Casts Hepatitis A IgM Ab Nonreactive Hep Bs Antigen Negative Hep Bs Antibody NONREACTIVE Hep B Core Total Ab Nonreactive Hepatitis C Ab (EIA) Nonreactive HIV 1&2 Ab/P24 Ag 4thGn Nonreactive 07/24/25 13:17 MCV MCH MCHC RDW Plt Count MPV Immature Gran % (Auto) Neut % (Auto) Lymph % (Auto) [place] % (Auto) Eos % (Auto) Baso % (Auto) Lymph # (Auto) [place] # (Auto) Eos # (Auto) Baso # (Auto) Abs Immat Gran (auto) Absolute Neuts (auto) Absolute Nucleated RBC Nucleated RBC % (auto) Hold Purple Top PT INR Anion Gap Estim Creat Clear Calc Estimated GFR POC Glucose Random Glucose Lactic Acid F/U @ 2Hr Lactic Acid F/U @ 4Hr Calcium Iron TIBC % Saturation Unsat Iron Binding Total Bilirubin Direct Bilirubin AST ALT Alkaline Phosphatase Lactate Dehydrogenase Total Protein Albumin Vitamin B12 Folate TSH Free T4 Urine Color Dark Yellow Urine Appearance Clear Urine pH 7.0 Ur Specific [place] >= 1.030 H Urine Protein Trace Urine Glucose (UA) Negative Urine Ketones Trace Urine Blood Negative Urine Nitrite Negative Ur Leukocyte Esterase Trace H Urine RBC 0-2 Urine WBC 0-5 Ur Squamous Epith Cells 0-2 Urine Bacteria None Seen Hyaline Casts 0-2 Hepatitis A IgM Ab Hep Bs Antigen Hep Bs Antibody Hep B Core Total Ab Hepatitis C Ab (EIA) HIV 1&2 Ab/P24 Ag 4thGn Microbiology Microbiology Results: Microbiology 07/23/25 13:40 Gram Stain - Final Ascites Fluid Anaerobic Culture - Preliminary No growth to date. Body Fluid Culture - Preliminary No growth to date. Assessment and Plan (1) Liver cirrhosis: Status: Acute (2) Elevated bilirubin: Status: Acute (3) Acute hypokalemia: Status: Acute (4) Acidosis, lactic: Status: Acute (5) Anemia in chronic illness: Status: Acute (6) SIRS (systemic inflammatory response syndrome): Status: Acute (7) Sepsis: Status: Acute (8) Pyrexia of unknown origin: Status: Acute (9) Early satiety: Status: Acute Plan 50 year old male, with a background history of Hepatic cirrhosis, ETOH abuse now abstinent, presents with night sweats for 2 weeks with difficulty breathing, shaking, palpitations, lethargy, leg and back soreness, weakness, loss of appetite, and upper abdominal pain, admitted with fever of unknown origin & sepsis. Pyrexia Unknown Origin Sepsis Night Sweats Poor Dentition Patient presents with clinical signs and symptoms consistent with sepsis including night sweats for 2 weeks, difficulty breathing described as panting with inability to catch breath, elevated pulse, lethargy, weakness, and soreness in legs and back. Laboratory findings support sepsis with elevated lactic acid initially at 8.7 mmol/L (improved to 3.5 after fluid resuscitation), white blood cell count of 9.1 with 84% neutrophilic shifts, and thrombocytopenia with platelets at 72 (decreased from baseline of 100). Patient has received initial treatment with cefepime and vancomycin in the emergency department along with fluid resuscitation. Source of infection remains unclear requiring further investigation. CT maxillary -ve for abscess CT abdomen and pelvis revealing modearte ascites and segmental small bowel mural thickening. PLAN - continue vancomycin - continue Zosyn - Check hepatitis A, B, C, and HIV - Consult infectious diseases Elevated Lactic Acid Assessment: Initial lactic acid was significantly elevated at 8.7 mmol/L, which improved to 3.5 after one liter of normal saline administration, suggesting response to fluid resuscitation in the setting of sepsis. Chronically elevated around 3.5mmol/L. PLAN: - Monitor levels - Continue IV fluids Early Satiety Weight loss Post Prandial abdominal pain Assessment: Patient reports recent loss of appetite with early satiety, eating only 4-5 bites before feeling full or losing hunger, which may be related to underlying septic process. PLAN: - Monitor intake - Evaluate for underlying causes - Gastroenterology consultation - CT-AP Hepatic cirrhosis Alcoholic hepatitis Elevated bilirubin Transaminitis Thrombocytopenia Nonspecific complaints, which includes night sweats Further evaluation for infective etiology, intra-abdominal infection. CT abdomen and pelvis unremarkable for intraabdominal pathology Gastroenterology to be consulted Monitoring LFTs, bilirubin and INR Chronic anemia Patient suffers with chronic anemia, seen Gastroenterology in December 2024 for similar issue. We will continue to monitor closely. Seems microcytic hypochromic, potentially consistent with iron-deficiency anemia versus other etiology such as ETOH abuse. Further characterization of anemia with B12, folic acid, iron levels. Smoking History Assessment: Patient is an active smoker with associated productive cough with phlegm. 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 Dental infections can be a potential source of sepsis requiring evaluation. CT maxilla negative for abscess [facility] [employer] - VTE: SCDs - CODE STATUS: Full code - DIET: Regular Total time managing care of this patient today: 35 minutes. Quality Stroke Does the patient have a stroke diagnosis?: No VTE Prior VTE?: No VTE Risk Level:: Medical - moderate - high VTE Device Contraindication: N/A - Device Ordered VTE Drug Contraindication: Treatment Not Indicated
[2025-07-24] MEDS: Lactated Ringers 1,000 ML 75 ML IVCONT (16:28)
[2025-07-24] MEDS: iohexoL 350 MG/ML 100 ML INFUS..BTL IV (19:53)
--- NOTE | 2025-07-24 21:43 | P.EN_ITS ---
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 All internal arteries are patent. Patient does have evidence of ileus versus small-bowel obstruction and is currently asymptomatic. Patient's lactate last checked was 1.6. Surgical consult placed. No acute interventions required at this time. Patient made NPO and continues on IV fluids. Time Spent With Patient Time: Total time managing care of this patient today ____ minutes.
--- NOTE | 2025-07-24 23:21 | P.CNID_ITS ---
History of Present Illness Data of Consult Service Date: 07/24/25 Requesting physician: Glenn Hall Primary Care Provider: Uriah ALVAREZ Reason for consult: fever of unknown origin He presents with weakness and sweats over last two weeks. He has fever reported. There is no fever or chills here. HIV and Hepatitis C are negative. Review of Systems 2 Review of Systems: Yes all other systems are reviewed and are negative PMFSH Past Medical History Medical History Liver cirrhosis Anemia Alcohol use disorder No pertinent past medical history Family History Family history: reviewed and not pertinent Surgical History Surgical History History of ankle surgery Social History Social History Household Members: Significant Other Housing: Apartment Are you a primary toddler caregiver to a significant other at home: No Do you presently have visiting nurse or other home services: No Alcohol intake: current Alcohol intake frequency: 0-2 drinks per day Alcohol type: beer Patient Tobacco Use Status: Current everyday Tobacco user Tobacco use type: Cigarette Cigarette Packs Per Day: 6 Cigarettes Per Day: 120.0 Years Smoked: 20 Smoked in Last 30 Days: Yes e-Cigarette/Vaping Use: Currently Using Patient Interested in Nicotine Replacement: Yes Patient Given Instructions on How to Stop Smoking: Yes Date Education Initiated: 07/23/25 Second Hand Smoke Exposure: No Use of substances other than those prescribed or required for medical reasons: Yes Substance Use Type: Marijuana Substance Use Frequency: Daily Currently Displaying Signs/Symptoms of Drug Intoxication Withdrawal: No Have you been hit, kicked, punched, or otherwise hurt by someone within the past year? If so, by whom?: No Do you feel safe in your current relationship?: Yes Is there a partner from a previous relationship who is making you feel unsafe now?: No Are you made to feel afraid or neglected: No Advance Directives: No Advance Directives Information Provided: No Do you have a plan to hurt others: No Plan Recently lost weight without trying: No Nutrition Risks: No Nutritional Risk Poor oral hygiene: No service: No Meds Allergies Allergy/AdvReac Type Severity Reaction Status Date / Time No Known Allergies Allergy Verified 07/23/25 12:19 Active Medications: Current Medications Acetaminophen (Acetaminophen 325 Mg Tablet) 650 mg PO Q6H PRN PRN Reason: Pain, Mild 1-3,fever,headache Ascorbic Acid (Ascorbic Acid 500 Mg Tablet) 500 mg PO DAILY [facility] Last Admin: 07/24/25 09:20 Dose: 500 mg Calcium Carbonate (Calcium Carbonate 750 Mg Tab.Chew) 750 mg PO Q4H PRN PRN Reason: Heartburn Piperacillin Sod/Tazobactam (Sod 4.5 gm/ Sodium Chloride) 100 mls @ 200 mls/hr IV Q6H [facility] Last Infusion: 07/24/25 18:31 Dose: Infused Vancomycin HCl 750 mg/ Sodium (Chloride) 265 mls @ 265 mls/hr IV Q8H [facility] Last Infusion: 07/24/25 16:44 Dose: Infused Lactated Ringer's (Lr) 1,000 mls @ 100 mls/hr IVCONT .Q10H [facility] Last Admin: 07/24/25 16:28 Dose: 75 mls/hr Magnesium Hydroxide (Milk Of Magnesia 30 Ml Oral.Susp) 30 ml PO DAILY PRN PRN Reason: Constipation Magnesium Oxide (Magnesium Oxide 400 Mg Tablet) 400 mg PO DAILY [facility] Last Admin: 07/24/25 09:21 Dose: 400 mg Melatonin (Melatonin 3 Mg Tablet) 6 mg PO BEDTIME PRN PRN Reason: Insomnia Multivitamins/Vitamin C (Multivitamin Tablet) 1 tab PO DAILY [facility] Last Admin: 07/24/25 09:20 Dose: 1 tab Pharmacy Consult (Consult Rx Vancomycin Dosing) 1 each MISCELLANE DAILY PRN PRN Reason: Consult order Sodium Chloride (0.9 % Sodium Chloride Flush 3 Ml Syringe) 3 ml IVFLUSH QSHIFT [facility] Last Admin: 07/24/25 15:27 Dose: 3 ml Thiamine HCl (Thiamine Hcl 100 Mg Tablet) 100 mg PO DAILY [facility] Last Admin: 07/24/25 09:21 Dose: 100 mg Vitamin D (Cholecalciferol (Vitamin D3) 25 Mcg Tablet) 50 mcg PO DAILY [facility] Last Admin: 07/24/25 09:21 Dose: 50 mcg Home Medications ?Medication ?Instructions ?Recorded ?Confirmed ?Last Taken ?Type multivitamin 1 tab PO DAILY 03/20/2507/0107/22/25 History ascorbic acid (vitamin C) 500 mg 500 mg PO DAILY 07/2307/23/25 07/22/25 History tablet (Vitamin C) omeprazole 20 mg capsule,delayed 20 mg PO DAILY@0630 1 09/22/24 07/23/25 07/22/25 History release Physical Exam 2 Vital Signs: Vital Signs: Last Vital Signs Temp 98.1 F 07/24/25 23:16 Pulse 84 07/24/25 23:16 Resp 16 07/24/25 23:16 BP 136/93 H 07/24/25 23:16 Pulse Ox 96 07/24/25 23:16 O2 Del Method Room Air 07/24/25 23:16 BMI result Body Mass Index 20.0 Const: General: cooperative HEENT: Head: Yes normal to inspection Face and sinus: Yes normal facial exam Mouth: Normal oral and palatal mucosa present Teeth and gingiva: d entition normal Eyes: General: appearance normal, both eyes and all related structures P upils: Equal, round and reactive pupils present Resp: Effort & Inspection: normal respiratory effort Cardio: Rate: regular rate Rhythm: regular rhythm GI: Other: mild abdominal distention Palpation (GI): Soft to palpation and nontender : General: Yes no CVA tenderness Back/Spine/Pelvis: Back: no CVA tenderness Skin: General skin exam: no rashes or lesions noted Neuro: General: moves all extremities Cranial nerves: Yes Equal, round and reactive pupils present Extrem: General: Yes normal to inspection Psych: Appearance: grossly normal Results Labs 07/24/25 05:58 07/24/25 13:06 Labs: Short CBC 07/24/25 Range/Units 05:58 WBC 7.5 (4.8-10.8) X10*3/uL Hgb 9.0 L (14.0-18.0) g/dl Hct 26.8 L (42.0-52.0) % Plt Count 61 L (160-400) X10*3/uL BMP 07/24/25 07/24/25 05:58 13:06 Sodium 139 138 Potassium 2.9 L* D 3.0 L Chloride 103 104 Carbon Dioxide 25 27 BUN 7 L 7 L Creatinine 0.55 0.65 Calcium 8.3 L 8.8 D Cardiac Enzymes 07/24/25 Range/Units 17:36 Total Creatine Kinase 92 (38-174) U/L Liver Function 07/24/25 Range/Units 05:58 Total Bilirubin 8.1 H (0.0-1.0) mg/dL Direct Bilirubin 4.6 H (0.0-0.5) mg/dL AST 63 H (5-37) U/L ALT 28 (0-40) U/L Alkaline Phosphatase 132 H (39-117) U/L Albumin 3.1 L (3.5-5.0) g/dL Urine 07/24/25 Range/Units 13:17 Urine Color Dark Yellow Urine Appearance Clear Urine pH 7.0 (5.0-9.0) Ur Specific [place] >= 1.030 H (1.005-1.025) Urine Protein Trace (Neg-Trace) mg/dL Urine Glucose (UA) Negative (Negative) mg/dL Microbiology Microbiology Results: Microbiology 07/23/25 13:09 Blood - Venous Blood Culture - Preliminary No growth after 24 hours. 07/23/25 13:09 Blood - Venous Blood Culture - Preliminary No growth after 24 hours. 07/23/25 13:40 Ascites Fluid Gram Stain - Final 07/23/25 13:40 Ascites Fluid Anaerobic Culture - Preliminary No growth to date. 07/23/25 13:40 Ascites Fluid Body Fluid Culture - Preliminary No growth to date. Assessment and Plan (1) Liver cirrhosis: Qualifiers: Hepatic cirrhosis type: alcoholic cirrhosis Ascites presence: without ascites Qualified Code(s): K70.30 - Alcoholic cirrhosis of liver without ascites Status: Acute (2) Thickened small bowel: Status: Acute Plan There is chills reported but no fever or leukocytosis now. There is no bacteremia CT and CT some mild ileus possible There is no SBP There is no HIV or Hepatitis C. There is possible viral syndrome With leptospirosis often water exposure ,high LFTs and conjunctival suffusion not present. Stop antibiotics and observe.
[2025-07-25] VITALS (7 sets, daily range): BP systolic 101–128; BP diastolic 56–68; PULSE 95–113; RESP 16–20; TEMP 36.3–37.3; O2SAT 95–98
[2025-07-25 03:43] LABS: Glucose, Whole Blood 81 mg/dL (60-115)
[2025-07-25] MEDS: Dextrose 5 % and Lactated Ring 1,000 ML 100 ML IVCONT ×3 (03:51→23:10)
--- NOTE | 2025-07-25 07:00 | CA_ITS ---
Transthoracic Echocardiogram Patient (Last, First, Middle): Raimundo Arreola, Gender: Male Date of : 1975 Age: 50 Procedure Date: 07/25/2025 Procedure Type: Transthoracic Echocardiogram Location: [facility] Height: 175.26 cm Weight: 61.24 kg BSA: 1.75 m2 Heart Rate: bpm BP: 103 / 63 mmHg Dedicated Driver: TO Referring MD: Glenn Hall MD Symptoms: infective endocardirtis? Study Quality: Fair/Contrast Conclusions: - Normal left ventricular size, thickness, systolic function, and wall motion. The visually estimated ejection fraction is between 60-65%. Diastolic function is normal for age. - Mildly increased right ventricular cavity size. - 2.54 cm x 1.7 cm mobile mass in the RA. - Small mobile mass noted on the posterior mitral valve leaflet in some views-suspicious for vegetation. - Mobile mass attached to tricuspid valve leaflet 1.1 x 0.9 cm consistent with vegetation. - There is moderate dilatation of the sinuses of Valsalva measuring 4.50 cm and mild dilatation of the ascending aorta measuring 3.50 cm. Findings Procedure Information Contrast agent, definity, is being given per protocol without apparent complications. Left Ventricle Normal left ventricular size, thickness, systolic function, and wall motion. The visually estimated ejection fraction is between 60-65%. Diastolic function is normal for age. Right Ventricle Mildly increased right ventricular cavity size. There is normal right ventricular systolic function. Atria The left atrium is mildly dilated. The right atrium is mildly dilated. 2.54 cm x 1.7 cm mobile mass in the RA. Differentials include vegetation vs thrombus. Aortic Valve Normal aortic valve structure and function. There is no aortic valve stenosis. There is no aortic valve regurgitation. Mitral Valve There is mild mitral valve regurgitation. There is no mitral valve stenosis. Small mobile mass noted on the posterior mitral valve leaflet in some views suspicious for vegetation. Pulmonic Valve The pulmonic valve is normal. There is no pulmonic valve regurgitation. Tricuspid Valve Mobile mass attached to tricuspid valve leaflet 1.1 x 0.9 cm-consistent with vegetation. There is trace tricuspid valve regurgitation. Tricuspid regurgitation envelope is inadequate for calculation of right ventricular systolic pressure. Normal right atrial pressure. Great Vessels There is moderate dilatation of the sinuses of Valsalva measuring 4.50 cm and mild dilatation of the ascending aorta measuring 3.50 cm. The visualized portions of the pulmonary artery and branches are normal. Venous The inferior vena cava is normal in size and collapses greater than 50% with inspiration. Pericardium/Pleural There is no evidence of pericardial effusion. Prior Study Comparison No prior study available for comparison. Measurements 2D Linear Measurements IVSd: 0.96 0.6-0.9/0.6-1.0 cm LVIDd: 5.51 3.9-5.3/4.2-5.9 cm LVIDd Index: 3.15 2.4-3.2/2.2-3.1 cm/m2 LVIDs: 3.68 2.0-3.6 cm LVPWd: 0.91 0.7-1.1 cm LA Diam: 3.70 2.7-3.8/3.0-4.0 cm LAIDs Index: 2.11 1.5-2.3 cm/m2 LV Mass: 244.05 67-162/88-224 g LV Mass Index: 139.46 43-95/49-115 g/m2 LVOT Diam: 2.90 3.0+(-)1.3 cm Mitral Valve MV Pk E: 0.93 MV PK A: 0.83 MV Decel Time: 134.00 E/A: 1.10 E'Lateral: 10.40 E'Medial: 7.18 E/E' Med: 12.90 E/E' Lat: 8.90 PHT: 39.00 MVA PHT: 5.64 Decel [place]: 6.91 Aortic Valve AoV Pk Tone: 1.42 AoV Mn Tone: 1.04 AoV VTI: 0.25 AoV Pk Grad: 8.00 Aov Mn Grad: 5.00 ROHIT Cont.VTI: 5.99 LVOT LVOT Pk Tone: 1.27 LVOT Mn Tone: 0.89 LVOT VTI: 0.23 LVOT Pk Grad: 6.00 LVOT Mn Grad: 4.00 LVOT Diam: 2.90 LVOT Area: 6.61 Diastolic Function MV Pk E: 0.93 MV Pk A: 0.83 E/A: 1.10 E'Medial: 7.18 E/E' Med: 12.90 E' Laterial: 10.40 E/E' Lat: 8.90 Right Ventricle TAPSE (mm): 25.80 TVS' Tone: 25.80 Tricuspid Valve RA Press: 8.00 Great Vessels Aorta Sinus of Valsalva: 4.50 2.0-3.[address] [place]: 2.99 1.7-3.4 cm Ao Asc: 3.50 2.1-3.4 cm Updated in Other Vendor System with Status of Final Steven Newell MD electronically signed on 07/25/2025 7:30:10 PM with status of Final
[2025-07-25 07:07] LABS: Hematocrit 25.9 % (42.0-52.0); Mean Corpuscular Volume 99.2 fL (80.0-98.0); NRBC Abs Auto 0.000 X10*3/uL (0.0-0.012); NRBC Pct Auto 0.0 /100WBC (0.0-0.2); PLT CLUMP 1; Red Blood Count 2.61 X10*6/uL (4.60-5.80)
[2025-07-25 07:09] LABS: Hemoglobin 8.6 g/dl (14.0-18.0); Mean Corpuscular HGB Conc 33.2 g/dl (31.0-36.0); Mean Corpuscular Hemoglobin 33.0 pg (27.0-33.0)
[2025-07-25 07:11] LABS: Alanine Aminotransferase 24 U/L (0-40); Albumin Level 3.1 g/dL (3.5-5.0); Alkaline Phosphatase 105 U/L (39-117); Aspartate Amino Transferase 57 U/L (5-37); Blood Urea Nitrogen 4 mg/dL (9-16); Calcium 8.4 mg/dL (8.4-10.2); Creatinine Clr Calc Pharmacy 138.8; Estimated Glomerular Filt Rate > 60; Total Protein 4.9 g/dL (6.5-8.0)
[2025-07-25 07:25] LABS: Anion Gap 12 (12-20); Carbon Dioxide 24 mmol/L (22-29); Chloride 106 mmol/L (96-108); Potassium 2.9 mmol/L (3.3-5.1); Sodium 139 mmol/L (135-145)
[2025-07-25] MEDS: Potassium Chloride Packet 20 MEQ PACKET 40 MEQ PO (08:09)
[2025-07-25] MEDS: 0.9 % Sodium Chloride Flush 3 ML SYRINGE IVFLUSH (08:12)
--- NOTE | 2025-07-25 08:50 | HO.ANESPROP2 ---
HPI - Anesthesia Eval Consult details Narrative: 50 yr old male for upper EGD ETOH liver cirrhosis: INR 1.4 on 07/24/25 Hypokalemia: 2.9 on 07/25, prescribed PO replacement Bone marrow dysfunction 2/ ETOH abuse: platelets 53 on 07/25/25, H/H 9.0/26.8 on 07/24/25 PMFSH Active Problems Active Problems: All Active Problems Acute diarrhea (Acute) Thickened small bowel (Acute) Fatigue (Acute) Loss of appetite (Acute) Elevated bilirubin (Acute) Early satiety (Acute) Anemia in chronic illness (Acute) Pyrexia of unknown origin (Acute) Sepsis (Acute) Acidosis, lactic (Acute) Liver cirrhosis (Acute) SIRS (systemic inflammatory response syndrome) (Acute) Acute hypokalemia (Acute) Past Medical History Medical History Liver cirrhosis Anemia Alcohol use disorder No pertinent past medical history Family History Family history of problems with anesthesia: No Surgical History Surgical History History of ankle surgery History of Problems with Anesthesia: No Social History Social History Household Members: Significant Other Housing: Apartment Are you a primary housekeeper caregiver to a significant other at home: No Do you presently have visiting nurse or other home services: No Alcohol intake: current Alcohol intake frequency: 0-2 drinks per day Alcohol type: beer Patient Tobacco Use Status: Current everyday Tobacco user Tobacco use type: Cigarette Cigarette Packs Per Day: 6 Years Smoked: 20 Smoked in Last 30 Days: Yes e-Cigarette/Vaping Use: Currently Using Patient Interested in Nicotine Replacement: Yes Patient Given Instructions on How to Stop Smoking: Yes Date Education Initiated: 07/23/25 Second Hand Smoke Exposure: No Use of substances other than those prescribed or required for medical reasons: Yes Substance Use Type: Marijuana Substance Use Frequency: Daily Currently Displaying Signs/Symptoms of Drug Intoxication Withdrawal: No Have you been hit, kicked, punched, or otherwise hurt by someone within the past year? If so, by whom?: No Do you feel safe in your current relationship?: Yes Is there a partner from a previous relationship who is making you feel unsafe now?: No Are you made to feel afraid or neglected: No Advance Directives: No Advance Directives Information Provided: No Do you have a plan to hurt others: No Plan Recently lost weight without trying: No Nutrition Risks: No Nutritional Risk Poor oral hygiene: No service: No Meds Allergies Allergy/AdvReac Type Severity Reaction Status Date / Time No Known Allergies Allergy Verified 07/23/25 12:19 Active Medications: Current Medications Acetaminophen (Acetaminophen 325 Mg Tablet) 650 mg PO Q6H PRN PRN Reason: Pain, Mild 1-3,fever,headache Ascorbic Acid (Ascorbic Acid 500 Mg Tablet) 500 mg PO DAILY [facility] Last Admin: 07/24/25 09:20 Dose: 500 mg Calcium Carbonate (Calcium Carbonate 750 Mg Tab.Chew) 750 mg PO Q4H PRN PRN Reason: Heartburn Last Admin: 07/25/25 00:09 Dose: 750 mg Dextrose/Lactated Ringer's (D5lr) 1,000 mls @ 100 mls/hr IVCONT .Q10H [facility] Last Admin: 07/25/25 03:51 Dose: 100 mls/hr Magnesium Hydroxide (Milk Of Magnesia 30 Ml Oral.Susp) 30 ml PO DAILY PRN PRN Reason: Constipation Magnesium Oxide (Magnesium Oxide 400 Mg Tablet) 400 mg PO DAILY [facility] Last Admin: 07/24/25 09:21 Dose: 400 mg Melatonin (Melatonin 3 Mg Tablet) 6 mg PO BEDTIME PRN PRN Reason: Insomnia Multivitamins/Vitamin C (Multivitamin Tablet) 1 tab PO DAILY [facility] Last Admin: 07/24/25 09:20 Dose: 1 tab Sodium Chloride (0.9 % Sodium Chloride Flush 3 Ml Syringe) 3 ml IVFLUSH QSHIFT [facility] Last Admin: 07/25/25 08:12 Dose: 3 ml Thiamine HCl (Thiamine Hcl 100 Mg Tablet) 100 mg PO DAILY [facility] Last Admin: 07/24/25 09:21 Dose: 100 mg Vitamin D (Cholecalciferol (Vitamin D3) 25 Mcg Tablet) 50 mcg PO DAILY [facility] Last Admin: 07/24/25 09:21 Dose: 50 mcg Home Medications ?Medication ?Instructions ?Recorded ?Confirmed ?Last Taken ?Type multivitamin 1 tab PO DAILY 03/20/25 07/23/25 07/22/25 History ascorbic acid (vitamin C) 500 mg 500 mg PO DAILY 07/23/25 07/23/25 07/22/25 History tablet (Vitamin C) omeprazole 20 mg capsule,delayed 20 mg PO DAILY@0630 07/23/25 07/23/25 07/22/25 History release Exam Height,Weight and Vital Signs: Height 5 ft 9 in Weight 61.5 kg Last Vital Signs Temp 98.1 F 07/25/25 07:19 Pulse 110 H 07/25/25 07:19 Resp 16 07/25/25 07:19 BP 103/63 07/25/25 07:19 Pulse Ox 96 07/25/25 07:19 O2 Del Method Room Air 07/25/25 07:19 Pertinent Lab Results Pertinent Lab Results: Laboratory Tests 07/23/25 07/23/25 07/23/25 13:09 13:46 15:39 WBC 9.1 RBC 3.22 L Hgb 10.5 L Hct 31.9 L MCV 99.1 H MCH 32.6 MCHC 32.9 RDW 18.7 H Plt Count 72 L D MPV 10.1 Immature Gran % (Auto) 0.4 Neut % (Auto) 84.1 H Lymph % (Auto) 5.5 L Fisher % (Auto) 9.1 Eos % (Auto) 0.7 Baso % (Auto) 0.2 Lymph # (Auto) 0.5 L Fisher # (Auto) 0.8 Eos # (Auto) 0.1 Baso # (Auto) 0.0 Abs Immat Gran (auto) 0.04 H Absolute Neuts (auto) 7.7 Absolute Nucleated RBC 0.000 Nucleated RBC % (auto) 0.0 Smear Tech's Comments VERIFIED Hold Purple Top PT INR Sodium 137 Potassium 3.8 Chloride 100 Carbon Dioxide 22 Anion Gap 19 BUN 10 Creatinine 0.69 Estim Creat Clear Calc 112.6 Estimated GFR > 60 POC Glucose Random Glucose 113 Lactic Acid 8.7 H* Lactic Acid F/U @ 2Hr 3.5 H* Lactic Acid F/U @ 4Hr Calcium 8.6 Iron TIBC % Saturation Unsat Iron Binding Total Bilirubin 8.2 H Direct Bilirubin AST 98 H ALT 41 H Alkaline Phosphatase 181 H Lactate Dehydrogenase 430 H Total Creatine Kinase Total Protein 6.0 L Albumin 2.8 L Vitamin B12 Folate TSH 0.54 Free T4 1.04 Urine Color Urine Appearance Urine pH Ur Specific [place] Urine Protein Urine Glucose (UA) Urine Ketones Urine Blood Urine Nitrite Ur Leukocyte Esterase Urine RBC Urine WBC Ur Squamous Epith Cells Urine Bacteria Hyaline Casts Peritoneal WBC 0.048 Peritoneal RBC < 0.002 Periton Neutrophils 18 Periton Lymphocytes 25 Peritoneal Monocytes 49 Peritoneal Other Cells 8 Random Vancomycin Hepatitis A IgM Ab Hep Bs Antigen Hep Bs Antibody Hep B Core Total Ab Hepatitis C Ab (EIA) HIV 1&2 Ab/P24 Ag 4thGn Influenza Type A (PCR) NEGATIVE Influenza Type B (PCR) NEGATIVE RSV RNA Qual (PCR) NEGATIVE SARS-CoV-2 RNA (RT-PCR) NEGATIVE 07/23/25 07/23/25 07/24/25 18:28 18:52 05:58 WBC 7.5 RBC 2.77 L Hgb 9.0 L Hct 26.8 L MCV 96.8 MCH 32.5 MCHC 33.6 RDW 18.9 H Plt Count 61 L MPV 9.5 Immature Gran % (Auto) 0.5 H Neut % (Auto) 76.5 H Lymph % (Auto) 12.5 L Fisher % (Auto) 9.1 Eos % (Auto) 1.1 Baso % (Auto) 0.3 Lymph # (Auto) 0.9 L Fisher # (Auto) 0.7 Eos # (Auto) 0.1 Baso # (Auto) 0.0 Abs Immat Gran (auto) 0.04 H Absolute Neuts (auto) 5.7 Absolute Nucleated RBC 0.000 Nucleated RBC % (auto) 0.0 Smear Tech's Comments Hold Purple Top PT 16.5 H INR 1.4 H Sodium 139 Potassium 2.9 L* D Chloride 103 Carbon Dioxide 25 Anion Gap 14 BUN 7 L Creatinine 0.55 Estim Creat Clear Calc 141.3 Estimated GFR > 60 POC Glucose 98 Random Glucose 98 Lactic Acid Lactic Acid F/U @ 2Hr Lactic Acid F/U @ 4Hr 1.6 Calcium 8.3 L Iron 54 TIBC 138 L % Saturation 39 Unsat Iron Binding 84 Total Bilirubin 8.1 H Direct Bilirubin 4.6 H AST 63 H ALT 28 Alkaline Phosphatase 132 H Lactate Dehydrogenase Total Creatine Kinase Total Protein 5.3 L Albumin 3.1 L Vitamin B12 1536 H Folate 11.4 TSH Free T4 Urine Color Urine Appearance Urine pH Ur Specific [place] Urine Protein Urine Glucose (UA) Urine Ketones Urine Blood Urine Nitrite Ur Leukocyte Esterase Urine RBC Urine WBC Ur Squamous Epith Cells Urine Bacteria Hyaline Casts Peritoneal WBC Peritoneal RBC Periton Neutrophils Periton Lymphocytes Peritoneal Monocytes Peritoneal Other Cells Random Vancomycin Hepatitis A IgM Ab Nonreactive Hep Bs Antigen Negative Hep Bs Antibody NONREACTIVE Hep B Core Total Ab Nonreactive Hepatitis C Ab (EIA) Nonreactive HIV 1&2 Ab/P24 Ag 4thGn Nonreactive Influenza Type A (PCR) Influenza Type B (PCR) RSV RNA Qual (PCR) SARS-CoV-2 RNA (RT-PCR) 07/24/25 07/24/25 07/24/25 13:06 13:17 17:36 WBC RBC Hgb Hct MCV MCH MCHC RDW Plt Count MPV Immature Gran % (Auto) Neut % (Auto) Lymph % (Auto) Fisher % (Auto) Eos % (Auto) Baso % (Auto) Lymph # (Auto) Fisher # (Auto) Eos # (Auto) Baso # (Auto) Abs Immat Gran (auto) Absolute Neuts (auto) Absolute Nucleated RBC Nucleated RBC % (auto) Smear Tech's Comments Hold Purple Top SEE NOTE PT INR Sodium 138 Potassium 3.0 L Chloride 104 Carbon Dioxide 27 Anion Gap 10 L BUN 7 L Creatinine 0.65 Estim Creat Clear Calc 119.5 Estimated GFR > 60 POC Glucose Random Glucose 128 H Lactic Acid Lactic Acid F/U @ 2Hr Lactic Acid F/U @ 4Hr Calcium 8.8 D Iron TIBC % Saturation Unsat Iron Binding Total Bilirubin Direct Bilirubin AST ALT Alkaline Phosphatase Lactate Dehydrogenase Total Creatine Kinase 92 Total Protein Albumin Vitamin B12 Folate TSH Free T4 Urine Color Dark Yellow Urine Appearance Clear Urine pH 7.0 Ur Specific [place] >= 1.030 H Urine Protein Trace Urine Glucose (UA) Negative Urine Ketones Trace Urine Blood Negative Urine Nitrite Negative Ur Leukocyte Esterase Trace H Urine RBC 0-2 Urine WBC 0-5 Ur Squamous Epith Cells 0-2 Urine Bacteria None Seen Hyaline Casts 0-2 Peritoneal WBC Peritoneal RBC Periton Neutrophils Periton Lymphocytes Peritoneal Monocytes Peritoneal Other Cells Random Vancomycin Hepatitis A IgM Ab Hep Bs Antigen Hep Bs Antibody Hep B Core Total Ab Hepatitis C Ab (EIA) HIV 1&2 Ab/P24 Ag 4thGn Influenza Type A (PCR) Influenza Type B (PCR) RSV RNA Qual (PCR) SARS-CoV-2 RNA (RT-PCR) 07/25/25 07/25/25 03:37 05:51 WBC RBC Hgb Hct MCV MCH MCHC RDW Plt Count MPV Immature Gran % (Auto) Neut % (Auto) Lymph % (Auto) Fisher % (Auto) Eos % (Auto) Baso % (Auto) Lymph # (Auto) Fisher # (Auto) Eos # (Auto) Baso # (Auto) Abs Immat Gran (auto) Absolute Neuts (auto) Absolute Nucleated RBC Nucleated RBC % (auto) Smear Tech's Comments Hold Purple Top PT INR Sodium 139 Potassium 2.9 L* Chloride 106 Carbon Dioxide 24 Anion Gap 12 BUN 4 L Creatinine 0.56 Estim Creat Clear Calc 138.8 Estimated GFR > 60 POC Glucose 81 Random Glucose 104 Lactic Acid Lactic Acid F/U @ 2Hr Lactic Acid F/U @ 4Hr Calcium 8.4 Iron TIBC % Saturation Unsat Iron Binding Total Bilirubin 8.0 H Direct Bilirubin AST 57 H ALT 24 Alkaline Phosphatase 105 Lactate Dehydrogenase Total Creatine Kinase Total Protein 4.9 L Albumin 3.1 L Vitamin B12 Folate TSH Free T4 Urine Color Urine Appearance Urine pH Ur Specific [place] Urine Protein Urine Glucose (UA) Urine Ketones Urine Blood Urine Nitrite Ur Leukocyte Esterase Urine RBC Urine WBC Ur Squamous Epith Cells Urine Bacteria Hyaline Casts Peritoneal WBC Peritoneal RBC Periton Neutrophils Periton Lymphocytes Peritoneal Monocytes Peritoneal Other Cells Random Vancomycin 8.1 L Hepatitis A IgM Ab Hep Bs Antigen Hep Bs Antibody Hep B Core Total Ab Hepatitis C Ab (EIA) HIV 1&2 Ab/P24 Ag 4thGn Influenza Type A (PCR) Influenza Type B (PCR) RSV RNA Qual (PCR) SARS-CoV-2 RNA (RT-PCR) Narrative Narrative: EKG 07/24/25 Vent. Rate : 123 BPM Atrial Rate : 123 BPM P-R Int : 112 ms QRS Dur : 90 ms QT Int : 354 ms P-R-T Axes : 45 26 57 degrees QTcB Int : 506 ms Sinus tachycardia with Premature atrial complexes Low voltage QRS T wave abnormality, consider lateral ischemia Abnormal ECG When compared with ECG of 10-Jan-2025 04:29, Sinus rhythm has replaced Junctional rhythm T wave inversion now evident in Lateral leads Assessment and Plan Final Anesthetic Review Family History of Problems with Anesthesia: No History of Problems with Anesthesia: No
[2025-07-25 09:08] LABS: Platelet Count 58 X10*3/uL (160-400); White Blood Count 6.1 X10*3/uL (4.8-10.8)
[2025-07-25 09:12] LABS: Eosinophils Absolute Manual 0.1 X10*3/uL (0.0-0.4); Eosinophils Percent Manual 1 % (0-4); Lymphocytes Absolute Manual 1.4 X10*3/uL (1.2-4.9); Lymphocytes Percent Manual 23 % (20-40); Monocytes Absolute Manual 0.1 X10*3/uL (0.1-1.2); Monocytes Percent Manual 2 % (2-11); Neutrophils Percent Manual 74 % (45-73)
[2025-07-25 09:13] LABS: Band Neutrophils Percent 0 % (3-5); Neutrophils Absolute Manual 4.5 X10*3/uL (2.0-8.3); RBC Morphology NORMAL
[2025-07-25 09:14] LABS: Acanthocytes 3+ (>5) /OIF; Burr Cells 3+ (>5) /OIF
[2025-07-25 09:15] LABS: Large Platelet PRESENT; Schistocytes 1+ (0-2) /OIF
--- NOTE | 2025-07-25 10:16 | PM.HEMONCCN ---
Subjective - Subjective Chief complaint: Sweats and chills Patient: new to practice Consult date: 07/25/25 Primary Care Provider: [facility] Stock Cutter Utilized?: No - Uzbek Speaking HPI - Consult Narrative Reason for consult: ? Hematological malignancy Narrative: Raimundo Arreola is a 50 year old male presented with progressive drenching sweats and chills associated with lethargy, loss of appetite, weakness and weight loss. Patient has a history of alcohol related liver cirrhosis, portal hypertension and pancytopenia. Patient says he has been abstinent from alcohol for a few weeks because of his illness. He denies any significant cough or shortness of breath. No severe abdominal pain, no emesis but there has been a change in his bowel habits. He denies any recent travel or tick bite. Rodarte's noted to be mildly hypothermic, his labs are not far from baseline. Review of Systems - Constitutional Reports as per HPI, Reports lack of energy, Reports malaise, Reports night sweats, Reports poor appetite, Reports weight loss - Cardiovascular Reports no additional cardiovascular complaints - Respiratory Reports no additional respiratory complaints [facility] Medical History: Medical History (Last Reviewed 07/24/25 @ 23:26 by Trish Cartwright MD) Alcohol use disorder Anemia Liver cirrhosis No pertinent past medical history Family history: reviewed and not pertinent Surgical History: Surgical History (Last Reviewed 07/24/25 @ 23:26 by Trish Cartwright MD) History of ankle surgery Social History: Social History (Last Reviewed 07/24/25 @ 23:26 by Trish Cartwright MD) Living Situation History: Household Members: Significant Other Housing: Apartment Are you a primary lpn care manager to a significant other at home: No Do you presently have visiting nurse or other home services: No Alcohol History Details: 1. How often do you have a drink containing alcohol?: a. Never AUDIT-C Alcohol total score: 0 Currently Displaying Signs/Symptoms of Alcohol Withdrawal: No Tobacco History: Patient Tobacco Use Status: Current everyday Tobacco Tobacco use type: Cigarette Cigarette Packs Per Day: 6 Cigarettes Per Day: 120.0 Years Smoked: 20 Smoked in Last 30 Days: Yes e-Cigarette/Vaping Use: Currently Using Patient Interested in Nicotine Replacement: Yes Patient Given Instructions on How to Stop Smoking: Yes Date Education Initiated: 07/23/25 Second Hand Smoke Exposure: No Substance Use History: Use of substances other than those prescribed or required for medical reasons: Yes Substance Use Type: Marijuana Substance Use Frequency: Daily Currently Displaying Signs/Symptoms of Drug Intoxication Withdrawal: No Domestic Abuse History: Have you been hit, kicked, punched, or otherwise hurt by someone within the past year? If so, by whom?: No Do you feel safe in your current relationship?: Yes Is there a partner from a previous relationship who is making you feel unsafe now?: No Are you made to feel afraid or neglected: No Advance Directives: Advance Directives: No Advance Directives Information Provided: No Homicidal Assessment: Do you have a plan to hurt others: No Plan Nutrition Assessment: Recently lost weight without trying: No Nutrition Risks: No Nutritional Risk Poor oral hygiene: No Occupation Assessmet: service: No Home Medications and Allergies Current Medications: Current Medications Acetaminophen (Acetaminophen 325 Mg Tablet) 650 mg PO Q6H PRN PRN Reason: Pain, Mild 1-3,fever,headache Ascorbic Acid (Ascorbic Acid 500 Mg Tablet) 500 mg PO DAILY [facility] Last Admin: 07/25/25 09:41 Dose: Not Given Calcium Carbonate (Calcium Carbonate 750 Mg Tab.Chew) 750 mg PO Q4H PRN PRN Reason: Heartburn Last Admin: 07/25/25 00:09 Dose: 750 mg Dextrose/Lactated Ringer's (D5lr) 1,000 mls @ 100 mls/hr IVCONT .Q10H [facility] [place] Last Admin: 07/25/25 03:51 Dose: 100 mls/hr Magnesium Hydroxide (Milk Of Magnesia 30 Ml Oral.Susp) 30 ml PO DAILY PRN PRN Reason: Constipation Magnesium Oxide (Magnesium Oxide 400 Mg Tablet) 400 mg PO DAILY [facility] [place] Last Admin: 07/25/25 09:41 Dose: Not Given Melatonin (Melatonin 3 Mg Tablet) 6 mg PO BEDTIME PRN PRN Reason: Insomnia Multivitamins/Vitamin C (Multivitamin Tablet) 1 tab PO DAILY [facility] [place] Last Admin: 07/25/25 09:41 Dose: Not Given Sodium Chloride (0.9 % Sodium Chloride Flush 3 Ml Syringe) 3 ml IVFLUSH QSHIFT [facility] [place] Last Admin: 07/25/25 08:12 Dose: 3 ml Thiamine HCl (Thiamine Hcl 100 Mg Tablet) 100 mg PO DAILY [facility] [place] Last Admin: 07/25/25 09:42 Dose: Not Given Vitamin D (Cholecalciferol (Vitamin D3) 25 Mcg Tablet) 50 mcg PO DAILY [facility] [place] Last Admin: 07/25/25 09:41 Dose: Not Given Home Medications ?Medication ?Instructions ?Recorded ?Confirmed ?Type multivitamin 1 tab PO DAILY 03/20/25 07/23/25 History ascorbic acid (vitamin C) 500 mg 500 mg PO DAILY 07/23/25 07/23/25 History tablet (Vitamin C) omeprazole 20 mg capsule,delayed 20 mg PO DAILY@0630 07/23/25 07/23/25 History release Allergies Allergy/AdvReac Type Severity Reaction Status Date / Time No Known Allergies Allergy Verified 07/23/25 12:19 Physical Exam Vital signs: Vital Signs Temp 98.1 F 07/25/25 07:19 Pulse 110 H 07/25/25 07:19 Resp 16 07/25/25 07:19 BP 103/63 07/25/25 07:19 Pulse Ox 96 07/25/25 07:19 O2 Del Method Room Air 07/25/25 07:19 Intake & Output 07/24/25 07/25/25 07/25/25 18:59 06:59 18:59 Intake Total 1070 / 2625 1555 / 2625 0 / 0 Output Total 75 / 75 Balance 1070 / 2550 1480 / 2550 0 / 0 Urine Output (Average ml/kg/hr) 0.10 0.10 Intake: Intake, Oral Amount 240 / 740 500 / 740 Intake, IV Amount 830 / 1885 1055 / 1885 0 / 0 Albumin Human 25 % 100 ml @ 100 100 / 200 100 / 200 mls/hr IV Q6H [facility] Rx#: [id number] Piperacillin Sodium/Tazobactam 200 / 300 100 / 300 4.5 gm In 0.9 % Sodium Chloride 100 ml @ 200 mls/hr IV Q6H [facility] Rx#:[id number] vancomycin HCL 750 mg In 0.9 % 530 / 530 Sodium Chloride 250 ml @ 265 mls/hr IV Q8H [facility] Rx#: [id number] Lactated Ringers 1,000 ml @ 100 855 / 855 0 / 0 mls/hr IVCONT .Q10H [facility] Rx#: [id number] Output: Output, Urine Amount 75 / 75 Other: Meal Refused No NPO No Breakfast % Eaten 25% Lunch % Eaten 25% Dinner % Eaten 75% Eating (Feeding) Ability Independent Number of Unmeasured Voids 3 1 Urine Bathroom Urinal Urine Color Straw Last Bowel Movement 07/24/25 Stool Amount Moderate Stool Color Mucousy Weight 61.5 kg - Constitutional Present: no acute distress - Routine HEENT Exam Head: Present: normal inspection Eye: Present: EOMI - Routine Neck Exam Present: supple. Absent: lymphadenopathy - Routine Respiratory Exam Present: CTAB. Absent: accessory muscle use - Routine Cardiovascular Exam Cardiovascular: Present: RRR - Routine Abdominal Exam Present: distended, soft Hem/Onc Consult Result - Labs CBC & Chem 7: 07/25/25 05:51 07/25/25 05:51 Labs: Short CBC 07/25/25 Range/Units 05:51 WBC 6.1 (4.8-10.8) X10*3/uL Hgb 8.6 L (14.0-18.0) g/dl Hct 25.9 L (42.0-52.0) % Plt Count 58 L (160-400) X10*3/uL BMP 07/24/25 07/25/25 13:06 05:51 Sodium 138 139 Potassium 3.0 L 2.9 L* Chloride 104 106 Carbon Dioxide 27 24 BUN 7 L 4 L Creatinine 0.65 0.56 Calcium 8.8 D 8.4 Cardiac Enzymes 07/24/25 Range/Units 17:36 Total Creatine Kinase 92 (38-174) U/L Liver Function 07/25/25 Range/Units 05:51 Total Bilirubin 8.0 H (0.0-1.0) mg/dL AST 57 H (5-37) U/L ALT 24 (0-40) U/L Alkaline Phosphatase 105 (39-117) U/L Albumin 3.1 L (3.5-5.0) g/dL Urine 07/24/25 Range/Units 13:17 Urine Color Dark Yellow Urine Appearance Clear Urine pH 7.0 (5.0-9.0) Ur Specific [place] >= 1.030 H (1.005-1.025) Urine Protein Trace (Neg-Trace) mg/dL Urine Glucose (UA) Negative (Negative) mg/dL Assessment and Plan Patient Active problem list reviewed?: Yes (1) Anemia in chronic illness Status: Chronic Assessment and plan: 1. This is a 50-year-old male with history of alcoholic liver cirrhosis presenting with 2 week history of sweats and chills. CT of abdomen demonstrate multiple loops of dilated bowel with neural thickening, small to moderate amount of ascites, cirrhosis, small left pleural effusion. Chest x-ray is normal. Her labs showed chronic stable cytopenias with normocytic anemia and reduced platelets which is consistent with liver disease and hypersplenism for portal hypertension. He may have ongoing mild hemolysis as evidenced by slightly elevated indirect hyperbilirubinemia which can also be seen in liver disease. LDH is marginally elevated. His abdominal exam was benign, no evidence of lymphadenopathy on examination. Agree with GI evaluation for finding of dilated bowel loops and bowel thickening as well as ID workup for viral etiologies. If no GI cause can be found, CT chest may be performed to complete the workup. No suspicion for acute hematological malignancy at this time. Thank you for the consultation. - Time Spent With Patient Time Spent with Patient (in minutes): 25 Additional Coding: - Additional E/M codes Complex E/M visit Add On: CPT G2211
--- NOTE | 2025-07-25 10:18 | PM.GIPN ---
Subjective Subjective Date of Service: 07/25/25 Interval History: Seen at bedside. Reports improvement in overall feeling of malaise and myalgias. CT with air in PD. Pt does not report any hx of ERCP. Had EGD in December 2024 for anemia and variceal screening but no PD instrumentation. Pancreas itself without any inflammation or edema. Pt without abd pain. Stool EPEC pos Appreciate input from ID Critical Care Time (minutes): 0 Physical Exam Exam: Exam: No apparent distress Nonicteric Abdomen soft, nondistended. no guarding Alert and oriented x3, normal gait Vital Signs: Vital Signs: Last Vital Signs Temp 98.1 F 07/25/25 07:19 Pulse 110 H 07/25/25 07:19 Resp 16 07/25/25 07:19 BP 103/63 07/25/25 07:19 Pulse Ox 96 07/25/25 07:19 O2 Del Method Room Air 07/25/25 07:19 BMI result Body Mass Index 20.0 Objective Data Labs 07/25/25 05:51 07/25/25 14:36 Labs: Laboratory Results - last 24 hr 07/24/25 07/24/25 07/24/25 13:06 13:17 17:36 WBC RBC Hgb Hct MCV MCH MCHC RDW Plt Count MPV Immature Gran % (Auto) Neut % (Auto) Lymph % (Auto) [place] % (Auto) Eos % (Auto) Baso % (Auto) Lymph # (Auto) [place] # (Auto) Eos # (Auto) Baso # (Auto) Abs Immat Gran (auto) Absolute Neuts (auto) Absolute Nucleated RBC Nucleated RBC % (auto) Neutrophils % (Manual) Band Neutrophils % Lymphocytes % (Manual) Monocytes % (Manual) Eosinophils % (Manual) Abs Neuts (Manual) Lymphocytes # (Manual) Monocytes # (Manual) Eosinophils # (Manual) Platelet Estimate Large Platelets Plt Morphology Comment RBC Morphology Ze Cells Acanthocytes (Spur) Schistocytes Hold Purple Top SEE NOTE Sodium 138 Potassium 3.0 L Chloride 104 Carbon Dioxide 27 Anion Gap 10 L BUN 7 L Creatinine 0.65 Estim Creat Clear Calc 119.5 Estimated GFR > 60 POC Glucose Random Glucose 128 H Calcium 8.8 D Total Bilirubin AST ALT Alkaline Phosphatase Total Creatine Kinase 92 Total Protein Albumin Urine Color Dark Yellow Urine Appearance Clear Urine pH 7.0 Ur Specific [place] >= 1.030 H Urine Protein Trace Urine Glucose (UA) Negative Urine Ketones Trace Urine Blood Negative Urine Nitrite Negative Ur Leukocyte Esterase Trace H Urine RBC 0-2 Urine WBC 0-5 Ur Squamous Epith Cells 0-2 Urine Bacteria None Seen Hyaline Casts 0-2 Random Vancomycin 07/25/25 07/25/25 03:37 05:51 WBC 6.1 RBC 2.61 L Hgb 8.6 L Hct 25.9 L MCV 99.2 H MCH 33.0 MCHC 33.2 RDW 19.3 H Plt Count 58 L MPV 11.6 Immature Gran % (Auto) Cancelled Neut % (Auto) Cancelled Lymph % (Auto) Cancelled [place] % (Auto) Cancelled Eos % (Auto) Cancelled Baso % (Auto) Cancelled Lymph # (Auto) Cancelled [place] # (Auto) Cancelled Eos # (Auto) Cancelled Baso # (Auto) Cancelled Abs Immat Gran (auto) Cancelled Absolute Neuts (auto) Cancelled Absolute Nucleated RBC 0.000 Nucleated RBC % (auto) 0.0 Neutrophils % (Manual) 74 H Band Neutrophils % 0 L Lymphocytes % (Manual) 23 Monocytes % (Manual) 2 Eosinophils % (Manual) 1 Abs Neuts (Manual) 4.5 Lymphocytes # (Manual) 1.4 Monocytes # (Manual) 0.1 Eosinophils # (Manual) 0.1 Platelet Estimate DECREASED Large Platelets PRESENT Plt Morphology Comment NOTED RBC Morphology NORMAL [place] Cells 3+ (>5) Acanthocytes (Spur) 3+ (>5) Schistocytes 1+ (0-2) Hold Purple Top Sodium 139 Potassium 2.9 L* Chloride 106 Carbon Dioxide 24 Anion Gap 12 BUN 4 L Creatinine 0.56 Estim Creat Clear Calc 138.8 Estimated GFR > 60 POC Glucose 81 Random Glucose 104 Calcium 8.4 Total Bilirubin 8.0 H AST 57 H ALT 24 Alkaline Phosphatase 105 Total Creatine Kinase Total Protein 4.9 L Albumin 3.1 L Urine Color Urine Appearance Urine pH Ur Specific [place] Urine Protein Urine Glucose (UA) Urine Ketones Urine Blood Urine Nitrite Ur Leukocyte Esterase Urine RBC Urine WBC Ur Squamous Epith Cells Urine Bacteria Hyaline Casts Random Vancomycin 8.1 L Microbiology Microbiology Results: Microbiology 07/23/25 13:40 Ascites Fluid Gram Stain - Final 07/23/25 13:40 Ascites Fluid Anaerobic Culture - Preliminary No growth to date. 07/23/25 13:40 Ascites Fluid Body Fluid Culture - Final No growth after 2 days 07/23/25 13:09 Blood - Venous Blood Culture - Preliminary No growth after 24 hours. 07/23/25 13:09 Blood - Venous Blood Culture - Preliminary No growth after 24 hours. Procedures Date of Service Date of Service: 07/25/25 Progress Note: A&P Assessment and plan (1) Pancreatic abnormality: Status: Acute (2) Adynamic ileus: Status: Acute (3) Acute diarrhea: Status: Acute (4) Thickened small bowel: Status: Acute (5) Liver cirrhosis: Status: Acute (6) Elevated bilirubin: Status: Acute (7) Acidosis, lactic: Status: Acute (8) Sepsis: Status: Acute (9) Fatigue: Status: Acute Plan Pt with sx concerning for underlying infection as well as LFTs suggestive of alc hep but pt reports no etOH use x 4 months. PETH pending. Stool studies also pos for EPEC - likely contributing to acute diarrheal illness. Would recommending HOLDING Abx for now for EPEC diarrhea. In terms of air in PD - unclear source. Pt without hx of PD instrumentation. No evidence of pancreatitis to suggest necrosis/emphysematous pancreatitis. ??enteropancreatic fistula but no collection noted on imaging. Recommend surgical evaluation. If no intervention or further imaging planned from their end, diet can be resumed. Time Spent With Patient Time: Total time managing care of this patient today ____ minutes. Quality Stroke Does the patient have a stroke diagnosis?: No VTE Prior VTE?: No VTE Risk Level:: Medical - moderate - high VTE Device Contraindication: N/A - Device Ordered VTE Drug Contraindication: Treatment Not Indicated
--- NOTE | 2025-07-25 10:35 | MHC.CM.PN ---
Per MD rounds, patient not medically cleared for dc. CM will continue to follow.
[2025-07-25 10:59] LABS: E. coli EAEC Not Detected (Not Detect.); E. coli EPEC Detected (Not Detect.); E. coli ETEC Not Detected (Not Detect.); E. coli STEC Not Detected (Not Detect.); Shigella sp./EIEC Not Detected (Not Detect.)
--- NOTE | 2025-07-25 13:05 | P.PNIM_ITS ---
Subjective Subjective Date of Service: 07/25/25 Interval History: Still experiencing rigors and night sweats intermittently. He does not note any particular improvement in symptoms. CT scans reviewed, and concerns were raised for possible pancreatic gas around the head and tail Surgical service was consulted for their impression regarding pancreatic gas pattern. LDH elevated, haptoglobin elevated. Consulted Hematology Oncology for further recommendations and further impression - input greatly appreciated. Heme/Onc reports no suspicion for acute hematological malignancy at this time. Review of Systems Review of Systems: Yes all other systems are reviewed and are negative Physical Exam 2 Exam: Exam: General: A&O x3, oriented to time place person and situation, fatigued, diaphoretic, sallow skin HEENT: Scleral icterus Cardiac: S1, S2 auscultated with no S3/4, no MRG. Well perfused. Respiratory: Normal breath sounds auscultated throughout all lung zones, without wheezing, rales. Normal rate. GI/ : No abdominal pain on palpation, no masses or distentions. MSK: Normal ambulation without pain at bony prominences or musculature Neurological: Normal neurological examination on overview, without obvious CN II-XII abnormalities. Vital Signs: Vital Signs: Last Vital Signs Temp 98.4 F 07/25/25 11:25 Pulse 113 H 07/25/25 11:25 Resp 16 07/25/25 11:25 BP 103/67 07/25/25 11:25 Pulse Ox 96 07/25/25 11:25 O2 Del Method Room Air 07/25/25 11:25 BMI result Body Mass Index 20.0 Objective Data Active Medications Acetaminophen (Acetaminophen 325 Mg Tablet) 650 mg PO Q6H PRN PRN Reason: Pain, Mild 1-3,fever,headache Ascorbic Acid (Ascorbic Acid 500 Mg Tablet) 500 mg PO DAILY [facility] Last Admin: 07/25/25 09:41 Dose: Not Given Documented By: GAURAV Non-Admin Reason: NPO Calcium Carbonate (Calcium Carbonate 750 Mg Tab.Chew) 750 mg PO Q4H PRN PRN Reason: Heartburn Last Admin: 07/25/25 00:09 Dose: 750 mg Documented By: KENDALL Dextrose/Lactated Ringer's (D5lr) 1,000 mls @ 100 mls/hr IVCONT .Q10H [facility] Last Admin: 07/25/25 12:48 Dose: 100 mls/hr Documented By: GAURAV Magnesium Hydroxide (Milk Of Magnesia 30 Ml Oral.Susp) 30 ml PO DAILY PRN PRN Reason: Constipation Magnesium Oxide (Magnesium Oxide 400 Mg Tablet) 400 mg PO DAILY [facility] Last Admin: 07/25/25 09:41 Dose: Not Given Documented By: GAURAV Non-Admin Reason: NPO Melatonin (Melatonin 3 Mg Tablet) 6 mg PO BEDTIME PRN PRN Reason: Insomnia Multivitamins/Vitamin C (Multivitamin Tablet) 1 tab PO DAILY [facility] Last Admin: 07/25/25 09:41 Dose: Not Given Documented By: GAURAV Non-Admin Reason: NPO Sodium Chloride (0.9 % Sodium Chloride Flush 3 Ml Syringe) 3 ml IVFLUSH QSHIFT [facility] Last Admin: 07/25/25 08:12 Dose: 3 ml Documented By: GAURAV Thiamine HCl (Thiamine Hcl 100 Mg Tablet) 100 mg PO DAILY [facility] Last Admin: 07/25/25 09:42 Dose: Not Given Documented By: GAURAV Non-Admin Reason: NPO Vitamin D (Cholecalciferol (Vitamin D3) 25 Mcg Tablet) 50 mcg PO DAILY [facility] Last Admin: 07/25/25 09:41 Dose: Not Given Documented By: GAURAV Non-Admin Reason: NPO Labs 07/25/25 05:51 07/25/25 05:51 Labs: Laboratory Results - last 24 hr 07/24/25 07/24/25 07/24/25 13:06 13:17 17:36 MCV MCH MCHC RDW Plt Count MPV Immature Gran % (Auto) Neut % (Auto) Lymph % (Auto) [place] % (Auto) Eos % (Auto) Baso % (Auto) Lymph # (Auto) [place] # (Auto) Eos # (Auto) Baso # (Auto) Abs Immat Gran (auto) Absolute Neuts (auto) Absolute Nucleated RBC Nucleated RBC % (auto) Neutrophils % (Manual) Band Neutrophils % Lymphocytes % (Manual) Monocytes % (Manual) Eosinophils % (Manual) Abs Neuts (Manual) Lymphocytes # (Manual) Monocytes # (Manual) Eosinophils # (Manual) Platelet Estimate Large Platelets Plt Morphology Comment RBC Morphology Ze Cells Acanthocytes (Spur) Schistocytes Hold Purple Top SEE NOTE Anion Gap 10 L Estim Creat Clear Calc 119.5 Estimated GFR > 60 POC Glucose Random Glucose 128 H Calcium 8.8 D Total Bilirubin AST ALT Alkaline Phosphatase Total Creatine Kinase 92 Total Protein Albumin Urine Color Dark Yellow Urine Appearance Clear Urine pH 7.0 Ur Specific [place] >= 1.030 H Urine Protein Trace Urine Glucose (UA) Negative Urine Ketones Trace Urine Blood Negative Urine Nitrite Negative Ur Leukocyte Esterase Trace H Urine RBC 0-2 Urine WBC 0-5 Ur Squamous Epith Cells 0-2 Urine Bacteria None Seen Hyaline Casts 0-2 Stl C. cayetanensis PCR Stool Rotavirus A PCR Stl Adenov F 40 PCR Stool Astrovirus (PCR) Stool Campylobacter PCR Stool Cryptosporidium PCR Stl Sh Tox Pr E STEC PCR Stool E coli O157 PCR Stl Enterotoxigenic E PCR Stool EPEC (PCR) Stool EAEC (PCR) Stl E. histolytica PCR Stool Giardia Lamblia PCR Stl P. shigelloides PCR Stool Salmonella PCR Stool Sapovirus (PCR) Stl Shigella/EIEC PCR St Y.enterocolitica PCR Stool Vibrio (PCR) Stl Vibrio cholerae PCR Stl Norovirus GI/GII PCR Random Vancomycin 07/24/25 07/25/25 07/25/25 21:06 03:37 05:51 MCV 99.2 H MCH 33.0 MCHC 33.2 RDW 19.3 H Plt Count 58 L MPV 11.6 Immature Gran % (Auto) Cancelled Neut % (Auto) Cancelled Lymph % (Auto) Cancelled [place] % (Auto) Cancelled Eos % (Auto) Cancelled Baso % (Auto) Cancelled Lymph # (Auto) Cancelled [place] # (Auto) Cancelled Eos # (Auto) Cancelled Baso # (Auto) Cancelled Abs Immat Gran (auto) Cancelled Absolute Neuts (auto) Cancelled Absolute Nucleated RBC 0.000 Nucleated RBC % (auto) 0.0 Neutrophils % (Manual) 74 H Band Neutrophils % 0 L Lymphocytes % (Manual) 23 Monocytes % (Manual) 2 Eosinophils % (Manual) 1 Abs Neuts (Manual) 4.5 Lymphocytes # (Manual) 1.4 Monocytes # (Manual) 0.1 Eosinophils # (Manual) 0.1 Platelet Estimate DECREASED Large Platelets PRESENT Plt Morphology Comment NOTED RBC Morphology NORMAL Ze Cells 3+ (>5) Acanthocytes (Spur) 3+ (>5) Schistocytes 1+ (0-2) Hold Purple Top Anion Gap 12 Estim Creat Clear Calc 138.8 Estimated GFR > 60 POC Glucose 81 Random Glucose 104 Calcium 8.4 Total Bilirubin 8.0 H AST 57 H ALT 24 Alkaline Phosphatase 105 Total Creatine Kinase Total Protein 4.9 L Albumin 3.1 L Urine Color Urine Appearance Urine pH Ur Specific [place] Urine Protein Urine Glucose (UA) Urine Ketones Urine Blood Urine Nitrite Ur Leukocyte Esterase Urine RBC Urine WBC Ur Squamous Epith Cells Urine Bacteria Hyaline Casts Stl C. cayetanensis PCR Not Detected Stool Rotavirus A PCR Not Detected Stl Adenov F 40/41 PCR Not Detected Stool Astrovirus (PCR) Not Detected Stool Campylobacter PCR Not Detected Stool Cryptosporidium PCR Not Detected Stl Sh Tox Pr E STEC PCR Not Detected Stool E coli O157 PCR Not applicable Stl Enterotoxigenic E PCR Not Detected Stool EPEC (PCR) Detected A Stool EAEC (PCR) Not Detected Stl E. histolytica PCR Not Detected Stool Giardia [place]lia PCR Not Detected Stl P. shigelloides PCR Not Detected Stool Salmonella PCR Not Detected Stool Sapovirus (PCR) Not Detected Stl Shigella/EIEC PCR Not Detected St Y.enterocolitica PCR Not Detected Stool Vibrio (PCR) Not Detected Stl Vibrio cholerae PCR Not Detected Stl Norovirus GI/GII PCR Not Detected Random Vancomycin 8.1 L Microbiology Microbiology Results: Microbiology 07/23/25 13:40 Gram Stain - Final Ascites Fluid Anaerobic Culture - Preliminary No growth to date. Body Fluid Culture - Final No growth after 2 days 07/23/25 13:09 Blood Culture - Preliminary Blood - Venous No growth after 24 hours. 07/23/25 13:09 Blood Culture - Preliminary Blood - Venous No growth after 24 hours. Assessment and Plan (1) Liver cirrhosis: Status: Acute (2) Elevated bilirubin: Status: Acute (3) Thickened small bowel: Status: Acute (4) Acute diarrhea: Status: Acute (5) Acute hypokalemia: Status: Acute (6) Acidosis, lactic: Status: Acute (7) Anemia in chronic illness: Status: Chronic (8) Sepsis: Status: Acute (9) SIRS (systemic inflammatory response syndrome): Status: Acute (10) Pyrexia of unknown origin: Status: Acute (11) Early satiety: Status: Acute (12) Loss of appetite: Status: Acute (13) Fatigue: Status: Acute Plan 50 year old male, with a background history of Hepatic cirrhosis, ETOH abuse now abstinent, presents with night sweats for 2 weeks with difficulty breathing, shaking, palpitations, lethargy, leg and back soreness, weakness, loss of appetite, and upper abdominal pain, admitted with fever of unknown origin & sepsis. Pyrexia Unknown Origin Sepsis Night Sweats Hypothermia Patient presents with clinical signs and symptoms consistent with sepsis including night sweats for 2 weeks, difficulty breathing described as panting with inability to catch breath, elevated pulse, lethargy, weakness, and soreness in legs and back. Laboratory findings support sepsis with elevated lactic acid initially at 8.7 mmol/L (improved to 3.5 after fluid resuscitation), white blood cell count of 9.1 with 84% neutrophilic shifts, and thrombocytopenia with platelets at 72 (decreased from baseline of 100). Patient has received initial treatment with cefepime and vancomycin in the emergency department along with fluid resuscitation. Source of infection remains unclear requiring further investigation. CT maxillary -ve for abscess CT abdomen and pelvis revealing modearte ascites and segmental small bowel mural thickening. CT-A Abdo/pelvis negative for ischemic bowel - pancreatic gas identified at tail & head. - Surgical service was consulted for their impression regarding pancreatic gas pattern. - LDH elevated, haptoglobin elevated. Consulted Hematology Oncology for further recommendations and further impression - input greatly appreciated. Heme/Onc reports no suspicion for acute hematological malignancy at this time. - infectious diseases service consulted-recommendations appreciated PLAN - continue vancomycin - continue Zosyn - Check hepatitis A, B, C, and HIV - testing with XIN, ANCA - Consult infectious diseases; recommendations - Hematology oncology consulted; no evidence of acute hematological malignancy at this time - General surgery consult; gas at the pancreatic tail and head identified - Remains on Josep Hugger Elevated Lactic Acid Assessment: Initial lactic acid was significantly elevated at 8.7 mmol/L, which improved to 3.5 after one liter of normal saline administration, suggesting response to fluid resuscitation in the setting of sepsis. Chronically elevated around 3.5mmol/L. PLAN: - Monitor levels - Continue IV fluids Early Satiety Weight loss Post Prandial abdominal pain Assessment: Patient reports recent loss of appetite with early satiety, eating only 4-5 bites before feeling full or losing hunger, which may be related to underlying septic process. PLAN: - Monitor intake - Evaluate for underlying causes - Gastroenterology consultation - CT-AP Hepatic cirrhosis Alcoholic hepatitis Hyperbilirubinemia Transaminitis Thrombocytopenia Nonspecific complaints, which includes night sweats Further evaluation for infective etiology, intra-abdominal infection. CT abdomen and pelvis unremarkable for intraabdominal pathology Gastroenterology to be consulted Monitoring LFTs, bilirubin and INR Chronic anemia Patient suffers with chronic anemia, seen Gastroenterology in December 2024 for similar issue. We will continue to monitor closely. Seems microcytic hypochromic, potentially consistent with iron-deficiency anemia versus other etiology such as ETOH abuse. Further characterization of anemia with B12, folic acid, iron levels. Smoking History Assessment: Patient is an active smoker with associated productive cough with phlegm. 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 Dental infections can be a potential source of sepsis requiring evaluation. CT maxilla negative for abscess QUALITY [employer] - VTE: SCDs - CODE STATUS: Full code - DIET: Regular Total time managing care of this patient today: 45 minutes. Quality Stroke Does the patient have a stroke diagnosis?: No VTE Prior VTE?: No VTE Risk Level:: Medical - moderate - high VTE Device Contraindication: N/A - Device Ordered VTE Drug Contraindication: Treatment Not Indicated
--- NOTE | 2025-07-25 14:11 | P.CONGS_ITS ---
History of Present Illness Consult details Consult date: 07/25/25 Reason for consult: abdominal pain Requesting physician: Glenn Hall Narrative: Asked to see patient for abnormal CT just completed, ?SBO. Male patient with ETOH abuse, hepatic cirrhosis, ascites presenting with, night sweats, and increased upper abdominal pain. Patient also was experiencing lethargy and soreness in the legs and back. He denies any nausea, vomiting, but does have diarrhea and abdominal distention. He denies a history of previous abdominal surgeries. Admitting laboratories revealed normal WBC, hypokalemia, elevated direct and total bilirubin, and the initial lactate of 8.7. Initial CT abdomen and pelvis revealed moderate ascites, segmental small bowel mural thickening, sequelae of hyponatremia suspected, cirrhosis, trace left pleural effusion, cachexia. Subsequent CT angio of the abdomen and pelvis revealed multiple loops of dilated bowel with mural thickening, diameter 3.1 cm hyponatremia small-bowel sequelae with adynamic ileus versus small-bowel obstruction, small to moderate amount of ascites, cirrhosis, small left pleural effusion, cachexia, and anasarca. The patient currently reports mild abdominal pain but denies any nausea, vomiting or anorexia. He is asking for food today. Review of Systems 2 Review of Systems: Yes all other systems are reviewed and are negative PMFSH Past Medical History Medical History Liver cirrhosis Anemia Alcohol use disorder No pertinent past medical history Family History Family history: reviewed and not pertinent Surgical History Surgical History History of ankle surgery Social History Social History Household Members: Significant Other Housing: Apartment Are you a primary women's health care nurse practitioner to a significant other at home: No Do you presently have visiting nurse or other home services: No Alcohol intake: current Alcohol intake frequency: 0-2 drinks per day Alcohol type: beer Patient Tobacco Use Status: Current everyday Tobacco user Tobacco use type: Cigarette Cigarette Packs Per Day: 6 Years Smoked: 20 Smoked in Last 30 Days: Yes e-Cigarette/Vaping Use: Currently Using Patient Interested in Nicotine Replacement: Yes Patient Given Instructions on How to Stop Smoking: Yes Date Education Initiated: 07/23/25 Second Hand Smoke Exposure: No Use of substances other than those prescribed or required for medical reasons: Yes Substance Use Type: Marijuana Substance Use Frequency: Daily Currently Displaying Signs/Symptoms of Drug Intoxication Withdrawal: No Have you been hit, kicked, punched, or otherwise hurt by someone within the past year? If so, by whom?: No Do you feel safe in your current relationship?: Yes Is there a partner from a previous relationship who is making you feel unsafe now?: No Are you made to feel afraid or neglected: No Advance Directives: No Advance Directives Information Provided: No Do you have a plan to hurt others: No Plan Recently lost weight without trying: No Nutrition Risks: No Nutritional Risk Poor oral hygiene: No service: No Meds Allergies Allergy/AdvReac Type Severity Reaction Status Date / Time No Known Allergies Allergy Verified 07/23/25 12:19 Active Medications: Current Medications Acetaminophen (Acetaminophen 325 Mg Tablet) 650 mg PO Q6H PRN PRN Reason: Pain, Mild 1-3,fever,headache Ascorbic Acid (Ascorbic Acid 500 Mg Tablet) 500 mg PO DAILY [facility] Last Admin: 07/25/25 09:41 Dose: Not Given Calcium Carbonate (Calcium Carbonate 750 Mg Tab.Chew) 750 mg PO Q4H PRN PRN Reason: Heartburn Last Admin: 07/25/25 00:09 Dose: 750 mg Dextrose/Lactated Ringer's (D5lr) 1,000 mls @ 100 mls/hr IVCONT .Q10H [facility] Last Admin: 07/25/25 12:48 Dose: 100 mls/hr Magnesium Hydroxide (Milk Of Magnesia 30 Ml Oral.Susp) 30 ml PO DAILY PRN PRN Reason: Constipation Magnesium Oxide (Magnesium Oxide 400 Mg Tablet) 400 mg PO DAILY [facility] Last Admin: 07/25/25 09:41 Dose: Not Given Melatonin (Melatonin 3 Mg Tablet) 6 mg PO BEDTIME PRN PRN Reason: Insomnia Multivitamins/Vitamin C (Multivitamin Tablet) 1 tab PO DAILY [facility] Last Admin: 07/25/25 09:41 Dose: Not Given Sodium Chloride (0.9 % Sodium Chloride Flush 3 Ml Syringe) 3 ml IVFLUSH QSHIFT [facility] Last Admin: 07/25/25 08:12 Dose: 3 ml Thiamine HCl (Thiamine Hcl 100 Mg Tablet) 100 mg PO DAILY [facility] Last Admin: 07/25/25 09:42 Dose: Not Given Vitamin D (Cholecalciferol (Vitamin D3) 25 Mcg Tablet) 50 mcg PO DAILY [facility] Last Admin: 07/25/25 09:41 Dose: Not Given Home Medications ?Medication ?Instructions ?Recorded ?Confirmed ?Last Taken ?Type multivitamin 1 tab PO DAILY 03/20/25/12/2207/22/25 History ascorbic acid (vitamin C) 500 mg 500 mg PO DAILY 07/2307/23/25 07/22/25 History tablet (Vitamin C) omeprazole 20 mg capsule,delayed 20 mg PO DAILY@0630 1 09/22/24 07/23/25 07/22/25 History release Physical Exam 2 Vital Signs: Vital Signs: Last Vital Signs Temp 98.4 F 07/25/25 11: Pulse 113 H 07/25/25 11:25 Resp 16 07/25/25 11:25 BP 103/67 07/25/25 11:25 Pulse Ox 96 07/25/25 11:25 O2 Del Method Room Air 07/25/25 11:25 BMI result Body Mass Index 20.0 Const: General: cooperative and no acute distress Nutritional Appearance: w ell nourished Orientation/consciousness: patient oriented x3 Limitations: no limitations HEENT: Head: Yes normocephalic and Yes atraumatic Ears: hearing grossly normal bilaterally Resp: Effort & Inspection: normal respiratory effort, no audible wheezes, no cough and no respiratory distress Cardio: Jugular venous distension: no JVD GI: Other: soft, distended, fluid shift, minimal tenderness to deep palpation without rebound, guarding or rigidity. Inspection: Yes normal to inspection Skin: Other: Warm, dry, no rash , Pale, jaundice Neuro: General: patient oriented x3 Extrem: General: Yes no clubbing, cyanosis or edema Results Labs 07/25/25 05:51 07/25/25 05:51 Labs: Abnormal lab results 07/24/25 07/25/25 Range/Units 21:06 05:51 RBC 2.61 L (4.60-5.80) X10*6/uL Hgb 8.6 L (14.0-18.0) g/dl Hct 25.9 L (42.0-52.0) % MCV 99.2 H (80.0-98.0) fL RDW 19.3 H (11.0-16.0) % Plt Count 58 L (160-400) X10*3/uL Neutrophils % (Manual) 74 H (45-73) % Band Neutrophils % 0 L (3-5) % Potassium 2.9 L* (3.3-5.1) mmol/L BUN 4 L (9-16) mg/dL Total Bilirubin 8.0 H (0.0-1.0) mg/dL AST 57 H (5-37) U/L Total Protein 4.9 L (6.5-8.0) g/dL Albumin 3.1 L (3.5-5.0) g/dL Stool EPEC (PCR) Detected A (Not Detect.) Random Vancomycin 8.1 L (15-20) mcg/mL Short CBC 07/25/25 Range/Units 05:51 WBC 6.1 (4.8-10.8) X10*3/uL Hgb 8.6 L (14.0-18.0) g/dl Hct 25.9 L (42.0-52.0) % Plt Count 58 L (160-400) X10*3/uL BMP 07/25/25 05:51 Sodium 139 Potassium 2.9 L* Chloride 106 Carbon Dioxide 24 BUN 4 L Creatinine 0.56 Calcium 8.4 Cardiac Enzymes 07/24/25 Range/Units 17:36 Total Creatine Kinase 92 (38-174) U/L Liver Function 07/25/25 Range/Units 05:51 Total Bilirubin 8.0 H (0.0-1.0) mg/dL AST 57 H (5-37) U/L ALT 24 (0-40) U/L Alkaline Phosphatase 105 (39-117) U/L Albumin 3.1 L (3.5-5.0) g/dL Urine 07/24/25 Range/Units 13:17 Urine Color Dark Yellow Urine Appearance Clear Urine pH 7.0 (5.0-9.0) Ur Specific [place] >= 1.030 H (1.005-1.025) Urine Protein Trace (Neg-Trace) mg/dL Urine Glucose (UA) Negative (Negative) mg/dL All other labs normal. Assessment and Plan (1) Acute hypokalemia: Status: Acute (2) Thickened small bowel: Status: Acute (3) Liver cirrhosis: Qualifiers: Hepatic cirrhosis type: alcoholic cirrhosis Ascites presence: without ascites Qualified Code(s): K70.30 - Alcoholic cirrhosis of liver without ascites Status: Acute (4) Adynamic ileus: Status: Acute Plan 50-year-old male with known history of alcohol-related cirrhosis, ascites presenting with abdominal pain, fever, chills, lethargy, and diarrhea. Workup revealed hypokalemia, elevated lactate , elevated bilirubin, but normal WBC. CT abdomen and pelvis revealed thickened loops of small bowel but no evidence of obstruction. Findings are suggestive of ileus due to hypokalemia. On examination the patient's abdomen is distended from ascites but no peritoneal signs are noted. No surgical intervention is recommended at this time. He may eat from my standpoint. Procedures Date of Service Date of Service: 07/25/25
[2025-07-25 15:04] LABS: Anion Gap 8 (12-20); Blood Urea Nitrogen 4 mg/dL (9-16); Calcium 8.5 mg/dL (8.4-10.2); Carbon Dioxide 27 mmol/L (22-29); Chloride 108 mmol/L (96-108); Creatinine Clr Calc Pharmacy 134.0; Estimated Glomerular Filt Rate > 60; Potassium 3.4 mmol/L (3.3-5.1); Sodium 140 mmol/L (135-145)
[2025-07-25 15:29] LABS: Erythrocyte Sedimentation Rate 3 MM/HR (0-15)
[2025-07-25 20:24] LABS: A. Phagocytphilium DNA,RT-PCR NOT DETECTED (NOT DETECTED); Babesia Microti DNA, RT-PCR NOT DETECTED (NOT DETECTED); Borrelia Miyamotoi,DNA RT-PCR NOT DETECTED (NOT DETECTED); E.Chaffeensis DNA RT-PCR NOT DETECTED (NOT DETECTED); Lyme(Borrelia ssp)DNA RT-PCR NOT DETECTED (NOT DETECTED)
--- NOTE | 2025-07-25 23:54 | PM.IDPN ---
Subjective Subjective Date of Service: 07/25/25 Critical Care Time (minutes): 15 Comment: He has TTE reported today Dr Newell mobile mass tricuspid leaflet also posterior leaflet mitral valve there are negative blood cultures Objective Data Labs 07/25/25 05:51 07/25/25 14:36 Labs: Laboratory Results - last 24 hr 07/24/25 07/24/25 07/25/25 17:36 21:06 03:37 WBC RBC Hgb Hct MCV MCH MCHC RDW Plt Count MPV Immature Gran % (Auto) Neut % (Auto) Lymph % (Auto) [place] % (Auto) Eos % (Auto) Baso % (Auto) Lymph # (Auto) [place] # (Auto) Eos # (Auto) Baso # (Auto) Abs Immat Gran (auto) Absolute Neuts (auto) Absolute Nucleated RBC Nucleated RBC % (auto) Neutrophils % (Manual) Band Neutrophils % Lymphocytes % (Manual) Monocytes % (Manual) Eosinophils % (Manual) Abs Neuts (Manual) Lymphocytes # (Manual) Monocytes # (Manual) Eosinophils # (Manual) Platelet Estimate Large Platelets Plt Morphology Comment RBC Morphology [place] Cells Acanthocytes (Spur) Schistocytes ESR Sodium Potassium Chloride Carbon Dioxide Anion Gap BUN Creatinine Estim Creat Clear Calc Estimated GFR POC Glucose 81 Random Glucose Calcium Total Bilirubin AST ALT Alkaline Phosphatase C-Reactive Protein Total Protein Albumin Stl C. cayetanensis PCR Not Detected Stool Rotavirus A PCR Not Detected Stl Adenov F 40/41 PCR Not Detected Stool Astrovirus (PCR) Not Detected Stool Campylobacter PCR Not Detected Stool Cryptosporidium PCR Not Detected Stl Sh Tox Pr E STEC PCR Not Detected Stool E coli O157 PCR Not applicable Stl Enterotoxigenic E PCR Not Detected Stool EPEC (PCR) Detected A Stool EAEC (PCR) Not Detected Stl E. histolytica PCR Not Detected Stool Giardia Lamblia PCR Not Detected Stl P. shigelloides PCR Not Detected Stool Salmonella PCR Not Detected Stool Sapovirus (PCR) Not Detected Stl Shigella/EIEC PCR Not Detected St Y.enterocolitica PCR Not Detected Stool Vibrio (PCR) Not Detected Stl Vibrio cholerae PCR Not Detected Stl Norovirus GI/GII PCR Not Detected Random Vancomycin A.phagocytophil DNA PCR NOT DETECTED Babesia microti DNA PCR NOT DETECTED Borrelia sp DNA (PCR) NOT DETECTED Borrelia miyamotoi (PCR) NOT DETECTED E.chaffeensis DNA (PCR) NOT DETECTED Tick-borne Disease PCR SEE NOTE 07/25/25 07/25/25 05:51 14:36 WBC 6.1 RBC 2.61 L Hgb 8.6 L Hct 25.9 L MCV 99.2 H MCH 33.0 MCHC 33.2 RDW 19.3 H Plt Count 58 L MPV 11.6 Immature Gran % (Auto) Cancelled Neut % (Auto) Cancelled Lymph % (Auto) Cancelled [place] % (Auto) Cancelled Eos % (Auto) Cancelled Baso % (Auto) Cancelled Lymph # (Auto) Cancelled [place] # (Auto) Cancelled Eos # (Auto) Cancelled Baso # (Auto) Cancelled Abs Immat Gran (auto) Cancelled Absolute Neuts (auto) Cancelled Absolute Nucleated RBC 0.000 Nucleated RBC % (auto) 0.0 Neutrophils % (Manual) 74 H Band Neutrophils % 0 L Lymphocytes % (Manual) 23 Monocytes % (Manual) 2 Eosinophils % (Manual) 1 Abs Neuts (Manual) 4.5 Lymphocytes # (Manual) 1.4 Monocytes # (Manual) 0.1 Eosinophils # (Manual) 0.1 Platelet Estimate DECREASED Large Platelets PRESENT Plt Morphology Comment NOTED RBC Morphology NORMAL Ze Cells 3+ (>5) Acanthocytes (Spur) 3+ (>5) Schistocytes 1+ (0-2) ESR 3 Sodium 139 140 Potassium 2.9 L* 3.4 Chloride 106 108 Carbon Dioxide 24 27 Anion Gap 12 8 L BUN 4 L 4 L Creatinine 0.56 0.58 Estim Creat Clear Calc 138.8 134.0 Estimated GFR > 60 > 60 POC Glucose Random Glucose 104 104 Calcium 8.4 8.5 Total Bilirubin 8.0 H AST 57 H ALT 24 Alkaline Phosphatase 105 C-Reactive Protein 1.37 H Total Protein 4.9 L Albumin 3.1 L Stl C. cayetanensis PCR Stool Rotavirus A PCR Stl Adenov F 40/41 PCR Stool Astrovirus (PCR) Stool Campylobacter PCR Stool Cryptosporidium PCR Stl Sh Tox Pr E STEC PCR Stool E coli O157 PCR Stl Enterotoxigenic E PCR Stool EPEC (PCR) Stool EAEC (PCR) Stl E. histolytica PCR Stool Giardia Lamblia PCR Stl P. shigelloides PCR Stool Salmonella PCR Stool Sapovirus (PCR) Stl Shigella/EIEC PCR St Y.enterocolitica PCR Stool Vibrio (PCR) Stl Vibrio cholerae PCR Stl Norovirus GI/GII PCR Random Vancomycin 8.1 L A.phagocytophil DNA PCR Babesia microti DNA PCR Borrelia sp DNA (PCR) Borrelia miyamotoi (PCR) E.chaffeensis DNA (PCR) Tick-borne Disease PCR Microbiology Microbiology Results: Microbiology 07/23/25 13:09 Blood - Venous Blood Culture - Preliminary No growth after 48 hours. 07/23/25 13:09 Blood - Venous Blood Culture - Preliminary No growth after 48 hours. 07/23/25 13:40 Ascites Fluid Gram Stain - Final 07/23/25 13:40 Ascites Fluid Anaerobic Culture - Preliminary No growth to date. 07/23/25 13:40 Ascites Fluid Body Fluid Culture - Final No growth after 2 days Physical Exam Vital Signs: Vital Signs: Last Vital Signs Temp 99.1 F 07/25/25 23:12 Pulse 107 H 07/25/25 23:12 Resp 20 07/25/25 23:12 BP 128/68 07/25/25 23:12 Pulse Ox 95 07/25/25 23:12 O2 Del Method Room Air 07/25/25 23:12 BMI result Body Mass Index 20.0 Const: General: cooperative Eyes: General: appearance normal, both eyes and all related structures Resp: Effort & Inspection: able to speak in complete sentences Cardio: Jugular venous distension: JVD Rhythm: regular rhythm GI: Inspection: Yes normal to inspection Skin: General skin exam: no rashes or lesions noted Assessment and Plan Assessment and plan (1) 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 Rheumatic fever and HACEK organisms possible So is bartonella Also possible atrial myxoma,lymphoma,sarcoidosis,hemachromatosis,carcinoid Valve eval should be done For now Vancomycin 1 g every 12 hours and Ceftriaxone 2 g daily MARIA FERNANDA Check ASO and bartonella tests Status: Acute (2) Acute diarrhea: Status: Acute Time Spent With Patient Time: Total time managing care of this patient today ____ minutes.
[2025-07-26 03:03] VITALS: BP 129/75; PULSE 95; RESP 18; TEMP 36.3; O2SAT 92
[2025-07-26 07:20] LABS: MANUAL DIFF FLAG NO
[2025-07-26 07:28] LABS: Hematocrit 26.6 % (42.0-52.0); Hemoglobin 8.3 g/dl (14.0-18.0); Imm Gran Abs Auto 0.02 X10*3/uL (0.00-0.03); Imm Gran Pct Auto 0.4 % (0.0-0.4); Lymphocytes Absolute Auto 1.1 X10*3/uL (1.2-4.9); Mean Corpuscular HGB Conc 31.2 g/dl (31.0-36.0); Mean Corpuscular Hemoglobin 32.0 pg (27.0-33.0); Mean Corpuscular Volume 102.7 fL (80.0-98.0); NRBC Abs Auto 0.000 X10*3/uL (0.0-0.012); NRBC Pct Auto 0.0 /100WBC (0.0-0.2); Red Blood Count 2.59 X10*6/uL (4.60-5.80); White Blood Count 5.1 X10*3/uL (4.8-10.8)
[2025-07-26 07:29] LABS: Platelet Count 65 X10*3/uL (160-400)
[2025-07-26 07:32] LABS: INTERNATIONAL NORM RATIO 1.4 (0.9-1.1); Prothrombin Time 17.2 SEC (11.2-13.5)
[2025-07-26 07:39] LABS: Lipase 41 U/L (8-78)
[2025-07-26 07:42] LABS: Alanine Aminotransferase 26 U/L (0-40); Albumin Level 3.0 g/dL (3.5-5.0); Alkaline Phosphatase 111 U/L (39-117); Anion Gap 11 (12-20); Aspartate Amino Transferase 62 U/L (5-37); Blood Urea Nitrogen 3 mg/dL (9-16); Calcium 8.2 mg/dL (8.4-10.2); Carbon Dioxide 23 mmol/L (22-29); Chloride 108 mmol/L (96-108); Creatinine Clr Calc Pharmacy 136.3; Estimated Glomerular Filt Rate > 60; Potassium 3.2 mmol/L (3.3-5.1); Sodium 139 mmol/L (135-145); Total Protein 4.8 g/dL (6.5-8.0)
[2025-07-26 07:59] LABS: Syphilis Screen Nonreactive (Nonreactive)
[2025-07-26 08:00] VITALS: BP 118/73; PULSE 94; RESP 20; TEMP 36.3; O2SAT 96
--- NOTE | 2025-07-26 09:18 | PHA.PROG ---
Admission Date/Time: July 23, 2025 17:08 Indication: ENDO Serum Creatinine - Last 168 Hours 07/23/25 07/24/25 07/24/25 13:09 05:58 13:06 Creatinine 0.69 0.55 0.65 07/25/25 07/25/25 07/26/25 05:51 14:36 07:12 Creatinine 0.56 0.58 0.57 Estimated CrCl and GFR - Last 168 Hours 07/23/25 07/24/25 07/24/25 13:09 05:58 13:06 Estim Creat Clear Calc 112.6 141.3 119.5 Estimated GFR > 60 > 60 > 60 07/25/25 07/25/25 07/26/25 05:51 14:36 07:12 Estim Creat Clear Calc 138.8 134.0 136.3 Estimated GFR > 60 > 60 > 60 Vancomycin Loading Dose: 1500 Current Vancomycin Dosing Regimen: 750 Q 8H Vancomycin Monitoring using AUC goal of 400 - 600 range with trough as surrogate marker: 451 Date and Time for next Vancomycin Level to be drawn: 07/27 @ 0800 Pharmacist Comments on Vancomycin Plan: Vancomycin dosing will take advantage of [employer] as a clinical decision support tool that uses Bayesian modeling to calculate individual patient's pharmacokinetic parameters and forecast the patient's drug concentration time course with the target goal AUC 24 range of 400 - 600 mg/L/hr.
[2025-07-26] MEDS: Dextrose 5 % and Lactated Ring 1,000 ML 100 ML IVCONT ×2 (09:22→21:08)
[2025-07-26] MEDS: iohexoL 350 MG/ML 100 ML INFUS..BTL IV (10:56)
--- NOTE | 2025-07-26 11:17 | P.CONCA_ITS ---
History of Present Illness History of Present Illness Date of Service: 07/26/25 Requesting physician: Glenn Hall Chief complaint: ?endocarditis Narrative: [age] year gentleman presenting with night sweats, anorexia and weight loss. He has background history of alcoholism and cirrhosis of liver. He was drinking heavily till December when he quit and had a relapse in March but since then he has not been drinking alcohol. He has tried noticing night sweats which were drenching and he had to changes clots and this started over the last few weeks. At the same time he started noticing change in his appetite that he is not hungry and he has lost weight since then. He does not have any history of IV drug use. He was using cocaine in his 20s and has been smoking marijuana more recently. He has poor dentition. He had blood cultures drawn which has been negative. Echocardiography was done yesterday which showed vegetation on the tricuspid valve and also a mobile density over the posterior leaflet of the mitral valve towards the atrial side. He also has a mass in the right atrium which appears to be either thrombus versus vegetation. He is getting extensive workup currently given concerning symptoms suggestive of malignancy. He had CT scan previously which showed gas in the pancreas and he has been followed by surgery for that. [facility] Past Medical History Medical History Liver cirrhosis Anemia Alcohol use disorder No pertinent past medical history Family History Family history: reviewed and not pertinent Surgical History Surgical History History of ankle surgery Social History Social History Household Members: Significant Other Housing: Apartment Are you a primary home visit field care manager to a significant other at home: No Do you presently have visiting nurse or other home services: No Alcohol intake: current Alcohol intake frequency: 0-2 drinks per day Alcohol type: beer Patient Tobacco Use Status: Current everyday Tobacco user Tobacco use type: Cigarette Cigarette Packs Per Day: 6 Years Smoked: 20 Smoked in Last 30 Days: Yes e-Cigarette/Vaping Use: Currently Using Patient Interested in Nicotine Replacement: Yes Patient Given Instructions on How to Stop Smoking: Yes Date Education Initiated: 07/23/25 Second Hand Smoke Exposure: No Use of substances other than those prescribed or required for medical reasons: Yes Substance Use Type: Marijuana Substance Use Frequency: Daily Currently Displaying Signs/Symptoms of Drug Intoxication Withdrawal: No Have you been hit, kicked, punched, or otherwise hurt by someone within the past year? If so, by whom?: No Do you feel safe in your current relationship?: Yes Is there a partner from a previous relationship who is making you feel unsafe now?: No Are you made to feel afraid or neglected: No Advance Directives: No Advance Directives Information Provided: No Do you have a plan to hurt others: No Plan Recently lost weight without trying: No Nutrition Risks: No Nutritional Risk Poor oral hygiene: No service: No Meds Allergies Allergy/AdvReac Type Severity Reaction Status Date / Time No Known Allergies Allergy Verified 07/23/25 12:19 Active Medications: Current Medications Acetaminophen (Acetaminophen 325 Mg Tablet) 650 mg PO Q6H PRN PRN Reason: Pain, Mild 1-3,fever,headache Last Admin: 07/26/25 06:45 Dose: 650 mg Ascorbic Acid (Ascorbic Acid 500 Mg Tablet) 500 mg PO DAILY [facility] Last Admin: 07/26/25 09:08 Dose: 500 mg Calcium Carbonate (Calcium Carbonate 750 Mg Tab.Chew) 750 mg PO Q4H PRN PRN Reason: Heartburn Last Admin: 07/25/25 23:52 Dose: 750 mg Dextrose/Lactated Ringer's (D5lr) 1,000 mls @ 100 mls/hr IVCONT .Q10H [facility] Last Infusion: 07/26/25 10:41 Dose: 0 mls/hr Ceftriaxone Sodium 2 gm/ (Sodium Chloride) 50 mls @ 100 mls/hr IV BEDTIME [facility] Last Infusion: 07/26/25 01:19 Dose: Infused Vancomycin HCl 750 mg/ Sodium (Chloride) 265 mls @ 265 mls/hr IV Q8H [facility] Last Admin: 07/26/25 10:56 Dose: 265 mls/hr Magnesium Hydroxide (Milk Of Magnesia 30 Ml Oral.Susp) 30 ml PO DAILY PRN PRN Reason: Constipation Magnesium Oxide (Magnesium Oxide 400 Mg Tablet) 400 mg PO DAILY [facility] Last Admin: 07/26/25 09:08 Dose: 400 mg Melatonin (Melatonin 3 Mg Tablet) 6 mg PO BEDTIME PRN PRN Reason: Insomnia Last Admin: 07/25/25 23:08 Dose: 6 mg Multivitamins/Vitamin C (Multivitamin Tablet) 1 tab PO DAILY [facility] Last Admin: 07/26/25 09:08 Dose: 1 tab Pantoprazole Sodium (Pantoprazole Sodium 40 Mg/10 Ml Vial) 40 mg IVPUSH DAILY [facility] Pharmacy Consult (Consult Rx Vancomycin Dosing) 1 each MISCELLANE DAILY PRN PRN Reason: Consult order Sodium Chloride (0.9 % Sodium Chloride Flush 3 Ml Syringe) 3 ml IVFLUSH QSHIFT [facility] Last Admin: 07/26/25 09:09 Dose: Not Given Thiamine HCl (Thiamine Hcl 100 Mg Tablet) 100 mg PO DAILY [facility] Last Admin: 07/26/25 09:08 Dose: 100 mg Vitamin D (Cholecalciferol (Vitamin D3) 25 Mcg Tablet) 50 mcg PO DAILY [facility] Last Admin: 07/26/25 09:08 Dose: 50 mcg Home Medications ?Medication ?Instructions ?Recorded ?Confirmed ?Last Taken ?Type multivitamin 1 tab PO DAILY 03/20/2507/0107/22/25 History ascorbic acid (vitamin C) 500 mg 500 mg PO DAILY 07/2307/23/25 07/22/25 History tablet (Vitamin C) omeprazole 20 mg capsule,delayed 20 mg PO DAILY@0630 1 09/22/24 07/23/25 07/22/25 History release Physical Exam 2 Vital Signs: Vital Signs: Last Vital Signs Temp 97.4 F 07/26/25 08:00 Pulse 94 07/26/25 08:00 Resp 20 07/26/25 08:00 BP 118/73 07/26/25 08:00 Pulse Ox 96 07/26/25 08:00 O2 Del Method Room Air 07/26/25 08:00 BMI result Body Mass Index 20.0 GENERAL APPEARANCE: in no acute distress, ill-appearing. NECK: no carotid bruit, no jugular venous distention. SKIN: no suspicious lesions, warm and dry. HEART: no murmurs, regular rate and rhythm. Bounding pulses. LUNGS: clear to auscultation bilaterally. ABDOMEN: Distended, nontender. EXTREMITIES: no edema. PERIPHERAL PULSES: equal. NEUROLOGIC: No gross deficits, AAO X 3 Objective Labs and Meds 07/26/25 07:12 07/26/25 07:12 Lab results: Laboratory Results - last 24 hr 1107/24/25 07/25/25 17:36 21:06 14:36 WBC RBC Hgb Hct MCV MCH MCHC RDW Plt Count MPV Immature Gran % (Auto) Neut % (Auto) Lymph % (Auto) [place] % (Auto) Eos % (Auto) Baso % (Auto) Lymph # (Auto) [place] # (Auto) Eos # (Auto) Baso # (Auto) Abs Immat Gran (auto) Absolute Neuts (auto) Absolute Nucleated RBC Nucleated RBC % (auto) ESR 3 PT INR Sodium 140 Potassium 3.4 Chloride 108 Carbon Dioxide 27 Anion Gap 8 L BUN 4 L Creatinine 0.58 Estim Creat Clear Calc 134.0 Estimated GFR > 60 Random Glucose 104 Haptoglobin Calcium 8.5 Total Bilirubin AST ALT Alkaline Phosphatase C-Reactive Protein 1.37 H Total Protein Albumin Lipase TSH Random Cortisol Stl C. cayetanensis PCR Not Detected Stool Rotavirus A PCR Not Detected Stl Adenov F 40/41 PCR Not Detected Stool Astrovirus (PCR) Not Detected Stool Campylobacter PCR Not Detected Stool Cryptosporidium PCR Not Detected Stl Sh Tox Pr E STEC PCR Not Detected Stool E coli O157 PCR Not applicable Stl Enterotoxigenic E PCR Not Detected Stool EPEC (PCR) Detected A Stool EAEC (PCR) Not Detected Stl E. histolytica PCR Not Detected Stool Giardia Lamblia PCR Not Detected Stl P. shigelloides PCR Not Detected Stool Salmonella PCR Not Detected Stool Sapovirus (PCR) Not Detected Stl Shigella/EIEC PCR Not Detected St Y.enterocolitica PCR Not Detected Stool Vibrio (PCR) Not Detected Stl Vibrio cholerae PCR Not Detected Stl Norovirus GI/GII PCR Not Detected T.pallidum Ab (EIA) A.phagocytophil DNA PCR NOT DETECTED Babesia microti DNA PCR NOT DETECTED Borrelia sp DNA (PCR) NOT DETECTED Borrelia miyamotoi (PCR) NOT DETECTED E.chaffeensis DNA (PCR) NOT DETECTED Tick-borne Disease PCR SEE NOTE 07/26/25 07/26/25 07:11 07:12 WBC 5.1 RBC 2.59 L Hgb 8.3 L Hct 26.6 L MCV 102.7 H MCH 32.0 MCHC 31.2 RDW 19.6 H Plt Count 65 L MPV 10.0 Immature Gran % (Auto) 0.4 Neut % (Auto) 64.0 Lymph % (Auto) 20.8 [place] % (Auto) 12.1 H Eos % (Auto) 2.1 Baso % (Auto) 0.6 Lymph # (Auto) 1.1 L [place] # (Auto) 0.6 Eos # (Auto) 0.1 Baso # (Auto) 0.0 Abs Immat Gran (auto) 0.02 Absolute Neuts (auto) 3.3 Absolute Nucleated RBC 0.000 Nucleated RBC % (auto) 0.0 ESR PT 17.2 H INR 1.4 H Sodium 139 Potassium 3.2 L Chloride 108 Carbon Dioxide 23 Anion Gap 11 L BUN 3 L Creatinine 0.57 Estim Creat Clear Calc 136.3 Estimated GFR > 60 Random Glucose 105 Haptoglobin 14 Calcium 8.2 L Total Bilirubin 7.1 H AST 62 H ALT 26 Alkaline Phosphatase 111 C-Reactive Protein Total Protein 4.8 L Albumin 3.0 L Lipase 41 TSH 1.00 Random Cortisol 7.2 Stl C. cayetanensis PCR Stool Rotavirus A PCR Stl Adenov F 40/41 PCR Stool Astrovirus (PCR) Stool Campylobacter PCR Stool Cryptosporidium PCR Stl Sh Tox Pr E STEC PCR Stool E coli O157 PCR Stl Enterotoxigenic E PCR Stool EPEC (PCR) Stool EAEC (PCR) Stl E. histolytica PCR Stool Giardia Lamblia PCR Stl P. shigelloides PCR Stool Salmonella PCR Stool Sapovirus (PCR) Stl Shigella/EIEC PCR St Y.enterocolitica PCR Stool Vibrio (PCR) Stl Vibrio cholerae PCR Stl Norovirus GI/GII PCR T.pallidum Ab (EIA) Nonreactive A.phagocytophil DNA PCR Babesia microti DNA PCR Borrelia sp DNA (PCR) Borrelia miyamotoi (PCR) E.chaffeensis DNA (PCR) Tick-borne Disease PCR Assessment and Plan (1) Liver cirrhosis: Qualifiers: Hepatic cirrhosis type: alcoholic cirrhosis Ascites presence: without ascites Qualified Code(s): K70.30 - Alcoholic cirrhosis of liver without ascites Status: Acute (2) Loss of appetite: Status: Acute (3) Night sweats: Status: Acute (4) Right atrial mass: Status: Acute Plan [age] year gentleman with multiple active issues including cirrhosis of liver, night sweats, weight loss, black stools with anemia and echocardiography evidence of mobile densities on the tricuspid and mitral valve as well as a mobile mass inside the right atrium which appears to be thrombus versus vegetation. His cultures so far has been negative. He is being worked up extensively by Infectious Disease. He has cirrhosis with black stools and has never had endoscopy previously. He may have underlying varices and currently I think it is not safe to do MARIA FERNANDA on him. Also MARIA FERNANDA may not add any further information because we already are seeing mobile densities on the valves which are suggestive of endocarditis. If in fact he has malignancy then this can be marantic endocarditis. Management for that usually is anticoagulation and given the fact that he has a right atrial while density which I think can be thrombus versus vegetation-anticoagulation is indicated but unfortunately he has black stools and anemia right now. He also has background of cirrhosis of liver due to alcoholism and it is possible that he may have underlying varices. I think the safety of anticoagulation is questionable currently. Agree with further workup for malignancy right now. Would hold off on transesophageal echocardiography for now. Agree with PPI. If hemoglobin stays stable then we can try anticoagulation if GI is agreeable. A percutaneous aspiration strategy is also possible and I will explore that with Cardiothoracic surgery at [facility]. We will follow along with you. Thank you for allowing me to participate in the care of your patient. Please feel free to contact me if you have any questions. Procedures Date of Service Date of Service: 07/26/25
[2025-07-26 11:26] VITALS: BP 108/71; PULSE 102; RESP 20; TEMP 36.6; O2SAT 96
--- NOTE | 2025-07-26 13:48 | P.PNIM_ITS ---
Subjective Subjective Date of Service: 07/26/25 Interval History: Still having night sweats. Findings from yesterday's ECHO revealing tricuspid & mitral valvular vegerations, with concerns for possible R atrial thrombus. No definitive condition unifying patient's complaints and issues has been diagnosed yet. Review of Systems Review of Systems: Yes all other systems are reviewed and are negative Physical Exam 2 Exam: Exam: General: A&O x3, oriented to time place person and situation, fatigued, diaphoretic, sallow skin HEENT: Scleral icterus Cardiac: S1, S2 auscultated with no S3/4, no MRG. Well perfused. Respiratory: Normal breath sounds auscultated throughout all lung zones, without wheezing, rales. Normal rate. GI/ : No abdominal pain on palpation, no masses or distentions. MSK: Normal ambulation without pain at bony prominences or musculature Neurological: Normal neurological examination on overview, without obvious CN II-XII abnormalities. Vital Signs: Vital Signs: Last Vital Signs Temp 97.8 F 07/26/25 11:26 Pulse 102 H 07/26/25 11:26 Resp 20 07/26/25 11:26 BP 108/71 07/26/25 11:26 Pulse Ox 96 07/26/25 11:26 O2 Del Method Room Air 07/26/25 11:26 BMI result Body Mass Index 20.0 Objective Data Active Medications Acetaminophen (Acetaminophen 325 Mg Tablet) 650 mg PO Q6H PRN PRN Reason: Pain, Mild 1-3,fever,headache Last Admin: 07/26/25 06:45 Dose: 650 mg Documented By: LEE Ascorbic Acid (Ascorbic Acid 500 Mg Tablet) 500 mg PO DAILY [facility] Last Admin: 07/26/25 09:08 Dose: 500 mg Documented By: SHARLENE Calcium Carbonate (Calcium Carbonate 750 Mg Tab.Chew) 750 mg PO Q4H PRN PRN Reason: Heartburn Last Admin: 07/25/25 23:52 Dose: 750 mg Documented By: LEE Dextrose/Lactated Ringer's (D5lr) 1,000 mls @ 100 mls/hr IVCONT .Q10H [facility] Last Infusion: 07/26/25 10:41 Dose: 0 mls/hr Documented By: SHARLENE Ceftriaxone Sodium 2 gm/ (Sodium Chloride) 50 mls @ 100 mls/hr IV BEDTIME [facility] Last Infusion: 07/26/25 01:19 Dose: Infused Documented By: LEE Vancomycin HCl 750 mg/ Sodium (Chloride) 265 mls @ 265 mls/hr IV Q8H [facility] Last Infusion: 07/26/25 12:19 Dose: Infused Documented By: SHARLENE Magnesium Hydroxide (Milk Of Magnesia 30 Ml Oral.Susp) 30 ml PO DAILY PRN PRN Reason: Constipation Magnesium Oxide (Magnesium Oxide 400 Mg Tablet) 400 mg PO DAILY [facility] Last Admin: 07/26/25 09:08 Dose: 400 mg Documented By: SHARLENE Melatonin (Melatonin 3 Mg Tablet) 6 mg PO BEDTIME PRN PRN Reason: Insomnia Last Admin: 07/25/25 23:08 Dose: 6 mg Documented By: LEE Multivitamins/Vitamin C (Multivitamin Tablet) 1 tab PO DAILY [facility] Last Admin: 07/26/25 09:08 Dose: 1 tab Documented By: SHARLENE Pantoprazole Sodium (Pantoprazole Sodium 40 Mg/10 Ml Vial) 40 mg IVPUSH DAILY [facility] Last Admin: 07/26/25 12:37 Dose: 40 mg Documented By: SHARLENE Pharmacy Consult (Consult Rx Vancomycin Dosing) 1 each MISCELLANE DAILY PRN PRN Reason: Consult order Sodium Chloride (0.9 % Sodium Chloride Flush 3 Ml Syringe) 3 ml IVFLUSH QSHIFT [facility] Last Admin: 07/26/25 09:09 Dose: Not Given Documented By: SHARLENE Non-Admin Reason: IV Running Thiamine HCl (Thiamine Hcl 100 Mg Tablet) 100 mg PO DAILY [facility] Last Admin: 07/26/25 09:08 Dose: 100 mg Documented By: SHARLENE Vitamin D (Cholecalciferol (Vitamin D3) 25 Mcg Tablet) 50 mcg PO DAILY [facility] Last Admin: 07/26/25 09:08 Dose: 50 mcg Documented By: SHARLENE Labs 07/26/25 07:12 07/26/25 07:12 Labs: Laboratory Results - last 24 hr 07/24/25 07/25/25 07/26/25 17:36 14:36 07:11 MCV MCH MCHC RDW Plt Count MPV Immature Gran % (Auto) Neut % (Auto) Lymph % (Auto) [place] % (Auto) Eos % (Auto) Baso % (Auto) Lymph # (Auto) [place] # (Auto) Eos # (Auto) Baso # (Auto) Abs Immat Gran (auto) Absolute Neuts (auto) Absolute Nucleated RBC Nucleated RBC % (auto) ESR 3 PT 17.2 H INR 1.4 H Anion Gap 8 L Estim Creat Clear Calc 134.0 Estimated GFR > 60 Random Glucose 104 Haptoglobin 14 Calcium 8.5 Total Bilirubin AST ALT Alkaline Phosphatase Lactate Dehydrogenase C-Reactive Protein 1.37 H Total Protein Albumin Lipase 41 TSH 1.00 Random Cortisol 7.2 T.pallidum Ab (EIA) Nonreactive A.phagocytophil DNA PCR NOT DETECTED Babesia microti DNA PCR NOT DETECTED Borrelia sp DNA (PCR) NOT DETECTED Borrelia miyamotoi (PCR) NOT DETECTED E.chaffeensis DNA (PCR) NOT DETECTED Tick-borne Disease PCR SEE NOTE 07/26/25 07:12 MCV 102.7 H MCH 32.0 MCHC 31.2 RDW 19.6 H Plt Count 65 L MPV 10.0 Immature Gran % (Auto) 0.4 Neut % (Auto) 64.0 Lymph % (Auto) 20.8 [place] % (Auto) 12.1 H Eos % (Auto) 2.1 Baso % (Auto) 0.6 Lymph # (Auto) 1.[address] [place] # (Auto) 0.6 Eos # (Auto) 0.1 Baso # (Auto) 0.0 Abs Immat Gran (auto) 0.02 Absolute Neuts (auto) 3.3 Absolute Nucleated RBC 0.000 Nucleated RBC % (auto) 0.0 ESR PT INR Anion Gap 11 L Estim Creat Clear Calc 136.3 Estimated GFR > 60 Random Glucose 105 Haptoglobin Calcium 8.2 L Total Bilirubin 7.1 H AST 62 H ALT 26 Alkaline Phosphatase 111 Lactate Dehydrogenase 244 C-Reactive Protein Total Protein 4.8 L Albumin 3.0 L Lipase TSH Random Cortisol T.pallidum Ab (EIA) A.phagocytophil DNA PCR Babesia microti DNA PCR Borrelia sp DNA (PCR) Borrelia miyamotoi (PCR) E.chaffeensis DNA (PCR) Tick-borne Disease PCR Microbiology Microbiology Results: Microbiology 07/23/25 13:40 Gram Stain - Final Ascites Fluid Anaerobic Culture - Preliminary No growth to date. Body Fluid Culture - Final No growth after 2 days 07/23/25 13:09 Blood Culture - Preliminary Blood - Venous No growth after 48 hours. 07/23/25 13:09 Blood Culture - Preliminary Blood - Venous No growth after 48 hours. Assessment and Plan (1) Right atrial mass: Status: Acute (2) Liver cirrhosis: Status: Acute (3) Elevated bilirubin: Status: Acute (4) Pancreatic abnormality: Status: Acute (5) Thickened small bowel: Status: Acute (6) Acute diarrhea: Status: Acute (7) Adynamic ileus: Status: Acute (8) Acute hypokalemia: Status: Acute (9) Acidosis, lactic: Status: Acute (10) Anemia in chronic illness: Status: Chronic (11) SIRS (systemic inflammatory response syndrome): Status: Acute (12) Sepsis: Status: Acute (13) Pyrexia of unknown origin: Status: Acute (14) Early satiety: Status: Acute (15) Fatigue: Status: Acute (16) Night sweats: Status: Acute (17) Loss of appetite: Status: Acute (18) Valvular vegetation: Status: Acute Plan 50 year old male, with a background history of Hepatic cirrhosis, ETOH abuse now abstinent, presents with night sweats for 2 weeks with difficulty breathing, shaking, palpitations, lethargy, leg and back soreness, weakness, loss of appetite, and upper abdominal pain, admitted with fever of unknown origin & sepsis. Pyrexia Unknown Origin Sepsis Night Sweats Hypothermia Patient presents with clinical signs and symptoms consistent with sepsis including night sweats for 2 weeks, difficulty breathing described as panting with inability to catch breath, elevated pulse, lethargy, weakness, and soreness in legs and back. Laboratory findings support sepsis with elevated lactic acid initially at 8.7 mmol/L (improved to 3.5 after fluid resuscitation), white blood cell count of 9.1 with 84% neutrophilic shifts, and thrombocytopenia with platelets at 72 (decreased from baseline of 100). Patient has received initial treatment with cefepime and vancomycin in the emergency department along with fluid resuscitation. Source of infection remains unclear requiring further investigation. CT maxillary -ve for abscess CT abdomen and pelvis revealing modearte ascites and segmental small bowel mural thickening. CT-A Abdo/pelvis negative for ischemic bowel - pancreatic gas identified at tail & head. - Surgical service was consulted for their impression regarding pancreatic gas pattern. - LDH elevated, haptoglobin elevated. Consulted Hematology Oncology for further recommendations and further impression - input greatly appreciated. Heme/Onc reports no suspicion for acute hematological malignancy at this time. - infectious diseases service consulted-recommendations appreciated PLAN - continue vancomycin - continue Zosyn - Check hepatitis A, B, C, and HIV - testing with XIN, ANCA - Consult infectious diseases; recommendations - Hematology oncology consulted; no evidence of acute hematological malignancy at this time - General surgery consult; gas at the pancreatic tail and head identified - Remains on Josep Hugger Valvular vegetations Concerns for infective endocarditis versus NBTE Possible RA thrombus TTE demonstrating tricuspid and mitral valve lesions, and are AMS. While morphology raises concern for infective endocarditis, the absence of fever, lack of leukocytosis, -ve blood cultures and minimal CRP/ESR elevation raised the possibility of nonbacterial thrombotic endocarditis. Particularly in the context of unexplained constitutional symptoms and possible underlying malignancy PLAN - MARIA FERNANDA; via Cardiology - esophageal varices should be ruled out - consider anticoagulation - repeat blood cultures - initiate advanced workup as per ID - actively investigating potential etiology of possible NBTE Pancreatic gas Noted incidentally on CT and CTA abdomen/pelvis Given elevated T bilirubin 2 8, as well as direct bilirubinemia of 4 Lipase within normal limits Surgery was consulted, recommendations to watch and wait Repeat CT abdomen with hepatic protocol reveals increased pronouncement of pancreatic gas. PLAN - MRCP ordered - follow up surgical recommendation Elevated Lactic Acid Assessment: Initial lactic acid was significantly elevated at 8.7 mmol/L, which improved to 3.5 after one liter of normal saline administration, suggesting response to fluid resuscitation in the setting of sepsis. Chronically elevated around 3.5mmol/L. PLAN: - Monitor levels - Continue IV fluids Early Satiety Weight loss Post Prandial abdominal pain Assessment: Patient reports recent loss of appetite with early satiety, eating only 4-5 bites before feeling full or losing hunger, which may be related to underlying septic process. PLAN: - Monitor intake - Evaluate for underlying causes - Gastroenterology consultation - CT-AP Hepatic cirrhosis Alcoholic hepatitis Hyperbilirubinemia Transaminitis Thrombocytopenia Nonspecific complaints, which includes night sweats Further evaluation for infective etiology, intra-abdominal infection. CT abdomen and pelvis unremarkable for intraabdominal pathology Gastroenterology to be consulted Monitoring LFTs, bilirubin and INR Chronic anemia Patient suffers with chronic anemia, seen Gastroenterology in December 2024 for similar issue. We will continue to monitor closely. Seems microcytic hypochromic, potentially consistent with iron-deficiency anemia versus other etiology such as ETOH abuse. Further characterization of anemia with B12, folic acid, iron levels. Smoking History Assessment: Patient is an active smoker with associated productive cough with phlegm. 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 Dental infections can be a potential source of sepsis requiring evaluation. CT maxilla negative for abscess [employer] - VTE: SCDs - CODE STATUS: Full code - DIET: Regular Total time managing care of this patient today: 60 minutes. Quality Stroke Does the patient have a stroke diagnosis?: No VTE Prior VTE?: No VTE Risk Level:: Medical - moderate - high VTE Device Contraindication: N/A - Device Ordered VTE Drug Contraindication: Treatment Not Indicated
[2025-07-26 16:00] VITALS: BP 108/72; PULSE 106; RESP 18; TEMP 36.6; O2SAT 96
[2025-07-26 19:35] VITALS: BP 111/67; PULSE 106; RESP 20; TEMP 37.2; O2SAT 96
[2025-07-26] MEDS: Nicotine 14 MG PATCH.TD24 TRANSDERMA (21:07)
[2025-07-26 23:57] VITALS: BP 108/51; PULSE 105; RESP 18; TEMP 36.1; O2SAT 96
[2025-07-27 03:24] VITALS: BP 105/51; PULSE 101; RESP 18; TEMP 36.2; O2SAT 90
[2025-07-27 06:23] LABS: Hemoglobin 8.6 g/dl (14.0-18.0); Mean Corpuscular Volume 98.1 fL (80.0-98.0); NRBC Abs Auto 0.000 X10*3/uL (0.0-0.012); NRBC Pct Auto 0.0 /100WBC (0.0-0.2); PLT CLUMP 1; SCAN SMEAR FLAG 1
[2025-07-27 06:25] LABS: Hematocrit 26.1 % (42.0-52.0); Imm Gran Abs Auto 0.02 X10*3/uL (0.00-0.03); Imm Gran Pct Auto 0.4 % (0.0-0.4); Lymphocytes Absolute Auto 1.0 X10*3/uL (1.2-4.9); MANUAL DIFF FLAG SCAN; Mean Corpuscular HGB Conc 33.0 g/dl (31.0-36.0); Mean Corpuscular Hemoglobin 32.3 pg (27.0-33.0); Red Blood Count 2.66 X10*6/uL (4.60-5.80)
[2025-07-27 06:26] LABS: Platelet Count 63 X10*3/uL (160-400); White Blood Count 5.0 X10*3/uL (4.8-10.8)
[2025-07-27 06:44] LABS: Alanine Aminotransferase 19 U/L (0-40); Albumin Level 2.9 g/dL (3.5-5.0); Alkaline Phosphatase 118 U/L (39-117); Anion Gap 10 (12-20); Aspartate Amino Transferase 53 U/L (5-37); Blood Urea Nitrogen 4 mg/dL (9-16); Calcium 8.2 mg/dL (8.4-10.2); Carbon Dioxide 23 mmol/L (22-29); Chloride 111 mmol/L (96-108); Creatinine Clr Calc Pharmacy 143.9; Estimated Glomerular Filt Rate > 60; Potassium 3.0 mmol/L (3.3-5.1); Sodium 141 mmol/L (135-145); Total Protein 4.7 g/dL (6.5-8.0)
--- NOTE | 2025-07-27 07:27 | HE.PHANOTE ---
[facility] Patients level came back this morning at 28.4. Level was pulled at 0541 instead of the scheduled time of 0800. This could be contributing to the high level. Will retime next dose for 12 hours from last dose to allow clearing then will continue with same dose of 750 mg Q8h. Reload of 1500 mg may have caused the supratherapeutic level. Next level to be pulled 07/28 @0800.
[2025-07-27 08:00] VITALS: BP 129/76; PULSE 110; RESP 18; TEMP 36.3; O2SAT 94
[2025-07-27] MEDS: Nicotine 14 MG PATCH.TD24 TRANSDERMA (09:07)
[2025-07-27] MEDS: 0.9 % Sodium Chloride Flush 3 ML SYRINGE IVFLUSH ×2 (09:07→18:38)
[2025-07-27 12:00] VITALS: BP 121/62; PULSE 118; RESP 18; TEMP 36.6; O2SAT 98
--- NOTE | 2025-07-27 13:00 | P.CDIM_ITS ---
PROVIDER RESPONSE TEXT: To clarify, the appropriate diagnosis supported by the clinical indicators: Acute Lactic Acidosis QUERY TEXT: PHYSICIAN'S DOCUMENTATION REQUEST Date of Query: 07/24/2025 12:39 PM EST Patient Name: Raimundo Arreola Admit Date: 07/23/2025 Dear Glenn Hall MD, A review of the medical record indicates additional documentation may be needed. Please review below and update the documentation accordingly. Clinical Indicators: LABS: and H &P - Lactic acid elevated to 8.7 to 3.5 with 1 L NS administered. Continue IV fluids Based on the above, is there a diagnosis that correlates with these findings? Acute Lactic Acidosis Labs indicate a diagnosis of (please specify) Other (explain) Clinically unable to determine (explain) Thank you, Elayne Mercado, CCS, CDIS Use of terms such as suspected, likely, concern for, or probable (associated with a specific diagnosis that is being evaluated, monitored, or treated as if it exists) are acceptable and can be coded in the inpatient setting, when documented at the time of discharge. Please use your independent medical judgment in providing your response. THIS QUERY IS PART OF THE PERMANENT MEDICAL RECORD
--- NOTE | 2025-07-27 13:58 | MHC.CM.PN ---
PER ROUNDS NO DC TODAY PLAN REMAINS HOME SELF CARE
--- NOTE | 2025-07-27 14:01 | P.PNIM_ITS ---
Subjective Subjective Date of Service: 07/27/25 Interval History: Episode of night sweats last night Blood cultures -ve Ascitic fluid -ve CT chest relatively unremarkable CT abdomen and pelvis with hepatic protocol relatively unremarkable Pending MRCP for further evaluation of pancreatic gas identified on CT AP, and evaluating for etiology of elevated bilirubin Review of Systems Review of Systems: Yes all other systems are reviewed and are negative Physical Exam 2 Exam: Exam: General: A&O x3, oriented to time place person and situation, fatigued, diaphoretic, sallow skin HEENT: Scleral icterus Cardiac: S1, S2 auscultated with no S3/4, no MRG. Well perfused. Respiratory: Normal breath sounds auscultated throughout all lung zones, without wheezing, rales. Normal rate. GI/ : No abdominal pain on palpation, no masses or distentions. MSK: Normal ambulation without pain at bony prominences or musculature Neurological: Normal neurological examination on overview, without obvious CN II-XII abnormalities. Vital Signs: Vital Signs: Last Vital Signs Temp 97.8 F 07/27/25 12:00 Pulse 118 H 07/27/25 12:00 Resp 18 07/27/25 12:00 BP 121/62 07/27/25 12:00 Pulse Ox 98 07/27/25 12:00 O2 Del Method Room Air 07/27/25 12:00 BMI result Body Mass Index 20.0 Objective Data Active Medications Acetaminophen (Acetaminophen 325 Mg Tablet) 650 mg PO Q6H PRN PRN Reason: Pain, Mild 1-3,fever,headache Last Admin: 07/26/25 21:44 Dose: 650 mg Documented By: LILIANA Ascorbic Acid (Ascorbic Acid 500 Mg Tablet) 500 mg PO DAILY [facility] Last Admin: 07/27/25 09:06 Dose: 500 mg Documented By: YULIYA Calcium Carbonate (Calcium Carbonate 750 Mg Tab.Chew) 750 mg PO Q4H PRN PRN Reason: Heartburn Last Admin: 07/26/25 20:39 Dose: 750 mg Documented By: LILIANA Ceftriaxone Sodium 2 gm/ (Sodium Chloride) 50 mls @ 100 mls/hr IV BEDTIME [facility] Last Infusion: 07/26/25 21:14 Dose: Infused Documented By: LILIANA Vancomycin HCl 750 mg/ Sodium (Chloride) 265 mls @ 265 mls/hr IV Q8H [facility] Magnesium Hydroxide (Milk Of Magnesia 30 Ml Oral.Susp) 30 ml PO DAILY PRN PRN Reason: Constipation Magnesium Oxide (Magnesium Oxide 400 Mg Tablet) 400 mg PO DAILY [facility] Last Admin: 07/27/25 09:06 Dose: 400 mg Documented By: YULIYA Melatonin (Melatonin 3 Mg Tablet) 6 mg PO BEDTIME PRN PRN Reason: Insomnia Last Admin: 07/25/25 23:08 Dose: 6 mg Documented By: LEE Multivitamins/Vitamin C (Multivitamin Tablet) 1 tab PO DAILY [facility] Last Admin: 07/27/25 09:06 Dose: 1 tab Documented By: YULIYA Nicotine (Nicotine 14 Mg Patch.Td24) 14 mg TRANSDERMA DAILY [facility] Last Admin: 07/27/25 09:07 Dose: 14 mg Documented By: YULIYA Pantoprazole Sodium (Pantoprazole Sodium 40 Mg/10 Ml Vial) 40 mg IVPUSH DAILY [facility] Last Admin: 07/27/25 09:06 Dose: 40 mg Documented By: YULIYA Pharmacy Consult (Consult Rx Vancomycin Dosing) 1 each MISCELLANE DAILY PRN PRN Reason: Consult order Sodium Chloride (0.9 % Sodium Chloride Flush 3 Ml Syringe) 3 ml IVFLUSH QSHIFT [facility] Last Admin: 07/27/25 09:07 Dose: 3 ml Documented By: YULIYA Thiamine HCl (Thiamine Hcl 100 Mg Tablet) 100 mg PO DAILY [facility] Last Admin: 07/27/25 09:06 Dose: 100 mg Documented By: YULIYA Vitamin D (Cholecalciferol (Vitamin D3) 25 Mcg Tablet) 50 mcg PO DAILY [facility] Last Admin: 07/27/25 09:06 Dose: 50 mcg Documented By: YULIYA Labs 07/27/25 05:41 07/27/25 05:41 Labs: Laboratory Results - last 24 hr 07/26/25 07/26/25 07/27/25 00:26 08:02 05:41 MCV 98.1 H MCH 32.3 MCHC 33.0 RDW 18.8 H Plt Count 63 L MPV 10.7 Immature Gran % (Auto) 0.4 Neut % (Auto) 64.1 Lymph % (Auto) 19.8 L Rogers % (Auto) 12.7 H Eos % (Auto) 2.2 Baso % (Auto) 0.8 Lymph # (Auto) 1.0 L Rogers # (Auto) 0.6 Eos # (Auto) 0.1 Baso # (Auto) 0.0 Abs Immat Gran (auto) 0.02 Absolute Neuts (auto) 3.2 Absolute Nucleated RBC 0.000 Nucleated RBC % (auto) 0.0 Smear Tech's Comments VERIFIED Anion Gap 10 L Estim Creat Clear Calc 143.9 Estimated GFR > 60 Random Glucose 93 Calcium 8.2 L Total Bilirubin 7.2 H AST 53 H ALT 19 Alkaline Phosphatase 118 H Total Protein 4.7 L Albumin 2.9 L Vancomycin Trough 28.4 H* Anti-Streptolysin Scrn 70 69 Microbiology Microbiology Results: Microbiology 07/23/25 13:40 Gram Stain - Final Ascites Fluid Anaerobic Culture - Preliminary No growth to date. Body Fluid Culture - Final No growth after 2 days Assessment and Plan (1) Right atrial mass: Status: Acute (2) Valvular vegetation: Status: Acute (3) Liver cirrhosis: Status: Acute (4) Elevated bilirubin: Status: Acute (5) Pancreatic abnormality: Status: Acute (6) Thickened small bowel: Status: Acute (7) Acute diarrhea: Status: Acute (8) Adynamic ileus: Status: Acute (9) Acute hypokalemia: Status: Acute (10) Acidosis, lactic: Status: Acute (11) Anemia in chronic illness: Status: Chronic (12) SIRS (systemic inflammatory response syndrome): Status: Acute (13) Sepsis: Status: Acute (14) Pyrexia of unknown origin: Status: Acute (15) Early satiety: Status: Acute (16) Loss of appetite: Status: Acute (17) Night sweats: Status: Acute (18) Fatigue: Status: Acute Plan 50 year old male, with a background history of Hepatic cirrhosis, ETOH abuse now abstinent, presents with night sweats for 2 weeks with difficulty breathing, shaking, palpitations, lethargy, leg and back soreness, weakness, loss of appetite, and upper abdominal pain, admitted with fever of unknown origin & sepsis. Pyrexia Unknown Origin Sepsis Night Sweats Hypothermia Patient presents with clinical signs and symptoms consistent with sepsis including night sweats for 2 weeks, difficulty breathing described as panting with inability to catch breath, elevated pulse, lethargy, weakness, and soreness in legs and back. Laboratory findings support sepsis with elevated lactic acid initially at 8.7 mmol/L (improved to 3.5 after fluid resuscitation), white blood cell count of 9.1 with 84% neutrophilic shifts, and thrombocytopenia with platelets at 72 (decreased from baseline of 100). Patient has received initial treatment with cefepime and vancomycin in the emergency department along with fluid resuscitation. Source of infection remains unclear requiring further investigation. CT maxillary -ve for abscess CT abdomen and pelvis revealing modearte ascites and segmental small bowel mural thickening. CT-A Abdo/pelvis negative for ischemic bowel - pancreatic gas identified at tail & head. - Surgical service was consulted for their impression regarding pancreatic gas pattern. - LDH elevated, haptoglobin elevated. Consulted Hematology Oncology for further recommendations and further impression - input greatly appreciated. Heme/Onc reports no suspicion for acute hematological malignancy at this time. Infectious diseases service consulted-recommendations appreciated; HIV, hepatitis-ve PLAN - continue vancomycin - continue Zosyn - pending XIN, ANCA - Consult infectious diseases; recommendations - Hematology oncology consulted; no evidence of acute hematological malignancy at this time - General surgery consult; gas at the pancreatic tail and head identified - Remains on Josep Hugger Valvular vegetations Concerns for infective endocarditis versus NBTE Possible RA thrombus TTE demonstrating tricuspid and mitral valve lesions, and are AMS. While morphology raises concern for infective endocarditis, the absence of fever, lack of leukocytosis, -ve blood cultures and minimal CRP/ESR elevation raised the possibility of nonbacterial thrombotic endocarditis. Particularly in the context of unexplained constitutional symptoms and possible underlying malignancy PLAN - MARIA FERNANDA; via Cardiology - esophageal varices should be ruled out - consider anticoagulation - repeat blood cultures - initiate advanced workup as per ID - actively investigating potential etiology of possible NBTE - pending XIN, ANCA; ?? Arleen Kern endo - investigating potential malignancy with MRCP Pancreatic gas Noted incidentally on CT and CTA abdomen/pelvis Given elevated T bilirubin 2 8, as well as direct bilirubinemia of 4 Lipase within normal limits Surgery was consulted, recommendations to watch and wait Repeat CT abdomen with hepatic protocol reveals increased pronouncement of pancreatic gas. PLAN - MRCP ordered - follow up surgical recommendation Elevated Lactic Acid Assessment: Initial lactic acid was significantly elevated at 8.7 mmol/L, which improved to 3.5 after one liter of normal saline administration, suggesting response to fluid resuscitation in the setting of sepsis. Chronically elevated around 3.5mmol/L. PLAN: - Monitor levels - Continue IV fluids Early Satiety Weight loss Post Prandial abdominal pain Assessment: Patient reports recent loss of appetite with early satiety, eating only 4-5 bites before feeling full or losing hunger, which may be related to underlying septic process. PLAN: - Monitor intake - Evaluate for underlying causes - Gastroenterology consultation - ppi Hepatic cirrhosis Alcoholic hepatitis Hyperbilirubinemia Transaminitis Thrombocytopenia Nonspecific complaints, which includes night sweats Further evaluation for infective etiology, intra-abdominal infection. CT abdomen and pelvis unremarkable for intraabdominal pathology Gastroenterology to be consulted Monitoring LFTs, bilirubin and INR Chronic anemia Patient suffers with chronic anemia, seen Gastroenterology in December 2024 for similar issue. We will continue to monitor closely. Seems microcytic hypochromic, potentially consistent with iron-deficiency anemia versus other etiology such as ETOH abuse. Further characterization of anemia with B12, folic acid, iron levels. Smoking History Assessment: Patient is an active smoker with associated productive cough with phlegm. 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 Dental infections can be a potential source of sepsis requiring evaluation. CT maxilla negative for abscess [employer] - VTE: SCDs - CODE STATUS: Full code - DIET: Regular Total time managing care of this patient today: 60 minutes. Quality Stroke Does the patient have a stroke diagnosis?: No VTE Prior VTE?: No VTE Risk Level:: Medical - moderate - high VTE Device Contraindication: N/A - Device Ordered VTE Drug Contraindication: Treatment Not Indicated
[2025-07-27 18:07] LABS: Proteinase 3 PR3 Antibodies <1.0 AI
[2025-07-27] MEDS: Potassium Chloride Packet 20 MEQ PACKET 40 MEQ PO (18:38)
[2025-07-27 19:35] VITALS: BP 117/71; PULSE 111; RESP 18; TEMP 37.2; O2SAT 96
[2025-07-27 23:36] VITALS: BP 126/70; PULSE 103; RESP 18; TEMP 36.7; O2SAT 98
[2025-07-28] MEDS: 0.9 % Sodium Chloride Flush 3 ML SYRINGE IVFLUSH ×2 (00:09→08:46)
[2025-07-28 03:58] VITALS: BP 106/63; PULSE 89; RESP 18; TEMP 36; O2SAT 95
[2025-07-28 07:24] VITALS: BP 125/72; PULSE 96; RESP 16; TEMP 36.6; O2SAT 97
[2025-07-28 08:07] LABS: MANUAL DIFF FLAG NO
[2025-07-28 08:20] LABS: Hematocrit 27.5 % (42.0-52.0); Hemoglobin 8.9 g/dl (14.0-18.0); Imm Gran Abs Auto 0.02 X10*3/uL (0.00-0.03); Imm Gran Pct Auto 0.3 % (0.0-0.4); Lymphocytes Absolute Auto 1.2 X10*3/uL (1.2-4.9); Mean Corpuscular HGB Conc 32.4 g/dl (31.0-36.0); Mean Corpuscular Hemoglobin 32.5 pg (27.0-33.0); Mean Corpuscular Volume 100.4 fL (80.0-98.0); NRBC Abs Auto 0.000 X10*3/uL (0.0-0.012); NRBC Pct Auto 0.0 /100WBC (0.0-0.2); Platelet Count 69 X10*3/uL (160-400); Red Blood Count 2.74 X10*6/uL (4.60-5.80); White Blood Count 6.0 X10*3/uL (4.8-10.8)
[2025-07-28 08:27] LABS: INTERNATIONAL NORM RATIO 1.5 (0.9-1.1); Prothrombin Time 17.6 SEC (11.2-13.5)
[2025-07-28 08:38] LABS: Alanine Aminotransferase 21 U/L (0-40); Albumin Level 3.0 g/dL (3.5-5.0); Alkaline Phosphatase 131 U/L (39-117); Anion Gap 11 (12-20); Aspartate Amino Transferase 53 U/L (5-37); Blood Urea Nitrogen 4 mg/dL (9-16); Calcium 8.2 mg/dL (8.4-10.2); Carbon Dioxide 22 mmol/L (22-29); Chloride 111 mmol/L (96-108); Creatinine Clr Calc Pharmacy 143.9; Estimated Glomerular Filt Rate > 60; Potassium 3.6 mmol/L (3.3-5.1); Sodium 140 mmol/L (135-145); Total Protein 5.0 g/dL (6.5-8.0)
[2025-07-28] MEDS: Nicotine 14 MG PATCH.TD24 TRANSDERMA (08:39)
[2025-07-28 09:04] LABS: Carcinoembryonic Antigen 15.00 ng/mL; Erythrocyte Sedimentation Rate 4 MM/HR (0-15); Ferritin 75 ng/mL (20-250)
[2025-07-28 10:26] VITALS: BP 115/66; PULSE 113; RESP 16; TEMP 36.7; O2SAT 100
[2025-07-28 10:37] VITALS: BMI 21.9
[2025-07-28 10:58] LABS: INTERNATIONAL NORM RATIO 1.4 (0.9-1.1); Prothrombin Time 16.6 SEC (11.2-13.5)
[2025-07-28 11:01] LABS: Hematocrit 29.2 % (42.0-52.0); Hemoglobin 9.4 g/dl (14.0-18.0); Mean Corpuscular HGB Conc 32.2 g/dl (31.0-36.0); Mean Corpuscular Hemoglobin 32.6 pg (27.0-33.0); Mean Corpuscular Volume 101.4 fL (80.0-98.0); NRBC Abs Auto 0.000 X10*3/uL (0.0-0.012); NRBC Pct Auto 0.0 /100WBC (0.0-0.2); PTT Heparin Drip 36.1 SEC (53-77.9); Platelet Count 85 X10*3/uL (160-400); Red Blood Count 2.88 X10*6/uL (4.60-5.80); White Blood Count 8.0 X10*3/uL (4.8-10.8)
[2025-07-28] MEDS: Heparin Sodium,Porcine/1/2NS 25,000 UNIT/250 ML IV.SOLN 8.08 UNIT IVCONT (11:21)
--- NOTE | 2025-07-28 12:32 | PM.PNCARD ---
Subjective Subjective Date of Service: 07/28/25 Interval history: Seen and examined at bedside. He had paracentesis done with improvement in abdominal distention and is feeling better. Physical Exam Vital Signs: Last Vital Signs Temp 98.1 F 07/28/25 10:26 Pulse 113 H 07/28/25 10:26 Resp 16 07/28/25 10:26 BP 115/66 07/28/25 10:26 Pulse Ox 100 07/28/25 10:26 O2 Del Method Room Air 07/28/25 10:26 BMI result Body Mass Index 21.9 GENERAL APPEARANCE: in no acute distress. Jaundiced. NECK: no carotid bruit, no jugular venous distention. SKIN: no suspicious lesions, warm and dry. HEART: no murmurs, regular rate and rhythm. Bounding pulses. LUNGS: clear to auscultation bilaterally. ABDOMEN: Soft, nontender. EXTREMITIES: no edema. PERIPHERAL PULSES: equal. NEUROLOGIC: No gross deficits, AAO X 3 Objective Labs and Meds 07/28/25 10:44 07/28/25 07:53 Lab results: Laboratory Results - last 24 hr 07/25/25 07/26/25 07/26/25 14:36 00:26 08:02 WBC RBC Hgb Hct MCV MCH MCHC RDW Plt Count MPV Immature Gran % (Auto) Neut % (Auto) Lymph % (Auto) [place] % (Auto) Eos % (Auto) Baso % (Auto) Lymph # (Auto) [place] # (Auto) Eos # (Auto) Baso # (Auto) Abs Immat Gran (auto) Absolute Neuts (auto) Absolute Nucleated RBC Nucleated RBC % (auto) ESR PT INR aPTT Heparin Protocol Sodium Potassium Chloride Carbon Dioxide Anion Gap BUN Creatinine Estim Creat Clear Calc Estimated GFR Random Glucose Haptoglobin Calcium Ferritin Total Bilirubin AST ALT Alkaline Phosphatase Lactate Dehydrogenase Total Protein Albumin Carcinoembryonic Ag Random Vancomycin Proteinase 3 (PR3) Ab <1.0 Myeloperoxidase Ab <1.0 Anti-Streptolysin Scrn 70 69 Blood Type Antibody Screen 07/28/25 07/28/25 07:53 10:44 WBC 6.0 8.0 RBC 2.74 L 2.88 L Hgb 8.9 L 9.4 L Hct 27.5 L 29.2 L MCV 100.4 H 101.4 H MCH 32.5 32.6 MCHC 32.4 32.2 RDW 19.3 H 18.9 H Plt Count 69 L 85 L MPV 10.9 9.0 L Immature Gran % (Auto) 0.3 Neut % (Auto) 67.4 Lymph % (Auto) 19.6 L [place] % (Auto) 10.4 Eos % (Auto) 1.8 Baso % (Auto) 0.5 Lymph # (Auto) 1.2 [place] # (Auto) 0.6 Eos # (Auto) 0.1 Baso # (Auto) 0.0 Abs Immat Gran (auto) 0.02 Absolute Neuts (auto) 4.0 Absolute Nucleated RBC 0.000 0.000 Nucleated RBC % (auto) 0.0 0.0 ESR 4 PT 17.6 H 16.6 H INR 1.5 H 1.4 H aPTT Heparin Protocol 36.1 L Sodium 140 Potassium 3.6 Chloride 111 H Carbon Dioxide 22 Anion Gap 11 L BUN 4 L Creatinine 0.54 Estim Creat Clear Calc 143.9 Estimated GFR > 60 Random Glucose 82 Haptoglobin < 8 L Calcium 8.2 L Ferritin 75 Total Bilirubin 7.5 H AST 53 H ALT 21 Alkaline Phosphatase 131 H Lactate Dehydrogenase 255 Total Protein 5.0 L Albumin 3.0 L Carcinoembryonic Ag 15.00 Random Vancomycin 15.3 Proteinase 3 (PR3) Ab Myeloperoxidase Ab Anti-Streptolysin Scrn Blood Type A Positive Antibody Screen NEGATIVE Imaging Radiologist's impression: Impressions Cholangiopancreatography MRI 07/27/25 14:33 IMPRESSION: Limited exam due to respiratory motion artifact and ascites. 1 x 1.3 cm bright T2 liver lesion in the left lobe not accurately characterized. No evidence of cirrhosis. Upper normal size gallbladder. No gallstones. No intra or extrahepatic biliary duct dilatation. MRCP sequences significantly limited. Diffuse fold/wall thickening of the small and large bowel similar to prior CT. This may be related to patient's liver disease. Electronically signed by: Thuy Thrasher MD 07/27/2025 03:26 PM EST RP Paracentesis Ultrasound 07/27/25 16:11 IMPRESSION: Unremarkable examination. Electronically signed by: Thuy Thrasher MD 07/27/2025 04:44 PM EST RP Progress Note: A&P Assessment and plan (1) Right atrial mass: Status: Acute (2) Valvular vegetation: Status: Acute (3) Liver cirrhosis: Status: Acute (4) Loss of appetite: Status: Acute (5) Night sweats: Status: Acute Plan [age] year gentleman who had background of alcoholism and cirrhosis of liver and has not been drinking since March 2025 now presented with drenching night sweats, poor appetite and weight loss. He was empirically treated for sepsis and had cultures performed which were negative. ID has been following him closely. He had echocardiography performed which raise concern for mobile masses on the mitral and tricuspid valve concerning for vegetation but there was a mobile mass in the right atrium with differentials of thrombus versus vegetation. Location is unusual for myxoma. He has been started on heparin for potential thrombus in the right atrium. He has clinical story is concern for malignancy and it is possible that the masses on mitral and tricuspid valves are marantic endocarditis which is also treated with anticoagulation. I had a discussion with Dr. Keron Nassar who is a cardiac surgeon at [facility]. We will transfer the patient to [facility] for further assessment. We will try to get a cardiac MRI to see if we can differentiate whether this is a myxoma versus thrombus. Depending on further workup he maybe considered for percutaneous aspiration with AngioVac. Continue heparin for now. EGD was done in December 2024 when he had grade 1 varices and portal gastropathy. I have discussed with GI and these findings are not prohibitive for potential MARIA FERNANDA in case it is required to guide aspiration of the right atrial mass. Thank you for allowing me to participate in the care of your patient. Please feel free to contact me if you have any questions. Time Spent With Patient Time: Total time managing care of this patient today ____ minutes. Progress Note: Quality Stroke Does the patient have a stroke diagnosis?: No Procedures Date of Service Date of Service: 07/28/25
[2025-07-28] MEDS: Mag&Al/Sim/Diphenhyd/Lidocaine 10 ML ORAL.SUSP PO (12:57)
--- NOTE | 2025-07-28 15:47 | P.PNIM_ITS ---
Subjective Subjective Date of Service: 07/28/25 Interval History: No new issues or complaints today. MRI AP with/wo IV contrast negative for malignancy Discussed in depth need to start heparin gtt for RA thrombus/ valvular vegetations Discussion regarding possible transfer to [facility] for possible management of patient's cardiac findings. Review of Systems Review of Systems: Yes all other systems are reviewed and are negative Physical Exam 2 Vital Signs: Vital Signs: Last Vital Signs Temp 98.1 F 07/28/25 10:26 Pulse 113 H 07/28/25 10:26 Resp 16 07/28/25 10:26 BP 115/66 07/28/25 10:26 Pulse Ox 100 07/28/25 10:26 O2 Del Method Room Air 07/28/25 10:26 BMI result Body Mass Index 21.9 Objective Data Active Medications Acetaminophen (Acetaminophen 325 Mg Tablet) 650 mg PO Q6H PRN PRN Reason: Pain, Mild 1-3,fever,headache Last Admin: 07/27/25 23:57 Dose: 650 mg Documented By: MAHSA Ascorbic Acid (Ascorbic Acid 500 Mg Tablet) 500 mg PO DAILY [facility] Last Admin: 07/28/25 08:38 Dose: 500 mg Documented By: LAURA Calcium Carbonate (Calcium Carbonate 750 Mg Tab.Chew) 750 mg PO Q4H PRN PRN Reason: Heartburn Last Admin: 07/26/25 20:39 Dose: 750 mg Documented By: LILIANA Heparin Sodium (Porcine) (Heparin Sodium,Porcine 5,000 Unit/Ml Vial) 2,700 unit 40 unit/kg (2700 unit) IVPUSH PROTOCOL BOLUS PRN; Protocol PRN Reason: 40 unit/kg - Heparin Protocol Heparin Sodium (Porcine) (Heparin Sodium,Porcine 5,000 Unit/Ml Vial) 5,400 unit 80 unit/kg (5400 unit) IVPUSH PROTOCOL BOLUS PRN; Protocol PRN Reason: 80 unit/kg - Heparin Protocol Ceftriaxone Sodium 2 gm/ (Sodium Chloride) 50 mls @ 100 mls/hr IV BEDTIME [facility] Last Infusion: 07/27/25 21:42 Dose: Infused Documented By: EDELMIRA Vancomycin HCl 750 mg/ Sodium (Chloride) 265 mls @ 265 mls/hr IV Q8H [facility] Last Infusion: 07/28/25 10:24 Dose: Infused Documented By: LAURA Heparin Sodium/Sodium Chloride (Heparin Sodium,Porcine/1/2ns) 25,000 unit in 250 mls @ 0 mls/hr IVCONT .Q0M [facility]; Protocol Last Admin: 07/28/25 11:21 Dose: 12 units/kg/hr, 8.08 mls/hr Documented By: LAURA Co-signed By: CHERYL Lidocaine/Diphenhydr/Alum/Mg/Simeth (Mag&Al/Sim/Diphenhyd/Lidocaine 10 Ml Oral.Susp) 10 ml PO Q4H PRN; Protocol PRN Reason: Mouth Sore Pain Last Admin: 07/28/25 12:57 Dose: 10 ml Documented By: LAURA Magnesium Hydroxide (Milk Of Magnesia 30 Ml Oral.Susp) 30 ml PO DAILY PRN PRN Reason: Constipation Magnesium Oxide (Magnesium Oxide 400 Mg Tablet) 400 mg PO DAILY [facility] Last Admin: 07/28/25 08:38 Dose: 400 mg Documented By: LAURA Melatonin (Melatonin 3 Mg Tablet) 6 mg PO BEDTIME PRN PRN Reason: Insomnia Last Admin: 07/27/25 23:56 Dose: 6 mg Documented By: MAHSA Multivitamins/Vitamin C (Multivitamin Tablet) 1 tab PO DAILY [facility] Last Admin: 07/28/25 08:38 Dose: 1 tab Documented By: LAURA Nicotine (Nicotine 14 Mg Patch.Td24) 14 mg TRANSDERMA DAILY [facility] Last Admin: 07/28/25 08:39 Dose: 14 mg Documented By: LAURA Pantoprazole Sodium (Pantoprazole Sodium 40 Mg/10 Ml Vial) 40 mg IVPUSH BID@0630,1630 [facility] Last Admin: 07/28/25 06:21 Dose: 40 mg Documented By: EDELMIRA Pharmacy Consult (Consult Rx Vancomycin Dosing) 1 each MISCELLANE DAILY PRN PRN Reason: Consult order Sodium Chloride (0.9 % Sodium Chloride Flush 3 Ml Syringe) 3 ml IVFLUSH QSHIFT [facility] Last Admin: 07/28/25 08:46 Dose: 3 ml Documented By: LAURA Thiamine HCl (Thiamine Hcl 100 Mg Tablet) 100 mg PO DAILY [facility] Last Admin: 07/28/25 08:38 Dose: 100 mg Documented By: LAURA Vitamin D (Cholecalciferol (Vitamin D3) 25 Mcg Tablet) 50 mcg PO DAILY [facility] Last Admin: 07/28/25 08:38 Dose: 50 mcg Documented By: LAURA Labs 07/28/25 10:44 07/28/25 07:53 Labs: Laboratory Results - last 24 hr 07/25/25 07/28/25 07/28/25 14:36 07:53 10:44 MCV 100.4 H 101.4 H MCH 32.5 32.6 MCHC 32.4 32.2 RDW 19.3 H 18.9 H Plt Count 69 L 85 L MPV 10.9 9.0 L Immature Gran % (Auto) 0.3 Neut % (Auto) 67.4 Lymph % (Auto) 19.6 L Zapata % (Auto) 10.4 Eos % (Auto) 1.8 Baso % (Auto) 0.5 Lymph # (Auto) 1.2 Zapata # (Auto) 0.6 Eos # (Auto) 0.1 Baso # (Auto) 0.0 Abs Immat Gran (auto) 0.02 Absolute Neuts (auto) 4.0 Absolute Nucleated RBC 0.000 0.000 Nucleated RBC % (auto) 0.0 0.0 ESR 4 PT 17.6 H 16.6 H INR 1.5 H 1.4 H aPTT Heparin Protocol 36.1 L Anion Gap 11 L Estim Creat Clear Calc 143.9 Estimated GFR > 60 Random Glucose 82 Haptoglobin < 8 L Calcium 8.2 L Ferritin 75 Total Bilirubin 7.5 H AST 53 H ALT 21 Alkaline Phosphatase 131 H Lactate Dehydrogenase 255 Total Protein 5.0 L Albumin 3.0 L Carcinoembryonic Ag 15.00 Random Vancomycin 15.3 Proteinase 3 (PR3) Ab <1.0 Myeloperoxidase Ab <1.0 Blood Type A Positive Antibody Screen NEGATIVE Microbiology Microbiology Results: Microbiology 07/23/25 13:09 Blood Culture - Final Blood - Venous No growth after 5 days. 07/23/25 13:09 Blood Culture - Final Blood - Venous No growth after 5 days. 07/23/25 13:40 Gram Stain - Final Ascites Fluid Anaerobic Culture - Final NO GROWTH AFTER 5 DAYS Body Fluid Culture - Final No growth after 2 days Assessment and Plan (1) Right atrial mass: Status: Acute (2) Valvular vegetation: Status: Acute (3) Liver cirrhosis: Status: Acute (4) Elevated bilirubin: Status: Acute (5) Pancreatic abnormality: Status: Acute (6) Thickened small bowel: Status: Acute (7) Acute diarrhea: Status: Acute (8) Adynamic ileus: Status: Acute (9) Acute hypokalemia: Status: Acute (10) Acidosis, lactic: Status: Acute (11) Anemia in chronic illness: Status: Chronic (12) SIRS (systemic inflammatory response syndrome): Status: Acute (13) Sepsis: Status: Acute (14) Pyrexia of unknown origin: Status: Acute (15) Early satiety: Status: Acute (16) Loss of appetite: Status: Acute (17) Fatigue: Status: Acute (18) Night sweats: Status: Acute Plan 50 year old male, with a background history of Hepatic cirrhosis, ETOH abuse now abstinent, presents with night sweats for 2 weeks with difficulty breathing, shaking, palpitations, lethargy, leg and back soreness, weakness, loss of appetite, and upper abdominal pain, admitted with fever of unknown origin & sepsis. Pyrexia Unknown Origin Sepsis Night Sweats Hypothermia Patient presents with clinical signs and symptoms consistent with sepsis including night sweats for 2 weeks, difficulty breathing described as panting with inability to catch breath, elevated pulse, lethargy, weakness, and soreness in legs and back. Laboratory findings support sepsis with elevated lactic acid initially at 8.7 mmol/L (improved to 3.5 after fluid resuscitation), white blood cell count of 9.1 with 84% neutrophilic shifts, and thrombocytopenia with platelets at 72 (decreased from baseline of 100). Patient has received initial treatment with cefepime and vancomycin in the emergency department along with fluid resuscitation. Source of infection remains unclear requiring further investigation. LDH elevated, haptoglobin elevated. Blood cultures negative x2 Paracentesis done - negative culture, no evidence of SBP on serology CT maxillary -ve for abscess CT abdomen and pelvis revealing modearte ascites and segmental small bowel mural thickening. CT-A Abdo/pelvis negative for ischemic bowel - pancreatic gas identified at tail & head. MRI-AP w/wo IV contrast: no intraabdominal malignancy Surgical service was consulted for their impression regarding pancreatic gas pattern - no intervention at this time. Consulted Hematology Oncology for further recommendations and further impression - input greatly appreciated. Heme/Onc reports no suspicion for acute hematological malignancy at this time. Infectious diseases service consulted-recommendations appreciated; HIV, hepatitis-ve. Further workup with Bartonella done. PLAN - continue vancomycin - continue Zosyn - pending XIN, ANCA - pending Ca-19, CEA - pending anticardiolipin, b2 glycoprotein - Consult infectious diseases; recommendations - Hematology oncology consulted; no evidence of acute hematological malignancy at this time - General surgery consult; gas at the pancreatic tail and head identified Valvular vegetations Concerns for infective endocarditis versus NBTE Possible RA thrombus TTE demonstrating tricuspid and mitral valve lesions, and are AMS. While morphology raises concern for infective endocarditis, the absence of fever, lack of leukocytosis, -ve blood cultures and minimal CRP/ESR elevation raised the possibility of nonbacterial thrombotic endocarditis. Particularly in the context of unexplained constitutional symptoms. Differentials: myxoma, Libman-sacks endo, culture negative infective endocarditis (HACEK) PLAN - MARIA FERNANDA; via Cardiology - esophageal varices should be ruled out - Started heparin gtt - repeat blood cultures - initiate advanced workup as per ID - actively investigating potential etiology of possible NBTE - pending XIN, ANCA; ?? Libman Sacks endo - pending Ca-19, CEA - pending anticardiolipin, b2 glycoprotein Pancreatic gas Noted incidentally on CT and CTA abdomen/pelvis Given elevated T bilirubin 2 8, as well as direct bilirubinemia of 4 Lipase within normal limits Surgery was consulted, recommendations to watch and wait Repeat CT abdomen with hepatic protocol reveals increased pronouncement of pancreatic gas. MRI-AP w/wo contrast ordered; negative for intraabdominal malignancy Elevated Lactic Acid Assessment: Initial lactic acid was significantly elevated at 8.7 mmol/L, which improved to 3.5 after one liter of normal saline administration, suggesting response to fluid resuscitation in the setting of sepsis. Chronically elevated around 3.5mmol/L. PLAN: - Monitor levels - Continue IV fluids Early Satiety Weight loss Post Prandial abdominal pain Assessment: Patient reports recent loss of appetite with early satiety, eating only 4-5 bites before feeling full or losing hunger, which may be related to underlying septic process. PLAN: - Monitor intake - Evaluate for underlying causes - Gastroenterology consultation - ppi Hepatic cirrhosis Alcoholic hepatitis Hyperbilirubinemia Transaminitis Thrombocytopenia Ascites Nonspecific complaints, which includes night sweats Further evaluation for infective etiology, intra-abdominal infection. CT abdomen and pelvis unremarkable for intraabdominal pathology Gastroenterology to be consulted Monitoring LFTs, bilirubin and INR S/p therapeutic paracentesis 07/27/2025 with removal of 4 L ascitic fluid- uncomplicated Chronic anemia Patient suffers with chronic anemia, seen Gastroenterology in December 2024 for similar issue. We will continue to monitor closely. Seems microcytic hypochromic, potentially consistent with iron-deficiency anemia versus other etiology such as ETOH abuse. Further characterization of anemia with B12, folic acid, iron levels. Dental Issues Assessment: Patient reports dental problems with teeth described as very poor and experiencing soreness but not pain. Dental infections can be a potential source of sepsis requiring evaluation. CT maxilla negative for abscess. Possible source of HACEK organism - vegetations [employer] - VTE: SCDs - CODE STATUS: Full code - DIET: Regular Total time managing care of this patient today: 60 minutes. Quality Stroke Does the patient have a stroke diagnosis?: No VTE Prior VTE?: No VTE Risk Level:: Medical - moderate - high VTE Device Contraindication: N/A - Device Ordered VTE Drug Contraindication: Treatment Not Indicated
[2025-07-28 16:00] VITALS: BP 125/78; PULSE 118; RESP 18; TEMP 36.8; O2SAT 98
[2025-07-28 17:36] LABS: PTT Heparin Drip 94.1 SEC (53-77.9)
--- NOTE | 2025-07-28 18:08 | PM.DS ---
DS: Providers Provider Date of Service: 07/28/25 Date of admission: 07/23/25 17:08 Date of discharge: 07/28/25 Primary care physician: Uriah Barry Consults: 07/23/25 17:08 Consult to Gastroenterology Routine Consulting Provider: [facility] Reason for consultation: abdominal pain, cirrhosis, transaminitis, elevated total bili (8) Consult to Infectious Diseases Routine Consulting Provider: [facility] Reason for consultation: pyrexia unknown origin 07/23/25 23:09 Consult to Critical Care Stat Consulting Provider: Johana Chiu Reason for consultation: drop in body temp, BP s/p MRCP Has provider been notified: No 07/24/25 21:13 Consult to General Surgery Routine Consulting Provider: [facility] Surgeons Reason for consultation: abdnormal CT just completed, ? SBO Has provider been notified: No 07/25/25 07:32 Consult to Hematology / Oncology Routine Consulting Provider: [facility] Oncology/Hematology Reason for consultation: hematological malignancy? Has provider been notified: No 07/25/25 10:48 Consult to General Surgery Stat Consulting Provider: [facility] Reason for consultation: pancreatic gas on CT Has provider been notified: No 07/26/25 10:48 Consult to Cardiology Routine Consulting Provider: [facility] Reason for consultation: RA mass on echo DS: Diagnosis Discharge Diagnosis (1) Right atrial mass: Status: Acute (2) Valvular vegetation: Status: Acute (3) Liver cirrhosis: Status: Acute (4) Elevated bilirubin: Status: Acute (5) Pancreatic abnormality: Status: Acute (6) Thickened small bowel: Status: Acute (7) Acute diarrhea: Status: Acute (8) Adynamic ileus: Status: Acute (9) Acute hypokalemia: Status: Acute (10) Acidosis, lactic: Status: Acute (11) Anemia in chronic illness: Status: Chronic (12) SIRS (systemic inflammatory response syndrome): Status: Acute (13) Sepsis: Status: Acute (14) Pyrexia of unknown origin: Status: Acute (15) Early satiety: Status: Acute (16) Loss of appetite: Status: Acute (17) Fatigue: Status: Acute (18) Night sweats: Status: Acute DS: Summary Hospital Course Hospital Course: 50 year old male, with a background history of Hepatic cirrhosis, ETOH abuse now abstinent, presents with night sweats for 2 weeks with difficulty breathing, shaking, palpitations, lethargy, leg and back soreness, weakness, loss of appetite, and upper abdominal pain, admitted with fever of unknown origin & sepsis. PRESENTATION Chief Complaint: Mr. Arreola is a 50 year old male, with a background history of Hepatic cirrhosis, ETOH abuse now abstinent, presents with night sweats for 2 weeks with difficulty breathing, shaking, palpitations, lethargy, leg and back soreness, weakness, loss of appetite, and upper abdominal pain. History of Present Illness: Mr. Arreola reports experiencing night sweats nightly for approximately 2 weeks, describing episodes where he would drench his clothing and bedding completely, requiring him to dry off, take a quick shower, and change clothes before returning to bed. This morning, the sweating episode did not resolve as it typically had in the past. Along with the sweats, he experienced shaking and difficulty breathing, describing it as both being unable to catch his breath and breathing too quickly, like panting. During these episodes, he also notes an elevated pulse and heart racing sensation. Associated Symptoms: Over the past 2 weeks, the patient has been experiencing lethargy, general soreness in his legs and back, particularly in his quadriceps, and weakness. He reports occasional bruising and a recent loss of appetite, stating he can only eat 4-5 bites before feeling full or losing interest in food. He also notes upper abdominal soreness today and reports a productive cough with phlegm, which he attributes to his smoking habit. Medication and Supplement History: Mr. Arreola's current medications include Tylenol, omeprazole daily, and vitamin C daily. He mentions having bleeding ulcers in the past when he was heavily drinking. The patient denies any new medications. Additional Information: The patient denies high-risk behaviors, new sexual encounters outside his relationship, IV drug use, recent drug use, or alcohol consumption in the past month. He reports no condom use with his girlfriend and has not been tested for hepatitis recently. He lives with his girlfriend and step-daughter, noting that his step-daughter has daily allergies and they have a heavy mouse infestation in their home, though he denies any recent bites. He also mentions dental issues, describing his teeth as jacked with soreness but not pain. Review of Systems: The patient reports night sweats, lethargy, weakness, and decreased appetite. He notes occasional bruising but denies rash. Dental soreness is present. He experiences elevated pulse and heart racing. Difficulty breathing, panting, and cough with phlegm are noted. Upper abdominal soreness is reported. General soreness in legs and back, mostly quadriceps, is described.+ Diagnostic Test Results: - Complete Blood Count (CBC): WBC 9.1, Hemoglobin 10.5 g/dL, Platelets 72 with 84% neutrophilic shifts. - Comprehensive Metabolic Panel: Creatinine 0.69, eGFR >60, Total bilirubin 8.2, AST 98, ALT 41, Alkaline phosphatase 181. - Inflammatory markers: Lactic acid 8.7 mmol/L initially, reduced to 3.5 mmol/L after one liter normal saline. - Alpha-2 macroglobulin: 308 - elevated. - XIN: 1:160 speckled pattern - elevated. - Chest X-ray: No acute cardiopulmonary abnormality. - Microbiology: Diagnostic paracentesis specimens sent. PROBLEM LIST Pyrexia Unknown Origin Sepsis Night Sweats Hypothermia Patient presents with clinical signs and symptoms consistent with sepsis including night sweats for 2 weeks, difficulty breathing described as panting with inability to catch breath, elevated pulse, lethargy, weakness, and soreness in legs and back. Laboratory findings support sepsis with elevated lactic acid initially at 8.7 mmol/L (improved to 3.5 after fluid resuscitation), white blood cell count of 9.1 with 84% neutrophilic shifts, and thrombocytopenia with platelets at 72 (decreased from baseline of 100). Patient has received initial treatment with cefepime and vancomycin in the emergency department along with fluid resuscitation. Source of infection remains unclear requiring further investigation. LDH elevated, haptoglobin elevated. Blood cultures negative x2 Paracentesis done - negative culture, no evidence of SBP on serology CT maxillary -ve for abscess CT abdomen and pelvis revealing modearte ascites and segmental small bowel mural thickening. CT-A Abdo/pelvis negative for ischemic bowel - pancreatic gas identified at tail & head. MRI-AP w/wo IV contrast: no intraabdominal malignancy Surgical service was consulted for their impression regarding pancreatic gas pattern - no intervention at this time. Consulted Hematology Oncology for further recommendations and further impression - input greatly appreciated. Heme/Onc reports no suspicion for acute hematological malignancy at this time. Infectious diseases service consulted-recommendations appreciated; HIV, hepatitis-ve. Further workup with Bartonella done. PLAN - continue vancomycin - continue Zosyn - pending XIN, ANCA - pending Ca-19, CEA - pending anticardiolipin, b2 glycoprotein - Consult infectious diseases; recommendations - Hematology oncology consulted; no evidence of acute hematological malignancy at this time - General surgery consult; gas at the pancreatic tail and head identified Valvular vegetations Concerns for infective endocarditis versus NBTE Possible RA thrombus TTE demonstrating tricuspid and mitral valve lesions, and are AMS. While morphology raises concern for infective endocarditis, the absence of fever, lack of leukocytosis, -ve blood cultures and minimal CRP/ESR elevation raised the possibility of nonbacterial thrombotic endocarditis. Particularly in the context of unexplained constitutional symptoms. Differentials: myxoma, Libman-sacks endo, culture negative infective endocarditis (HACEK) PLAN - MARIA FERNANDA; via Cardiology - esophageal varices should be ruled out - Started heparin gtt - repeat blood cultures - initiate advanced workup as per ID - actively investigating potential etiology of possible NBTE - pending XIN, ANCA; ?? Libman Sacks endo - pending Ca-19, CEA - pending anticardiolipin, b2 glycoprotein Pancreatic gas Noted incidentally on CT and CTA abdomen/pelvis Lipase within normal limits Given elevated T bilirubin 8, as well as direct bilirubinemia of 4, Surgery was consulted recommendations to watch and wait. Repeat CT abdomen with hepatic protocol reveals increased pronouncement of pancreatic gas. MRI-AP w/wo contrast ordered; negative for intraabdominal malignancy Elevated Lactic Acid Assessment: Initial lactic acid was significantly elevated at 8.7 mmol/L, which improved to 3.5 after one liter of normal saline administration, suggesting response to fluid resuscitation in the setting of sepsis. Chronically elevated around 3.5mmol/L. PLAN: - Monitor levels - Continue IV fluids Early Satiety Weight loss Post Prandial abdominal pain Assessment: Patient reports recent loss of appetite with early satiety, eating only 4-5 bites before feeling full or losing hunger, which may be related to underlying septic/ catabolic process. Noting gastric and small intestinal wall thickening. PLAN: - Monitor intake - Evaluate for underlying causes - Gastroenterology consultation - ppi Hepatic cirrhosis Alcoholic hepatitis Hyperbilirubinemia Transaminitis Thrombocytopenia Ascites Nonspecific complaints, which includes night sweats Further evaluation for infective etiology, intra-abdominal infection. CT abdomen and pelvis unremarkable for intraabdominal pathology Gastroenterology to be consulted Monitoring LFTs, bilirubin and INR S/p therapeutic paracentesis 07/27/2025 with removal of 4 L ascitic fluid-uncomplicated Plan to initiate furosemide, spironolactone Consider addition of octreotide Chronic anemia Patient suffers with chronic anemia, seen Gastroenterology in December 2024 for similar issue. We will continue to monitor closely. Seems microcytic hypochromic, potentially consistent with iron-deficiency anemia versus other etiology such as ETOH abuse. Further characterization of anemia with B12, folic acid, iron levels. No transfusion administered, but high risk bleeding due to likely presence of varices. Dental Issues Assessment: Patient reports dental problems with teeth described as very poor and experiencing soreness but not pain. Dental infections can be a potential source of sepsis requiring evaluation. CT maxilla negative for abscess. Possible source of HACEK organism - vegetations Status at Discharge Cognitive/behavioral status at discharge: A&O x4 Functional status at discharge: independent ambulation Overall status at discharge: patient is not back to baseline Time Attestation Total time managing care of this patient today: 60 mintues. Discharge Coordination Time (in mins): 45 Quality: Safe Use of Opioids Does Pt have an Active Cancer Diagnosis on the Problem List?: No Quality: Stroke Does the patient have a stroke diagnosis?: No Physical Exam Exam: Exam: General: A&O x3, oriented to time place person and situation, fatigued, diaphoretic, sallow skin HEENT: Scleral icterus Cardiac: S1, S2 auscultated with no S3/4, no MRG. Well perfused. Respiratory: Normal breath sounds auscultated throughout all lung zones, without wheezing, rales. Normal rate. GI/ : No abdominal pain on palpation, no masses or distentions. MSK: Normal ambulation without pain at bony prominences or musculature Neurological: Normal neurological examination on overview, without obvious CN II-XII abnormalities Vital Signs: Vital Signs: Last Vital Signs Temp 98.2 F 07/28/25 16:00 Pulse 118 H 07/28/25 16:00 Resp 18 07/28/25 16:00 BP 125/78 07/28/25 16:00 Pulse Ox 98 07/28/25 16:00 O2 Del Method Room Air 07/28/25 10:26 BMI result Body Mass Index 21.9 DS: Data Data Completed and Pending Completed studies during hospitalization [Text1]: Procedures Detoxification Services for Substance Abuse Treatment (01/09/25) Drainage of Peritoneal Cavity, Percutaneous Approach (10/14/24) Inspection of Upper Intestinal Tract, Via Natural or Artificial Opening Endoscopic (01/09/25) Transfusion of Nonautologous Platelets into Peripheral Vein, Percutaneous Approach (01/09/25) Transfusion of Nonautologous Red Blood Cells into Peripheral Vein, Percutaneous Approach (01/09/25) Pending studies at discharge: Pending at discharge 07/27/25 15:00 Cytology [PTH] Routine Labs on day of discharge: Laboratory Results - last 24 hr 07/25/25 07/28/25 07/28/25 14:36 07:53 10:44 WBC 6.0 8.0 RBC 2.74 L 2.88 L Hgb 8.9 L 9.4 L Hct 27.5 L 29.2 L MCV 100.4 H 101.4 H MCH 32.5 32.6 MCHC 32.4 32.2 RDW 19.3 H 18.9 H Plt Count 69 L 85 L MPV 10.9 9.0 L Immature Gran % (Auto) 0.3 Neut % (Auto) 67.4 Lymph % (Auto) 19.6 L [place] % (Auto) 10.4 Eos % (Auto) 1.8 Baso % (Auto) 0.5 Lymph # (Auto) 1.2 [place] # (Auto) 0.6 Eos # (Auto) 0.1 Baso # (Auto) 0.0 Abs Immat Gran (auto) 0.02 Absolute Neuts (auto) 4.0 Absolute Nucleated RBC 0.000 0.000 Nucleated RBC % (auto) 0.0 0.0 ESR 4 PT 17.6 H 16.6 H INR 1.5 H 1.4 H aPTT Heparin Protocol 36.1 L Sodium 140 Potassium 3.6 Chloride 111 H Carbon Dioxide 22 Anion Gap 11 L BUN 4 L Creatinine 0.54 Estim Creat Clear Calc 143.9 Estimated GFR > 60 Random Glucose 82 Haptoglobin < 8 L Calcium 8.2 L Ferritin 75 Total Bilirubin 7.5 H AST 53 H ALT 21 Alkaline Phosphatase 131 H Lactate Dehydrogenase 255 Total Protein 5.0 L Albumin 3.0 L Carcinoembryonic Ag 15.00 Random Vancomycin 15.3 Proteinase 3 (PR3) Ab <1.0 Myeloperoxidase Ab <1.0 Blood Type A Positive Antibody Screen NEGATIVE 07/28/25 17:20 WBC RBC Hgb Hct MCV MCH MCHC RDW Plt Count MPV Immature Gran % (Auto) Neut % (Auto) Lymph % (Auto) [place] % (Auto) Eos % (Auto) Baso % (Auto) Lymph # (Auto) [place] # (Auto) Eos # (Auto) Baso # (Auto) Abs Immat Gran (auto) Absolute Neuts (auto) Absolute Nucleated RBC Nucleated RBC % (auto) ESR PT INR aPTT Heparin Protocol 94.1 H D Sodium Potassium Chloride Carbon Dioxide Anion Gap BUN Creatinine Estim Creat Clear Calc Estimated GFR Random Glucose Haptoglobin Calcium Ferritin Total Bilirubin AST ALT Alkaline Phosphatase Lactate Dehydrogenase Total Protein Albumin Carcinoembryonic Ag Random Vancomycin Proteinase 3 (PR3) Ab Myeloperoxidase Ab Blood Type Antibody Screen Discharge Plan Discharge Anticipated Discharge Date/Time: 07/28/25 18:15 Patient Disposition: [facility] Discharge Diagnosis: Valvular vegetations, sepsis & night sweats of undetermined etiology [facility]errals: [facility] [Primary Care Provider, Primary Care] - 1 Week Discharge Medications: Continued ascorbic acid (vitamin C) [Vitamin C] 500 mg Tablet 500 mg PO DAILY omeprazole 20 mg capsule,delayed release(DR/EC) 20 mg PO DAILY@0630 multivitamin Tablet 1 tab PO DAILY thiamine HCl (vitamin B1) 100 mg tablet 100 mg PO DAILY Qty: 90 2RF magnesium oxide 400 mg (241.3 mg magnesium) tablet 400 mg PO DAILY Qty: 90 2RF cholecalciferol (vitamin D3) 50 mcg (2,000 unit) capsule 50 mcg PO DAILY Qty: 90 3RF Discharge Orders: Discharge Order (Routine); Ordered 07/28/25 Ordered By: Glenn Hall Diet: Advance to usual diet Activity on Discharge: As tolerated Stand Alone Forms: Patient Portal Discharge page Print Language: Hungarian Care Plan Goals: As above Health Concerns: As above Plan of Treatment: As above Assessment: As above
[2025-07-30 12:53] LABS: Phosphatidylethanol 16:0-18:1 Negative
[2025-07-30 12:54] LABS: Phosphatidylethanol 16:0-18:2 Negative
[2025-07-30 22:14] LABS: Anti Nuclear Antibody Pattern Nuclear, Speckled; Anti Nuclear Antibody Screen POSITIVE (NEGATIVE); Anti Nuclear Antibody Titer 1:160 titer
[2025-07-31 19:09] LABS: Leptospira DNA Source URINE; Leptospira DNA, Qual RT-PCR NOT DETECTED
[2025-08-01] MEDS: Lidocaine HCl 1 % MPF 5 ML VIAL SUBCUT (12:15)
== END 2025-07-28 18:21 | disposition short-term general hospital (02) | DRG 720 ==
LOC: HO.ED 15:15 → HO.EDOVER 17:20 → HO.S3 17:29 → HO.IMC 07-25 13:04
PROVIDERS: Internal Medicine; Nurse Practitioner Family; Surgery; Admitting Provider Hospitalist; Emergency Provider Emergency Medicine; Visit Provider Hospitalist
DX: A41.9 Sepsis, unspecified organism (principal); I33.0 Acute and subacute infective endocarditis; E87.21 Acute metabolic acidosis; R64 Cachexia; K70.31 Alcoholic cirrhosis of liver with ascites; I51.3 Intracardiac thrombosis, not elsewhere classified; D50.9 Iron deficiency anemia, unspecified; F10.21 Alcohol dependence, in remission; K70.11 Alcoholic hepatitis with ascites; F17.210 Nicotine dependence, cigarettes, uncomplicated; R68.0 Hypothermia, not associated with low environmental temperature; Z20.822 Contact with and (suspected) exposure to COVID-19; Z68.21 Body mass index [BMI] 21.0-21.9, adult; Z71.6 Tobacco abuse counseling; Z79.899 Other long term (current) drug therapy
CPT/HCPCS: 36415; 49083; 70487; 71045; 71250; 74160; 74174; 74177; 74181; 74183; 80048; 80053; 80202; 80321; 81001; 82248; 82378; 82533; 82550; 82607; 82728; 82746; 82947; 83010; 83540; 83605; 83615; 83690; 84439; 84443; 85007; 85025; 85027; 85610; 85652; 85730; 86021; 86038; 86039; 86060; 86140; 86141; 86146; 86147; 86301; 86611; 86704; 86706; 86709; 86780; 86803; 86850; 86900; 86901; 87040; 87070; 87073; 87205; 87340; 87389; 87468; 87469; 87478; 87484; 87507; 87637; 87798; 89051; 93005; 93306; 97161; 99285; A9585; C1729; J0692; J0696; J1644; J2003; J2470; J2543; J3374; J7120; P9047; Q9957; Q9967

== ENCOUNTER → 2025-07-23 12:35 | Outpatient (BNV) | payer MEDICAID, SELFPAY | PROVIDERS: Emergency Provider Emergency Medicine; Visit Provider Radiology Diagnostic Radiology | DX: K76.89 Other specified diseases of liver (principal); R18.8 Other ascites | CPT/HCPCS: 74177 ==

== ENCOUNTER → 2025-07-23 13:37 | Outpatient (BNV) | payer MEDICAID, SELFPAY | PROVIDERS: Emergency Provider Emergency Medicine; Visit Provider Hospitalist | DX: K70.30 Alcoholic cirrhosis of liver without ascites (principal); A41.9 Sepsis, unspecified organism; R65.20 Severe sepsis without septic shock; E87.6 Hypokalemia; E87.20 Acidosis, unspecified; R50.9 Fever, unspecified; D63.8 Anemia in other chronic diseases classified elsewhere; R68.81 Early satiety | CPT/HCPCS: 99223 ==

== ENCOUNTER 2025-07-23 17:08 | Outpatient (BNV) | payer MEDICAID, SELFPAY | END 2025-07-26 10:11 | PROVIDERS: Admitting Provider Hospitalist; Emergency Provider Emergency Medicine; Visit Provider Radiology Diagnostic Radiology | DX: K76.89 Other specified diseases of liver (principal); K74.60 Unspecified cirrhosis of liver; J98.11 Atelectasis; I25.84 Coronary atherosclerosis due to calcified coronary lesion | CPT/HCPCS: 71250; 74160 ==

== ENCOUNTER 2025-07-23 17:08 | Outpatient (BNV) | payer MEDICAID, SELFPAY | END 2025-07-24 19:49 | PROVIDERS: Admitting Provider Hospitalist; Emergency Provider Emergency Medicine; Visit Provider Radiology Diagnostic Radiology | DX: K56.699 Other intestinal obstruction unspecified as to partial versus complete obstruction (principal); E87.1 Hypo-osmolality and hyponatremia; R18.8 Other ascites; K74.60 Unspecified cirrhosis of liver; J90 Pleural effusion, not elsewhere classified | CPT/HCPCS: 74174 ==

== ENCOUNTER 2025-07-23 17:08 | Outpatient (BNV) | payer MEDICAID, SELFPAY | END 2025-07-25 07:00 | PROVIDERS: Admitting Provider Hospitalist; Emergency Provider Emergency Medicine; Visit Provider Internal Medicine Cardiovascular Disease | DX: I77.810 Thoracic aortic ectasia (principal) | CPT/HCPCS: 93306 ==

== ENCOUNTER 2025-07-23 17:08 | Outpatient (BNV) | payer MEDICAID, SELFPAY | END 2025-07-27 14:33 | PROVIDERS: Admitting Provider Hospitalist; Emergency Provider Emergency Medicine; Visit Provider Radiology Diagnostic Radiology | DX: R18.8 Other ascites (principal); R50.9 Fever, unspecified; R94.5 Abnormal results of liver function studies; J90 Pleural effusion, not elsewhere classified; K80.20 Calculus of gallbladder without cholecystitis without obstruction | CPT/HCPCS: 49083; 74181; 74183 ==

== ENCOUNTER 2025-07-23 17:08 | Outpatient (BNV) | payer MEDICAID, SELFPAY | END 2025-07-23 18:39 | PROVIDERS: Admitting Provider Hospitalist; Emergency Provider Emergency Medicine; Visit Provider Internal Medicine Cardiovascular Disease | DX: R00.0 Tachycardia, unspecified (principal); I49.1 Atrial premature depolarization | CPT/HCPCS: 93010 ==

== ENCOUNTER → 2025-07-23 17:08 | Outpatient (BNV) | payer MEDICAID, SELFPAY | PROVIDERS: Admitting Provider Hospitalist; Emergency Provider Emergency Medicine; Visit Provider Internal Medicine Cardiovascular Disease | DX: I51.89 Other ill-defined heart diseases (principal); I33.0 Acute and subacute infective endocarditis; K70.30 Alcoholic cirrhosis of liver without ascites; R63.0 Anorexia; R61 Generalized hyperhidrosis | CPT/HCPCS: 99233 ==

== ENCOUNTER → 2025-07-23 17:08 | Outpatient (BNV) | payer MEDICAID, SELFPAY | PROVIDERS: Admitting Provider Hospitalist; Emergency Provider Emergency Medicine; Visit Provider Registered Nurse Community Health | DX: R06.00 Dyspnea, unspecified (principal); R61 Generalized hyperhidrosis; R00.2 Palpitations; R53.1 Weakness | CPT/HCPCS: 99232 ==

== ENCOUNTER → 2025-07-23 17:08 | Outpatient (BNV) | payer MEDICAID, SELFPAY | PROVIDERS: Admitting Provider Hospitalist; Emergency Provider Emergency Medicine; Visit Provider Internal Medicine | DX: Q45.3 Other congenital malformations of pancreas and pancreatic duct (principal); R19.7 Diarrhea, unspecified | CPT/HCPCS: 99232 ==

== ENCOUNTER → 2025-07-23 17:08 | Outpatient (BNV) | payer MEDICAID, SELFPAY | PROVIDERS: Admitting Provider Hospitalist; Emergency Provider Emergency Medicine; Visit Provider Internal Medicine | DX: D61.818 Other pancytopenia (principal) | CPT/HCPCS: 99222 ==

== ENCOUNTER → 2025-07-23 17:08 | Outpatient (BNV) | payer MEDICAID, SELFPAY | PROVIDERS: Admitting Provider Hospitalist; Emergency Provider Emergency Medicine; Visit Provider Surgery | DX: E87.6 Hypokalemia (principal); K63.9 Disease of intestine, unspecified; K70.30 Alcoholic cirrhosis of liver without ascites; K56.0 Paralytic ileus | CPT/HCPCS: 99222 ==

== ENCOUNTER → 2025-07-23 17:08 | Outpatient (BNV) | payer MEDICAID, SELFPAY | PROVIDERS: Admitting Provider Hospitalist; Emergency Provider Emergency Medicine; Visit Provider Internal Medicine | DX: Q45.3 Other congenital malformations of pancreas and pancreatic duct (principal); K56.0 Paralytic ileus; R19.7 Diarrhea, unspecified; K63.9 Disease of intestine, unspecified; K70.30 Alcoholic cirrhosis of liver without ascites; R17 Unspecified jaundice; E87.20 Acidosis, unspecified; A41.9 Sepsis, unspecified organism; R65.20 Severe sepsis without septic shock; R53.83 Other fatigue | CPT/HCPCS: 99233 ==